=== PATIENT | female | born 1960 | race Caucasian/White ===

== ENCOUNTER → 2023-08-30 06:57 | Outpatient (REF) | payer BC, SELFPAY | LOC: MRI 06:57 | PROVIDERS: ATTENDING PHYSICIAN Physician Assistant Medical; FAMILY PHYSICIAN Physician Assistant Medical | DX: M25.561 Pain in right knee (principal) | CPT/HCPCS: 73721 ==

== ENCOUNTER 2023-09-13 06:24 | Day surgery (SDC) | payer BC, SELFPAY ==
[2023-09-10 13:42] VITALS: BMI 30.8
[2023-09-10 14:18] LABS: Hematocrit 39.3 % (37.0-47.0); Hemoglobin 13.7 g/dL (12.0-16.0); Mean Corp Hgb Conc. 34.9 g/dL (33.0-37.0); Mean Corpuscular Hgb 32.9 pg (27.0-31.0); Mean Corpuscular Volume 94.5 fL (81.0-99.0); Mean Platelet Volume 9.7 fL (7.4-10.4); Platelet Count 242 10^3/uL (130-400); Red Blood Cell Count 4.16 10^6/uL (4.20-5.40); Red Cell Dist. Width 13.3 % (11.5-14.5); White Blood Cell Count 8.6 10^3/uL (4.8-10.8)
--- NOTE | 2023-09-10 16:04 | PTCARENOTE ---
reviewed preop ECG from today; no actions requested.
[2023-09-13] VITALS (7 sets, daily range): BP systolic 110–131; BP diastolic 68–91; BMI 30.8
[2023-09-13] MEDS: NORMOSOL-R 1000 IV (10:10)
[2023-09-13] MEDS: CELEBREX 200 MG PO (10:11)
[2023-09-13] MEDS: TYLENOL 1000 MG PO (10:12)
[2023-09-13] MEDS: DILAUDID 0.25 MG IV (13:07)
== END 2023-09-13 15:05 | disposition home or self-care (01) ==
LOC: SDS 06:24
PROVIDERS: ATTENDING PHYSICIAN Orthopaedic Surgery; FAMILY PHYSICIAN Physician Assistant Medical
DX: S83.231A Complex tear of medial meniscus, current injury, right knee, initial encounter (principal); X58.XXXA Exposure to other specified factors, initial encounter; Z86.711 Personal history of pulmonary embolism
CPT/HCPCS: 29881; 36415; 85027; 93005

== ENCOUNTER → 2024-03-11 06:53 | Outpatient (REF) | payer BC, SELFPAY ==
[2024-03-11 07:19] LABS: % Basophils 0.9 % (0-2); % Immature Granulocytes 0.3 % (0-0.5); % Lymphocytes 29.1 % (20.5-51.1); % Monocytes 11.7 % (1.7-9.3); Absolute Basophils 0.1 10^3/uL (0-0.2); Absolute Eosinophils 0.2 10^3/uL (0-0.7); Absolute Lymphocytes 1.7 10^3/uL (1.2-3.4); Absolute Monocytes 0.7 10^3/uL (0.1-0.6); Absolute Neutrophils 3.2 10^3/uL (1.4-6.5); Hematocrit 37.6 % (37.0-47.0); Hemoglobin 12.7 g/dL (12.0-16.0); Mean Corp Hgb Conc. 33.8 g/dL (33.0-37.0); Mean Corpuscular Hgb 31.8 pg (27.0-31.0); Mean Corpuscular Volume 94.2 fL (81.0-99.0); Mean Platelet Volume 9.4 fL (7.4-10.4); Nucleated Red Blood Cells % 0 %; Platelet Count 226 10^3/uL (130-400); Red Blood Cell Count 3.99 10^6/uL (4.20-5.40); Red Cell Dist. Width 12.6 % (11.5-14.5); White Blood Cell Count 5.7 10^3/uL (4.8-10.8)
[2024-03-11 07:58] LABS: ALT (SGPT) 19 U/L (0-35); AST (SGOT) 28 U/L (14-36); Albumin 4.4 g/dl (3.5-5.0); Alkaline Phosphatase 59 U/L (38-126); Blood Urea Nitrogen 16 mg/dl (7-17); Calcium 9.3 mg/dl (8.4-10.2); Carbon Dioxide 25 mmol/L (22-30); Chloride 105 mmol/L (98-107); Glucose 95 mg/dl (70-99); HDL Cholesterol 81 mg/dl; LDL Cholesterol, Calculated 134 mg/dl; Potassium 4.6 mmol/L (3.5-5.1); Sodium 142 mmol/L (135-145); Total Bilirubin 0.6 mg/dl (0.2-1.3); Total Cholesterol 231 mg/dl (50-199); Total Protein 7.5 g/dl (6.3-8.2); Triglyceride 80 mg/dl (10-149); Very Low Density Lipoprotein 16 mg/dl (0-30); eGFR > 60.00
[2024-03-11 08:16] LABS: TSH 0.16 uIU/ml (0.47-4.68)
== END ==
LOC: REG 06:53
PROVIDERS: ATTENDING PHYSICIAN Internal Medicine; FAMILY PHYSICIAN Physician Assistant Medical
DX: Z00.00 Encounter for general adult medical examination without abnormal findings (principal); E03.9 Hypothyroidism, unspecified
CPT/HCPCS: 36415; 80053; 80061; 84443; 85025

== ENCOUNTER 2024-06-11 10:08 | Inpatient (IN) | payer BC, SELFPAY ==
[2024-06-11] VITALS (18 sets, daily range): BP systolic 96–137; BP diastolic 67–109
--- NOTE | 2024-06-11 07:43 | ED.GENMED ---
History of Present Illness
General
Chief Complaint: Breathing Problem
Source: patient
Exam Limitations: none
Time Seen by Provider: 06/11/24 07:33
Nursing documentation reviewed up to this point in time: agreed with
History of Present Illness
History of Present Illness:
64-year-old female with past medical history of interstitial lung disease who presents to the emergency department for evaluation of cough and shortness of breath. Patient reports that unfortunately she had norovirus a few weeks ago with
nausea/vomiting/diarrhea�the symptoms resolved in about 3 to 4 days ago unfortunately patient started becoming ill again this time with cough. She says symptoms worsened and she was having shortness of breath and so she went to urgent care on
Sunday. There she said she was diagnosed with pneumonia and told that she had crackles in her lungs. She did not have a chest x-ray but she was treated empirically with cephalexin and azithromycin which she has taken x 3 days; despite these
interventions she says that symptoms have been worsening and she was having increasing shortness of breath particularly with exertion, this morning could not breathe and called EMS to bring her to the hospital. Per EMS on their arrival patient was
hypoxic and mildly cyanotic, tachypneic; she was placed on oxygen with improvement. She was transported to the emergency room.
Past History
Past History
ED Past Medical History: Hypothyroidism
ED Past Surgical History:
Social History
Tobacco: Non-smoker
Review of Systems
Review of Systems
All Other Systems: ROS reviewed and negative except as documented in HPI and ROS
Constitutional: Denies fever or chills
EENT: Denies sore throat
Respiratory: Reports cough and trouble breathing
Cardiac: Denies chest pain or palpitations
ABD/GI: Denies abdominal pain, nausea, vomiting or diarrhea
: Denies flank pain
Musculoskeletal: Denies neck pain or back pain
Neurological: Denies headache
Phy Exam
Physical Exam
Physical Exam:
General: Awake, alert, oriented x3; nontoxic
Head: Normocephalic, atraumatic
Eyes: Conjunctiva normal
Throat: Airway intact, handling secretions
Neck: Trachea midline, supple without meningismus
Lungs: Hypoxic in the 80s requiring 3 L nasal cannula; she is tachypneic with respiratory rates in the high 20s but she has no increased work of breathing; she has rales at the right greater than left lung base
Heart: Tachycardia with regular rhythm, no murmurs, gallops, or rubs
Abd: Soft, non distended, nontender
Neuro: No gross deficits
Extremities: No edema in extremities, equal pulses in all extremities
Scores
Heart Failure Risk
Heart Failure Risk Score: Not Applicable
Heart Score for Chest Pain Patients
STEMI patient?: Not applicable
Withdrawal Assessment of Alcohol
Withdrawal Assessment Completed?: Not applicable
Course
Orders/Labs/Results
Orders:
Orders
06/11/24 07:19
Electrocardiogram (*1) Urgent
Reason for Study: Chest Pain
Cardiac Monitoring- Treatment ONCE
06/11/24 07:20
EKG- Treatment ONCE
06/11/24 07:42
COVID-19 Antigen Urgent
Source: Nasal Swab
Complete Blood Count/With Diff Urgent
Comprehensive Metabolic Panel Urgent
Troponin I Urgent
Influenza A+B Rapid Molecular Urgent
SALO Source: Nasal Swab
Specimen Description:
CR Chest - 2 Views Urgent
Comment:
Reason For Exam: cough, hypoxia
06/11/24 07:47
Lactate Level [Lactic Acid] Urgent
06/11/24 08:00
Blood Culture Q30M
SALO Source: Blood/Venous
Specimen Description:
06/11/24 08:30
Blood Culture Q30M
SALO Source: Blood/Venous
Specimen Description:
Abnormal Lab Results
06/11/24
07:42
WBC 17.4 H 10^3/uL
(4.8-10.8)
RBC 3.62 L 10^6/uL
(4.20-5.40)
Hct 33.7 L %
(37.0-47.0)
MCH 33.1 H pg
(27.0-31.0)
Abs Immat Gran (auto) 0.1 H 10^3/uL
(0-0.05)
Absolute Neuts (auto) 14.7 H 10^3/uL
(1.4-6.5)
Absolute Lymphs (auto) 1.1 L 10^3/uL
(1.2-3.4)
Absolute Monos (auto) 1.4 H 10^3/uL
(0.1-0.6)
Neutrophils % 85.0 H %
(42.2-75.2)
Lymphocytes % 6.1 L %
(20.5-51.1)
Sodium 134 L mmol/L
(135-145)
Carbon Dioxide 21 L mmol/L
(22-30)
Glucose 126 H mg/dl
(70-99)
06/11/24 07:42
06/11/24 07:42
Vital Signs
Initial and Last Documented VS:
Initial Vital Signs
Pulse Ox
85
06/11/24 07:21
Last Documented Vital Signs
Temp Pulse Resp BP Pulse Ox
36.9 C 97 28 118/77 96
06/11/24 07:22 06/11/24 07:30 06/11/24 07:34 06/11/24 07:24 06/11/24 07:50
MDM/Problems Addressed
Differential Diagnosis Includes:
Pneumonia, bronchitis, pneumothorax, ILD; PE considered less likely clinically
MDM/Problems Addressed:
64-year-old female presents for evaluation of cough and shortness of breath increasing despite empiric treatment for pneumonia as an outpatient. Hypoxic and tachypneic requiring supplemental oxygen. Physical exam as above�she does have localized
rales lower lungs. Will place an IV send labs including a CBC and a CMP, lactate, blood cultures. Swab for COVID and flu. Obtain chest x-ray. EKG reviewed shows nonspecific ST and T wave changes likely related to hypoxia. Will check troponin.
Monitor closely reassess after the above.
Labs reviewed: CBC shows a leukocytosis to 17.4. CMP no clinically significant abnormalities. Troponin undetectable. COVID and flu negative. Chest x-ray reviewed by me shows bilateral pneumonia. Will cover with antibiotics, admit with acute
hypoxic respiratory failure and concern for possible sepsis secondary to pneumonia. Case discussed with hospitalist for admission.
*Radiology
Radiology exam reviewed: preliminary read by ED provider and radiology read reviewed
*Pulse Oximetry
Patient hypoxic: yes
*EKG
Interpreted by ED Provider?: Yes
Heart Rate: 94
Rate: normal
Rhythm: sinus
[place]: normal axis
Interval: normal interval
QRS Pattern: normal QRS
Ischemia: non-specific ST changes
*Critical Care Note
Total Time (30-74mins, 75-104mins- exclusive of procedures): 30
comment:
Critical care statement: A total of 30 minutes of critical care time was provided for this patient. This includes management of unstable vital signs, evaluation of the patient at bedside, frequent reassessment, discussion with
consultants/hospitalist, and review of pertinent medical records. This time was separate from time utilized to perform any aforementioned documented procedures
Data Reviewed
Review of Other/Old Records Reveals: Labs and Records
Source: patient and records
Patient Management
Discussion with other providers: Hospitalist (Discussed with hospitalist)
Escalation/DeEscalation of care consider admission/obs:
Admission indicated
ED Attending Note
-
Portions of this chart may have been created with voice recognition software.� Occasional wrong word or��sound alike� substitutions may have occurred due to the inherent limitations of voice recognition software.
Discharge Plan
Departure
Discharge Problem:
Acute hypoxemic respiratory failure
Prescriptions:
No Action
levothyroxine 175 MCG tablet
175 mcg PO DAILY
multivitamin with folic acid [Tab-A-Brant] 1 TABLET tablet
1 tab PO DAILY
calcium carbonate [Calcium 600] 600 mg calcium (1,500 mg) Tablet
1,200 mg PO DAILY
vitamin B complex Tablet
1 tab PO DAILY
cholecalciferol (vitamin D3) [Vitamin D3] 50 mcg (2,000 unit) Tablet
50 mcg PO DAILY
turmeric 400 mg Capsule
1 mg PO BID
acetaminophen [Tylenol Ex Str Arthritis Pain] 500 mg Tablet
500 mg PO Q6H PRN (Reason: pain)
Interventions
Interventions:
*Risk Screen - Suicide Last Done: 06/11/24 07:22
*General Assessment Last Done: 06/11/24 07:22
*Neglect/Abuse Screening Last Done: 06/11/24 07:22
ED- Fall Risk Assessment Last Done: 06/11/24 07:50
*ED COVID-19 Vaccine History Last Done: 06/11/24 07:22
ED- Cardiac Assessment Last Done: 06/11/24 07:50
ED- Pulmonary Assessment Last Done: 06/11/24 07:50
Discharge Date and Time
Print Language: ESTONIAN
[2024-06-11 07:59] LABS: % Basophils 0.4 % (0-2); % Eosinophils 0.2 % (0-6); % Immature Granulocytes 0.4 % (0-0.5); % Lymphocytes 6.1 % (20.5-51.1); % Monocytes 7.9 % (1.7-9.3); Absolute Basophils 0.1 10^3/uL (0-0.2); Absolute Immature Granulocytes 0.1 10^3/uL (0-0.05); Absolute Lymphocytes 1.1 10^3/uL (1.2-3.4); Absolute Monocytes 1.4 10^3/uL (0.1-0.6); Absolute Neutrophils 14.7 10^3/uL (1.4-6.5); Hematocrit 33.7 % (37.0-47.0); Mean Corp Hgb Conc. 35.6 g/dL (33.0-37.0); Mean Corpuscular Hgb 33.1 pg (27.0-31.0); Mean Corpuscular Volume 93.1 fL (81.0-99.0); Mean Platelet Volume 9.3 fL (7.4-10.4); Nucleated Red Blood Cells % 0 %; Platelet Count 242 10^3/uL (130-400); Red Blood Cell Count 3.62 10^6/uL (4.20-5.40); White Blood Cell Count 17.4 10^3/uL (4.8-10.8)
[2024-06-11 08:06] LABS: COVID-19 Antigen Negative (Negative)
[2024-06-11 08:08] LABS: ALT (SGPT) 20 U/L (0-35); AST (SGOT) 32 U/L (14-36); Albumin 4.1 g/dl (3.5-5.0); Alkaline Phosphatase 86 U/L (38-126); Blood Urea Nitrogen 10 mg/dl (7-17); Carbon Dioxide 21 mmol/L (22-30); Chloride 101 mmol/L (98-107); Estimated Creatinine Clearance 96 ml/min; Glucose 126 mg/dl (70-99); Potassium 4.2 mmol/L (3.5-5.1); Sodium 134 mmol/L (135-145); Total Bilirubin 1.1 mg/dl (0.2-1.3); Total Protein 7.7 g/dl (6.3-8.2); eGFR > 60.00
[2024-06-11 08:19] LABS: Troponin I < 0.012 ng/ml
[2024-06-11] MEDS: NSS 1000 IV (09:15)
[2024-06-11] MEDS: MAXIPIME 1000 MG IV (09:30)
--- NOTE | 2024-06-11 09:30 | HPS.HSE ---
Family Physician
-
Family Physician: Rafiq Slater MD
Chief Complaint
-
cough, SOB
History of Present Illness
HPI: 64-year-old female with past medical history of interstitial lung disease, distant history of provoked PE, p/w cough and shortness of breath.
Patient reported that she had norovirus a few weeks ago with nausea/vomiting/diarrhea� symptoms resolved in about 3 to 4 days ago, but she started having cough and SOB. She went to urgent care on Sunday and was diagnosed with pneumonia. She did not
have a chest x-ray but she was treated empirically with cephalexin and azithromycin which she has taken x 3 days.
Despite these interventions, her symptoms have gotten worse.
In the morning, she could not breathe and called EMS to bring her to the hospital.
Per EMS on their arrival patient was hypoxic and mildly cyanotic, tachypneic; she was placed on oxygen with improvement.
Medical History
Past Medical History
Past Medical History: Reports Other
Additional Past Medical History:
Interstitial lung disease
distant history of provoked PE
Past Surgical History: Reports Other
Additional Past Surgical History:
L ankle surgery
C section
Social History
Tobacco: Non-smoker
Alcohol: Occasional
Family History
Family History: Not pertinent
Allergies / Home Medications
Allergies reflects when Allergies were last updated in [facility].
Home Medications with original date entered in [facility]
Allergy/Medication List:
Medications on admission are unable to be verified or confirmed at this time.
Review of Systems
-
Respiratory: Reports See HPI, Cough and Trouble Breathing
Physical Exam
Vital Signs
Vital Signs
Temp Pulse Resp BP Pulse Ox
36.9 C 97 28 118/77 96
06/11/24 07:22 06/11/24 07:30 06/11/24 07:34 06/11/24 07:24 06/11/24 07:50
Physical Exam
General: Well Developed, Well Nourished, Comfortable and Conversant
HEENT: NormoCephalic, Moist mucous membranes, Atraumatic and Oxygen (3L NC)
Respiratory: Crackles (BL bases) and Non Labored Respirations; No Accessory Resp Muscle Use
Cardiac: S1/S2 and Regular Rhythm; No Murmur or Rub
GI: Soft, Non Tender, Non Distended and Normal Bowel Sounds; No Organomegaly
Rectal: Deferred by Provider
Musculoskeletal: No Clubbing, No Cyanosis and No Edema
Skin: No Rash
Neuro: Awake and Alert
Psych: Calm and Intact Judgment/Insight
Laboratory Results
-
06/11/24 07:42
06/11/24 07:42
Laboratory Results
Total Bilirubin 1.1 mg/dl (0.2-1.3) 06/11/24 07:42
AST 32 U/L (14-36) 06/11/24 07:42
ALT 20 U/L (0-35) 06/11/24 07:42
Alkaline Phosphatase 86 U/L (38-126) 06/11/24 07:42
Troponin I < 0.012 ng/ml 06/11/24 07:42
Data Reviewed
-
Diagnostic Radiology: Image Personally Visualized and interpreted
Lab Data: Labs Reviewed by me
Impression/Plan
-
HPI: 64-year-old female with past medical history of interstitial lung disease, distant history of provoked PE, p/w cough and shortness of breath.
Patient reported that she had norovirus a few weeks ago with nausea/vomiting/diarrhea� symptoms resolved in about 3 to 4 days ago, but she started having cough and SOB. She went to urgent care on Sunday and was diagnosed with pneumonia. She did not
have a chest x-ray but she was treated empirically with cephalexin and azithromycin which she has taken x 3 days.
Despite these interventions, her symptoms have gotten worse.
In the morning, she could not breathe and called EMS to bring her to the hospital.
Per EMS on their arrival patient was hypoxic and mildly cyanotic, tachypneic; she was placed on oxygen with improvement.
A/P:
# Acute hypoxic respiratory insufficiency 2/2 CAP
# sepsis POA 2/2 BL CAP
CXR on my view with BL PNA, follow formal report
COVID/FLU negative
Cont O2 support at 3L NC, wean as tolerated, pt not on home O2
Check sputum Cx, urine Legionella/Strep, MRSA screen
Follow blood culture
s/p cefepime/Vanc in ED, cont Cefepime/doxycycline
Cont Duonebs ATC and PRN, Tessalon ATC, Mucinex
# Mild hyponatremia due to above
# h/o ILD
# distant history of provoked PE followed by ankle surgery 2016
DVT ppx: Lovenox SQ
FC
[2024-06-11 09:32] LABS: Lactic Acid 1.2 mmol/L (0.7-2.0)
--- NOTE | 2024-06-11 09:37 | EDRN ---
phamacist called to mix and send vacocin at this time.
--- NOTE | 2024-06-11 09:44 | EDRN ---
Dr. Dan in room w/pt at this time.
[2024-06-11] MEDS: VANCOCIN 540 MG IV (10:38)
[2024-06-11] MEDS: TESSALON PERLES 100 MG PO ×3 (12:16→20:45)
[2024-06-11] MEDS: DUONEB 3 ML INH ×2 (15:41→19:39)
--- NOTE | 2024-06-11 15:42 | EDRN ---
Resp therapist in room w/ pt for neb treatment.
[2024-06-11] MEDS: VIBRAMYCIN 260 MG IV (16:16)
[2024-06-11] MEDS: STERILE WATER FOR INJECTION 10 ML IV (17:39)
[2024-06-11] MEDS: LOVENOX 40 MG SC (17:39)
[2024-06-11] MEDS: MAXIPIME 2000 MG IV (17:39)
[2024-06-11] MEDS: TYLENOL 500 MG PO (19:18)
[2024-06-11] MEDS: MUCINEX 1200 MG PO (19:18)
[2024-06-12] VITALS (9 sets, daily range): BP systolic 101–134; BP diastolic 71–93
[2024-06-12] MEDS: MAXIPIME 2000 MG IV ×3 (03:00→17:54)
[2024-06-12] MEDS: STERILE WATER FOR INJECTION 10 ML IV ×3 (03:00→17:53)
[2024-06-12] MEDS: VIBRAMYCIN 260 MG IV (03:03)
[2024-06-12] MEDS: SYNTHROID 137 MCG PO (05:27)
[2024-06-12] MEDS: TYLENOL 500 MG PO ×2 (05:27→20:47)
[2024-06-12] MEDS: PHENERGAN SYRUP 12.5 MG PO (05:48)
[2024-06-12] MEDS: DUONEB 3 ML INH ×4 (07:29→19:55)
--- NOTE | 2024-06-12 08:31 | W.PN.HOSP.TC ---
Today's Communication/Plan
-
see A/P
Upgrade to IMU for worsening hypoxia, now with acute hypoxic resp failure on 10L mid flow
Assessment / Plan
Assessment / Plan
HPI: 64-year-old female with past medical history of interstitial lung disease, distant history of provoked PE, p/w cough and shortness of breath.
Patient reported that she had norovirus a few weeks ago with nausea/vomiting/diarrhea� symptoms resolved in about 3 to 4 days ago, but she started having cough and SOB. She went to urgent care on Sunday and was diagnosed with pneumonia. She did not
have a chest x-ray but she was treated empirically with cephalexin and azithromycin which she has taken x 3 days.
Despite these interventions, her symptoms have gotten worse.
In the morning, she could not breathe and called EMS to bring her to the hospital.
Per EMS on their arrival patient was hypoxic and mildly cyanotic, tachypneic; she was placed on oxygen with improvement.
A/P:
# Acute hypoxic respiratory failure 2/2 CAP with underlying chronic ILD
# sepsis POA 2/2 BL CAP
CXR: Chronic interstitial lung disease/fibrosis, progressed. Possible superimposed left-sided pneumonia.
Cont O2 support, increased to 10L mid flow due to worsening hypoxia,
wean O2 when able, pt not on home O2
Check CT PE
Cont Cefepime/doxycycline
Add empiric Decadron 4 mg Q8H for underlying ILD
COVID/FLU negative
Follow sputum Cx, urine Legionella/Strep, MRSA screen, blood culture
Cont Duonebs ATC and PRN, Tessalon ATC, Mucinex
Pulm CS
# Mild hyponatremia due to above
# h/o ILD
# distant history of provoked PE followed by ankle surgery 2015
DVT ppx: Lovenox SQ
FC
CC Mx for acute hypoxic resp failure
CC time 40 min
Anticipated Discharge: > 48 hours
Subjective/Interval History
-
Date of Service: June 12, 2024
Objective Data
-
Labs:
Laboratory Results
06/12/24
06:18
WBC Pending
Hgb Pending
Hct Pending
Plt Count Pending
Sodium Pending
Potassium Pending
Chloride Pending
Carbon Dioxide Pending
BUN Pending
Creatinine Pending
Glucose Pending
Calcium Pending
Vital Signs:
Vital Signs
Temp Pulse Resp BP Pulse Ox
36.9 C 96 25 101/71 91
06/12/24 07:30 06/12/24 07:37 06/12/24 07:37 06/12/24 07:30 06/12/24 07:37
I&O
06/11/24 06/12/24 06/13/24
06:59 06:59 06:59
Intake Total 980 / 980
Output Total 250 / 250
Balance 730 / 730
Review of Systems
-
Respiratory: Reports Trouble Breathing
Physical Exam
-
General: Well Developed, Well Nourished, Respiratory Distress and Conversant
HEENT: Normocephalic, Atraumatic, Nose Appears Normal, Ears Appear Normal and Oxygen (10L midflow )
Respiratory: Clear to Auscultation and Non Labored Respirations
Cardiac: Regular Rhythm and S1/S2
GI: Soft, Nontender, Nondistended and Normal Bowel Sounds
Skin: Warm and Dry
Neuro: Awake, Alert, Oriented and AO x 3
Psych: Calm and Intact Judgement/Insight
Data Reviewed
-
Diagnostic Radiology: Image personally visualized and interpreted and Report Reviewed by me
Labs: Labs Reviewed by me
[2024-06-12 08:36] LABS: % Basophils 0.4 % (0-2); % Eosinophils 0.3 % (0-6); % Immature Granulocytes 0.5 % (0-0.5); % Lymphocytes 5.9 % (20.5-51.1); % Monocytes 8.1 % (1.7-9.3); % Neutrophils 84.8 % (42.2-75.2); Absolute Basophils 0.1 10^3/uL (0-0.2); Absolute Eosinophils 0.1 10^3/uL (0-0.7); Absolute Immature Granulocytes 0.1 10^3/uL (0-0.05); Absolute Lymphocytes 0.9 10^3/uL (1.2-3.4); Absolute Monocytes 1.2 10^3/uL (0.1-0.6); Absolute Neutrophils 12.8 10^3/uL (1.4-6.5); Hematocrit 30.7 % (37.0-47.0); Hemoglobin 10.6 g/dL (12.0-16.0); Mean Corp Hgb Conc. 34.5 g/dL (33.0-37.0); Mean Corpuscular Hgb 33.4 pg (27.0-31.0); Mean Corpuscular Volume 96.8 fL (81.0-99.0); Mean Platelet Volume 9.9 fL (7.4-10.4); Nucleated Red Blood Cells % 0 %; Platelet Count 237 10^3/uL (130-400); Red Blood Cell Count 3.17 10^6/uL (4.20-5.40); Red Cell Dist. Width 13.2 % (11.5-14.5)
[2024-06-12] MEDS: MUCINEX 1200 MG PO ×2 (08:55→20:45)
[2024-06-12] MEDS: TESSALON PERLES 100 MG PO ×3 (08:56→20:45)
[2024-06-12] MEDS: DECADRON 4 MG IV ×3 (08:57→20:45)
[2024-06-12 10:41] LABS: Blood Urea Nitrogen 8 mg/dl (7-17); Calcium 8.3 mg/dl (8.4-10.2); Carbon Dioxide 19 mmol/L (22-30); Chloride 105 mmol/L (98-107); Estimated Creatinine Clearance 112 ml/min; Glucose 117 mg/dl (70-99); Sodium 136 mmol/L (135-145); eGFR > 60.00
--- NOTE | 2024-06-12 10:52 | CM ---
Pt seen bedside. Initial assessment completed. 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
Pt lives alone in a single story home-2 steps to enter.
Pt is independent, denies DME use for ambulating or daily functioning
Denies SNF/VN/PT. Pt did engage in OP therapy at 2 years ago when she broke her ankle
Address, point of contact and insurance verified.
PCP: Dr. Rafiq Slater
Pharmacy: [facility]
Pt currently on 10 L O2, not on home O2
Pending transfer to IMU for worsening hypoxia
Plan: CM will cont to follow hospital course for d/c planning.
[2024-06-12 11:07] LABS: Hepatitis C Antibody Negative (Negative)
--- NOTE | 2024-06-12 11:11 | PTCARENOTE ---
Report given to Regina on IMU. Pt to be transferred there. Pt at CT scan at present.
--- NOTE | 2024-06-12 11:23 | CON.PUL ---
Consultation
Consultation Request
Date/Time Consultation Requested: 06/12/2020
Date/Time Consultation Performed: 06/12/2020
Requesting Provider: Dr. Dan
Performing Provider: Dr. Benedicto Stringer
Reason for Consultation: Hypoxemic respiratory failure, pneumonia
Medical History
-
History of Present Illness:
-
64-year-old woman with past medical history of interstitial disease based on CAT scan from 2022-never seen by pulmonary in the recent past, distant history of provoked pulmonary embolism in 2016, admitted to the hospital on 06/11/2024 complaining of
cough and shortness of breath. Patient has history of having norovirus few weeks ago with nausea, vomiting and significant diarrhea symptoms resolved after few days. Then subsequently she started developing cough and shortness of breath. Last
Sunday went to urgent care and she was diagnosed with pneumonia. No x-ray was performed but was treated with antibiotics cephalexin and azithromycin.
Symptoms progressed despite antibiotics.
Shortness of breath progressed to the point that EMS was called and she was sent to the hospital. She was hypoxic, cyanotic and tachypneic on evaluation at home.
Oxygen was supplied.
Chest x-ray demonstrated bilateral infiltrates. Significantly worse compared to prior imaging.
She was noted to have leukocytosis, low-grade fevers also noted.
Due to worsening hypoxemia requiring up to 10 L supplemental oxygen we were consulted for evaluation.
Prior to this patient never had any significant pulmonary problems. It is noted in W that she has an appointment with pulmonary next year for evaluation of interstitial lung disease seen on CAT scan in July 2022.
Denies swallowing problems.
Denies hemoptysis
Denies any rash
Denies arthritis
-
She does report her shortness of breath started about 2 to 3 months ago.
Does report significant worsening of symptoms after developing norovirus. Possible aspiration.
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 Has been going on for several weeks.
-
[facility] records recommended pulmonary follow-up last year. She has an appointmentScheduled for July 2024 in our office.
It is noted in cardiology note that the patient was not significantly short of breath -able to perform 4 METS without symptoms.
Past Medical History
Past Medical History: Other (See assessment and plan)
Social History
Tobacco: Non-smoker
Alcohol: Daily (Wine 1 to 2 glass)
Drug: None
Personal:
Living: With Family
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
Occupational Exposures: Denies
Environmental Exposures: Denies
Family History
Family History: Reviewed & Not Pertinent
Allergies / Home Medications
Allergies
Allergy/AdvReac Type Severity Reaction Status Date / Time
No Known Allergies Allergy Verified 06/11/24 07:20
Home Medications
�Medication �Instructions �Recorded �Confirmed �Last Taken �Type
calcium carbonate (Calcium 600) 600 mg PO DAILY Supplement 09/07/23 06/11/24 09/11/23 History
cholecalciferol (vitamin D3) 50 50 mcg PO DAILY Supplement 09/07/23 06/11/24 09/07/23 History
mcg (2,000 unit) tablet (Vitamin
D3)
albuterol sulfate 90 mcg/actuation 2 puff inhalation R Q4HPRN PRN sob 06/11/24 06/11/24 06/10/24 History
aerosol inhaler
ascorbate calcium (vitamin C) 500 500 mg PO DAILY Supplement 06/11/24 06/11/24 06/10/24 History
mg tablet
azithromycin 250 mg tablet 250 mg PO DAILY Infection 06/11/24 06/11/24 06/10/24 History
(Zithromax Z-Jose D)
cefpodoxime 200 mg tablet 200 mg PO Q12H Infection 06/11/24 06/11/24 06/10/24 History
levothyroxine 137 mcg tablet 137 mcg PO DAILY Thyroid 06/11/24 06/11/24 06/11/24 History
therapeutic multivitamin 1 tab PO DAILY Supplement 06/11/24 06/11/24 06/10/24 History
zinc sulfate 50 mg zinc (220 mg) 50 mg PO DAILY Supplement 06/11/24 06/11/24 06/10/24 History
tablet
Review of Systems
-
History Source: Patient
All other systems: Negative unless noted
Vitals / Labs / Diagnostic Testing
Vital Signs
Temp Pulse Resp BP Pulse Ox
98.5 F 96 25 101/71 94
06/12/24 07:30 06/12/24 07:37 06/12/24 07:37 06/12/24 07:30 06/12/24 08:45
Lab Data
06/12/24 06:18
06/12/24 06:18
Microbiology
06/11/24 20:42 Urine Legionella Urinary Antigen - Final
Negative for Legionella pneumophila Serogroup 1 antigen.
A negative result does not rule out the possiblity of
Legionella infection due to other serogroups or species of
Legionella. Clinical correlation is recommended.
06/11/24 20:42 Urine Streptococcus pneumoniae Antigen (M - Final
Negative for Streptococcus pneumoniae antigen.
A negative result does not exclude infection with
Streptococcus pneumoniae. Clinical correlation is
recommended.
06/11/24 09:16 Blood/Venous Blood Culture - Preliminary
No Growth in 24 hours- Final report to follow
06/11/24 09:06 Blood/Venous Blood Culture - Preliminary
No Growth in 24 hours- Final report to follow
06/11/24 07:42 Nasal Swab Influenza Types A & B (AARON) - Final
Negative for Influenza A & B, NAAT
Negative results must be combined with clinical observations
and patient history.
Nucleic Acid Amplification test (NAAT)performed on the
[employer] platform.
Diagnostic Testing:
Physical Exam
-
HEENT: Normocephalic
Cardiovascular: S1/S2
Respiratory: Rales
GI: Soft and Non Distended
Neurology: Awake, Alert, Oriented and AO x 3
Skin: Warm
General: Respiratory Distress (Mild with conversation)
Assessment
-
64-year-old woman with distant past medical history of provoked pulmonary embolism, interstitial lung disease which is mild on CAT scan 07/2022 undifferentiated, has not been seen by pulmonary despite being recommended last year. Comes to the
hospital complaining of progressive shortness of breath, cough, hypoxemia. X-ray with significant bilateral infiltrates. Follow-up CT demonstrated severely diffuse groundglass opacities. Progressive hypoxemic respiratory failure up to 10 L.
Severe acute hypoxemic respiratory failure currently on 10 [address] flow
[address] chest06/12/2024: Diffuse groundglass opacity bilateral. No pleural effusion. I do not appreciate any significant pulmonary embolism-wait for official report.
Possible community-acquired pneumonia on top of mild interstitial lung disease first seen on CAT scan 07/2022
Cannot rule out interstitial pulmonary disease flare.
Negative Legionella
Negative influenza
Negative COVID
EKG 06/11/2024: Normal sinus rhythm. ST-T wave abnormality consider inferior ischemia.
leukocytosis/fever
Mild hyponatremia.
-
Interstitial lung disease : Undifferentiated
Formerly seen on CAT scan 07/2022 for the first time. Mild, peripheral, undifferentiated.
Conditions present prior admission:
History of PE/DVT provoked after foot injury [address] of the chest at that time: No mention of interstitial lung disease.
History of influenza in 2018/2018 With pneumonia.
History of COVID mildly 2021.
History of ankle fracture on the left status post repair 2023.
Assessment and plan:
Rapidly progressive hypoxemic respiratory failure-currently on [address]
CT chest demonstrated severely diffuse groundglass opacities without pleural effusions but has mildly increased mediastinal lymph nodes. No pericardial effusion.
-
Differential diagnosis include infectious such as community-acquired pneumonia viral/bacterial-cannot rule out interstitial lung disease acute flare-broad differential diagnosis.
-
Less likely pulmonary edema. Most recent echocardiogram with normal LVEF.
-
In reviewing records patient was recommended to follow-up with pulmonary in 2022-she has an appointment in July 2023. At that time interstitial changes were mild.
Patient reports worsening of symptoms over the last 2 to 3 months mainly exertional shortness of breath. Significantly worsening after about 2 weeks ago developing norovirus with significant nausea and vomiting. Unclear whether she aspirated.
Her interstitial lung disease is undifferentiated.
-
With leukocytosis and low-grade fevers infectious etiology a possibility: Agree with broad-spectrum antibiotics -Currently on doxycycline and cefepime. Will add vancomycin as well.
Agree with systemic corticosteroids for severe pneumonia/rapidly progressive hypoxemic respiratory failure and possibility of interstitial lung disease flare.
Obtain blood cultures and sputum culture if able
So far infectious workup negative including influenza, COVID, Legionella and strep pneumonia.
MRSA screening pending
-
Prior laboratory testing reviewed 03/11/2024: Normal CBC without peripheral eosinophilia.
Normal renal function normal electrolytes.
Negative troponins
Normal LFTs
Patient denies any occupational or environmental exposures.
Denies prior history of rheumatologic disease.
Denies family history of interstitial lung disease.
-
Check urinalysis
Will obtain sed rate, CRP, rheumatologic workup while in the hospital
-
Currently on 10 L supplemental oxygen. Pulse ox 95% with conversation. Did have oxygen desaturation down to 70% without oxygen with movement.
If there is escalation of oxygen requirements up to high flow oxygen then will transfer to the critical care unit for evolving ARDS. Discussed with respiratory therapist, discussed with nursing.
for now continue IMU
-
High risk situation.
Will follow

Data reviewed:
CT chest 08/15/2022: Mild changes of pulmonary fibrosis, nonspecific pattern, pleural-based. Findings are new compared to prior study. Left lower lobe 4 mm nodule. Benign etiology.
Possible pericardial cyst 2.8 X1.8X 1.1 cm present in 2016 stable.
-
Echocardiogram 08/16/2022: Showed normal LVEF. No regional wall motion abnormalities. Ejection fraction 60 to 65%.
Normal right ventricular size and function.
No significant valvular disease.
-
CT chest 2016: Reviewed, bilateral lower lobe filling defects compatible with pulmonary embolism. Lower lobe subsegmental atelectasis. No focal abnormalities noted at that time.
Small pericardial cyst
-
Chest x-ray 2020: Mild diffuse interstitial thickening left greater than right possible ILD/fibrosis
--- NOTE | 2024-06-12 13:39 | PHA.VAN.IN ---
Addendum entered and electronically signed by Radha Pelletier [facility] 06/12/24 13:55:
CORRECTION - pt received 2000 mg vanc in ED on 06/11 @1038. 2000 mg vanc load dose was cancelled for today, and ordered 1250 mg now, 1250 mg at 2200 tonight. then 1250 mg q12h 0600,1800 starting 06/13.
Consider levels after kyle dose 06/13 ( 4th maint dose)
Original Note:
Assessment
- Assessment
Renal Function: Appears similar to baseline
Maximum Temperature: 100.4 06/11/24 @ 17:05
Concomitant Antimicrobials: doxycycline and cefepime
AUC Dosing Plan
- Dosing Variables
Dosing Weight (kg): 89
Dosing CrCl (ml/min): 100
Vd coefficient (L/kg): 0.6 ( BMI 30)
- Empiric Dosing
Initial / Loading Dose: 2000 mg x 1 dose - administration pending
Maintenance Regimen: 1250 mg q12h - start AM 06/13
Estimated AUC (mcg*h/mL): 571
Estimated Peak (mcg*h/mL): 36
Estimated Trough (mcg/ml): 14.4
Estimated Half Life (H): 7.6
- Monitoring
No levels ordered at this time: conisder levels before 1800 dose 06/14 ( 4th maint)
Pharmacokinetics Vancomycin I
- -
Patient Age: 64
Patient Sex: Female
Vancomycin Day #: 1
Indication: Pulmonary/Respiratory
Requesting Provider: Myke
Height / Weight:
Height 5 ft 8 in
Actual Weight 89.494 kg
Pertinent Past Medical History: BMI 30
- Vital Signs / Lab Results
Temp Pulse Resp BP Pulse Ox
98.5 F 101 31 101/71 91
06/12/24 07:30 06/12/24 12:17 06/12/24 12:17 06/12/24 07:30 06/12/24 13:24
Lab Results - Hematology
06/11/24 06/12/24
07:42 06:18
WBC 17.4 H 15.0 H
Lab Results - Chemistry
06/11/24 06/12/24
07:42 06:18
BUN 10 8
Creatinine 0.7 0.6
Estimated Creat Clear 96 112
Albumin 4.1
06/11/24
09:06
Lactic Acid 1.2
Microbiology Results
06/11/24 20:42 Legionella Urinary Antigen - Final
Urine Negative for Legionella pneumophila Serogroup 1 antigen.
A negative result does not rule out the possiblity of
Legionella infection due to other serogroups or species of
Legionella. Clinical correlation is recommended.
Streptococcus pneumoniae Antigen (M - Final
Negative for Streptococcus pneumoniae antigen.
A negative result does not exclude infection with
Streptococcus pneumoniae. Clinical correlation is
recommended.
06/11/24 09:16 Blood Culture - Preliminary
Blood/Venous No Growth in 24 hours- Final report to follow
06/11/24 09:06 Blood Culture - Preliminary
Blood/Venous No Growth in 24 hours- Final report to follow
06/11/24 07:42 Influenza Types A & B (AARON) - Final
Nasal Swab Negative for Influenza A & B, NAAT
Negative results must be combined with clinical observations
and patient history.
Nucleic Acid Amplification test (NAAT)performed on the
[employer] platform.
[2024-06-12] MEDS: VANCOCIN 275 MG IV ×2 (14:51→21:36)
--- NOTE | 2024-06-12 16:44 | PTCARENOTE ---
recieved pt from [address] [place] [address] unit d/t increased o2 needs and dyspnea. no changes in physical assessment as reported by transferring rn. pt is short of breath with minimal exertion such as talking . o2 increased to 13 liters from 10 liters. prn
nonrebreather at bedside for when pt uses commode and has increased dyspnea. pt has occasional harsh cough. iv decadron, antibiotics administered per order. emotional support provided. call martinez in pts reach.
[2024-06-12] MEDS: LOVENOX 40 MG SC (17:52)
[2024-06-12] MEDS: VIBRAMYCIN 100 MG PO (18:09)
[2024-06-12 21:01] LABS: Urine Albumin Trace (Neg - Trace); Urine Bilirubin Negative (Negative); Urine Character Clear (Clear); Urine Color Yellow; Urine Glucose Negative (Negative); Urine Ketone Negative (Negative); Urine Leukocyte Negative (Negative); Urine Nitrite Negative (Negative); Urine Occult Blood Negative (Negative); Urine Urobilinogen Negative (Neg - 1+)
--- NOTE | 2024-06-12 22:59 | PTCARENOTE ---
assumed care of patient. pt is AAOx3- able to make needs known. UA sent down to lab. pt is on 15L MFNC, 93%. SOB on exertion but able to use BSC by self without issues. pt has a productive cough, cup at bedside for sputum specimen. care ongoing.
[2024-06-13] VITALS (12 sets, daily range): BP systolic 103–128; BP diastolic 67–83; BMI 29.4
[2024-06-13] MEDS: PHENERGAN SYRUP 12.5 MG PO ×2 (00:15→21:43)
[2024-06-13] MEDS: STERILE WATER FOR INJECTION 10 ML IV ×3 (02:36→17:58)
[2024-06-13] MEDS: MAXIPIME 2000 MG IV ×3 (02:36→17:58)
[2024-06-13] MEDS: DECADRON 4 MG IV ×2 (02:36→08:12)
[2024-06-13] MEDS: VIBRAMYCIN 100 MG PO (05:39)
[2024-06-13] MEDS: SYNTHROID 137 MCG PO (05:39)
[2024-06-13] MEDS: VANCOCIN 275 MG IV (05:39)
--- NOTE | 2024-06-13 05:59 | PTCARENOTE ---
pt with not much oxygen reserve- once ambulating to BSC or coughing oxygen drops to low 80s- at times high 70s. non-rebreather then placed on patient. pt does recover after a few minutes to 90s. pt able to cough up bess sputum, specimen sent down to
lab. care ongoing.
[2024-06-13 06:22] LABS: % Basophils 0.1 % (0-2); % Immature Granulocytes 0.8 % (0-0.5); % Lymphocytes 5.5 % (20.5-51.1); % Monocytes 4.2 % (1.7-9.3); % Neutrophils 89.4 % (42.2-75.2); Absolute Immature Granulocytes 0.1 10^3/uL (0-0.05); Absolute Lymphocytes 0.9 10^3/uL (1.2-3.4); Absolute Monocytes 0.7 10^3/uL (0.1-0.6); Absolute Neutrophils 14.3 10^3/uL (1.4-6.5); Hematocrit 34.9 % (37.0-47.0); Mean Corp Hgb Conc. 34.4 g/dL (33.0-37.0); Mean Corpuscular Hgb 32.3 pg (27.0-31.0); Mean Corpuscular Volume 94.1 fL (81.0-99.0); Mean Platelet Volume 9.4 fL (7.4-10.4); Nucleated Red Blood Cells % 0 %; Platelet Count 276 10^3/uL (130-400); Red Blood Cell Count 3.71 10^6/uL (4.20-5.40); Red Cell Dist. Width 12.9 % (11.5-14.5)
[2024-06-13 06:23] LABS: Blood Urea Nitrogen 10 mg/dl (7-17); Calcium 9.4 mg/dl (8.4-10.2); Carbon Dioxide 22 mmol/L (22-30); Chloride 105 mmol/L (98-107); Estimated Creatinine Clearance 111 ml/min; Glucose 154 mg/dl (70-99); Potassium 4.2 mmol/L (3.5-5.1); Sodium 137 mmol/L (135-145); eGFR > 60.00
[2024-06-13 07:28] LABS: Erythrocyte Sed Rate 112 mm/hour (0-20)
[2024-06-13] MEDS: DUONEB 3 ML INH (08:04)
[2024-06-13] MEDS: MUCINEX 1200 MG PO ×2 (08:11→20:00)
[2024-06-13] MEDS: TESSALON PERLES PO ×3 (08:11→17:25)
--- NOTE | 2024-06-13 08:30 | W.PN.HOSP.TC ---
Today's Communication/Plan
-
see A/P
Assessment / Plan
Assessment / Plan
HPI: 64-year-old female with past medical history of interstitial lung disease, distant history of provoked PE, p/w cough and shortness of breath.
Patient reported that she had norovirus a few weeks ago with nausea/vomiting/diarrhea� symptoms resolved in about 3 to 4 days ago, but she started having cough and SOB. She went to urgent care on Sunday and was diagnosed with pneumonia. She did not
have a chest x-ray but she was treated empirically with cephalexin and azithromycin which she has taken x 3 days.
Despite these interventions, her symptoms have gotten worse.
In the morning, she could not breathe and called EMS to bring her to the hospital.
Per EMS on their arrival patient was hypoxic and mildly cyanotic, tachypneic; she was placed on oxygen with improvement.
A/P:
# Acute hypoxic respiratory failure 2/2 CAP with ?ILD flare
# sepsis POA 2/2 BL CAP
CXR: Chronic interstitial lung disease/fibrosis, progressed. Possible superimposed left-sided pneumonia.
Cont O2 support, now increased to 15L mid flow for worsening hypoxia, wean O2 when able, pt not on home O2
CT PE negative for PE, noted Extensive bilateral groundglass opacities, superimposed upon subpleural reticulation/fibrosis. There is also mediastinal and hilar lymphadenopathy, which is new compared to the prior examination. Findings are nonspecific
and could represent acute exacerbation or worsening of patient's interstitial lung disease with infectious or inflammatory process also a consideration.
Cont Cefepime, change doxycycline to azithromycin, added vancomycin
Cont empiric Decadron 4 mg Q6H for underlying ILD
COVID/FLU negative, urine Legionella/Strep negative,
Follow sputum Cx, MRSA screen, blood culture
Cont Duonebs ATC and PRN, Tessalon ATC, Mucinex
Pulm on board
# Mild hyponatremia due to above, resolved
# h/o ILD
# distant history of provoked PE followed by ankle surgery 2015
DVT ppx: Lovenox SQ
FC
updated daughter on the phone. Extensive discussion. Answered all questions.
CC Mx for acute hypoxic resp failure
CC time 45 min
Anticipated Discharge: > 48 hours
Subjective/Interval History
-
Date of Service: June 13, 2024
Objective Data
-
Labs:
Laboratory Results
06/13/24
05:49
WBC 16.0 H
Hgb 12.0
Hct 34.9 L
Plt Count 276
Sodium 137
Potassium 4.2
Chloride 105
Carbon Dioxide 22
BUN 10
Creatinine 0.6
Glucose 154 H
Calcium 9.4
Vital Signs:
Vital Signs
Temp Pulse Resp BP Pulse Ox
36.6 C 88 16 124/83 90
06/13/24 07:05 06/13/24 08:06 06/13/24 08:06 06/13/24 06:00 06/13/24 08:06
I&O
06/12/24 06/13/24 06/14/24
06:59 06:59 06:59
Intake Total 980 / 980 480 / 480
Output Total 250 / 250 498.5 / 498.5
Balance 730 / 730 -18.5 / -18.5
Review of Systems
-
Respiratory: Reports Trouble Breathing
Physical Exam
-
General: Well Developed, Well Nourished, Respiratory Distress and Conversant
HEENT: Normocephalic, Atraumatic, Nose Appears Normal, Ears Appear Normal and Oxygen (15L midflow )
Respiratory: Clear to Auscultation, Crackles (fine crackles at bases) and Non Labored Respirations
Cardiac: Regular Rhythm and S1/S2
GI: Soft, Nontender, Nondistended and Normal Bowel Sounds
Skin: Warm and Dry
Neuro: Awake, Alert, Oriented and AO x 3
Psych: Calm and Intact Judgement/Insight
Data Reviewed
-
Diagnostic Radiology: Image personally visualized and interpreted and Report Reviewed by me
CT Scan: Report Reviewed by me
Labs: Labs Reviewed by me
--- NOTE | 2024-06-13 09:33 | W.PN.PUL3 ---
Today's Communication / Plan
-
Discontinue vancomycin-MRSA screening negative
Follow sputum culture
Follow rheumatology serology
Continue IV corticosteroids , Will increase dosing.
Oxygen supplementation,Will transition to high flow oxygen.
Incentive spirometry
High risk situation
Assessment
-
64-year-old woman with distant past medical history of provoked pulmonary embolism, interstitial lung disease which is mild on CAT scan 07/2022 undifferentiated, has not been seen by pulmonary despite being recommended last year. Comes to the
hospital complaining of progressive shortness of breath, cough, hypoxemia. X-ray with significant bilateral infiltrates. Follow-up CT demonstrated severely diffuse groundglass opacities. Progressive hypoxemic respiratory failure up to 10 L.
Severe acute hypoxemic respiratory failure currently on [address] flow
[address] chest06/12/2024: Diffuse groundglass opacity bilateral. No pleural effusion. I do not appreciate any significant pulmonary embolism-wait for official report.
Possible community-acquired pneumonia on top of mild interstitial lung disease first seen on CAT scan 07/2022
Cannot rule out interstitial pulmonary disease flare.
Negative Legionella
Negative influenza
Negative COVID
EKG 06/11/2024: Normal sinus rhythm. ST-T wave abnormality consider inferior ischemia.
leukocytosis/fever
Mild hyponatremia.
-
Interstitial lung disease : Undifferentiated
Formerly seen on CAT scan 07/2022 for the first time. Mild, peripheral, undifferentiated.
Conditions present prior admission:
History of PE/DVT provoked after foot injury [address] of the chest at that time: No mention of interstitial lung disease.
History of influenza in 2018/2018 With pneumonia.
History of COVID mildly 2021.
History of ankle fracture on the left status post repair 2023.
Assessment and plan:
Rapidly progressive hypoxemic respiratory failure-currently on [address]
CT chest demonstrated severely diffuse groundglass opacities without pleural effusions but has mildly increased mediastinal lymph nodes. No pericardial effusion.
-
Differential diagnosis include infectious such as community-acquired pneumonia viral/bacterial-cannot rule out interstitial lung disease acute flare-broad differential diagnosis.
-
Less likely pulmonary edema. Most recent echocardiogram with normal LVEF.
-
In reviewing records patient was recommended to follow-up with pulmonary in 2022-she has an appointment in July 2023. At that time interstitial changes were mild.
Patient reports worsening of symptoms over the last 2 to 3 months mainly exertional shortness of breath. Significantly worsening after about 2 weeks ago developing norovirus with significant nausea and vomiting. Unclear whether she aspirated.
Her interstitial lung disease is undifferentiated.
-
With leukocytosis and low-grade fevers infectious etiology a possibility: Continue Cefepime/doxycycline.
Discontinue vancomycin MRSA screening negative.
Continue with systemic corticosteroids for severe pneumonia/rapidly progressive hypoxemic respiratory failure and possibility of interstitial lung disease flare.
With significantly increased CRP and sedimentation rate suspect more inflammatory such as nonspecific interstitial pneumonia, connective tissue disease associated ILD etc.
Her CAT scan was not compatible with usual interstitial pneumonia.
will increase steroids to 6 mg IV every 6 06/13/2024. Day #2
-
Microbiology reviewed:
Blood cultures so far negative.
Legionella and Streptococcus antibodies negative
Respiratory culture pending
Negative influenza, COVID, Legionella and strep pneumonia.
-
Prior laboratory testing reviewed 03/11/2024: Normal CBC without peripheral eosinophilia.
Current hemoglobin is 12-no hemoptysis.Less likely diffuse alveolar hemorrhage.
Normal renal function normal electrolytes.
Negative troponins
Normal LFTs
Patient denies any occupational or environmental exposures.
Denies prior history of rheumatologic disease.
Denies family history of interstitial lung disease.
-
Urinalysis without proteinuria.
CRP greater than 200
Sedimentation rate greater than 12
Pending KIERRA, ANCA antibodies, anti-CCP, complements.
-
Currently on 15 L supplemental oxygen Via mid flow. On top of a nonrebreather after a cough paroxysm. Pulse ox 88%. Will transition to high flow oxygen.
Repeat chest x-ray tomorrow.
If there is escalation of oxygen requirements up to high flow oxygen then will transfer to the critical care unit for evolving ARDS. Discussed with respiratory therapist, discussed with nursing.
for now continue IMU
-
DVT prophylaxis-Enoxaparin
Aspiration precautions
-
High risk situation.
Will follow
-
After discharge will need pulmonary follow-up. Has already a scheduled appointment as new patient with Dr. Del Valle in Jul 2024, likely will need to adjust timing.

Data reviewed:
CT chest 08/15/2022: Mild changes of pulmonary fibrosis, nonspecific pattern, pleural-based. Findings are new compared to prior study. Left lower lobe 4 mm nodule. Benign etiology.
Possible pericardial cyst 2.8 X1.8X 1.1 cm present in 2016 stable.
-
Echocardiogram 08/16/2022: Showed normal LVEF. No regional wall motion abnormalities. Ejection fraction 60 to 65%.
Normal right ventricular size and function.
No significant valvular disease.
-
CT chest 2016: Reviewed, bilateral lower lobe filling defects compatible with pulmonary embolism. Lower lobe subsegmental atelectasis. No focal abnormalities noted at that time.
Small pericardial cyst
-
Chest x-ray 2020: Mild diffuse interstitial thickening left greater than right possible ILD/fibrosis
Subjective Data
-
Date of Service:
Date of Service: June 13, 2024
Objective Data
Data Reviewed
Vital Signs / I&O / Oxygen:
Vital Signs
Temp Pulse Resp BP Pulse Ox
98 F 88 16 124/83 90
06/13/24 07:05 06/13/24 08:06 06/13/24 08:06 06/13/24 06:00 06/13/24 08:06
Intake and Output
06/12/24 06/13/24 06/14/24
06:59 06:59 06:59
Intake Total 980 / 980 480 / 480
Output Total 250 / 250 498.5 / 498.5
Balance 730 / 730 -18.5 / -18.5
SaO2 90
Nasal Cannula flow liters per 15
minute
Labs/Micro/Reports
Lab Data
06/13/24 05:49
06/13/24 05:49
Microbiology
06/11/24 09:16 Blood/Venous Blood Culture - Preliminary
No Growth in 48 hours- Final report to follow
06/11/24 09:06 Blood/Venous Blood Culture - Preliminary
No Growth in 48 hours- Final report to follow
06/11/24 16:10 Nose MRSA Screen - Final
No Methicillin Resistant Staphylococcus aureus isolated.
06/11/24 20:42 Urine Legionella Urinary Antigen - Final
Negative for Legionella pneumophila Serogroup 1 antigen.
A negative result does not rule out the possiblity of
Legionella infection due to other serogroups or species of
Legionella. Clinical correlation is recommended.
06/11/24 20:42 Urine Streptococcus pneumoniae Antigen (M - Final
Negative for Streptococcus pneumoniae antigen.
A negative result does not exclude infection with
Streptococcus pneumoniae. Clinical correlation is
recommended.
06/11/24 07:42 Nasal Swab Influenza Types A & B (AARON) - Final
Negative for Influenza A & B, NAAT
Negative results must be combined with clinical observations
and patient history.
Nucleic Acid Amplification test (NAAT)performed on the
[employer] platform.
[2024-06-13] MEDS: ZITHROMAX INFUSION 250 IV (10:22)
[2024-06-13] MEDS: ProAIR HFA INHALER 2 PUFF INH ×3 (11:59→20:10)
[2024-06-13] MEDS: DECADRON 6 MG IV ×2 (13:43→20:09)
--- NOTE | 2024-06-13 13:48 | CM ---
Patient with Hx ILD/interstitial lung disease. High flow O2. Receiving IV Abx, IV Decadron. PT on hold. Per nurse assessment; A/O, extreme SOB to get OOB commode.
CM continuing to follow for d/c needs.
Plan TBD.
--- NOTE | 2024-06-13 15:46 | PTCARENOTE ---
Patient AAOx3. Desats to low 80s with minimal exertion and cough fits, rebounds quickly. Sats 96% on hiflo NC. Reports productive cough. VSS. NSR on monitor. Patient making needs known. Continuing to closely monitor.
[2024-06-13] MEDS: LOVENOX 40 MG SC (17:57)
[2024-06-13] MEDS: TESSALON PERLES 100 MG PO (20:01)
[2024-06-14] VITALS (16 sets, daily range): BP systolic 94–139; BP diastolic 71–102; BMI 29.5
[2024-06-14] MEDS: DECADRON 6 MG IV ×4 (02:35→19:21)
[2024-06-14] MEDS: MAXIPIME 2000 MG IV ×3 (02:35→17:31)
[2024-06-14] MEDS: STERILE WATER FOR INJECTION 10 ML IV ×3 (02:35→17:31)
--- NOTE | 2024-06-14 04:12 | PTCARENOTE ---
Patient AAOx3, anxious at times. Pt currently on highflow, 100% on 60L. Pt desats to low 80's while using the commode. Recommended purewick d/t current respiratory status and anxiety, patient is agreeable and accepting. Pt resting O2 sat is
currently 96%. Frequent dry cough. NSR on tele. VSS. Pt able to make needs known. Call martinez is within reach.
[2024-06-14] MEDS: SYNTHROID 137 MCG PO (06:37)
[2024-06-14 06:54] LABS: % Basophils 0.1 % (0-2); % Immature Granulocytes 0.7 % (0-0.5); % Lymphocytes 5.5 % (20.5-51.1); % Monocytes 6.2 % (1.7-9.3); % Neutrophils 87.5 % (42.2-75.2); Absolute Immature Granulocytes 0.1 10^3/uL (0-0.05); Absolute Lymphocytes 0.9 10^3/uL (1.2-3.4); Absolute Neutrophils 13.7 10^3/uL (1.4-6.5); Hematocrit 32.7 % (37.0-47.0); Hemoglobin 11.2 g/dL (12.0-16.0); Mean Corp Hgb Conc. 34.3 g/dL (33.0-37.0); Mean Corpuscular Hgb 32.6 pg (27.0-31.0); Mean Corpuscular Volume 95.1 fL (81.0-99.0); Mean Platelet Volume 9.2 fL (7.4-10.4); Nucleated Red Blood Cells % 0 %; Platelet Count 294 10^3/uL (130-400); Red Blood Cell Count 3.44 10^6/uL (4.20-5.40); Red Cell Dist. Width 12.9 % (11.5-14.5); White Blood Cell Count 15.6 10^3/uL (4.8-10.8)
[2024-06-14 07:05] LABS: Blood Urea Nitrogen 16 mg/dl (7-17); Calcium 9.1 mg/dl (8.4-10.2); Carbon Dioxide 28 mmol/L (22-30); Chloride 101 mmol/L (98-107); Estimated Creatinine Clearance 111 ml/min; Glucose 180 mg/dl (70-99); Potassium 4.6 mmol/L (3.5-5.1); Sodium 138 mmol/L (135-145); eGFR > 60.00
[2024-06-14] MEDS: ProAIR HFA INHALER 2 PUFF INH ×4 (08:13→19:35)
--- NOTE | 2024-06-14 08:31 | W.PN.HOSP.TC ---
Today's Communication/Plan
-
see A/P
ICU upgrade
Assessment / Plan
Assessment / Plan
HPI: 64-year-old female with past medical history of interstitial lung disease, distant history of provoked PE, p/w cough and shortness of breath.
Patient reported that she had norovirus a few weeks ago with nausea/vomiting/diarrhea� symptoms resolved in about 3 to 4 days ago, but she started having cough and SOB. She went to urgent care on Sunday and was diagnosed with pneumonia. She did not
have a chest x-ray but she was treated empirically with cephalexin and azithromycin which she has taken x 3 days.
Despite these interventions, her symptoms have gotten worse.
In the morning, she could not breathe and called EMS to bring her to the hospital.
Per EMS on their arrival patient was hypoxic and mildly cyanotic, tachypneic; she was placed on oxygen with improvement.
A/P:
# Acute hypoxic respiratory failure 2/2 CAP with ILD flare
# sepsis POA 2/2 BL CAP
CXR: Chronic interstitial lung disease/fibrosis, progressed. Possible superimposed left-sided pneumonia.
Cont O2 support, now increased to high flow NC 100% for worsening hypoxia
wean O2 when able, pt not on home O2
CT PE negative for PE, noted Extensive bilateral groundglass opacities, superimposed upon subpleural reticulation/fibrosis. There is also mediastinal and hilar lymphadenopathy, which is new compared to the prior examination. Findings are nonspecific
and could represent acute exacerbation or worsening of patient's interstitial lung disease with infectious or inflammatory process also a consideration.
Cont Cefepime, doxycycline; No vancomycin needed with neg MRSA
Cont empiric Decadron, now increased to 6 mg Q6H for underlying ILD
COVID/FLU negative, urine Legionella/Strep negative, MRSA screen neg, blood culture neg
Follow sputum Cx,
Follow rheumatology serology
Cont Duonebs ATC and PRN, Tessalon ATC, Mucinex
Pulm on board
# Mild hyponatremia due to above, resolved
# h/o ILD
# distant history of provoked PE followed by ankle surgery 2016
DVT ppx: Lovenox SQ
FC
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
CC Mx for acute hypoxic resp failure
CC time 46 min
Anticipated Discharge: > 48 hours
Subjective/Interval History
-
Date of Service: June 14, 2024
Objective Data
-
Labs:
Laboratory Results
06/14/24
06:39
WBC 15.6 H
Hgb 11.2 L
Hct 32.7 L
Plt Count 294
Sodium 138
Potassium 4.6
Chloride 101
Carbon Dioxide 28
BUN 16
Creatinine 0.6
Glucose 180 H
Calcium 9.1
Vital Signs:
Vital Signs
Temp Pulse Resp BP Pulse Ox
36.5 C 80 22 118/80 92
06/14/24 04:22 06/14/24 08:25 06/14/24 08:25 06/14/24 06:00 06/14/24 08:25
I&O
06/13/24 06/14/24 06/15/24
06:59 06:59 06:59
Intake Total 480 / 480
Output Total 498.5 / 498.5 500 / 500
Balance -18.5 / -18.5 -500 / -500
Review of Systems
-
Respiratory: Reports Trouble Breathing (with exertion)
Physical Exam
-
General: Well Developed, Well Nourished, Respiratory Distress and Conversant
HEENT: Normocephalic, Atraumatic, Nose Appears Normal, Ears Appear Normal and Oxygen (high flow NC 100%)
Respiratory: Clear to Auscultation and Crackles (fine crackles at bases)
Cardiac: Regular Rhythm and S1/S2
GI: Soft, Nontender, Nondistended and Normal Bowel Sounds
Skin: Warm and Dry
Neuro: Awake, Alert, Oriented and AO x 3
Psych: Calm and Intact Judgement/Insight
Data Reviewed
-
Diagnostic Radiology: Image personally visualized and interpreted and Report Reviewed by me
CT Scan: Report Reviewed by me
Labs: Labs Reviewed by me
[2024-06-14] MEDS: TESSALON PERLES 100 MG PO ×3 (08:52→22:06)
[2024-06-14] MEDS: MUCINEX 1200 MG PO ×2 (08:52→19:21)
--- NOTE | 2024-06-14 09:57 | PTCARENOTE ---
Transfer IMU to ICU
09:40 patient transfer to ICU due to High Oxygen mary. currently on High flow 100% /55L . POX 87% added NRM POX 90%
AAo x3 +Anxiety
SR 85 S1/S2 C/o of left posterior shoulder blade pain . ECG will be done ;
Trace edema B/L LE pedal pulses present to palpation b/l le warm to touch
BP 123/83 MAP 93%
RR: 100%/55L +NRM 100% prn POX 94% RR 35 Tachypnea +SOB . IS will be encouraged; course b/l middle and lower lobes
GI abdomen soft non tender LBM 06/13 ; No N/V
Purwick in place
skin intact
left peripheral line . additional line will be inserted
--- NOTE | 2024-06-14 10:02 | W.PN.INTV ---
Addendum entered and electronically signed by Sveta Del Valle MD 06/14/24 18:26:
TCCT 31 min
Original Note:
Today's Communication / Plan
Recommendations
Continue antibiotics
Continue steroids
Chest x-ray in a.m.
Marginal oxygenation, transferred to ICU
Assessment
-
64-year-old woman with distant past medical history of provoked pulmonary embolism, interstitial lung disease which is mild on CAT scan 07/2022 undifferentiated, has not been seen by pulmonary despite being recommended last year. Comes to the
hospital complaining of progressive shortness of breath, cough, hypoxemia. X-ray with significant bilateral infiltrates. Follow-up CT demonstrated severely diffuse groundglass opacities. Progressive hypoxemic respiratory failure up to 10 L.
Severe acute hypoxemic respiratory failure currently on [address] flow
[address] chest06/12/2024: Diffuse groundglass opacity bilateral. No pleural effusion. I do not appreciate any significant pulmonary embolism-wait for official report.
Possible community-acquired pneumonia on top of mild interstitial lung disease first seen on CAT scan 07/2022
Cannot rule out interstitial pulmonary disease flare.
Negative Legionella
Negative influenza
Negative COVID
EKG 06/11/2024: Normal sinus rhythm. ST-T wave abnormality consider inferior ischemia.
leukocytosis/fever
Mild hyponatremia.
-
Interstitial lung disease : Undifferentiated
Formerly seen on CAT scan 07/2022 for the first time. Mild, peripheral, undifferentiated.
Conditions present prior admission:
History of PE/DVT provoked after foot injury [address] of the chest at that time: No mention of interstitial lung disease.
History of influenza in 2018/2018 With pneumonia.
History of COVID mildly 2021.
History of ankle fracture on the left status post repair 2023.
Assessment and plan:
At this time, patient continues to have marginal oxygenation requiring nonrebreather and high flow
Desaturates into the 70s with ambulation to the commode
Rapidly progressive hypoxemic respiratory failure over the past few days
CT chest demonstrated severely diffuse groundglass opacities without pleural effusions but has mildly increased mediastinal lymph nodes. No pericardial effusion.
Chest x-ray today with questionable worsening left base
-
Differential diagnosis include infectious such as community-acquired pneumonia viral/bacterial-cannot rule out interstitial lung disease acute flare-broad differential diagnosis.
-
Less likely pulmonary edema. Most recent echocardiogram with normal LVEF.
-
In reviewing records patient was recommended to follow-up with pulmonary in 2022-she has an appointment in July 2023. At that time interstitial changes were mild.
Patient reports worsening of symptoms over the last 2 to 3 months mainly exertional shortness of breath. Significantly worsening after about 2 weeks ago developing norovirus with significant nausea and vomiting. Unclear whether she aspirated.
Her interstitial lung disease is undifferentiated.
-
Moving forward
With leukocytosis and low-grade fevers infectious etiology a possibility: Continue Cefepime/doxycycline.
Discontinue vancomycin MRSA screening negative.
Continue with systemic corticosteroids for severe pneumonia/rapidly progressive hypoxemic respiratory failure and possibility of interstitial lung disease flare.
With significantly increased CRP and sedimentation rate suspect more inflammatory such as nonspecific interstitial pneumonia, connective tissue disease associated ILD etc.
Her CAT scan was not compatible with usual interstitial pneumonia.
will increase steroids to 6 mg IV every 6 hours started 06/13
Repeat chest x-ray 06/15
-
Microbiology reviewed:
Blood cultures so far negative.
Legionella and Streptococcus antibodies negative
Respiratory culture pending
Negative influenza, COVID, Legionella and strep pneumonia.
-
Prior laboratory testing reviewed 03/11/2024: Normal CBC without peripheral eosinophilia.
Current hemoglobin is 12-no hemoptysis.Less likely diffuse alveolar hemorrhage.
Normal renal function normal electrolytes.
Negative troponins
Normal LFTs
Patient denies any occupational or environmental exposures.
Denies prior history of rheumatologic disease.
Denies family history of interstitial lung disease.
-
Urinalysis without proteinuria.
CRP greater than 200
Sedimentation rate greater than 12
Pending KIERRA, ANCA antibodies, anti-CCP, complements.
-
Currently on 15 L supplemental oxygen Via mid flow. On top of a nonrebreather after a cough paroxysm. Pulse ox 88%. Will transition to high flow oxygen.
Repeat chest x-ray tomorrow.
If there is escalation of oxygen requirements up to high flow oxygen then will transfer to the critical care unit for evolving ARDS. Discussed with respiratory therapist, discussed with nursing.
for now continue IMU
-
DVT prophylaxis-Enoxaparin
Aspiration precautions
-
High risk situation.
Agree with transfer to ICU
Reviewed with critical care nursing, respiratory care, primary service
-
After discharge will need pulmonary follow-up. Has already a scheduled appointment as new patient with Dr. Del Valle in Jul 2024, likely will need to adjust timing.

Data reviewed:
CT chest 08/15/2022: Mild changes of pulmonary fibrosis, nonspecific pattern, pleural-based. Findings are new compared to prior study. Left lower lobe 4 mm nodule. Benign etiology.
Possible pericardial cyst 2.8 X1.8X 1.1 cm present in 2016 stable.
-
Echocardiogram 08/16/2022: Showed normal LVEF. No regional wall motion abnormalities. Ejection fraction 60 to 65%.
Normal right ventricular size and function.
No significant valvular disease.
-
CT chest 2016: Reviewed, bilateral lower lobe filling defects compatible with pulmonary embolism. Lower lobe subsegmental atelectasis. No focal abnormalities noted at that time.
Small pericardial cyst
-
Chest x-ray 2020: Mild diffuse interstitial thickening left greater than right possible ILD/fibrosis
Subjective Dataa
Subjective Data
Date of Service:
Date of Service: June 14, 2024
Subjective:
Overall, patient continues to have subjective dyspnea. Desaturates into the 70s with ambulation to the commode despite nonrebreather and high flow. Complaining of mild left chest discomfort, pleuritic. Denies hemoptysis. Otherwise conversant
Objective Data
Data Reviewed
Vital Signs / I&O / Oxygen:
Vital Signs
Temp Pulse Resp BP Pulse Ox
97.7 F 80 22 118/80 92
06/14/24 04:22 06/14/24 08:25 06/14/24 08:25 06/14/24 06:00 06/14/24 08:25
Intake and Output
06/13/24 06/14/24 06/15/24
06:59 06:59 06:59
Intake Total 480 / 480
Output Total 498.5 / 498.5 500 / 500
Balance -18.5 / -18.5 -500 / -500
SaO2 92
Nasal Cannula flow liters per 55
minute
Physical Exam
General: Comfortable
HEENT: Normocephalic and Anicteric
Cardiovascular: S1-S2, Regular Rhythm, Murmur (n) and Rub (n)
Respiratory: Wheeze (n), Crackles (Bilateral), Rhonchi (n), Non-Labored Respirations, Stridor (n) and Other (Decreased left base)
GI: Soft, Non Distended and Non Tender
Neurology: Awake, Alert and No Motor Deficits
Skin: Cyanosis (n), Jaundice (n) and Rash (n)
Labs/Micro/Reports
Lab Data
06/14/24 06:39
06/14/24 06:39
Microbiology
06/11/24 09:16 Blood/Venous Blood Culture - Preliminary
No Growth in 72 hours- Final report to follow
06/11/24 09:06 Blood/Venous Blood Culture - Preliminary
No Growth in 72 hours- Final report to follow
06/13/24 05:50 Sputum Gram Stain - Preliminary
06/11/24 16:10 Nose MRSA Screen - Final
No Methicillin Resistant Staphylococcus aureus isolated.
06/11/24 20:42 Urine Legionella Urinary Antigen - Final
Negative for Legionella pneumophila Serogroup 1 antigen.
A negative result does not rule out the possiblity of
Legionella infection due to other serogroups or species of
Legionella. Clinical correlation is recommended.
06/11/24 20:42 Urine Streptococcus pneumoniae Antigen (M - Final
Negative for Streptococcus pneumoniae antigen.
A negative result does not exclude infection with
Streptococcus pneumoniae. Clinical correlation is
recommended.
06/11/24 07:42 Nasal Swab Influenza Types A & B (AARON) - Final
Negative for Influenza A & B, NAAT
Negative results must be combined with clinical observations
and patient history.
Nucleic Acid Amplification test (NAAT)performed on the
[employer] platform.
--- NOTE | 2024-06-14 10:03 | PTCARENOTE ---
Received order per Dr Dan to upgrade Pt to ICU. Report given to ICU nurse Jayna and moved to room 3357 without issue.
[2024-06-14] MEDS: VIBRAMYCIN 260 MG IV ×2 (10:23→22:52)
[2024-06-14] MEDS: TYLENOL 500 MG PO (11:12)
--- NOTE | 2024-06-14 15:46 | CM ---
Patient chart reviewed
Transferred from IMU to ICU
wosening hypoxia
Will need new orders for PT/OT
PLAN: CM to follow hospital progression, dispo to be determined
[2024-06-14] MEDS: LOVENOX 40 MG SC (17:31)
--- NOTE | 2024-06-14 18:10 | PTCARENOTE ---
patient in bed. on High flow 60/55 NRM PRN .
AAO x3
SR 70's VSS
High flow and NRM prn . Dyspnea with mild activities + with POX 83%
Abdomen soft non tender
Bonilla draining clear yellow 1600 output
Maxipine and Doxycycline
periperal lines Rt and left capped
[2024-06-14 19:01] LABS: CCP Antibody IgG/IgA 58 Units (0-19)
[2024-06-14] MEDS: DUONEB 3 ML INH (21:09)
[2024-06-14 21:51] LABS: B.E. 2.2 mmol/L; HCO3 24.7 mmol/L (21-28); O2 Saturation % 99.5 % (94-98); PCO2 31 mmHg (32-35); PO2 144 mmHg (83-108); pH 7.51 (7.35-7.45)
--- NOTE | 2024-06-14 22:14 | PTCARENOTE ---
Pt sustained pulse ox in mid 80s repeatedly, slow to recover. Breath sounds diminished and coarse t/o, tachypnea, SHORE and at rest. Pt insistent that she does not need NRB with HFNC. Pt removed HFNC away from her nose and put NRB next to her.
Currently with both max HFNC 55L/100% +NRB, pt satting mid 90s-100%. Repeat CXR completed, ABG completed, RSV swab--negative. Pt asleep and resting comfortably.
[2024-06-15] VITALS (12 sets, daily range): BP systolic 90–138; BP diastolic 60–100; BMI 30.2
[2024-06-15] MEDS: XANAX 0.25 MG PO ×2 (00:37→19:38)
--- NOTE | 2024-06-15 01:28 | PTCARENOTE ---
Pt expressed anxiety regarding diagnosis of PNA and increasing O2 needs. [employer] at bedside to discuss with patient. x1 order for xanax placed and given.
[2024-06-15] MEDS: STERILE WATER FOR INJECTION 10 ML IV ×3 (02:25→17:00)
[2024-06-15] MEDS: MAXIPIME 2000 MG IV ×3 (02:25→17:01)
[2024-06-15] MEDS: DECADRON 6 MG IV ×4 (02:26→19:37)
[2024-06-15 03:26] LABS: ANA, IgG Reflex to HEp-2 Detected (None Detected)
[2024-06-15 05:34] LABS: % Basophils 0.1 % (0-2); % Immature Granulocytes 1.5 % (0-0.5); % Lymphocytes 8.7 % (20.5-51.1); % Monocytes 6.5 % (1.7-9.3); % Neutrophils 83.2 % (42.2-75.2); Absolute Immature Granulocytes 0.2 10^3/uL (0-0.05); Absolute Monocytes 0.7 10^3/uL (0.1-0.6); Absolute Neutrophils 9.5 10^3/uL (1.4-6.5); Hematocrit 32.6 % (37.0-47.0); Hemoglobin 11.2 g/dL (12.0-16.0); Mean Corp Hgb Conc. 34.4 g/dL (33.0-37.0); Mean Corpuscular Hgb 32.3 pg (27.0-31.0); Mean Corpuscular Volume 93.9 fL (81.0-99.0); Mean Platelet Volume 9.5 fL (7.4-10.4); Nucleated Red Blood Cells % 0 %; Platelet Count 296 10^3/uL (130-400); Red Blood Cell Count 3.47 10^6/uL (4.20-5.40); Red Cell Dist. Width 12.6 % (11.5-14.5); White Blood Cell Count 11.4 10^3/uL (4.8-10.8)
[2024-06-15 05:41] LABS: INR 1.06; PT 14.3 Sec (11.4-14.6)
[2024-06-15 05:42] LABS: APTT 25.6 Sec (23.4-35.0)
[2024-06-15 05:50] LABS: Blood Urea Nitrogen 20 mg/dl (7-17); Calcium 8.9 mg/dl (8.4-10.2); Carbon Dioxide 26 mmol/L (22-30); Chloride 101 mmol/L (98-107); Estimated Creatinine Clearance 113 ml/min; Glucose 158 mg/dl (70-99); Magnesium 2.5 mg/dl (1.6-2.3); Phosphorus 4.2 mg/dl (2.5-4.5); Potassium 4.8 mmol/L (3.5-5.1); Sodium 137 mmol/L (135-145); eGFR > 60.00
[2024-06-15] MEDS: SYNTHROID 137 MCG PO (06:21)
[2024-06-15] MEDS: ProAIR HFA INHALER INH ×2 (07:36→11:12)
[2024-06-15] MEDS: DUONEB 3 ML INH ×2 (07:36→11:11)
--- NOTE | 2024-06-15 07:40 | W.PN.INTV ---
Today's Communication / Plan
Recommendations
No change in steroids
famotidine twice daily
Wean oxygen as able
High flow/nonrebreather with any activity
Repeat chest x-ray 06/17
Continue antibiotics
Assessment
-
64-year-old woman with distant past medical history of provoked pulmonary embolism, interstitial lung disease which is mild on CAT scan 07/2022 undifferentiated, has not been seen by pulmonary despite being recommended last year. Comes to the
hospital complaining of progressive shortness of breath, cough, hypoxemia. X-ray with significant bilateral infiltrates. Follow-up CT demonstrated severely diffuse groundglass opacities. Progressive hypoxemic respiratory failure up to 10 L.
Severe acute hypoxemic respiratory failure currently on 10 [address] mid flow
[address] chest06/12/2024: Diffuse groundglass opacity bilateral. No pleural effusion. I do not appreciate any significant pulmonary embolism-wait for official report.
Possible community-acquired pneumonia on top of mild interstitial lung disease first seen on CAT scan 07/2022
Cannot rule out interstitial pulmonary disease flare.
Negative Legionella
Negative influenza
Negative COVID
EKG 06/11/2024: Normal sinus rhythm. ST-T wave abnormality consider inferior ischemia.
leukocytosis/fever
Mild hyponatremia.
-
Interstitial lung disease : Undifferentiated
Formerly seen on CAT scan 07/2022 for the first time. Mild, peripheral, undifferentiated.
Conditions present prior admission:
History of PE/DVT provoked after foot injury [address] of the chest at that time: No mention of interstitial lung disease.
History of influenza in 2018/2018 With pneumonia.
History of COVID mildly 2021.
History of ankle fracture on the left status post repair 2023.
Assessment and plan:
At this time, patient continues to have marginal oxygenation requiring nonrebreather and high flow
Desaturated to 85% yesterday p.m. but improved with high flow and nonrebreather
Desaturated to the 70s while going to the commode 36 hours ago, seems to have stabilized
Feels somewhat better this morning
Rapidly progressive hypoxemic respiratory failure over the past few days
CT chest demonstrated severely diffuse groundglass opacities without pleural effusions but has mildly increased mediastinal lymph nodes. No pericardial effusion.
Chest x-ray p.m. 06/14 shows improvement in aeration left base per my review
Negative fluid status noted
KIERRA, CCP antibody positive, CRP positive
Suspect inflammatory process
-
Differential diagnosis include infectious such as community-acquired pneumonia viral/bacterial-cannot rule out interstitial lung disease acute flare-broad differential diagnosis.
-
Less likely pulmonary edema. Most recent echocardiogram with normal LVEF.
-
In reviewing records patient was recommended to follow-up with pulmonary in 2022-she has an appointment in July 2023. At that time interstitial changes were mild.
Patient reports worsening of symptoms over the last 2 to 3 months mainly exertional shortness of breath. Significantly worsening after about 2 weeks ago developing norovirus with significant nausea and vomiting. Unclear whether she aspirated.
Her interstitial lung disease is undifferentiated.
-
Moving forward
Continue Cefepime/doxycycline.
Discontinue vancomycin MRSA screening negative.
Continue with systemic corticosteroids for severe pneumonia/rapidly progressive hypoxemic respiratory failure and possibility of interstitial lung disease flare.
With significantly increased CRP and sedimentation rate suspect more inflammatory such as nonspecific interstitial pneumonia, connective tissue disease associated ILD etc.
Her CAT scan was not compatible with usual interstitial pneumonia.
Continue steroids to 6 mg IV every 6 hours started 06/13
Consider repeat chest x-ray 06/17
Wean oxygen as able
Blood cultures so far negative.
Legionella and Streptococcus antibodies negative
Respiratory culture pending
Negative influenza, COVID, Legionella and strep pneumonia.
Prior laboratory testing reviewed 03/11/2024: Normal CBC without peripheral eosinophilia.
Current hemoglobin is 12-no hemoptysis.Less likely diffuse alveolar hemorrhage.
Normal renal function normal electrolytes.
Negative troponins
Normal LFTs
Patient denies any occupational or environmental exposures.
Denies prior history of rheumatologic disease.
Denies family history of interstitial lung disease.
Urinalysis without proteinuria.
CRP greater than 200
Sedimentation rate greater than 12
Pending ANCA antibodies and complement levels, positive anti-CCP, positive KIERRA
DVT prophylaxis-Enoxaparin
Aspiration precautions
GI prophylaxis: Add famotidine twice daily. This should continue given ILD at discharge
High risk situation.
Agree with transfer to ICU
Reviewed with critical care nursing, respiratory care, primary service
TCCT 31 min
-
After discharge will need pulmonary follow-up. Has already a scheduled appointment as new patient with Dr. Del Valle in Jul 2024, likely will need to adjust timing.

Data reviewed:
CT chest 08/15/2022: Mild changes of pulmonary fibrosis, nonspecific pattern, pleural-based. Findings are new compared to prior study. Left lower lobe 4 mm nodule. Benign etiology.
Possible pericardial cyst 2.8 X1.8X 1.1 cm present in 2016 stable.
-
Echocardiogram 08/16/2022: Showed normal LVEF. No regional wall motion abnormalities. Ejection fraction 60 to 65%.
Normal right ventricular size and function.
No significant valvular disease.
-
CT chest 2016: Reviewed, bilateral lower lobe filling defects compatible with pulmonary embolism. Lower lobe subsegmental atelectasis. No focal abnormalities noted at that time.
Small pericardial cyst
-
Chest x-ray 2020: Mild diffuse interstitial thickening left greater than right possible ILD/fibrosis
Subjective Dataa
Subjective Data
Date of Service:
Date of Service: June 15, 2024
Subjective:
Patient with hypoxia yesterday p.m. and increased shortness of breath. When transitioned to high flow with nonrebreather, saturation improved. Feels somewhat better this morning. Denies any further left sided pleurisy. Negative fluid status
noted. Respiratory status remains tenuous
Objective Data
Data Reviewed
Vital Signs / I&O / Oxygen:
Vital Signs
Temp Pulse Resp BP Pulse Ox
98.6 F 79 33 138/85 99
06/15/24 07:00 06/15/24 06:00 06/15/24 06:00 06/15/24 06:00 06/15/24 06:00
Intake and Output
06/14/24 06/15/24 06/16/24
06:59 06:59 06:59
Intake Total 1500 / 1500
Output Total 500 / 500 2765 / 2765
Balance -500 / -500 -1265 / -1265
SaO2 99
Nasal Cannula flow liters per 55
minute
Physical Exam
General: Comfortable
HEENT: Normocephalic and Anicteric
Cardiovascular: S1-S2, Regular Rhythm, Murmur (n) and Rub (n)
Respiratory: Wheeze (n), Crackles (Minimal at base), Rhonchi (n), Non-Labored Respirations, Stridor (n), Egophony (Mild at base) and Other (Decreased left base, bronchial with mild egophony)
GI: Soft, Non Distended and Non Tender
Neurology: Awake, Alert and No Motor Deficits
Skin: Cyanosis (n), Jaundice (n) and Rash (n)
Labs/Micro/Reports
Lab Data
06/15/24 04:54
06/15/24 04:54
Laboratory Results
06/14/24 06/15/24
21:45 04:54
PT 14.3
INR 1.06
APTT 25.6
pH 7.51 H
pCO2 31 L
pO2 144 H
HCO3 24.7
O2 Delivery Level
Microbiology
06/14/24 21:25 Nasal Swab Respiratory Syncytial Virus Culture - Final
Negative for Respiratory Syncytial Virus.
A false negative result may be obtained with a specimen
collected early in the acute phase. If symptoms persist, a
new specimen should be tested.
06/13/24 05:50 Sputum Respiratory Culture - Preliminary
Usual Respiratory Jeniffer
06/13/24 05:50 Sputum Gram Stain - Preliminary
06/11/24 09:16 Blood/Venous Blood Culture - Preliminary
No Growth in 72 hours- Final report to follow
06/11/24 09:06 Blood/Venous Blood Culture - Preliminary
No Growth in 72 hours- Final report to follow
06/11/24 16:10 Nose MRSA Screen - Final
No Methicillin Resistant Staphylococcus aureus isolated.
06/11/24 20:42 Urine Legionella Urinary Antigen - Final
Negative for Legionella pneumophila Serogroup 1 antigen.
A negative result does not rule out the possiblity of
Legionella infection due to other serogroups or species of
Legionella. Clinical correlation is recommended.
06/11/24 20:42 Urine Streptococcus pneumoniae Antigen (M - Final
Negative for Streptococcus pneumoniae antigen.
A negative result does not exclude infection with
Streptococcus pneumoniae. Clinical correlation is
recommended.
[2024-06-15 07:48] LABS: Myeloperoxidase Antibody 0 AU/mL (0-19); Serine Protease-3, IgG 1 AU/mL (0-19)
[2024-06-15] MEDS: TESSALON PERLES 100 MG PO ×3 (07:56→22:03)
[2024-06-15] MEDS: MUCINEX 1200 MG PO ×2 (07:56→19:38)
--- NOTE | 2024-06-15 08:39 | PTCARENOTE ---
0700 patient in bed . Denies pain
AAO x3 Moves b/l UE and LE
SR 80's S1/S2 trace derek b/l le pedal pulses +
On High flow 100/55 +NRM prn dry non-productive IS 500
Abdomen soft non tender BS + tolerating current diet
Indwelling sheppard draining demarcus clear urine
will encourage pt to OOB chair today
--- NOTE | 2024-06-15 09:27 | W.PN.HOSP.TC ---
Today's Communication/Plan
-
see A/P
Assessment / Plan
Assessment / Plan
HPI: 64-year-old female with past medical history of interstitial lung disease, distant history of provoked PE, p/w cough and shortness of breath.
Patient reported that she had norovirus a few weeks ago with nausea/vomiting/diarrhea� symptoms resolved in about 3 to 4 days ago, but she started having cough and SOB. She went to urgent care on Sunday and was diagnosed with pneumonia. She did not
have a chest x-ray but she was treated empirically with cephalexin and azithromycin which she has taken x 3 days.
Despite these interventions, her symptoms have gotten worse.
In the morning, she could not breathe and called EMS to bring her to the hospital.
Per EMS on their arrival patient was hypoxic and mildly cyanotic, tachypneic; she was placed on oxygen with improvement.
A/P:
# Acute hypoxic respiratory failure 2/2 CAP with ILD flare
# sepsis POA 2/2 BL CAP
CXR: Chronic interstitial lung disease/fibrosis, progressed. Possible superimposed left-sided pneumonia.
Cont O2 support, on high flow NC 100% since 06/14 and now needing intermittent NRB support
wean O2 when able, pt not on home O2
CT PE negative for PE, noted Extensive bilateral groundglass opacities, superimposed upon subpleural reticulation/fibrosis. There is also mediastinal and hilar lymphadenopathy, which is new compared to the prior examination. Findings are nonspecific
and could represent acute exacerbation or worsening of patient's interstitial lung disease with infectious or inflammatory process also a consideration.
Cont Cefepime, doxycycline; No vancomycin needed with neg MRSA
Cont empiric Decadron, now at 6 mg Q6H for underlying ILD (likely due to RA)
COVID/FLU negative, RSA negative, urine Legionella/Strep negative, MRSA screen neg, blood culture neg
Sputum Cx usual francis
Follow rheumatology serology
Cont Duonebs ATC and PRN, Tessalon ATC, Mucinex
Pulm on board
# Concern for Rheumatoid arthritis with RA Interstitial lung disease�
KIERRA positive, antiCCP positive
IV steroid as above
Consider Rheum eval
# Mild hyponatremia due to above, resolved
# h/o ILD
# distant history of provoked PE followed by ankle surgery 2015
DVT ppx: Lovenox SQ
FC
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
CC Mx for acute hypoxic resp failure
Anticipated Discharge: > 48 hours
Subjective/Interval History
-
Date of Service: June 15, 2024
Objective Data
-
Labs:
Laboratory Results
06/14/24 06/15/24
21:45 04:54
WBC 11.4 H
Hgb 11.2 L
Hct 32.6 L
Plt Count 296
PT 14.3
INR 1.06
APTT 25.6
HCO3 24.7
Sodium 137
Potassium 4.8
Chloride 101
Carbon Dioxide 26
BUN 20 H
Creatinine 0.6
Glucose 158 H
Calcium 8.9
Vital Signs:
Vital Signs
Temp Pulse Resp BP Pulse Ox
37.0 C 82 18 138/85 95
06/15/24 07:00 06/15/24 07:38 06/15/24 07:38 06/15/24 06:00 06/15/24 07:38
I&O
06/14/24 06/15/24 06/16/24
06:59 06:59 06:59
Intake Total 1500 / 1500
Output Total 500 / 500 2765 / 2765 350 / 350
Balance -500 / -500 -1265 / -1265 -350 / -350
Review of Systems
-
Respiratory: Reports Trouble Breathing (with exertion)
Physical Exam
-
General: Well Developed, Well Nourished, Respiratory Distress and Conversant
HEENT: Normocephalic, Atraumatic, Nose Appears Normal, Ears Appear Normal and Oxygen (high flow NC 100% with intermittent NRB use)
Respiratory: Clear to Auscultation and Crackles (fine crackles at bases)
Cardiac: Regular Rhythm and S1/S2
GI: Soft, Nontender, Nondistended and Normal Bowel Sounds
Skin: Warm and Dry
Neuro: Awake, Alert, Oriented and AO x 3
Psych: Calm and Intact Judgement/Insight
Data Reviewed
-
Diagnostic Radiology: Image personally visualized and interpreted and Report Reviewed by me
CT Scan: Report Reviewed by me
Labs: Labs Reviewed by me
--- NOTE | 2024-06-15 09:30 | RESPNOTE ---
patient transferred to chair, washed -up in chair, desat on HF 55L and 100% to low 86%, recovered to 92% with additional NRB within 2 minutes.
HF prongs changed to large.
[2024-06-15] MEDS: VIBRAMYCIN 260 MG IV ×2 (10:09→22:10)
--- NOTE | 2024-06-15 10:56 | PTCARENOTE ---
OOB chair. On High flow only 100/55 POX 93% RR 34 HR 83 BP 133/110
[2024-06-15] MEDS: TYLENOL 500 MG PO ×2 (11:46→22:10)
[2024-06-15] MEDS: PEPCID 20 MG PO ×2 (12:21→19:38)
--- NOTE | 2024-06-15 15:11 | PTCARENOTE ---
High Flow 80/55L POX 93%
[2024-06-15] MEDS: VENTOLIN NEBULES 2.5 MG INH ×2 (15:12→19:22)
[2024-06-15] MEDS: LOVENOX 40 MG SC (17:00)
--- NOTE | 2024-06-15 18:50 | PTCARENOTE ---
AAO x3
SR 80's
High flow 80/55 POX 92 % Frequent dry non productive cough left ribs area pain pt states from coughing. Hugging pillow provided RR 35
Bonilla draining demarcus urine
call martinez within reach
--- NOTE | 2024-06-15 23:57 | PTCARENOTE ---
Pt received at 19:00, initial assessment as documented. Pt c/o pain to 'left ribs' with coughing. PRN tylenol given as ordered. Pt given xanax PRN HS as well. Pt aslleep with HFNC 55L/80%, pulse ox 96-100%. Pt repositioning self, call martinez within
reach.
[2024-06-16] VITALS (10 sets, daily range): BP systolic 76–127; BP diastolic 41–96; BMI 30.3
[2024-06-16] MEDS: DECADRON 6 MG IV ×4 (02:55→20:15)
[2024-06-16] MEDS: STERILE WATER FOR INJECTION 10 ML IV ×3 (02:56→17:43)
[2024-06-16] MEDS: MAXIPIME 2000 MG IV ×3 (02:56→17:42)
[2024-06-16 05:17] LABS: % Basophils 0.2 % (0-2); % Immature Granulocytes 1.9 % (0-0.5); % Lymphocytes 7.6 % (20.5-51.1); % Monocytes 6.2 % (1.7-9.3); % Neutrophils 84.1 % (42.2-75.2); Absolute Immature Granulocytes 0.2 10^3/uL (0-0.05); Absolute Lymphocytes 0.9 10^3/uL (1.2-3.4); Absolute Monocytes 0.7 10^3/uL (0.1-0.6); Hemoglobin 11.1 g/dL (12.0-16.0); Mean Corp Hgb Conc. 34.7 g/dL (33.0-37.0); Mean Corpuscular Hgb 32.5 pg (27.0-31.0); Mean Corpuscular Volume 93.6 fL (81.0-99.0); Mean Platelet Volume 9.5 fL (7.4-10.4); Nucleated Red Blood Cells % 0 %; Platelet Count 285 10^3/uL (130-400); Red Blood Cell Count 3.42 10^6/uL (4.20-5.40); Red Cell Dist. Width 12.5 % (11.5-14.5); White Blood Cell Count 11.8 10^3/uL (4.8-10.8)
[2024-06-16 06:10] LABS: Complement C3 155 mg/dl (88-165)
[2024-06-16 07:33] LABS: ANA, HEp-2, IgG <1:80 (<1:80)
[2024-06-16] MEDS: SYNTHROID 137 MCG PO (07:46)
[2024-06-16] MEDS: TYLENOL 500 MG PO (07:46)
[2024-06-16] MEDS: PEPCID 20 MG PO ×2 (07:46→20:17)
[2024-06-16] MEDS: MUCINEX 1200 MG PO ×2 (07:46→20:16)
[2024-06-16] MEDS: TESSALON PERLES 100 MG PO ×3 (07:47→21:48)
--- NOTE | 2024-06-16 08:28 | PTCARENOTE ---
0700 assumed care pt in bed. On high flow 80/55
AAO x3 s/s of anxiety
SR 80;s S1/S2 trace edema to b/l LE pedal pulses +
Lungs diminished. Frequent dry occasional productive cough pt report bring white mucus while coughing High flow 80/55 left flank pain 10/10 due to frequent cough
Skin intact
Peripheral line Rt and left capped flushed
[2024-06-16] MEDS: VENTOLIN NEBULES 2.5 MG INH ×4 (08:47→19:18)
[2024-06-16] MEDS: TORADOL 15 MG IV (09:58)
[2024-06-16] MEDS: PHENERGAN WITH CODEINE SYRUP 5 ML PO ×2 (09:59→20:16)
[2024-06-16] MEDS: VIBRAMYCIN 260 MG IV (10:07)
--- NOTE | 2024-06-16 11:25 | W.PN.INTV ---
Today's Communication / Plan
Recommendations
Continue steroids and antibiotics for today
Will need slow steroid taper when appropriate
Wean oxygen as tolerated
Repeat chest xray tomorrow
Continue famotidine BID
Assessment
-
64-year-old woman with distant past medical history of provoked pulmonary embolism, interstitial lung disease which is mild on CAT scan 07/2022 undifferentiated, has not been seen by pulmonary despite being recommended last year. Comes to the
hospital complaining of progressive shortness of breath, cough, hypoxemia. X-ray with significant bilateral infiltrates. Follow-up CT demonstrated severely diffuse groundglass opacities. Progressive hypoxemic respiratory failure up to 10 L.
Severe acute hypoxemic respiratory failure currently on [address] chest 06/12/2024: Diffuse groundglass opacity bilateral. No pleural effusion. Negative for PE.
Differential diagnosis include infectious such as community-acquired pneumonia viral/bacterial-cannot rule out interstitial lung disease acute flare-broad differential diagnosis.
With significantly increased CRP and sedimentation rate suspect more inflammatory such as nonspecific interstitial pneumonia, connective tissue disease associated ILD etc.
Her CAT scan was not compatible with usual interstitial pneumonia.
Less likely pulmonary edema. Most recent echocardiogram with normal LVEF.
Less likely diffuse alveolar hemorrhage given stable hgb and no hemoptysis
Negative influenza, COVID, Legionella and strep pneumonia.
EKG 06/11/2024: Normal sinus rhythm. ST-T wave abnormality consider inferior ischemia.
leukocytosis/fever
Mild hyponatremia.
Conditions present prior admission:
Interstitial lung disease : Undifferentiated
Formerly seen on CAT scan 07/2022 for the first time. Mild, peripheral, undifferentiated.
History of PE/DVT provoked after foot injury [address] of the chest at that time: No mention of interstitial lung disease.
History of influenza in 2017/2018 With pneumonia.
History of COVID mildly 2021.
History of ankle fracture on the left status post repair 2023.
Assessment and plan:
At this time, patient continues to require high flow NC and nonrebreather
Desaturated to 86% yesterday in chair but improved with high flow and nonrebreather
Rapidly progressive hypoxemic respiratory failure over the past few days
CT chest demonstrated severely diffuse groundglass opacities without pleural effusions but has mildly increased mediastinal lymph nodes. No pericardial effusion.
Chest x-ray p.m. 06/14 shows improvement in aeration
KIERRA IgG positive; antinuclear Ab and cytoplasmic Ab negative by IFA; c3, c4 wnl
CCP antibody positive, CRP positive -- Suspect inflammatory process
Moving forward
Continue Cefepime/doxycycline for additional day. Anticipate discontinuing tomorrow.
Continue with systemic corticosteroids for severe pneumonia/rapidly progressive hypoxemic respiratory failure and possibility of interstitial lung disease flare.
Now on 6mg IV q6h since 06/13 -- if continuing to improve, will begin slow taper
Consider repeat chest x-ray 06/17
Wean oxygen as able
Continue supportive measures for cough and associated rib pain
Blood cultures no growth at 4 days-- continue to follow.
Respiratory culture showed usual respiratory jeniffer
Negative influenza, COVID, Legionella and strep pneumonia.
Overall she is clinically improving, will reassess oxygen requirements and consider transfer to IMU if appropriate
Will need outpatient follow up with pulm-- new pt appt scheduled with Dr. Del Valle in Jul 2024, likely will need to adjust timing
Will need outpatient follow up with rheumatology
DVT prophylaxis-Enoxaparin
Aspiration precautions
GI prophylaxis: famotidine twice daily. Plan to continue at discharge given ILD
Code status: Full
If she were to need medical decision maker, it would be her daughter Kay Chau.

Data reviewed:
CT chest 08/15/2022: Mild changes of pulmonary fibrosis, nonspecific pattern, pleural-based. Findings are new compared to prior study. Left lower lobe 4 mm nodule. Benign etiology.
Possible pericardial cyst 2.8 X1.8X 1.1 cm present in 2016 stable.
-
Echocardiogram 08/16/2022: Showed normal LVEF. No regional wall motion abnormalities. Ejection fraction 60 to 65%.
Normal right ventricular size and function.
No significant valvular disease.
-
CT chest 2016: Reviewed, bilateral lower lobe filling defects compatible with pulmonary embolism. Lower lobe subsegmental atelectasis. No focal abnormalities noted at that time.
Small pericardial cyst
-
Chest x-ray 2020: Mild diffuse interstitial thickening left greater than right possible ILD/fibrosis
Subjective Dataa
Subjective Data
Date of Service:
Date of Service: June 16, 2024
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
Subjective:
No acute events overnight. Feels a little better after improved sleep last night. Only complaint is left lateral rib pain from coughing and baseline anxiety. Endorses shortness of breath with conversation. Denies lightheadedness, dizziness, chest
pain/pressure, palpitations, nausea, vomiting, diarrhea, abdominal pain. Tolerating regular diet. Has not been OOB today-- yesterday desat when transferred to chair. Bonilla draining clear yellow urine. On high flow O2 50L, 60% with prn NRB. BPs
90-138/60-100, HR 60s-90s. Tcurrent 97.8; last febrile to 100.4 on 06/11.
Review of Systems
General: Fever (negative), Sweats (negative), Chills (negative), Satisfactory Appetite and Pain (L lateral ribs)
HEENT: Epistaxis (negative), Oral/Throat Pain (negative) and Dysphagia (negative)
Cardiopulmonary: Dyspnea, Cough, Chest Pain (negative) and Edema (negative)
GI: Abdominal Pain (negative), Nausea (negative), Vomiting (negative) and Diarrhea (negative)
Neuro: Dizziness (negative)
Genitourinary: Bonilla
Objective Data
Data Reviewed
Vital Signs / I&O / Oxygen:
Vital Signs
Temp Pulse Resp BP Pulse Ox
98.3 F 74 26 100/67 95
06/16/24 11:20 06/16/24 08:53 06/16/24 08:53 06/15/24 18:00 06/16/24 08:54
Intake and Output
06/15/24 06/16/24 06/17/24
06:59 06:59 06:59
Intake Total 1500 / 1500 2310 / 2310
Output Total 2765 / 2765 2745 / 2745
Balance -1265 / -1265 -435 / -435
SaO2 95
Nasal Cannula flow liters per 50
minute
Physical Exam
General: Comfortable, Chills (negative) and Sweats (negative)
HEENT: Normocephalic and Anicteric
Cardiovascular: S1-S2, Regular Rhythm, Murmur (negative), Rub (negative) and Peripheral Edema (trace edema bilateral lower extremities)
Respiratory: Wheeze (negative), Crackles (Minimal at base), Rhonchi (negative), Non-Labored Respirations and Stridor (negative)
GI: Soft, Non Distended, Non Tender and Normal Bowel Sounds
Neurology: Awake, Alert, Oriented and No Motor Deficits
Skin: Warm, Dry, Good Color, Cyanosis (negative), Jaundice (negative) and Rash (negative)
Labs/Micro/Reports
Lab Data
06/16/24 05:04
Microbiology
06/11/24 09:16 Blood/Venous Blood Culture - Final
No Growth - Final Report
06/11/24 09:06 Blood/Venous Blood Culture - Final
No Growth - Final Report
06/13/24 05:50 Sputum Respiratory Culture - Final
Usual Respiratory Jeniffer
06/13/24 05:50 Sputum Gram Stain - Final
06/14/24 21:25 Nasal Swab Respiratory Syncytial Virus Culture - Final
Negative for Respiratory Syncytial Virus.
A false negative result may be obtained with a specimen
collected early in the acute phase. If symptoms persist, a
new specimen should be tested.
06/11/24 16:10 Nose MRSA Screen - Final
No Methicillin Resistant Staphylococcus aureus isolated.
--- NOTE | 2024-06-16 14:08 | CM ---
Chart reviewed with requiring high flow with non rebreather, able to ambulate per nursing, steroid taper, and IV ABX.
Plan; To follow with patient progress.
--- NOTE | 2024-06-16 15:22 | W.PN.HOSP.TC ---
Today's Communication/Plan
-
cont empiric abx additional day
initiating weaning of steroids likely tomorrow
wean o2 as tolerated; goal o2>88%
Incentive Aurora
Assessment / Plan
Assessment / Plan
HPI: 64-year-old female with past medical history of interstitial lung disease, distant history of provoked PE, p/w cough and shortness of breath.
Patient reported that she had norovirus a few weeks ago with nausea/vomiting/diarrhea� symptoms resolved in about 3 to 4 days ago, but she started having cough and SOB. She went to urgent care on Sunday and was diagnosed with pneumonia. She did not
have a chest x-ray but she was treated empirically with cephalexin and azithromycin which she has taken x 3 days.
Despite these interventions, her symptoms have gotten worse.
In the morning, she could not breathe and called EMS to bring her to the hospital.
Per EMS on their arrival patient was hypoxic and mildly cyanotic, tachypneic; she was placed on oxygen with improvement.
A/P:
# Acute hypoxic respiratory failure 2/2 CAP with ILD flare/pneumonitis
# sepsis POA 2/2 BL CAP
CXR: Chronic interstitial lung disease/fibrosis, progressed. Possible superimposed left-sided pneumonia.
Cont O2 support, on high flow NC 80% FiO2 and Flow of 50L; wean as tolerated; goal o2>88%
wean O2 when able, pt not on home O2
CT PE negative for PE, noted Extensive bilateral groundglass opacities, superimposed upon subpleural reticulation/fibrosis. There is also mediastinal and hilar lymphadenopathy, which is new compared to the prior examination. Findings are nonspecific
and could represent acute exacerbation or worsening of patient's interstitial lung disease with infectious or inflammatory process also a consideration.
Cont Cefepime, doxycycline; No vancomycin needed with neg MRSA - can complete course tomorrow
Cont empiric Decadron, now at 6 mg Q6H for underlying ILD (likely due to RA) - transition to slow pred taper likely tomorrow
COVID/FLU negative, RSA negative, urine Legionella/Strep negative, MRSA screen neg, blood culture neg
Sputum Cx usual francis
Follow rheumatology serology - needs outpt work up
Cont Duonebs ATC and PRN, Tessalon ATC, Mucinex
Pulm on board
Incentive Aurora
Prone positioning if able
# Concern for Rheumatoid arthritis with RA Interstitial lung disease�
KIERRA positive, antiCCP positive
IV steroid as above - steroid taper most likely adam
Rheum eval as outpt
# Mild hyponatremia due to above, resolved
# h/o ILD
# distant history of provoked PE followed by ankle surgery 2015
DVT ppx: Lovenox SQ
FC
Total time spent on today's encounter was 45 minutes which included time spent in counseling the patient/family regarding diagnosis and treatment plan as listed above, goals of care, and symptom management. Case was discussed with nursing staff,
specialists, and care coordinators/case management. All labs and imaging personally reviewed by me. Remainder the time spent in detailed review of previous records, lab data, imaging, and other medical provider documentation.
Anticipated Discharge: > 48 hours
Subjective/Interval History
-
Date of Service: June 16, 2024
feeling better, improving HFNC parameters
Objective Data
-
Labs:
Laboratory Results
06/16/24 06/16/24
05:04 05:55
WBC 11.8 H
Hgb 11.1 L
Hct 32.0 L
Plt Count 285
Sodium Cancelled Cancelled
Potassium Cancelled Cancelled
Chloride Cancelled Cancelled
Carbon Dioxide Cancelled Cancelled
BUN Cancelled Cancelled
Creatinine Cancelled Cancelled
Glucose Cancelled Cancelled
Calcium Cancelled Cancelled
Vital Signs:
Vital Signs
Temp Pulse Resp BP Pulse Ox
98.3 F 86 22 100/67 94
06/16/24 11:20 06/16/24 11:43 06/16/24 11:43 06/15/24 18:00 06/16/24 11:43
I&O
06/15/24 06/16/24 06/17/24
06:59 06:59 06:59
Intake Total 1500 / 1500 2310 / 2310
Output Total 2765 / 2765 2745 / 2745
Balance -1265 / -1265 -435 / -435
Review of Systems
-
History Source: Patient
All other systems: Not reviewed unless documented
Physical Exam
-
General: Well Developed, Well Nourished, Respiratory Distress and Conversant
HEENT: Normocephalic, Atraumatic, Nose Appears Normal, Ears Appear Normal and Oxygen (high flow NC 100% with intermittent NRB use)
Respiratory: Clear to Auscultation and Crackles (fine crackles at bases)
Cardiac: Regular Rhythm and S1/S2
GI: Soft, Nontender, Nondistended and Normal Bowel Sounds
Skin: Warm and Dry
Neuro: Awake, Alert, Oriented and AO x 3
Psych: Calm and Intact Judgement/Insight
--- NOTE | 2024-06-16 16:06 | W.PN.UPDATE ---
Update Note
Progress Note Update
Clinically improving, FiO2 on high flow has been decreased to 45%. With conversation pulse ox 94%.
Will transfer back to IMU level.
Pulmonary will continue to follow.
[2024-06-16] MEDS: LOVENOX 40 MG SC (17:42)
[2024-06-16] MEDS: VIBRAMYCIN 100 MG PO (20:16)
[2024-06-16] MEDS: MELATONIN 5 MG PO (21:48)
[2024-06-16] MEDS: XANAX 0.25 MG PO (21:48)
--- NOTE | 2024-06-16 22:17 | PTCARENOTE ---
At rest pt is desatting to 72% on HFNC 45L/45%, pt now on 45L/50% +NRB with pulse ox 90-94%. Breath sounds diminished, shallow respirations.
[2024-06-17] VITALS (14 sets, daily range): BP systolic 84–119; BP diastolic 55–88; BMI 30.5
[2024-06-17] MEDS: DECADRON 6 MG IV ×3 (02:40→16:17)
[2024-06-17] MEDS: PHENERGAN WITH CODEINE SYRUP 5 ML PO ×4 (04:03→21:44)
[2024-06-17 04:22] LABS: Hemoglobin 11.8 g/dL (12.0-16.0); Mean Corp Hgb Conc. 34.7 g/dL (33.0-37.0); Mean Corpuscular Hgb 32.8 pg (27.0-31.0); Mean Corpuscular Volume 94.4 fL (81.0-99.0); Mean Platelet Volume 9.1 fL (7.4-10.4); Platelet Count 328 10^3/uL (130-400); Red Cell Dist. Width 12.4 % (11.5-14.5); White Blood Cell Count 13.8 10^3/uL (4.8-10.8)
[2024-06-17 04:33] LABS: Blood Urea Nitrogen 21 mg/dl (7-17); Calcium 8.3 mg/dl (8.4-10.2); Carbon Dioxide 26 mmol/L (22-30); Chloride 103 mmol/L (98-107); Estimated Creatinine Clearance 113 ml/min; Glucose 140 mg/dl (70-99); Potassium 4.4 mmol/L (3.5-5.1); Sodium 136 mmol/L (135-145); eGFR > 60.00
[2024-06-17] MEDS: SYNTHROID 137 MCG PO (05:45)
[2024-06-17] MEDS: TESSALON PERLES 100 MG PO ×3 (08:03→21:44)
[2024-06-17] MEDS: PEPCID 20 MG PO ×2 (08:04→21:43)
[2024-06-17] MEDS: MUCINEX 1200 MG PO ×2 (08:04→21:43)
[2024-06-17] MEDS: TYLENOL 500 MG PO (08:09)
[2024-06-17] MEDS: VENTOLIN NEBULES 2.5 MG INH ×4 (08:19→20:32)
--- NOTE | 2024-06-17 09:04 | W.PN.PUL3 ---
Addendum entered and electronically signed by Salvador Ratliff MD 06/18/24 02:51:
Patient was seen and evaluated on 06/17/2024
Original Note:
Today's Communication / Plan
-
High flow nasal cannula with prn NRB
Titrate FiO2 and flow rate to keep SpO2>90%
Will need ambulatory pulse ox prior to discharge
Continue high dose systemic steroids
May benefit from inpatient rheumatology consult
Anti-CCP moderately positive, indicating possible systemic autoimmune related disease-ILD --> may benefit from mycophenolate vs rituxin vs azathioprine
Monitor volume status --> not currently concerned for acute CHF
Goal BG >100 and <180mg/dL
MAP>65
Aspiration precautions
Low threshold to TRX to ICU for NIV; will need intubation if she worsens
Trend CRP
Pulmonary service will continue to follow along
Assessment
-
64-year-old woman with distant past medical history of provoked pulmonary embolism, interstitial lung disease which is mild on CAT scan 07/2022 undifferentiated, has not been seen by pulmonary despite being recommended last year. Comes to the
hospital complaining of progressive shortness of breath, cough, hypoxemia. X-ray with significant bilateral infiltrates. Follow-up CT demonstrated severely diffuse groundglass opacities. Progressive hypoxemic respiratory failure up to 10 L.
Impression:
Severe acute hypoxemic respiratory failure currently on high-flow nasal cannula
CTA chest 06/12/2024: Diffuse groundglass opacity bilaterally. No pleural effusion. Negative for acute PE.
Differential diagnosis include infectious such as community-acquired pneumonia viral/bacterial-cannot rule out interstitial lung disease acute flare-broad differential diagnosis.
With significantly increased CRP and sedimentation rate suspect more inflammatory such as nonspecific interstitial pneumonia, connective tissue disease associated ILD etc.
Her CAT scan was not compatible with usual interstitial pneumonia.
Less likely pulmonary edema. Most recent echocardiogram with normal LVEF.
Less likely diffuse alveolar hemorrhage given stable hgb and no hemoptysis; DDx also includes CEP, organizing pneumonia, and atypical CHP
Negative influenza, COVID, Legionella and strep pneumonia.
EKG 06/11/2024: Normal sinus rhythm. ST-T wave abnormality consider inferior ischemia.
leukocytosis/fever
Mild hyponatremia - now resolved
Conditions present prior admission:
Interstitial lung disease : Undifferentiated
Formerly seen on CAT scan 07/2022 for the first time. Mild, peripheral, undifferentiated.
History of PE/DVT provoked after foot injury [address] of the chest at that time: No mention of interstitial lung disease.
History of influenza in 2018/2018 With pneumonia.
History of COVID mildly 2021.
History of ankle fracture on the left status post repair 2023.
Assessment and plan:
At this time, patient continues to require high flow NC and nonrebreather
Rapidly progressive hypoxemic respiratory failure over the past few days
CTA chest from 06/12/2024 demonstrated severely diffuse groundglass opacities without pleural effusions but has mildly increased mediastinal lymph nodes. No pericardial effusion.
Chest x-ray p.m. 06/14 shows improvement in aeration
KIERRA IgG positive but with low titer (<1:80); antinuclear Ab and cytoplasmic Ab negative by IFA; c3, c4 wnl
CCP antibody positive (moderately positive), CRP positive -- Suspect inflammatory process
May benefit from rheumatology consult --> if we are thinking this is due to a SARD-ILD, then may benefit from mycophenolate, azathioprine vs rituxin
Moving forward
s/p course of ABx (cefepime - 06/11 - 06/16) + doxy (06/11 - 06/16), also s/p zithromax x1 dose on 06/13, and IV vanco x 4 doses (06/11 - 06/13)
Continue Cefepime/doxycycline for additional day. Anticipate discontinuing tomorrow.
Continue with systemic corticosteroids for severe pneumonia/rapidly progressive hypoxemic respiratory failure and possibility of interstitial lung disease flare.
Now on Decadron 6mg IV q8hr <-- q6h, steroids started 06/12 initially with decadron 4mg IV q6hr; wean steroids as she clinically improves - no changes for now; eventual slow prednisone taper
CXR today (06/17) shows mild improvement compared to admission CXR
Wean oxygen as able to keep SpO2 >90%
Continue supportive measures for cough and associated rib pain
Blood cultures collected show NGTD
Respiratory culture from 06/13/2024 showed usual respiratory francis
Negative influenza, COVID, Legionella and strep pneumonia.
Will need outpatient follow up with pulm-- new pt appt scheduled with Dr. Del Valle in Jul 2024, likely will need to adjust timing
Will need outpatient follow up with rheumatology
DVT prophylaxis-Enoxaparin
Aspiration precautions
GI prophylaxis: famotidine twice daily. Plan to continue at discharge given ILD
Code status: Full
If she were to need medical decision maker, it would be her daughter Kay Chau.
Pulmonary service will continue to follow along.

Data reviewed:
CT chest 08/15/2022: Mild changes of pulmonary fibrosis, nonspecific pattern, pleural-based. Findings are new compared to prior study. Left lower lobe 4 mm nodule. Benign etiology.
Possible pericardial cyst 2.8 X1.8X 1.1 cm present in 2016 stable.
-
Echocardiogram 08/16/2022: Showed normal LVEF. No regional wall motion abnormalities. Ejection fraction 60 to 65%.
Normal right ventricular size and function.
No significant valvular disease.
-
CT chest 2015: Reviewed, bilateral lower lobe filling defects compatible with pulmonary embolism. Lower lobe subsegmental atelectasis. No focal abnormalities noted at that time.
Small pericardial cyst
-
Chest x-ray 2020: Mild diffuse interstitial thickening left greater than right possible ILD/fibrosis
Total time spent today was 52 minutes for this encounter. Time includes reviewing laboratory test/imaging results, reviewing pertinent medical records, obtaining and reviewing medical history, performing an appropriate exam, ordering medications,
tests and procedures. Time also includes documentation of this encounter, coordinating patient care and communicating with other healthcare professionals. Total time does not include separately billed tests performed on this date of service.
Subjective Data
-
Date of Service:
Date of Service: June 17, 2024
Chief Complaint: Pulmonary Follow Up
Subjective:
Pt was seen and evaluated on 06/17/2024 - late note entry. Currently on high flow nasal cannula t 70% FiO2, 50L/min. She denies a cough. Currently saturating 87%, but when NRB is applied her sats improve to 96%. HR 78 and BP 92/61. She is
awake, alert, following all commands. She appears to be breathing well, but with conversation her sats drop and she becomes dyspneic. Currently denies chest pain, PASCUAL, abd pain, N/V/f/c.
Review of Systems
General: Other (negative unless mentioned above)
Objective Data
Data Reviewed
Vital Signs / I&O / Oxygen:
Vital Signs
Temp Pulse Resp BP Pulse Ox
98.4 F 67 24 119/87 90
06/17/24 07:00 06/17/24 08:19 06/17/24 08:19 06/17/24 08:00 06/17/24 08:20
Intake and Output
06/16/24 06/17/24 06/18/24
06:59 06:59 06:59
Intake Total 2310 / 2310 720 / 720
Output Total 2745 / 2745 1999 / 1999 325 / 325
Balance -435 / -435 -1280 / -1280 -325 / -325
SaO2 90
Nasal Cannula flow liters per 55
minute
Physical Exam
General: Respiratory Distress (negative), Comfortable, Chills (negative) and Sweats (negative)
HEENT: Normocephalic and Anicteric
Cardiovascular: S1-S2, Rub (negative) and Peripheral Edema (negative)
Respiratory: Wheeze (negative), Crackles (bilateral (bases to middle lung shahid mainly)), Rhonchi (negative), Non-Labored Respirations and Stridor (negative)
GI: Soft, Non Distended, Non Tender and Normal Bowel Sounds
Neurology: AO x 3 and Tremors (negative)
Skin: Warm, Dry, Cyanosis (negative) and Jaundice (negative)
Labs/Micro/Reports
Lab Data
06/17/24 04:09
06/17/24 04:09
Microbiology
06/11/24 09:16 Blood/Venous Blood Culture - Final
No Growth - Final Report
06/11/24 09:06 Blood/Venous Blood Culture - Final
No Growth - Final Report
06/13/24 05:50 Sputum Respiratory Culture - Final
Usual Respiratory Francis
06/13/24 05:50 Sputum Gram Stain - Final
06/14/24 21:25 Nasal Swab Respiratory Syncytial Virus Culture - Final
Negative for Respiratory Syncytial Virus.
A false negative result may be obtained with a specimen
collected early in the acute phase. If symptoms persist, a
new specimen should be tested.
--- NOTE | 2024-06-17 13:24 | PTCARENOTE ---
Addendum entered by Martina Johnston RN 06/17/24 14:09:
Cannot verify accuracy of vital signs prior to 10:00.
Original Note:
Received patient on transfer from ICU via bed with high flow at 50/65 and POx 92-93%; NRB at bedside for use prn. Patient has had several episodes with desat to 85%, but will quickly recover after doing slow deep breathing. NRB needed one time so
far when patient was working on her computer. She was able to eat 100% of lunch. Patient arrived with sheppard catheter ordered for critical I&O. Reviewed order and POx with Dr Diaz; instructed to d/c sheppard. Sheppard d/c'd at 12:15. Reviewed use of
IS; patient using frequently. See worklist for full assessment and vital signs.
--- NOTE | 2024-06-17 14:27 | W.PN.HOSP.TC ---
Today's Communication/Plan
-
Wean O2 as tolerated
Wean Decadron to 6 mg every 8h
Trial low-dose diuretic, 20 mg p.o. Lasix; net goal slight negative -monitor Bp and Scr
Assessment / Plan
Assessment / Plan
HPI: 64-year-old female with past medical history of interstitial lung disease, distant history of provoked PE, p/w cough and shortness of breath.
Patient reported that she had norovirus a few weeks ago with nausea/vomiting/diarrhea� symptoms resolved in about 3 to 4 days ago, but she started having cough and SOB. She went to urgent care on Sunday and was diagnosed with pneumonia. She did not
have a chest x-ray but she was treated empirically with cephalexin and azithromycin which she has taken x 3 days.
Despite these interventions, her symptoms have gotten worse.
In the morning, she could not breathe and called EMS to bring her to the hospital.
Per EMS on their arrival patient was hypoxic and mildly cyanotic, tachypneic; she was placed on oxygen with improvement.
A/P:
# Acute hypoxic respiratory failure 2/2 CAP with ILD flare/pneumonitis
# sepsis POA 2/2 BL CAP
CXR: Chronic interstitial lung disease/fibrosis, progressed. Possible superimposed left-sided pneumonia.
Cont O2 support, on high flow NC 65% FiO2 and Flow of 50L; wean as tolerated; goal o2>88%
wean O2 when able, pt not on home O2
CT PE negative for PE, noted Extensive bilateral groundglass opacities, superimposed upon subpleural reticulation/fibrosis. There is also mediastinal and hilar lymphadenopathy, which is new compared to the prior examination. Findings are nonspecific
and could represent acute exacerbation or worsening of patient's interstitial lung disease with infectious or inflammatory process also a consideration.
Completed Cefepime, doxycycline course - 5 days although doubt bacterial; No vancomycin needed with neg MRSA -
Cont empiric Decadron, now at 6 mg Q6H for underlying ILD (likely due to RA) - transition to decadron 6mg q8h today
Provide 20mg lasix today and monitor; net goal slight negative
COVID/FLU negative, RSA negative, urine Legionella/Strep negative, MRSA screen neg, blood culture neg
Sputum Cx usual francis
Follow rheumatology serology - needs outpt work up
Cont Duonebs ATC and PRN, Tessalon ATC, Mucinex
Pulm on board
Incentive Valdemar
Prone positioning if able
# Concern for Rheumatoid arthritis with RA Interstitial lung disease�
KIERRA positive, antiCCP positive
IV steroid as above - steroid taper
Rheum eval as outpt
# Mild hyponatremia due to above, resolved
# h/o ILD
# distant history of provoked PE followed by ankle surgery 2015
DVT ppx: Lovenox SQ
FC
Total time spent on today's encounter was 54 minutes which included time spent in counseling the patient/family regarding diagnosis and treatment plan as listed above, goals of care, and symptom management. Case was discussed with nursing staff,
specialists, and care coordinators/case management. All labs and imaging personally reviewed by me. Remainder the time spent in detailed review of previous records, lab data, imaging, and other medical provider documentation.
Anticipated Discharge: > 48 hours
Subjective/Interval History
-
Date of Service: June 17, 2024
FiO2 weaned, continue to monitor
Objective Data
-
Labs:
Laboratory Results
06/17/24
04:09
WBC 13.8 H
Hgb 11.8 L
Hct 34.0 L
Plt Count 328
Sodium 136
Potassium 4.4
Chloride 103
Carbon Dioxide 26
BUN 21 H
Creatinine 0.6
Glucose 140 H
Calcium 8.3 L
Vital Signs:
Vital Signs
Temp Pulse Resp BP Pulse Ox
98.4 F 74 31 86/55 91
06/17/24 07:00 06/17/24 12:34 06/17/24 12:34 06/17/24 12:34 06/17/24 12:34
I&O
06/16/24 06/17/24 06/18/24
06:59 06:59 06:59
Intake Total 2310 / 2310 720 / 720
Output Total 2745 / 2745 1999 325 / 325
Balance -435 / -435 -1280 / -1280 -325 / -325
Review of Systems
-
History Source: Patient
All other systems: Not reviewed unless documented
Physical Exam
-
General: Well Developed, Well Nourished and Conversant
HEENT: Normocephalic, Atraumatic, Nose Appears Normal, Ears Appear Normal and Oxygen (high flow NC )
Respiratory: Crackles (fine crackles at bases)
Cardiac: Regular Rhythm and S1/S2
GI: Soft, Nontender, Nondistended and Normal Bowel Sounds
Skin: Warm and Dry
Neuro: Awake, Alert, Oriented and AO x 3
Psych: Calm and Intact Judgement/Insight
Data Reviewed
-
Diagnostic Radiology: Image personally visualized and interpreted and Report Reviewed by me
CT Scan: Report Reviewed by me
Labs: Labs Reviewed by me
[2024-06-17] MEDS: LASIX 20 MG PO (16:17)
[2024-06-17] MEDS: LOVENOX 40 MG SC (17:34)
[2024-06-17] MEDS: MELATONIN 5 MG PO (21:43)
[2024-06-17] MEDS: XANAX 0.25 MG PO (21:44)
[2024-06-18] VITALS (15 sets, daily range): BP systolic 85–120; BP diastolic 57–83; O2SAT 88; BMI 30.5
--- NOTE | 2024-06-18 00:38 | PTCARENOTE ---
Received patient from [facility] RN, report received. Pt was up and in the chair at change of shift. Pt since returned to bed with an assist of 1 person. Pt on highflow 50L/65%. O2 sat 95%. NRB at the bedside for PRN recovery. Pt has episodes of
coughing and had desatted to 85%, administered scheduled cough medication syrup see AUG. Pt states some frustration stating 'I just need to get rest tonight'. Reached out to RT, RT bedside and put highflow to 50L/100% to allow for restful
sleep/recovery. Pt voided in the bedpan for 300ml. PVR 0 ml bladder scan. NSR on tele. See worklist for full assessment and vitals.
[2024-06-18] MEDS: DECADRON 6 MG IV ×3 (00:50→15:27)
[2024-06-18] MEDS: SYNTHROID 137 MCG PO (05:37)
[2024-06-18] MEDS: COLACE 100 MG PO (05:37)
[2024-06-18 06:35] LABS: Erythrocyte Sed Rate 42 mm/hour (0-20)
[2024-06-18] MEDS: VENTOLIN NEBULES 2.5 MG INH ×4 (07:53→19:18)
--- NOTE | 2024-06-18 08:00 | PTCARENOTE ---
Received pt in bed, on HighFlow 50L 100%, RT unable to wean oxygen at this time, will continue to reevaluate. LS w/ crackles at the bases, pt tachypneic RR 30's, sating 90-95% at rest, desats to 85% w/ minimal activity or coughing. Frequent dry
nonproductive cough. VSS. NSR on monitor 70's. Full assessment as documented.
[2024-06-18] MEDS: TESSALON PERLES 100 MG PO ×3 (08:52→21:47)
[2024-06-18] MEDS: TYLENOL 500 MG PO (08:53)
[2024-06-18] MEDS: PEPCID 20 MG PO ×2 (08:53→21:47)
[2024-06-18] MEDS: MUCINEX 1200 MG PO ×2 (08:53→21:47)
[2024-06-18 11:04] LABS: Hematocrit 35.2 % (37.0-47.0); Mean Corp Hgb Conc. 34.1 g/dL (33.0-37.0); Mean Corpuscular Hgb 32.7 pg (27.0-31.0); Mean Corpuscular Volume 95.9 fL (81.0-99.0); Mean Platelet Volume 9.3 fL (7.4-10.4); Platelet Count 337 10^3/uL (130-400); Red Blood Cell Count 3.67 10^6/uL (4.20-5.40); Red Cell Dist. Width 12.9 % (11.5-14.5); White Blood Cell Count 21.3 10^3/uL (4.8-10.8)
[2024-06-18 11:15] LABS: ALT (SGPT) 64 U/L (0-35); AST (SGOT) 26 U/L (14-36); Albumin 3.5 g/dl (3.5-5.0); Alkaline Phosphatase 90 U/L (38-126); Blood Urea Nitrogen 27 mg/dl (7-17); Calcium 8.3 mg/dl (8.4-10.2); Carbon Dioxide 23 mmol/L (22-30); Chloride 100 mmol/L (98-107); Estimated Creatinine Clearance 113 ml/min; Glucose 215 mg/dl (70-99); Potassium 4.4 mmol/L (3.5-5.1); Sodium 132 mmol/L (135-145); Total Bilirubin 0.6 mg/dl (0.2-1.3); Total Protein 6.7 g/dl (6.3-8.2); eGFR > 60.00
--- NOTE | 2024-06-18 13:04 | W.PN.HOSP.TC ---
Today's Communication/Plan
-
low dose diuretic today
wean o2 as tolerated
cont steroids
early ambulation, hopeful to be OOB to chair
Assessment / Plan
Assessment / Plan
HPI: 64-year-old female with past medical history of interstitial lung disease, distant history of provoked PE, p/w cough and shortness of breath.
Patient reported that she had norovirus a few weeks ago with nausea/vomiting/diarrhea� symptoms resolved in about 3 to 4 days ago, but she started having cough and SOB. She went to urgent care on Sunday and was diagnosed with pneumonia. She did not
have a chest x-ray but she was treated empirically with cephalexin and azithromycin which she has taken x 3 days.
Despite these interventions, her symptoms have gotten worse.
In the morning, she could not breathe and called EMS to bring her to the hospital.
Per EMS on their arrival patient was hypoxic and mildly cyanotic, tachypneic; she was placed on oxygen with improvement.
A/P:
# Acute hypoxic respiratory failure 2/2 CAP with ILD flare/pneumonitis
# sepsis POA 2/2 BL CAP
CXR: Chronic interstitial lung disease/fibrosis, progressed. Possible superimposed left-sided pneumonia.
Cont O2 support, on high flow NC 65% FiO2 and Flow of 50L; wean as tolerated; goal o2>88%
wean O2 when able, pt not on home O2
CT PE negative for PE, noted Extensive bilateral groundglass opacities, superimposed upon subpleural reticulation/fibrosis. There is also mediastinal and hilar lymphadenopathy, which is new compared to the prior examination. Findings are nonspecific
and could represent acute exacerbation or worsening of patient's interstitial lung disease with infectious or inflammatory process also a consideration.
Completed Cefepime, doxycycline course - 5 days although doubt bacterial; No vancomycin needed with neg MRSA -
Cont empiric Decadron, now at 6 mg Q6H for underlying ILD (likely due to RA) - transition to decadron 6mg q8h today
Provide 20mg lasix today and monitor; net goal slight negative
COVID/FLU negative, RSA negative, urine Legionella/Strep negative, MRSA screen neg, blood culture neg
Sputum Cx usual francis
Follow rheumatology serology - needs outpt work up
Cont Duonebs ATC and PRN, Tessalon ATC, Mucinex
Pulm on board
Incentive Valdemar
Prone positioning if able
#Leukocytosis
-monitor fever curve wbc count
-observe off aabx
# Concern for Rheumatoid arthritis with RA Interstitial lung disease�
KIERRA positive, antiCCP positive
IV steroid as above - steroid taper
Rheum eval as outpt
# Mild hyponatremia due to above
-fwr, monitor
# h/o ILD
# distant history of provoked PE followed by ankle surgery 2015
DVT ppx: Lovenox SQ
FC
Total time spent on today's encounter was 52 minutes which included time spent in counseling the patient/family regarding diagnosis and treatment plan as listed above, goals of care, and symptom management. Case was discussed with nursing staff,
specialists, and care coordinators/case management. All labs and imaging personally reviewed by me. Remainder the time spent in detailed review of previous records, lab data, imaging, and other medical provider documentation.
Anticipated Discharge: > 48 hours
Subjective/Interval History
-
Date of Service: June 18, 2024
no acute events
Objective Data
-
Labs:
Laboratory Results
06/18/24
10:57
WBC 21.3 H
Hgb 12.0
Hct 35.2 L
Plt Count 337
Sodium 132 L
Potassium 4.4
Chloride 100
Carbon Dioxide 23
BUN 27 H
Creatinine 0.6
Glucose 215 H
Calcium 8.3 L
Total Bilirubin 0.6
AST 26
ALT 64 H
Alkaline Phosphatase 90
Vital Signs:
Vital Signs
Temp Pulse Resp BP Pulse Ox
97.4 F 91 20 103/71 93
06/18/24 11:31 06/18/24 11:25 06/18/24 11:25 06/18/24 06:07 06/18/24 11:25
I&O
06/17/24 06/18/24 06/19/24
06:59 06:59 06:59
Intake Total 720 / 720 240 / 240 180 / 180
Output Total 1999 / 1999 1175 / 1175
Balance -1280 / -1280 -935 / -935 180 / 180
Review of Systems
-
History Source: Patient
All other systems: Not reviewed unless documented
Data Reviewed
-
Diagnostic Radiology: Image personally visualized and interpreted and Report Reviewed by me
CT Scan: Report Reviewed by me
Labs: Labs Reviewed by me
[2024-06-18] MEDS: DULCOLAX 10 MG RECTAL (13:08)
--- NOTE | 2024-06-18 13:30 | PTCARENOTE ---
Pt assisted OOB to chair, tolerated well, desated to 88% on HF but recovered to 92% quickly at rest. Pt c/o of feeling constipated, Dulcolax suppository given w/ good result. Pt using BSC w/ assistance.
--- NOTE | 2024-06-18 13:39 | W.PN.PUL3 ---
Today's Communication / Plan
-
Continue dexamethasone without change
Oxygen supplementation with high flow oxygen-decrease as able.
Completed antibiotics, observe
Follow leukocytosis
Antitussive
Secretion clearance intervention
Likely will be a slow process of recovery
Repeat chest x-ray intermittently
Assessment
-
64-year-old woman with distant past medical history of provoked pulmonary embolism, interstitial lung disease which is mild on CAT scan 07/2022 undifferentiated, has not been seen by pulmonary despite being recommended last year. Comes to the
hospital complaining of progressive shortness of breath, cough, hypoxemia. X-ray with significant bilateral infiltrates. Follow-up CT demonstrated severely diffuse groundglass opacities. Progressive hypoxemic respiratory failure up to 10 L.
Impression:
Severe acute hypoxemic respiratory failure currently on high-flow nasal cannula
CTA chest 06/12/2024: Diffuse groundglass opacity bilaterally. No pleural effusion. Negative for acute PE.
Differential diagnosis include infectious such as community-acquired pneumonia viral/bacterial-cannot rule out interstitial lung disease acute flare-broad differential diagnosis.
With significantly increased CRP and sedimentation rate suspect more inflammatory such as nonspecific interstitial pneumonia, connective tissue disease associated ILD etc.
Her CAT scan was not compatible with usual interstitial pneumonia.
Less likely pulmonary edema. Most recent echocardiogram with normal LVEF.
Less likely diffuse alveolar hemorrhage given stable hgb and no hemoptysis; DDx also includes CEP, organizing pneumonia, and atypical CHP
Negative influenza, COVID, Legionella and strep pneumonia.
EKG 06/11/2024: Normal sinus rhythm. ST-T wave abnormality consider inferior ischemia.
leukocytosis/fever
Mild hyponatremia - now resolved
Conditions present prior admission:
Interstitial lung disease : Undifferentiated
Formerly seen on CAT scan 07/2022 for the first time. Mild, peripheral, undifferentiated.
History of PE/DVT provoked after foot injury [address] of the chest at that time: No mention of interstitial lung disease.
History of influenza in 2018/2018 With pneumonia.
History of COVID mildly 2021.
History of ankle fracture on the left status post repair 2023.
Assessment and plan:
At this time, patient continues to require high flow NC and nonrebreather
Rapidly progressive hypoxemic respiratory failure over the past few days
CTA chest from 06/12/2024 demonstrated severely diffuse groundglass opacities without pleural effusions but has mildly increased mediastinal lymph nodes. No pericardial effusion.
Chest x-ray p.m. 06/14 shows improvement in aeration
KIERRA IgG positive but with low titer (<1:80); antinuclear Ab and cytoplasmic Ab negative by IFA; c3, c4 wnl
CCP antibody positive (moderately positive), CRP positive -- Suspect inflammatory process
May benefit from rheumatology consult --> if we are thinking this is due to a SARD-ILD, then may benefit from mycophenolate, azathioprine vs rituxin in the outpx setting.
-
Completed course of ABx (cefepime - 06/11 - 06/16) + doxy (06/11 - 06/16), also s/p zithromax x1 dose on 06/13, and IV vanco x 4 doses (06/11 - 06/13)
-
Continue with systemic corticosteroids for severe pneumonia/rapidly progressive hypoxemic respiratory failure and possibility of interstitial lung disease flare.
Decadron 6mg IV q8hr <-- q6h, steroids started 06/12 initially with decadron 4mg IV q6hr; wean steroids as she clinically improves - no changes for now; eventual slow prednisone taper
CXR today (06/17) shows mild improvement compared to admission CXR
Wean oxygen as able to keep SpO2 >90%
Continue supportive measures for cough and associated rib pain
Blood cultures collected 02 show NGTD
Respiratory culture from 06/13/2024 showed usual respiratory jeniffer
Negative influenza, COVID, Legionella and strep pneumonia.
Will need outpatient follow up with pulm-- new pt appt scheduled with Dr. Del Valle in Jul 2024, likely will need to adjust timing
Will need outpatient follow up with rheumatology
DVT prophylaxis-Enoxaparin
Aspiration precautions
GI prophylaxis: famotidine twice daily. Plan to continue at discharge given ILD
Code status: Full
If she were to need medical decision maker, it would be her daughter Kay Chau.
Pulmonary service will continue to follow along.

Data reviewed:
CT chest 08/15/2022: Mild changes of pulmonary fibrosis, nonspecific pattern, pleural-based. Findings are new compared to prior study. Left lower lobe 4 mm nodule. Benign etiology.
Possible pericardial cyst 2.8 X1.8X 1.1 cm present in 2016 stable.
-
Echocardiogram 08/16/2022: Showed normal LVEF. No regional wall motion abnormalities. Ejection fraction 60 to 65%.
Normal right ventricular size and function.
No significant valvular disease.
-
CT chest 2016: Reviewed, bilateral lower lobe filling defects compatible with pulmonary embolism. Lower lobe subsegmental atelectasis. No focal abnormalities noted at that time.
Small pericardial cyst
-
Chest x-ray 2020: Mild diffuse interstitial thickening left greater than right possible ILD/fibrosis
Total time spent today was 50 minutes for this encounter. Time includes reviewing laboratory test/imaging results, reviewing pertinent medical records, obtaining and reviewing medical history, performing an appropriate exam, ordering medications,
tests and procedures. Time also includes documentation of this encounter, coordinating patient care and communicating with other healthcare professionals. Total time does not include separately billed tests performed on this date of service.
Subjective Data
-
Date of Service:
Date of Service: June 18, 2024
Chief Complaint: Pulmonary Follow Up
Subjective:
No new complaints from overnight
Remains on supplemental oxygen
No hemoptysis or significant phlegm production
Review of Systems
General: Fever (n)
Cardiopulmonary: Dyspnea, Dyspnea on Exertion and Cough
Neuro: Headache (n)
Objective Data
Data Reviewed
Vital Signs / I&O / Oxygen:
Vital Signs
Temp Pulse Resp BP Pulse Ox
97.4 F 91 20 103/71 95
06/18/24 11:31 06/18/24 11:25 06/18/24 11:25 06/18/24 06:07 06/18/24 13:33
Intake and Output
06/17/24 06/18/24 06/19/24
06:59 06:59 06:59
Intake Total 720 / 720 240 / 240 420 / 420
Output Total 1999 / 1999 1175 / 1175
Balance -1280 / -1280 -935 / -935 420 / 420
SaO2 95
Nasal Cannula flow liters per 50
minute
Physical Exam
General: Respiratory Distress (negative), Comfortable, Chills (negative) and Sweats (negative)
HEENT: Normocephalic and Anicteric
Cardiovascular: S1-S2, Rub (negative) and Peripheral Edema (negative)
Respiratory: Wheeze (negative), Crackles (bilateral (bases to middle lung shahid mainly)), Rhonchi (negative), Non-Labored Respirations and Stridor (negative)
GI: Soft, Non Distended, Non Tender and Normal Bowel Sounds
Neurology: AO x 3 and Tremors (negative)
Skin: Warm, Dry, Cyanosis (negative) and Jaundice (negative)
Labs/Micro/Reports
Lab Data
06/18/24 10:57
06/18/24 10:57
Microbiology
06/11/24 09:16 Blood/Venous Blood Culture - Final
No Growth - Final Report
06/11/24 09:06 Blood/Venous Blood Culture - Final
No Growth - Final Report
06/13/24 05:50 Sputum Respiratory Culture - Final
Usual Respiratory Jeniffer
06/13/24 05:50 Sputum Gram Stain - Final
[2024-06-18] MEDS: AYR SALINE NASAL GEL 1 APPLIC NASAL (15:28)
[2024-06-18] MEDS: LASIX 20 MG IV (15:39)
--- NOTE | 2024-06-18 16:54 | PTCARENOTE ---
RT able to wean oxygen to 50L 85%. PT remained in chair for 4.5 hours today. 20mg IV lasix ordered and given @ 1539, pt voided 1100mL urine soon after. Pt resting comfortably in bed at this time. Hr 66 RR 28 BP 120/83, sating 92%.
[2024-06-18] MEDS: LOVENOX 40 MG SC (17:41)
[2024-06-18] MEDS: MELATONIN 5 MG PO (21:47)
[2024-06-18] MEDS: PHENERGAN WITH CODEINE SYRUP 5 ML PO (21:48)
[2024-06-18] MEDS: XANAX 0.25 MG PO (21:48)
[2024-06-19] VITALS (21 sets, daily range): BP systolic 84–109; BP diastolic 54–78; BMI 29.9
--- NOTE | 2024-06-19 00:12 | PTCARENOTE ---
Assumed care for patient overnight, received report from becca RN. AAOx3 experiencing anxiety. Administered Xanax HS see MAR. Pt states 'This oxygen is too high and too much'. Reached out to RT. RT bedside to adjust highflow current settings are
40L 85%. O2 sat 91%. RT is comfortable keeping this setting as long as pt remains 88% and above. Pt had some soft BP's current BP 92/61. Pt anxiety resolved and appears to be resting comfortably. Pt urinated in the bedpan. On exertion O2 sat dropped
to 87%, and used the non-rebreather to recover. Call martinez is within reach.
[2024-06-19] MEDS: DECADRON 6 MG IV ×4 (00:20→23:38)
[2024-06-19 04:36] LABS: % Basophils 0.2 % (0-2); % Eosinophils 0.1 % (0-6); % Immature Granulocytes 3.9 % (0-0.5); % Monocytes 3.4 % (1.7-9.3); % Neutrophils 84.4 % (42.2-75.2); Absolute Basophils 0.1 10^3/uL (0-0.2); Absolute Immature Granulocytes 0.9 10^3/uL (0-0.05); Absolute Lymphocytes 1.8 10^3/uL (1.2-3.4); Absolute Monocytes 0.8 10^3/uL (0.1-0.6); Absolute Neutrophils 19.1 10^3/uL (1.4-6.5); Hemoglobin 12.3 g/dL (12.0-16.0); Mean Corp Hgb Conc. 34.2 g/dL (33.0-37.0); Mean Corpuscular Hgb 32.5 pg (27.0-31.0); Mean Platelet Volume 9.4 fL (7.4-10.4); Nucleated Red Blood Cells % 0 %; Platelet Count 360 10^3/uL (130-400); Red Blood Cell Count 3.79 10^6/uL (4.20-5.40); Red Cell Dist. Width 12.8 % (11.5-14.5); White Blood Cell Count 22.7 10^3/uL (4.8-10.8)
[2024-06-19 04:58] LABS: Blood Urea Nitrogen 22 mg/dl (7-17); Calcium 8.5 mg/dl (8.4-10.2); Carbon Dioxide 28 mmol/L (22-30); Chloride 98 mmol/L (98-107); Estimated Creatinine Clearance 113 ml/min; Glucose 146 mg/dl (70-99); Potassium 4.8 mmol/L (3.5-5.1); Sodium 135 mmol/L (135-145); eGFR > 60.00
[2024-06-19] MEDS: SYNTHROID 137 MCG PO (06:32)
[2024-06-19] MEDS: VENTOLIN NEBULES 2.5 MG INH ×4 (07:26→19:18)
--- NOTE | 2024-06-19 08:56 | W.PN.PUL3 ---
Today's Communication / Plan
-
Continue dexamethasone without change
Oxygen supplementation with high flow oxygen-decrease as able.
Start pulmicort
Completed antibiotics, observe
Follow leukocytosis
Antitussive
Secretion clearance intervention
Consult Rheum
Likely will be a slow process of recovery
Repeat chest x-ray intermittently
Assessment
-
64-year-old woman with distant past medical history of provoked pulmonary embolism, interstitial lung disease which is mild on CAT scan 07/2022 undifferentiated, has not been seen by pulmonary despite being recommended last year. Comes to the
hospital complaining of progressive shortness of breath, cough, hypoxemia. X-ray with significant bilateral infiltrates. Follow-up CT demonstrated severely diffuse groundglass opacities. Progressive hypoxemic respiratory failure up to 10 L.
Impression:
Severe acute hypoxemic respiratory failure currently on high-flow nasal cannula
CTA chest 06/12/2024: Diffuse groundglass opacity bilaterally. No pleural effusion. Negative for acute PE.
Differential diagnosis include infectious such as community-acquired pneumonia viral/bacterial-cannot rule out interstitial lung disease acute flare-broad differential diagnosis.
With significantly increased CRP and sedimentation rate suspect more inflammatory such as nonspecific interstitial pneumonia, connective tissue disease associated ILD etc.
Her CAT scan was not compatible with usual interstitial pneumonia.
Less likely pulmonary edema. Most recent echocardiogram with normal LVEF.
Less likely diffuse alveolar hemorrhage given stable hgb and no hemoptysis; DDx also includes CEP, organizing pneumonia, and atypical CHP
Negative influenza, COVID, Legionella and strep pneumonia.
EKG 06/11/2024: Normal sinus rhythm. ST-T wave abnormality consider inferior ischemia.
leukocytosis/fever
Mild hyponatremia - now resolved
Conditions present prior admission:
Interstitial lung disease : Undifferentiated
Formerly seen on CAT scan 07/2022 for the first time. Mild, peripheral, undifferentiated.
History of PE/DVT provoked after foot injury [address] of the chest at that time: No mention of interstitial lung disease.
History of influenza in 2018/2018 With pneumonia.
History of COVID mildly 2021.
History of ankle fracture on the left status post repair 2023.
Assessment and plan:
At this time, patient continues to require high flow NC and nonrebreather prn
Rapidly progressive hypoxemic respiratory failure over the past few days
CTA chest from 06/12/2024 demonstrated severely diffuse groundglass opacities without pleural effusions but has mildly increased mediastinal lymph nodes. No pericardial effusion.
Chest x-ray p.m. 06/14 shows improvement in aeration
KIERRA IgG positive but with low titer (<1:80); antinuclear Ab and cytoplasmic Ab negative by IFA; c3, c4 wnl
CCP antibody positive (moderately positive), CRP positive -- Suspect inflammatory process
Consult rheumatology --> if we are thinking this is due to a SARD-ILD, then may benefit from mycophenolate, azathioprine vs rituxin in the outpx setting.
-
Completed course of ABx (cefepime - 06/11 - 06/16) + doxy (06/11 - 06/16), also s/p zithromax x1 dose on 06/13, and IV vanco x 4 doses (06/11 - 06/13)
-
Continue with systemic corticosteroids for severe pneumonia/rapidly progressive hypoxemic respiratory failure and possibility of interstitial lung disease flare.
Decadron 6mg IV q8hr <-- q6h, steroids started 06/12 initially with decadron 4mg IV q6hr; wean steroids as she clinically improves - no changes for now; eventual slow prednisone taper
CXR on 06/17/2024 showed mild improvement compared to admission CXR
Add budesonide
Wean oxygen as able to keep SpO2 >90%
Continue supportive measures for cough and associated rib pain
Blood cultures collected 06/11/2024 show NGTD
Respiratory culture from 06/13/2024 showed usual respiratory francis
Negative influenza, COVID, Legionella and strep pneumonia.
Will need outpatient follow up with pulm-- new pt appt scheduled with Dr. Del Valle in Jul 2024, likely will need to adjust timing
Will need outpatient follow up with rheumatology
DVT prophylaxis-Enoxaparin
Aspiration precautions
GI prophylaxis: famotidine twice daily. Plan to continue at discharge given ILD
Code status: Full
If she were to need medical decision maker, it would be her daughter Kay Chau.
Pulmonary service will continue to follow along.

Data reviewed:
CT chest 08/15/2022: Mild changes of pulmonary fibrosis, nonspecific pattern, pleural-based. Findings are new compared to prior study. Left lower lobe 4 mm nodule. Benign etiology.
Possible pericardial cyst 2.8 X1.8X 1.1 cm present in 2016 stable.
-
Echocardiogram 08/16/2022: Showed normal LVEF. No regional wall motion abnormalities. Ejection fraction 60 to 65%.
Normal right ventricular size and function.
No significant valvular disease.
-
CT chest 2016: Reviewed, bilateral lower lobe filling defects compatible with pulmonary embolism. Lower lobe subsegmental atelectasis. No focal abnormalities noted at that time.
Small pericardial cyst
-
Chest x-ray 2020: Mild diffuse interstitial thickening left greater than right possible ILD/fibrosis
Total time spent today was 53 minutes for this encounter. Time includes reviewing laboratory test/imaging results, reviewing pertinent medical records, obtaining and reviewing medical history, performing an appropriate exam, ordering medications,
tests and procedures. Time also includes documentation of this encounter, coordinating patient care and communicating with other healthcare professionals. Total time does not include separately billed tests performed on this date of service.
Subjective Data
-
Date of Service:
Date of Service: June 19, 2024
Chief Complaint: Pulmonary Follow Up
Subjective:
Patient was seen and evaluated today at bedside. Currently on high flow nasal cannula at 70% FiO2, 45 L/min. She feels little shortness of breath at rest, mainly feels short of breath when she exerts himself. Endorses a dry cough. Heart rate 67,
BP 105/75 and saturating 93%. She denies chest pain, PASCUAL, abdominal pain, nausea, fevers or chills.
Review of Systems
General: Other (Negative unless mentioned above)
Objective Data
Data Reviewed
Vital Signs / I&O / Oxygen:
Vital Signs
Temp Pulse Resp BP Pulse Ox
98.1 F 60 20 104/72 89
06/19/24 07:22 06/19/24 07:26 06/19/24 07:26 06/19/24 06:00 06/19/24 07:26
Intake and Output
06/18/24 06/19/24 06/20/24
06:59 06:59 06:59
Intake Total 240 / 240 420 / 420
Output Total 1175 / 1175 1750 / 1750
Balance -935 / -935 -1330 / -1330
SaO2 89
Nasal Cannula flow liters per 45
minute
Physical Exam
General: Respiratory Distress (negative), Comfortable, Chills (negative) and Sweats (negative)
HEENT: Normocephalic and Anicteric
Cardiovascular: S1-S2, Rub (negative) and Peripheral Edema (negative)
Respiratory: Wheeze (negative), Crackles (bilateral (bases to middle lung shahid mainly)), Rhonchi (negative), Non-Labored Respirations and Stridor (negative)
GI: Soft, Non Distended, Non Tender and Normal Bowel Sounds
Neurology: AO x 3 and Tremors (negative)
Skin: Warm, Dry, Cyanosis (negative) and Jaundice (negative)
Labs/Micro/Reports
Lab Data
06/19/24 04:18
06/19/24 04:18
Microbiology
06/11/24 09:16 Blood/Venous Blood Culture - Final
No Growth - Final Report
06/11/24 09:06 Blood/Venous Blood Culture - Final
No Growth - Final Report
[2024-06-19] MEDS: PEPCID 20 MG PO ×2 (08:59→21:48)
[2024-06-19] MEDS: MUCINEX 1200 MG PO ×2 (08:59→21:48)
[2024-06-19] MEDS: TESSALON PERLES 100 MG PO ×3 (08:59→21:49)
--- NOTE | 2024-06-19 12:10 | PN.CDI ---
CDI
- -
CDI:
Physician Documentation Request
Admit Date: 06/11/24 10:08
Dear Doctor Emily ,
Please review the following and provide your response in the progress notes.
Clinical Indicators:
Pt admitted with Sepsis/ Acute hypoxic respiratory failure 2/2 CAP with ILD flare/pneumonitis
Progress note 06/17 &06/18, 'Provide 20mg Lasix today and monitor; net goal slight negative..'
CXR 06/17, ' Slightly increased interstitial edema/pneumonitis....'
Per MAR did get IV Lasix 20 mg for 3 doses so far
Please clarify a diagnosis for the above treatment of IV Lasix:
Acute non-cardiac pulmonary edema due to fluid overload
Acute non-cardiac pulmonary edema due to other cause (please specify)
Other ( please specify)
Use of terms such as suspected, likely, concern for, or probable (associated with a specific diagnosis that is being evaluated, monitored, or treated as if it exists) are acceptable and can be coded in the inpatient setting, when documented at the
time of discharge.
Thank you,
Frida Snow RN
CDI Specialist
[facility]
Please use your independent medical judgment in providing your response.
[2024-06-19] MEDS: LASIX 20 MG IV (14:24)
--- NOTE | 2024-06-19 14:56 | PTCARENOTE ---
Patient has crackles, lasix 20mg IV ordered. Blood pressure was sbp,100, notified Dr. Diaz and after an hour recheck of blood pressure mwedication was administered as per discussion with hospitalist. BP is now 100/75
--- NOTE | 2024-06-19 15:11 | W.PN.HOSP.TC ---
Today's Communication/Plan
-
low dose diuretic today again
wean o2 as tolerated
cont steroids
early ambulation, OOb to chair
Assessment / Plan
Assessment / Plan
HPI: 64-year-old female with past medical history of interstitial lung disease, distant history of provoked PE, p/w cough and shortness of breath.
Patient reported that she had norovirus a few weeks ago with nausea/vomiting/diarrhea� symptoms resolved in about 3 to 4 days ago, but she started having cough and SOB. She went to urgent care on Sunday and was diagnosed with pneumonia. She did not
have a chest x-ray but she was treated empirically with cephalexin and azithromycin which she has taken x 3 days.
Despite these interventions, her symptoms have gotten worse.
In the morning, she could not breathe and called EMS to bring her to the hospital.
Per EMS on their arrival patient was hypoxic and mildly cyanotic, tachypneic; she was placed on oxygen with improvement.
A/P:
# Acute hypoxic respiratory failure 2/2 CAP with ILD flare/pneumonitis
# sepsis POA 2/2 BL CAP
CXR: Chronic interstitial lung disease/fibrosis, progressed. Possible superimposed left-sided pneumonia.
Cont O2 support, on high flow NC 65% FiO2 and Flow of 50L; wean as tolerated; goal o2>88%
wean O2 when able, pt not on home O2
CT PE negative for PE, noted Extensive bilateral groundglass opacities, superimposed upon subpleural reticulation/fibrosis. There is also mediastinal and hilar lymphadenopathy, which is new compared to the prior examination. Findings are nonspecific
and could represent acute exacerbation or worsening of patient's interstitial lung disease with infectious or inflammatory process also a consideration.
Completed Cefepime, doxycycline course - 5 days although doubt bacterial; No vancomycin needed with neg MRSA -
Cont empiric Decadron, for underlying ILD (likely due to RA) -continue decadron 6mg q8h
COVID/FLU negative, RSA negative, urine Legionella/Strep negative, MRSA screen neg, blood culture neg
Sputum Cx usual francis
Follow rheumatology serology - needs outpt work up
Cont Duonebs ATC and PRN, Tessalon ATC, Mucinex
Pulm on board
Incentive Galax
Prone positioning if able
�IV Lasix as needed, dose today
#Leukocytosis
-monitor fever curve wbc count
-observe off aabx
# Concern for Rheumatoid arthritis with RA Interstitial lung disease�
KIERRA positive, antiCCP positive
IV steroid as above - steroid taper
Rheum eval as outpt
# Mild hyponatremia due to above
-fwr, monitor
# h/o ILD
# distant history of provoked PE followed by ankle surgery 2015
DVT ppx: Lovenox SQ
FC
Total time spent on today's encounter was 54 minutes which included time spent in counseling the patient/family regarding diagnosis and treatment plan as listed above, goals of care, and symptom management. Case was discussed with nursing staff,
specialists, and care coordinators/case management. All labs and imaging personally reviewed by me. Remainder the time spent in detailed review of previous records, lab data, imaging, and other medical provider documentation.
Anticipated Discharge: > 48 hours
Subjective/Interval History
-
Date of Service: June 19, 2024
No acute events overnight
Objective Data
-
Labs:
Laboratory Results
06/19/24
04:18
WBC 22.7 H
Hgb 12.3
Hct 36.0 L
Plt Count 360
Sodium 135
Potassium 4.8
Chloride 98
Carbon Dioxide 28
BUN 22 H
Creatinine 0.6
Glucose 146 H
Calcium 8.5
Vital Signs:
Vital Signs
Temp Pulse Resp BP Pulse Ox
97.7 F 70 24 100/75 92
06/19/24 11:51 06/19/24 14:24 06/19/24 14:24 06/19/24 14:24 06/19/24 14:24
I&O
06/18/24 06/19/24 06/20/24
06:59 06:59 06:59
Intake Total 240 / 240 420 / 420 1020 / 1020
Output Total 1175 / 1175 1750 / 1750 400 / 400
Balance -935 / -935 -1330 / -1330 620 / 620
Review of Systems
-
History Source: Patient
All other systems: Not reviewed unless documented
Physical Exam
-
General: Well Developed, Well Nourished and Conversant
HEENT: Normocephalic, Atraumatic, Nose Appears Normal, Ears Appear Normal and Oxygen (high flow NC )
Respiratory: Crackles (fine crackles at bases)
Cardiac: Regular Rhythm and S1/S2
GI: Soft, Nontender, Nondistended and Normal Bowel Sounds
Skin: Warm and Dry
Neuro: Awake, Alert, Oriented and AO x 3
Psych: Calm and Intact Judgement/Insight
Data Reviewed
-
Diagnostic Radiology: Image personally visualized and interpreted and Report Reviewed by me
CT Scan: Report Reviewed by me
Labs: Labs Reviewed by me
[2024-06-19] MEDS: LOVENOX 40 MG SC (16:17)
[2024-06-19] MEDS: COLACE 100 MG PO (16:27)
[2024-06-19] MEDS: PULMICORT 0.5 MG INH (19:48)
[2024-06-19] MEDS: MELATONIN 5 MG PO (21:48)
[2024-06-19] MEDS: XANAX 0.25 MG PO (21:48)
[2024-06-19] MEDS: PHENERGAN WITH CODEINE SYRUP 5 ML PO (21:49)
--- NOTE | 2024-06-19 23:04 | PTCARENOTE ---
Patient AAOx3, anxious at change of shift. Feeling more positive tonight about current status. Continues on highflow current settings are 45L 70%. O2 sat 92%. Pt up to the commode for a BM with standby assist, desat to 86% but recovered using NRB.
Assessment and vitals charted see worklist.
[2024-06-20] VITALS (12 sets, daily range): BP systolic 91–115; BP diastolic 51–75; BMI 28.7
[2024-06-20] MEDS: PHENERGAN WITH CODEINE SYRUP 5 ML PO ×4 (02:37→22:43)
[2024-06-20 05:33] LABS: % Basophils 0.2 % (0-2); % Immature Granulocytes 3.8 % (0-0.5); % Lymphocytes 7.1 % (20.5-51.1); % Monocytes 4.6 % (1.7-9.3); % Neutrophils 84.3 % (42.2-75.2); Absolute Immature Granulocytes 0.7 10^3/uL (0-0.05); Absolute Lymphocytes 1.3 10^3/uL (1.2-3.4); Absolute Monocytes 0.8 10^3/uL (0.1-0.6); Absolute Neutrophils 15.4 10^3/uL (1.4-6.5); Hematocrit 33.8 % (37.0-47.0); Hemoglobin 11.6 g/dL (12.0-16.0); Mean Corp Hgb Conc. 34.3 g/dL (33.0-37.0); Mean Corpuscular Hgb 32.2 pg (27.0-31.0); Mean Corpuscular Volume 93.9 fL (81.0-99.0); Mean Platelet Volume 9.2 fL (7.4-10.4); Nucleated Red Blood Cells % 0 %; Platelet Count 333 10^3/uL (130-400); White Blood Cell Count 18.2 10^3/uL (4.8-10.8)
[2024-06-20 06:01] LABS: Blood Urea Nitrogen 25 mg/dl (7-17); Calcium 8.4 mg/dl (8.4-10.2); Carbon Dioxide 29 mmol/L (22-30); Chloride 97 mmol/L (98-107); Estimated Creatinine Clearance 110 ml/min; Glucose 139 mg/dl (70-99); Potassium 4.9 mmol/L (3.5-5.1); Sodium 134 mmol/L (135-145); eGFR > 60.00
[2024-06-20] MEDS: SYNTHROID 137 MCG PO (06:07)
[2024-06-20] MEDS: VENTOLIN NEBULES 2.5 MG INH ×4 (06:17→19:47)
[2024-06-20] MEDS: PULMICORT 0.5 MG INH ×2 (06:17→19:47)
[2024-06-20 06:59] LABS: Erythrocyte Sed Rate 34 mm/hour (0-20)
--- NOTE | 2024-06-20 08:40 | W.PN.PUL3 ---
Today's Communication / Plan
-
Rheumatology consulted; pulse dose steroids started today
Additional serology ordered as well including QuantiFERON, HIV and hepatitis panel
Oxygen supplementation with high flow oxygen-decrease as able.
Continue pulmicort
Completed antibiotics, observe
Follow leukocytosis
Antitussive
Secretion clearance intervention
Likely will be a slow process of recovery
Repeat chest x-ray intermittently
Assessment
-
64-year-old woman with distant past medical history of provoked pulmonary embolism, interstitial lung disease which is mild on CAT scan 07/2022 undifferentiated, has not been seen by pulmonary despite being recommended last year. Comes to the
hospital complaining of progressive shortness of breath, cough, hypoxemia. X-ray with significant bilateral infiltrates. Follow-up CT demonstrated severely diffuse groundglass opacities. Progressive hypoxemic respiratory failure up to 10 L.
Impression:
Severe acute hypoxemic respiratory failure currently on high-flow nasal cannula
CTA chest 06/12/2024: Diffuse groundglass opacity bilaterally. No pleural effusion. Negative for acute PE.
Differential diagnosis include infectious such as community-acquired pneumonia viral/bacterial-cannot rule out interstitial lung disease acute flare-broad differential diagnosis.
With significantly increased CRP and sedimentation rate suspect more inflammatory such as nonspecific interstitial pneumonia, connective tissue disease associated ILD etc.
Her CAT scan was not compatible with usual interstitial pneumonia.
Less likely pulmonary edema. Most recent echocardiogram with normal LVEF.
Less likely diffuse alveolar hemorrhage given stable hgb and no hemoptysis; DDx also includes CEP, organizing pneumonia, and atypical CHP
Negative influenza, COVID, Legionella and strep pneumonia.
EKG 06/11/2024: Normal sinus rhythm. ST-T wave abnormality consider inferior ischemia.
leukocytosis/fever
Mild hyponatremia - now resolved
Conditions present prior admission:
Interstitial lung disease : Undifferentiated
Formerly seen on CAT scan 07/2022 for the first time. Mild, peripheral, undifferentiated.
History of PE/DVT provoked after foot injury [address] of the chest at that time: No mention of interstitial lung disease.
History of influenza in 2018/2018 With pneumonia.
History of COVID mildly 2021.
History of ankle fracture on the left status post repair 2023.
Assessment and plan:
At this time, patient continues to require high flow NC and nonrebreather prn
Rapidly progressive hypoxemic respiratory failure over the past few days
CTA chest from 06/12/2024 demonstrated severely diffuse groundglass opacities without pleural effusions but has mildly increased mediastinal lymph nodes. No pericardial effusion.
Chest x-ray p.m. 06/14 shows improvement in aeration
KIERRA IgG positive but with low titer (<1:80); antinuclear Ab and cytoplasmic Ab negative by IFA; c3, c4 wnl
CCP antibody positive (moderately positive), CRP positive -- Suspect inflammatory process
Rheumatology consulted--> concern for SARD-ILD --> starting pulse dose steroids; may benefit from mycophenolate, azathioprine vs rituxin in the outpx setting.
-
Completed course of ABx (cefepime - 06/11 - 06/16) + doxy (06/11 - 06/16), also s/p zithromax x1 dose on 06/13, and IV vanco x 4 doses (06/11 - 06/13)
-
Continue with systemic corticosteroids for severe pneumonia/rapidly progressive hypoxemic respiratory failure and possibility of interstitial lung disease flare.
Pulse dose steroids started with 1000mg solumedrol q24hr s/p decadron 6mg IV q8hr <-- q6h, steroids started 06/12 initially with decadron 4mg IV q6hr; eventual slow prednisone taper
CXR on 06/17/2024 showed mild improvement compared to admission CXR
Continue budesonide
Wean oxygen as able to keep SpO2 >90%
Continue supportive measures for cough and associated rib pain
Blood cultures collected 06/11/2024 show NGTD
Respiratory culture from 06/13/2024 showed usual respiratory francis
Negative influenza, COVID, Legionella and strep pneumonia.
Will need outpatient follow up with pulm-- new pt appt scheduled with Dr. Del Valle in Jul 2024, likely will need to adjust timing
Will need outpatient follow up with rheumatology
DVT prophylaxis-Enoxaparin
Aspiration precautions
GI prophylaxis: famotidine twice daily. Plan to continue at discharge given ILD
Code status: Full
If she were to need medical decision maker, it would be her daughter Kay Chau.
Pulmonary service will continue to follow along.

Data reviewed:
CT chest 08/15/2022: Mild changes of pulmonary fibrosis, nonspecific pattern, pleural-based. Findings are new compared to prior study. Left lower lobe 4 mm nodule. Benign etiology.
Possible pericardial cyst 2.8 X1.8X 1.1 cm present in 2016 stable.
-
Echocardiogram 08/16/2022: Showed normal LVEF. No regional wall motion abnormalities. Ejection fraction 60 to 65%.
Normal right ventricular size and function.
No significant valvular disease.
-
CT chest 2016: Reviewed, bilateral lower lobe filling defects compatible with pulmonary embolism. Lower lobe subsegmental atelectasis. No focal abnormalities noted at that time.
Small pericardial cyst
-
Chest x-ray 2020: Mild diffuse interstitial thickening left greater than right possible ILD/fibrosis
Total time spent today was 54 minutes for this encounter. Time includes reviewing laboratory test/imaging results, reviewing pertinent medical records, obtaining and reviewing medical history, performing an appropriate exam, ordering medications,
tests and procedures. Time also includes documentation of this encounter, coordinating patient care and communicating with other healthcare professionals. Total time does not include separately billed tests performed on this date of service.
Subjective Data
-
Date of Service:
Date of Service: June 20, 2024
Chief Complaint: Pulmonary Follow Up
Subjective:
Patient seen and evaluated today at bedside. Remains on high flow nasal cannula at 70% FiO2, 45 L/min. She feels good today, saying her shortness of breath is stable at rest and she actually says it's better today. Denies cough at rest. Denies
chest pain, PASCUAL, abdominal pain, nausea, vomiting, fevers or chills.
Review of Systems
General: Other (Negative unless mentioned above)
Objective Data
Data Reviewed
Vital Signs / I&O / Oxygen:
Vital Signs
Temp Pulse Resp BP Pulse Ox
97.4 F 62 23 97/62 94
06/20/24 03:07 06/20/24 08:00 06/20/24 08:00 06/20/24 08:00 06/20/24 08:00
Intake and Output
06/19/24 06/20/24 06/21/24
06:59 06:59 06:59
Intake Total 420 / 420 1020 / 1020
Output Total 1750 / 1750 400 / 400
Balance -1330 / -1330 620 / 620
SaO2 94
Nasal Cannula flow liters per 45
minute
Physical Exam
General: Respiratory Distress (negative), Comfortable, Chills (negative) and Sweats (negative)
HEENT: Normocephalic and Anicteric
Cardiovascular: S1-S2, Rub (negative) and Peripheral Edema (negative)
Respiratory: Wheeze (negative), Crackles (bilateral (bases to middle lung shahid mainly)), Rhonchi (negative), Non-Labored Respirations and Stridor (negative)
GI: Soft, Non Distended, Non Tender and Normal Bowel Sounds
Neurology: AO x 3 and Tremors (negative)
Skin: Warm, Dry, Cyanosis (negative) and Jaundice (negative)
Labs/Micro/Reports
Lab Data
06/20/24 05:22
06/20/24 05:22
[2024-06-20] MEDS: DECADRON 6 MG IV (09:20)
[2024-06-20] MEDS: MUCINEX PO ×2 (09:20→19:44)
[2024-06-20] MEDS: TESSALON PERLES 100 MG PO ×3 (09:22→22:34)
[2024-06-20] MEDS: PEPCID 20 MG PO ×2 (09:22→19:43)
[2024-06-20] MEDS: SOLU-MEDROL 258 MG IV (12:50)
[2024-06-20] MEDS: FLUSH (NSS) 1 FLUSH IV (12:50)
--- NOTE | 2024-06-20 16:00 | PTCARENOTE ---
Patient remains on high flow oxygen 70% 45L with PRN NRB. Sp02 91%-93% desaturates with minimal exertion. Lungs diminished with crackles at left base. Dry non-productive cough. AAOx3, pleasant. Using pure wick due to respiratory status. VS
stable. SR on monitor.
[2024-06-20 16:07] LABS: Rheumatoid Agglutinin Less Than 10 IU (<10 IU)
[2024-06-20] MEDS: LOVENOX 40 MG SC (17:05)
[2024-06-20 17:07] LABS: Vitamin D, 25-OH*** 17.8 ng/mL (30-80)
--- NOTE | 2024-06-20 17:11 | W.PN.HOSP.TC ---
Today's Communication/Plan
-
Wean O2
Pulse dosed steroids
Rheumatological serology
Assessment / Plan
Assessment / Plan
HPI: 64-year-old female with past medical history of interstitial lung disease, distant history of provoked PE, p/w cough and shortness of breath.
Patient reported that she had norovirus a few weeks ago with nausea/vomiting/diarrhea� symptoms resolved in about 3 to 4 days ago, but she started having cough and SOB. She went to urgent care on Sunday and was diagnosed with pneumonia. She did not
have a chest x-ray but she was treated empirically with cephalexin and azithromycin which she has taken x 3 days.
Despite these interventions, her symptoms have gotten worse.
In the morning, she could not breathe and called EMS to bring her to the hospital.
Per EMS on their arrival patient was hypoxic and mildly cyanotic, tachypneic; she was placed on oxygen with improvement.
A/P:
# Acute hypoxic respiratory failure 2/2 CAP with ILD flare/pneumonitis
# sepsis POA 2/2 BL CAP
CXR: Chronic interstitial lung disease/fibrosis, progressed. Possible superimposed left-sided pneumonia.
Cont O2 support, on high flow NC 65% FiO2 and Flow of 50L; wean as tolerated; goal o2>88%
wean O2 when able, pt not on home O2
CT PE negative for PE, noted Extensive bilateral groundglass opacities, superimposed upon subpleural reticulation/fibrosis. There is also mediastinal and hilar lymphadenopathy, which is new compared to the prior examination. Findings are nonspecific
and could represent acute exacerbation or worsening of patient's interstitial lung disease with infectious or inflammatory process also a consideration.
Completed Cefepime, doxycycline course - 5 days although doubt bacterial; No vancomycin needed with neg MRSA -
Cont empiric Decadron, for underlying ILD (likely due to RA) -switch to pulse dosed steroids at the recommendation of rheumatology
COVID/FLU negative, RSA negative, urine Legionella/Strep negative, MRSA screen neg, blood culture neg
Sputum Cx usual francis
Follow rheumatology serology
Cont Duonebs ATC and PRN, Tessalon ATC, Mucinex
Pulm on board
Incentive [place]
Prone positioning if able
�IV Lasix as needed
#Leukocytosis
-monitor fever curve wbc count
-observe off aabx
# Concern for Rheumatoid arthritis with RA Interstitial lung disease�
KIERRA positive, antiCCP positive
IV steroid as above -switch to postop steroids for 5 days then high-dose weight-based prednisone 1 mg/KG
� Follow-up labs including TB, hepatitis B, HIV
� Follow-up serologies of myositis, scleroderma, sarcoidosis, cryoglobulin, immunoglobulin
Rheum eval
# Mild hyponatremia due to above, SIADH
-fwr, monitor
# h/o ILD
# distant history of provoked PE followed by ankle surgery 2015
DVT ppx: Lovenox SQ
FC
Total time spent on today's encounter was 56 minutes which included time spent in counseling the patient/family regarding diagnosis and treatment plan as listed above, goals of care, and symptom management. Case was discussed with nursing staff,
specialists, and care coordinators/case management. All labs and imaging personally reviewed by me. Remainder the time spent in detailed review of previous records, lab data, imaging, and other medical provider documentation.
Anticipated Discharge: > 48 hours
Subjective/Interval History
-
Date of Service: June 20, 2024
No acute events
Objective Data
-
Labs:
Laboratory Results
06/20/24
05:22
WBC 18.2 H
Hgb 11.6 L
Hct 33.8 L
Plt Count 333
Sodium 134 L
Potassium 4.9
Chloride 97 L
Carbon Dioxide 29
BUN 25 H
Creatinine 0.6
Glucose 139 H
Calcium 8.4
Vital Signs:
Vital Signs
Temp Pulse Resp BP Pulse Ox
97.4 F 71 41 103/70 88
06/20/24 11:05 06/20/24 16:00 06/20/24 16:00 06/20/24 16:00 06/20/24 16:00
I&O
06/19/24 06/20/24 06/21/24
06:59 06:59 06:59
Intake Total 420 / 420 1020 / 1020 240 / 240
Output Total 1750 / 1750 400 / 400 650 / 650
Balance -1330 / -1330 620 / 620 -410 / -410
Review of Systems
-
History Source: Patient
All other systems: Not reviewed unless documented
Physical Exam
-
General: Well Developed, Well Nourished and Conversant
HEENT: Normocephalic, Atraumatic, Nose Appears Normal, Ears Appear Normal and Oxygen (high flow NC )
Respiratory: Crackles (fine crackles at bases)
Cardiac: Regular Rhythm and S1/S2
GI: Soft, Nontender, Nondistended and Normal Bowel Sounds
Skin: Warm and Dry
Neuro: Awake, Alert, Oriented and AO x 3
Psych: Calm and Intact Judgement/Insight
Data Reviewed
-
Diagnostic Radiology: Image personally visualized and interpreted and Report Reviewed by me
CT Scan: Report Reviewed by me
Labs: Labs Reviewed by me
--- NOTE | 2024-06-20 17:39 | CM ---
Patient with Hx ILD/interstitial lung disease. High flow O2. Receiving IV Steroids.
CM continuing to follow for d/c needs.
Plan TBD.
[2024-06-20 17:51] LABS: Hepatitis B Surface Antigen Negative (Negative)
[2024-06-20 18:09] LABS: Hepatitis B Core Ab, Total Negative (Negative); Hepatitis B Surface Antibody Negative
[2024-06-20] MEDS: XANAX 0.25 MG PO (22:34)
[2024-06-20] MEDS: MELATONIN 5 MG PO (22:34)
[2024-06-21] VITALS (12 sets, daily range): BP systolic 89–134; BP diastolic 56–81; BMI 28.4
[2024-06-21] MEDS: SYNTHROID 137 MCG PO (04:52)
[2024-06-21 05:07] LABS: Hematocrit 34.6 % (37.0-47.0); Hemoglobin 11.7 g/dL (12.0-16.0); Mean Corp Hgb Conc. 33.8 g/dL (33.0-37.0); Mean Corpuscular Hgb 32.4 pg (27.0-31.0); Mean Corpuscular Volume 95.8 fL (81.0-99.0); Mean Platelet Volume 9.3 fL (7.4-10.4); Platelet Count 321 10^3/uL (130-400); Red Blood Cell Count 3.61 10^6/uL (4.20-5.40); White Blood Cell Count 15.5 10^3/uL (4.8-10.8)
[2024-06-21 05:36] LABS: ALT (SGPT) 65 U/L (0-35); AST (SGOT) 28 U/L (14-36); Albumin 3.3 g/dl (3.5-5.0); Alkaline Phosphatase 75 U/L (38-126); Blood Urea Nitrogen 22 mg/dl (7-17); Calcium 8.4 mg/dl (8.4-10.2); Carbon Dioxide 28 mmol/L (22-30); Chloride 99 mmol/L (98-107); Estimated Creatinine Clearance 109 ml/min; Glucose 162 mg/dl (70-99); Potassium 5.1 mmol/L (3.5-5.1); Sodium 134 mmol/L (135-145); Total Bilirubin 0.5 mg/dl (0.2-1.3); Total Protein 6.4 g/dl (6.3-8.2); eGFR > 60.00
[2024-06-21] MEDS: PULMICORT 0.5 MG INH ×2 (07:41→19:29)
[2024-06-21] MEDS: VENTOLIN NEBULES 2.5 MG INH ×4 (07:41→19:29)
[2024-06-21] MEDS: TESSALON PERLES 100 MG PO ×3 (10:11→22:21)
[2024-06-21] MEDS: PEPCID 20 MG PO ×2 (10:11→22:21)
[2024-06-21] MEDS: PHENERGAN WITH CODEINE SYRUP 5 ML PO ×2 (10:11→17:04)
[2024-06-21] MEDS: MUCINEX 1200 MG PO (10:20)
[2024-06-21] MEDS: SOLU-MEDROL 258 MG IV (12:49)
[2024-06-21] MEDS: FLUSH (NSS) 1 FLUSH IV (12:51)
--- NOTE | 2024-06-21 14:28 | W.PN.PUL3 ---
Today's Communication / Plan
-
Continue pulse dose of steroid for additional 3 to 4 days
Monitor for infection
Wean down FiO2
Monitor blood sugars and maintain 140-1 80.
Continue oxygen supplementation to maintain pulse ox 90% or higher.
Wait for rheumatology evaluate
High risk situation
Will follow
Assessment
-
64-year-old woman with distant past medical history of provoked pulmonary embolism, interstitial lung disease which is mild on CAT scan 07/2022 undifferentiated, has not been seen by pulmonary despite being recommended last year. Comes to the
hospital complaining of progressive shortness of breath, cough, hypoxemia. X-ray with significant bilateral infiltrates. Follow-up CT demonstrated severely diffuse groundglass opacities. Progressive hypoxemic respiratory failure up to 10 L.
Impression:
Severe acute hypoxemic respiratory failure currently on high-flow nasal cannula
CTA chest 06/12/2024: Diffuse groundglass opacity bilaterally. No pleural effusion. Negative for acute PE.
Differential diagnosis include infectious such as community-acquired pneumonia viral/bacterial-cannot rule out interstitial lung disease acute flare-broad differential diagnosis.
With significantly increased CRP and sedimentation rate suspect more inflammatory such as nonspecific interstitial pneumonia, connective tissue disease associated ILD etc.
Her CAT scan was not compatible with usual interstitial pneumonia.
Less likely pulmonary edema. Most recent echocardiogram with normal LVEF.
Less likely diffuse alveolar hemorrhage given stable hgb and no hemoptysis; DDx also includes CEP, organizing pneumonia, and atypical CHP
Negative influenza, COVID, Legionella and strep pneumonia.
EKG 06/11/2024: Normal sinus rhythm. ST-T wave abnormality consider inferior ischemia.
leukocytosis/fever
Mild hyponatremia - now resolved
Conditions present prior admission:
Interstitial lung disease : Undifferentiated
Formerly seen on CAT scan 07/2022 for the first time. Mild, peripheral, undifferentiated.
History of PE/DVT provoked after foot injury [address] of the chest at that time: No mention of interstitial lung disease.
History of influenza in 2018/2019 With pneumonia.
History of COVID mildly 2021.
History of ankle fracture on the left status post repair 2023.
Assessment and plan:
At this time, patient continues to require high flow NC and nonrebreather prn
High flow oxygen 65% 55 L/min. Borderline saturations. Continue to wean down as able.
-
Rapidly progressive hypoxemic respiratory failure over the past few days
CTA chest from 06/12/2024 demonstrated severely diffuse groundglass opacities without pleural effusions but has mildly increased mediastinal lymph nodes. No pericardial effusion.
Chest x-ray p.m. 06/14 shows improvement in aeration
KIERRA IgG positive but with low titer (<1:80); antinuclear Ab and cytoplasmic Ab negative by IFA; c3, c4 wnl
CCP antibody positive (moderately positive), CRP positive -- Suspect inflammatory process
Rheumatology consulted 06/20/2024--> concern for SARD-ILD --> starting pulse dose steroids on 06/20/2024; may benefit from mycophenolate, azathioprine vs rituxin in the outpx setting.
Pulse will continue for 3 to 5 days.
Monitor closely for infection.
-
Completed course of ABx (cefepime - 06/11 - 06/16) + doxy (06/11 - 06/16), also s/p zithromax x1 dose on 06/13, and IV vanco x 4 doses (06/11 - 06/13)
All cultures negative
-
Continue with systemic corticosteroids for severe pneumonia/rapidly progressive hypoxemic respiratory failure and possibility of interstitial lung disease flare.
Pulse dose steroids started with 1000mg solumedrol q24hr s/p decadron 6mg IV q8hr <-- q6h, steroids started 06/12 initially with decadron 4mg IV q6hr; eventual slow prednisone taper
CXR on 06/17/2024 showed mild improvement compared to admission CXR
Continue budesonide
Wean oxygen as able to keep SpO2 >90%
Continue supportive measures for cough and associated rib pain
Repeat chest x-ray on 06/22/2024 for
Blood cultures collected 06/11/2024 show NGTD
Respiratory culture from 06/13/2024 showed usual respiratory francis
Negative influenza, COVID, Legionella and strep pneumonia.
Will need outpatient follow up with pulm-- new pt appt scheduled with Dr. Del Valle in Jul 2024, likely will need to adjust timing
Will need outpatient follow up with rheumatology
DVT prophylaxis-Enoxaparin
Aspiration precautions
GI prophylaxis: famotidine twice daily. Plan to continue at discharge given ILD
Code status: Full
If she were to need medical decision maker, it would be her daughter Kay Chau.
Pulmonary service will continue to follow along.

Data reviewed:
CT chest 08/15/2022: Mild changes of pulmonary fibrosis, nonspecific pattern, pleural-based. Findings are new compared to prior study. Left lower lobe 4 mm nodule. Benign etiology.
Possible pericardial cyst 2.8 X1.8X 1.1 cm present in 2016 stable.
-
Echocardiogram 08/16/2022: Showed normal LVEF. No regional wall motion abnormalities. Ejection fraction 60 to 65%.
Normal right ventricular size and function.
No significant valvular disease.
-
CT chest 2016: Reviewed, bilateral lower lobe filling defects compatible with pulmonary embolism. Lower lobe subsegmental atelectasis. No focal abnormalities noted at that time.
Small pericardial cyst
-
Chest x-ray 2020: Mild diffuse interstitial thickening left greater than right possible ILD/fibrosis
Subjective Data
-
Date of Service:
Date of Service: June 21, 2024
Chief Complaint: Pulmonary Follow Up
Subjective:
No overnight events
Remains on supplemental oxygen
Review of Systems
Cardiopulmonary: Dyspnea on Exertion
GI: Abdominal Pain (n)
Neuro: Headache (n)
Objective Data
Data Reviewed
Vital Signs / I&O / Oxygen:
Vital Signs
Temp Pulse Resp BP Pulse Ox
97.8 F 76 28 91/56 94
06/21/24 07:05 06/21/24 12:00 06/21/24 12:00 06/21/24 12:00 06/21/24 12:00
Intake and Output
06/20/24 06/21/24 06/22/24
06:59 06:59 06:59
Intake Total 1020 / 1020 1115 / 1115 734 / 734
Output Total 400 / 400 2800 / 2800 650 / 650
Balance 620 / 620 -1685 / -1685 84 / 84
SaO2 94
Nasal Cannula flow liters per 45
minute
Physical Exam
General: Respiratory Distress (negative), Comfortable, Chills (negative) and Sweats (negative)
HEENT: Normocephalic and Anicteric
Cardiovascular: S1-S2, Rub (negative) and Peripheral Edema (negative)
Respiratory: Wheeze (negative), Crackles (bilateral (bases to middle lung shahid mainly)), Rhonchi (negative), Non-Labored Respirations and Stridor (negative)
GI: Soft, Non Distended, Non Tender and Normal Bowel Sounds
Neurology: AO x 3 and Tremors (negative)
Skin: Warm, Dry, Cyanosis (negative) and Jaundice (negative)
Labs/Micro/Reports
Lab Data
06/21/24 04:50
06/21/24 04:50
--- NOTE | 2024-06-21 15:44 | W.PN.HOSP.TC ---
Today's Communication/Plan
-
Continue pulse dosed steroids
Wean O2 as tolerated
Assessment / Plan
Assessment / Plan
HPI: 64-year-old female with past medical history of interstitial lung disease, distant history of provoked PE, p/w cough and shortness of breath.
Patient reported that she had norovirus a few weeks ago with nausea/vomiting/diarrhea� symptoms resolved in about 3 to 4 days ago, but she started having cough and SOB. She went to urgent care on Sunday and was diagnosed with pneumonia. She did not
have a chest x-ray but she was treated empirically with cephalexin and azithromycin which she has taken x 3 days.
Despite these interventions, her symptoms have gotten worse.
In the morning, she could not breathe and called EMS to bring her to the hospital.
Per EMS on their arrival patient was hypoxic and mildly cyanotic, tachypneic; she was placed on oxygen with improvement.
A/P:
# Acute hypoxic respiratory failure 2/2 CAP with ILD flare/pneumonitis
# sepsis POA 2/2 BL CAP
CXR: Chronic interstitial lung disease/fibrosis, progressed. Possible superimposed left-sided pneumonia.
Cont O2 support, on high flow NC 65% FiO2 and Flow of 50L; wean as tolerated; goal o2>88%
wean O2 when able, pt not on home O2
CT PE negative for PE, noted Extensive bilateral groundglass opacities, superimposed upon subpleural reticulation/fibrosis. There is also mediastinal and hilar lymphadenopathy, which is new compared to the prior examination. Findings are nonspecific
and could represent acute exacerbation or worsening of patient's interstitial lung disease with infectious or inflammatory process also a consideration.
Completed Cefepime, doxycycline course - 5 days although doubt bacterial; No vancomycin needed with neg MRSA -
Cont empiric Decadron, for underlying ILD (likely due to RA) -switch to pulse dosed steroids at the recommendation of rheumatology (D2/5)
COVID/FLU negative, RSA negative, urine Legionella/Strep negative, MRSA screen neg, blood culture neg
Sputum Cx usual francis
Follow rheumatology serology
Cont Duonebs ATC and PRN, Tessalon ATC, Mucinex
Pulm on board
Incentive [place]
Prone positioning if able
�IV Lasix as needed
#Leukocytosis
-monitor fever curve wbc count
-observe off aabx
# Concern for Rheumatoid arthritis with RA Interstitial lung disease�
KIERRA positive, antiCCP positive
IV steroid as above -switch to postop steroids for 5 days then high-dose weight-based prednisone 1 mg/KG
� Follow-up labs including TB, hepatitis B, HIV
� Follow-up serologies of myositis, scleroderma, sarcoidosis, cryoglobulin, immunoglobulin
Rheum eval
# Mild hyponatremia due to above, SIADH
-fwr, monitor
# h/o ILD
# distant history of provoked PE followed by ankle surgery 2015
DVT ppx: Lovenox SQ
FC
Total time spent on today's encounter was 52 minutes which included time spent in counseling the patient/family regarding diagnosis and treatment plan as listed above, goals of care, and symptom management. Case was discussed with nursing staff,
specialists, and care coordinators/case management. All labs and imaging personally reviewed by me. Remainder the time spent in detailed review of previous records, lab data, imaging, and other medical provider documentation.
Anticipated Discharge: > 48 hours
Subjective/Interval History
-
Date of Service: June 21, 2024
No acute events overnight
Objective Data
-
Labs:
Laboratory Results
06/21/24
04:50
WBC 15.5 H
Hgb 11.7 L
Hct 34.6 L
Plt Count 321
Sodium 134 L
Potassium 5.1
Chloride 99
Carbon Dioxide 28
BUN 22 H
Creatinine 0.6
Glucose 162 H
Calcium 8.4
Total Bilirubin 0.5
AST 28
ALT 65 H
Alkaline Phosphatase 75
Vital Signs:
Vital Signs
Temp Pulse Resp BP Pulse Ox
97.8 F 76 28 91/56 94
06/21/24 07:05 06/21/24 12:00 06/21/24 12:00 06/21/24 12:00 06/21/24 12:00
I&O
06/20/24 06/21/24 06/22/24
06:59 06:59 06:59
Intake Total 1020 / 1020 1115 / 1115 734 / 734
Output Total 400 / 400 2800 / 2800 650 / 650
Balance 620 / 620 -1685 / -1685 84 / 84
Review of Systems
-
History Source: Patient
All other systems: Not reviewed unless documented
Physical Exam
-
General: Well Developed, Well Nourished and Conversant
HEENT: Normocephalic, Atraumatic, Nose Appears Normal, Ears Appear Normal and Oxygen (high flow NC )
Respiratory: Crackles (fine crackles at bases)
Cardiac: Regular Rhythm and S1/S2
GI: Soft, Nontender, Nondistended and Normal Bowel Sounds
Skin: Warm and Dry
Neuro: Awake, Alert, Oriented and AO x 3
Psych: Calm and Intact Judgement/Insight
Data Reviewed
-
Diagnostic Radiology: Image personally visualized and interpreted and Report Reviewed by me
CT Scan: Report Reviewed by me
Labs: Labs Reviewed by me
[2024-06-21] MEDS: DULCOLAX 10 MG RECTAL (15:57)
[2024-06-21] MEDS: LOVENOX 40 MG SC (17:04)
[2024-06-21] MEDS: MELATONIN 5 MG PO (22:21)
[2024-06-21] MEDS: XANAX 0.25 MG PO (22:21)
[2024-06-21] MEDS: MUCINEX PO (22:23)
--- NOTE | 2024-06-21 23:00 | PTCARENOTE ---
Received pt from day shift RN. Pt aaox3. NSR on monitor. Pt on [place], 45L, 60%, SpO2 96%. medications administered and assessment completed. Pt resting in bed with call martinez in reach.
[2024-06-22] VITALS (12 sets, daily range): BP systolic 77–118; BP diastolic 55–77; BMI 28.6
[2024-06-22 04:02] LABS: Hematocrit 33.7 % (37.0-47.0); Hemoglobin 11.8 g/dL (12.0-16.0); Mean Corpuscular Volume 94.1 fL (81.0-99.0); Mean Platelet Volume 9.5 fL (7.4-10.4); Platelet Count 339 10^3/uL (130-400); Red Blood Cell Count 3.58 10^6/uL (4.20-5.40); Red Cell Dist. Width 13.2 % (11.5-14.5); White Blood Cell Count 14.3 10^3/uL (4.8-10.8)
[2024-06-22 04:26] LABS: ALT (SGPT) 94 U/L (0-35); AST (SGOT) 38 U/L (14-36); Albumin 3.4 g/dl (3.5-5.0); Alkaline Phosphatase 75 U/L (38-126); Blood Urea Nitrogen 23 mg/dl (7-17); Calcium 8.1 mg/dl (8.4-10.2); Carbon Dioxide 25 mmol/L (22-30); Chloride 100 mmol/L (98-107); Estimated Creatinine Clearance 109 ml/min; Glucose 169 mg/dl (70-99); Magnesium 2.5 mg/dl (1.6-2.3); Phosphorus 4.2 mg/dl (2.5-4.5); Potassium 4.8 mmol/L (3.5-5.1); Sodium 134 mmol/L (135-145); Total Bilirubin 0.5 mg/dl (0.2-1.3); Total Protein 6.4 g/dl (6.3-8.2); eGFR > 60.00
[2024-06-22] MEDS: SYNTHROID 137 MCG PO (05:42)
[2024-06-22] MEDS: VENTOLIN NEBULES 2.5 MG INH ×4 (08:21→19:29)
[2024-06-22] MEDS: PULMICORT 0.5 MG INH ×2 (08:21→19:29)
[2024-06-22] MEDS: MUCINEX 1200 MG PO ×2 (09:11→20:23)
[2024-06-22] MEDS: TESSALON PERLES 100 MG PO ×3 (09:11→20:23)
[2024-06-22] MEDS: PEPCID 20 MG PO ×2 (09:12→20:23)
[2024-06-22] MEDS: TYLENOL 500 MG PO ×2 (09:15→20:26)
--- NOTE | 2024-06-22 12:08 | W.PN.PUL3 ---
Today's Communication / Plan
-
Continue pulse dose steroid for additional 24 to 48 hours
Chest x-ray tomorrow
Monitor for infection
High flow oxygen continuous-decrease as able depending on saturation
Assessment
-
64-year-old woman with distant past medical history of provoked pulmonary embolism, interstitial lung disease which is mild on CAT scan 07/2022 undifferentiated, has not been seen by pulmonary despite being recommended last year. Comes to the
hospital complaining of progressive shortness of breath, cough, hypoxemia. X-ray with significant bilateral infiltrates. Follow-up CT demonstrated severely diffuse groundglass opacities. Progressive hypoxemic respiratory failure up to 10 L.
Impression:
Severe acute hypoxemic respiratory failure currently on high-flow nasal cannula
CTA chest 06/12/2024: Diffuse groundglass opacity bilaterally. No pleural effusion. Negative for acute PE.
Differential diagnosis include infectious such as community-acquired pneumonia viral/bacterial-cannot rule out interstitial lung disease acute flare-broad differential diagnosis.
With significantly increased CRP and sedimentation rate suspect more inflammatory such as nonspecific interstitial pneumonia, connective tissue disease associated ILD etc.
Her CAT scan was not compatible with usual interstitial pneumonia.
Less likely pulmonary edema. Most recent echocardiogram with normal LVEF.
Less likely diffuse alveolar hemorrhage given stable hgb and no hemoptysis; DDx also includes CEP, organizing pneumonia, and atypical CHP
Negative influenza, COVID, Legionella and strep pneumonia.
EKG 06/11/2024: Normal sinus rhythm. ST-T wave abnormality consider inferior ischemia.
leukocytosis/fever
Mild hyponatremia - now resolved
Conditions present prior admission:
Interstitial lung disease : Undifferentiated
Formerly seen on CAT scan 07/2022 for the first time. Mild, peripheral, undifferentiated.
History of PE/DVT provoked after foot injury [address] of the chest at that time: No mention of interstitial lung disease.
History of influenza in 2018/2018 With pneumonia.
History of COVID mildly 2021.
History of ankle fracture on the left status post repair 2023.
Assessment and plan:
At this time, patient continues to require high flow NC and nonrebreather prn
High flow oxygen 60% 55 L/min. With as needed nonrebreather -borderline saturations. Continue to wean down as able.
-
Rapidly progressive hypoxemic respiratory failure.
CTA chest from 06/12/2024 demonstrated severely diffuse groundglass opacities without pleural effusions but has mildly increased mediastinal lymph nodes. No pericardial effusion.
KIERRA IgG positive but with low titer (<1:80); antinuclear Ab and cytoplasmic Ab negative by IFA; c3, c4 wnl
CCP antibody positive (moderately positive), CRP positive -- Suspect inflammatory process
Continue with systemic corticosteroids for severe pneumonia/rapidly progressive hypoxemic respiratory failure and possibility of interstitial lung disease flare.
Rheumatology consulted 06/20/2024--> concern for SARD-ILD --> started on pulse dose steroids on 06/20/2024; may benefit from mycophenolate, azathioprine vs rituxin in the outpx setting.
Pulse will continue for 3 to 5 days.
Monitor closely for infection.
-
Completed course of ABx (cefepime - 06/11 - 06/16) + doxy (06/11 - 06/16), also s/p zithromax x1 dose on 06/13, and IV vanco x 4 doses (06/11 - 06/13)
All cultures negative
Blood cultures collected 06/11/2024 show NGTD
Respiratory culture from 06/13/2024 showed usual respiratory francis
Negative influenza, COVID, Legionella and strep pneumonia.
-
CXR on 06/17/2024 showed mild improvement compared to admission CXR
Repeat chest x-ray 06/23/2023. Order has been placed.
Continue budesonide
Wean oxygen as able to keep SpO2 >90%
Continue supportive measures for cough and associated rib pain
Will need outpatient follow up with pulm-- new pt appt scheduled with Dr. Del Valle in Jul 2024, likely will need to adjust timing
Will need outpatient follow up with rheumatology
DVT prophylaxis-Enoxaparin
Aspiration precautions
GI prophylaxis: famotidine twice daily. Plan to continue at discharge given ILD
Code status: Full
If she were to need medical decision maker, it would be her daughter Kay Chau.
Dr. Stringer updated daughter at the bedside 06/21/2024.
-
Pulmonary service will continue to follow along.

Data reviewed:
CT chest 08/15/2022: Mild changes of pulmonary fibrosis, nonspecific pattern, pleural-based. Findings are new compared to prior study. Left lower lobe 4 mm nodule. Benign etiology.
Possible pericardial cyst 2.8 X1.8X 1.1 cm present in 2016 stable.
-
Echocardiogram 08/16/2022: Showed normal LVEF. No regional wall motion abnormalities. Ejection fraction 60 to 65%.
Normal right ventricular size and function.
No significant valvular disease.
-
CT chest 2016: Reviewed, bilateral lower lobe filling defects compatible with pulmonary embolism. Lower lobe subsegmental atelectasis. No focal abnormalities noted at that time.
Small pericardial cyst
-
Chest x-ray 2020: Mild diffuse interstitial thickening left greater than right possible ILD/fibrosis
Subjective Data
-
Date of Service:
Date of Service: June 22, 2024
Chief Complaint: Pulmonary Follow Up
Subjective:
Overnight events, remains on high flow oxygen
No significant phlegm production or hemoptysis
Review of Systems
General: Fever (n)
Cardiopulmonary: Dyspnea and Dyspnea on Exertion
Objective Data
Data Reviewed
Vital Signs / I&O / Oxygen:
Vital Signs
Temp Pulse Resp BP Pulse Ox
97.6 F 76 20 112/72 92
06/22/24 11:39 06/22/24 11:59 06/22/24 11:59 06/22/24 04:00 06/22/24 11:59
Intake and Output
06/21/24 06/22/24 06/23/24
06:59 06:59 06:59
Intake Total 1115 / 1115 734 / 734
Output Total 2800 / 2800 650 / 650
Balance -1685 / -1685 84 / 84
SaO2 92
Nasal Cannula flow liters per 45
minute
Physical Exam
General: Respiratory Distress (negative), Comfortable (at rest), Chills (negative) and Sweats (negative)
HEENT: Normocephalic and Anicteric
Cardiovascular: S1-S2, Rub (negative) and Peripheral Edema (negative)
Respiratory: Wheeze (negative), Crackles (bilateral (bases to middle lung shahid mainly)), Rhonchi (negative), Non-Labored Respirations and Stridor (negative)
GI: Soft, Non Distended, Non Tender and Normal Bowel Sounds
Neurology: AO x 3 and Tremors (negative)
Skin: Warm, Dry, Cyanosis (negative) and Jaundice (negative)
Labs/Micro/Reports
Lab Data
06/22/24 03:13
06/22/24 03:13
[2024-06-22] MEDS: SOLU-MEDROL 258 MG IV (12:41)
--- NOTE | 2024-06-22 15:05 | W.PN.HOSP.TC ---
Today's Communication/Plan
-
Continue pulse dosed steroids
CXR tomorrow
Lasix IV PRN
Wean O2 as tolerated
Assessment / Plan
Assessment / Plan
HPI: 64-year-old female with past medical history of interstitial lung disease, distant history of provoked PE, p/w cough and shortness of breath.
Patient reported that she had norovirus a few weeks ago with nausea/vomiting/diarrhea� symptoms resolved in about 3 to 4 days ago, but she started having cough and SOB. She went to urgent care on Sunday and was diagnosed with pneumonia. She did not
have a chest x-ray but she was treated empirically with cephalexin and azithromycin which she has taken x 3 days.
Despite these interventions, her symptoms have gotten worse.
In the morning, she could not breathe and called EMS to bring her to the hospital.
Per EMS on their arrival patient was hypoxic and mildly cyanotic, tachypneic; she was placed on oxygen with improvement.
A/P:
# Acute hypoxic respiratory failure 2/2 CAP with ILD flare/pneumonitis
# sepsis POA 2/2 BL CAP
CXR: Chronic interstitial lung disease/fibrosis, progressed. Possible superimposed left-sided pneumonia.
Cont O2 support, on high flow NC 65% FiO2 and Flow of 50L; wean as tolerated; goal o2>88%
wean O2 when able, pt not on home O2
CT PE negative for PE, noted Extensive bilateral groundglass opacities, superimposed upon subpleural reticulation/fibrosis. There is also mediastinal and hilar lymphadenopathy, which is new compared to the prior examination. Findings are nonspecific
and could represent acute exacerbation or worsening of patient's interstitial lung disease with infectious or inflammatory process also a consideration.
Completed Cefepime, doxycycline course - 5 days although doubt bacterial; No vancomycin needed with neg MRSA -
Cont empiric Decadron, for underlying ILD (likely due to RA) -switch to pulse dosed steroids at the recommendation of rheumatology (D3/5)
COVID/FLU negative, RSA negative, urine Legionella/Strep negative, MRSA screen neg, blood culture neg
Sputum Cx usual francis
Follow rheumatology serology
Cont Duonebs ATC and PRN, Tessalon ATC, Mucinex
Pulm on board
Incentive Valdemar
Prone positioning if able
�IV Lasix as needed
#Leukocytosis
-monitor fever curve wbc count
-observe off aabx
# Concern for Rheumatoid arthritis with RA Interstitial lung disease�
KIERRA positive, antiCCP positive
IV steroid as above -then switch to weight-based prednisone 1 mg/KG as per rheumatology - please confirm before dosing
� Follow-up labs including TB, HIV; hep B negative
� Follow-up serologies of myositis, scleroderma, sarcoidosis, cryoglobulin, immunoglobulin
Rheum eval
# Mild hyponatremia due to above, SIADH
-fwr, monitor
#Transaminitis
� Closely monitor
� No abdominal tenderness
- Hepatitis B/C neg
- HIV Pending
# h/o ILD
# distant history of provoked PE followed by ankle surgery 2015
DVT ppx: Lovenox SQ
FC
Total time spent on today's encounter was 53 minutes which included time spent in counseling the patient/family regarding diagnosis and treatment plan as listed above, goals of care, and symptom management. Case was discussed with nursing staff,
specialists, and care coordinators/case management. All labs and imaging personally reviewed by me. Remainder the time spent in detailed review of previous records, lab data, imaging, and other medical provider documentation.
Anticipated Discharge: > 48 hours
Subjective/Interval History
-
Date of Service: June 22, 2024
No acute events
Objective Data
-
Labs:
Laboratory Results
06/22/24
03:13
WBC 14.3 H
Hgb 11.8 L
Hct 33.7 L
Plt Count 339
Sodium 134 L
Potassium 4.8
Chloride 100
Carbon Dioxide 25
BUN 23 H
Creatinine 0.6
Glucose 169 H
Calcium 8.1 L
Total Bilirubin 0.5
AST 38 H
ALT 94 H
Alkaline Phosphatase 75
Vital Signs:
Vital Signs
Temp Pulse Resp BP Pulse Ox
97.6 F 77 20 112/72 93
06/22/24 11:39 06/22/24 14:56 06/22/24 14:56 06/22/24 04:00 06/22/24 14:57
I&O
06/21/24 06/22/24 06/23/24
06:59 06:59 06:59
Intake Total 1115 / 1115 734 / 734
Output Total 2800 / 2800 650 / 650
Balance -1685 / -1685 84 / 84
Review of Systems
-
History Source: Patient
All other systems: Not reviewed unless documented
Physical Exam
-
General: Well Developed, Well Nourished and Conversant
HEENT: Normocephalic, Atraumatic, Nose Appears Normal, Ears Appear Normal and Oxygen (high flow NC )
Respiratory: Crackles (fine crackles at bases)
Cardiac: Regular Rhythm and S1/S2
GI: Soft, Nontender, Nondistended and Normal Bowel Sounds
Skin: Warm and Dry
Neuro: Awake, Alert, Oriented and AO x 3
Psych: Calm and Intact Judgement/Insight
Data Reviewed
-
Diagnostic Radiology: Image personally visualized and interpreted and Report Reviewed by me
CT Scan: Report Reviewed by me
Labs: Labs Reviewed by me
[2024-06-22] MEDS: LOVENOX 40 MG SC (17:00)
[2024-06-22] MEDS: MELATONIN 5 MG PO (20:23)
[2024-06-22] MEDS: PHENERGAN WITH CODEINE SYRUP 5 ML PO (20:43)
[2024-06-22] MEDS: XANAX 0.25 MG PO (22:25)
--- NOTE | 2024-06-22 23:07 | PTCARENOTE ---
received patient from previous RN. NSR on monitor. Patient on High Flow 45L 60%. Assessment and VS as documented, medications given see MAR. Patient resting in bed with call martinez in reach.
[2024-06-22 23:17] LABS: IgA 473 mg/dl (70-400); IgG 1255 mg/dl (700-1600); IgM 105 mg/dl (40-230)
[2024-06-23] VITALS (13 sets, daily range): BP systolic 84–121; BP diastolic 51–93; BMI 28.3
[2024-06-23 00:39] LABS: Angiotensin-1-converting Enzym 20 U/L (16-85)
[2024-06-23] MEDS: SYNTHROID 137 MCG PO (05:02)
[2024-06-23 05:38] LABS: Hematocrit 35.3 % (37.0-47.0); Hemoglobin 12.3 g/dL (12.0-16.0); Mean Corp Hgb Conc. 34.8 g/dL (33.0-37.0); Mean Corpuscular Hgb 32.6 pg (27.0-31.0); Mean Corpuscular Volume 93.6 fL (81.0-99.0); Platelet Count 311 10^3/uL (130-400); Red Blood Cell Count 3.77 10^6/uL (4.20-5.40); Red Cell Dist. Width 13.2 % (11.5-14.5); White Blood Cell Count 11.9 10^3/uL (4.8-10.8)
[2024-06-23 06:01] LABS: ALT (SGPT) 143 U/L (0-35); AST (SGOT) 48 U/L (14-36); Albumin 3.5 g/dl (3.5-5.0); Alkaline Phosphatase 80 U/L (38-126); Blood Urea Nitrogen 26 mg/dl (7-17); Calcium 8.5 mg/dl (8.4-10.2); Carbon Dioxide 26 mmol/L (22-30); Chloride 100 mmol/L (98-107); Estimated Creatinine Clearance 109 ml/min; Glucose 149 mg/dl (70-99); Potassium 4.5 mmol/L (3.5-5.1); Sodium 134 mmol/L (135-145); Total Bilirubin 0.6 mg/dl (0.2-1.3); Total Protein 6.6 g/dl (6.3-8.2); eGFR > 60.00
[2024-06-23] MEDS: PULMICORT 0.5 MG INH (06:06)
[2024-06-23] MEDS: VENTOLIN NEBULES 2.5 MG INH ×4 (06:06→19:12)
--- NOTE | 2024-06-23 06:14 | PTCARENOTE ---
Patient desating into low to mid 80s. Respiratory notified. Patient using nonrebreather to recover but slow to recover. Care ongoing.
[2024-06-23] MEDS: MUCINEX 1200 MG PO ×2 (08:39→19:55)
[2024-06-23] MEDS: TESSALON PERLES 100 MG PO ×3 (08:39→21:56)
[2024-06-23] MEDS: PEPCID 20 MG PO ×2 (08:40→19:56)
[2024-06-23] MEDS: COLACE 100 MG PO (08:47)
--- NOTE | 2024-06-23 11:12 | W.PN.PUL.V3 ---
Today's Communication / Plan
-
Pulse steroids
Diuresis as needed
Wean oxygen
Follow radiographically
Assessment
-
64-year-old woman with distant past medical history of provoked pulmonary embolism, interstitial lung disease which is mild on CAT scan 07/2022 undifferentiated, has not been seen by pulmonary despite being recommended last year. Comes to the
hospital complaining of progressive shortness of breath, cough, hypoxemia. X-ray with significant bilateral infiltrates. Follow-up CT demonstrated severely diffuse groundglass opacities. Progressive hypoxemic respiratory failure up to 10 L.
Impression:
Severe acute hypoxemic respiratory failure currently on high-flow nasal cannula
CTA chest 06/12/2024: Diffuse groundglass opacity bilaterally. No pleural effusion. Negative for acute PE.
Differential diagnosis include infectious such as community-acquired pneumonia viral/bacterial-cannot rule out interstitial lung disease acute flare-broad differential diagnosis.
With significantly increased CRP and sedimentation rate suspect more inflammatory such as nonspecific interstitial pneumonia, connective tissue disease associated ILD etc.
Her CAT scan was not compatible with usual interstitial pneumonia.
Less likely pulmonary edema. Most recent echocardiogram with normal LVEF.
Less likely diffuse alveolar hemorrhage given stable hgb and no hemoptysis; DDx also includes CEP, organizing pneumonia, and atypical CHP
Negative influenza, COVID, Legionella and strep pneumonia.
EKG 06/11/2024: Normal sinus rhythm. ST-T wave abnormality consider inferior ischemia.
leukocytosis/fever
Mild hyponatremia - now resolved
Conditions present prior admission:
Interstitial lung disease : Undifferentiated
Formerly seen on CAT scan 07/2022 for the first time. Mild, peripheral, undifferentiated.
History of PE/DVT provoked after foot injury [address] of the chest at that time: No mention of interstitial lung disease.
History of influenza in 2018/2018 With pneumonia.
History of COVID mildly 2021.
History of ankle fracture on the left status post repair 2023.
Plan:
Respiratory status still tenuous on high flow oxygen and nonrebreather though she feels better and recovers faster
Continue supplemental oxygen as needed-currently on high flow and nonrebreather
Attempt to wean oxygen
Incentive spirometry
Out of bed if able
Mucus clearing devices as needed
Aspiration precautions
Nebulizers if needed-currently with minimal bronchospasm
Chest x-ray 06/23/2024-no change in severe bilateral airspace and interstitial abnormalities
Antitussives as needed
CTA chest from 06/12/2024 demonstrated severely diffuse groundglass opacities without pleural effusions but has mildly increased mediastinal lymph nodes. No pericardial effusion.
KIERRA IgG positive but with low titer (<1:80); antinuclear Ab and cytoplasmic Ab negative by IFA; c3, c4 wnl
CCP antibody positive (moderately positive), CRP positive -- Suspect inflammatory process
Methylprednisolone 1 g every 24 hours-pulse steroids-initiated 06/20/2024
Rheumatology consulted
Rheumatologic serology reviewed
DOREEN-pending
Completed course of antibiotics
Sputum culture usual respiratory francis
Cultures and viral panel negative
DVT prophylaxis-Enoxaparin
GI prophylaxis: famotidine twice daily-plan to continue at discharge given ILD
If she were to need medical decision maker, it would be her daughter Kay Chau.
Will need outpatient follow up with pulmonary- new pt appt scheduled with Dr. Del Valle in Jul 2024, likely will need to adjust timing
Will need outpatient follow up with rheumatology

Data reviewed:
CT chest 08/15/2022: Mild changes of pulmonary fibrosis, nonspecific pattern, pleural-based. Findings are new compared to prior study. Left lower lobe 4 mm nodule. Benign etiology.
Possible pericardial cyst 2.8 X1.8X 1.1 cm present in 2016 stable.
Echocardiogram 08/16/2022: Showed normal LVEF. No regional wall motion abnormalities. Ejection fraction 60 to 65%.
Normal right ventricular size and function.
No significant valvular disease.
CT chest 2016: Reviewed, bilateral lower lobe filling defects compatible with pulmonary embolism. Lower lobe subsegmental atelectasis. No focal abnormalities noted at that time.
Small pericardial cyst
Chest x-ray 2020: Mild diffuse interstitial thickening left greater than right possible ILD/fibrosis
Subjective Data
-
Date of Service:
Date of Service: June 23, 2024
Chief Complaint: Pulmonary Follow Up and Dyspnea Follow Up
Subjective:
Feels a little better, recovers faster, no chest pain, pleurisy, chest congestion, productive cough, or abdominal pain
Review of Systems
General: Other (Per HPI)
Objective Data
Data Reviewed
Vital Signs / I&O:
Vital Signs
Temp Pulse Resp BP Pulse Ox
97.7 F 77 34 115/77 88
06/23/24 07:25 06/23/24 10:44 06/23/24 10:44 06/23/24 10:00 06/23/24 10:45
Intake and Output
06/22/24 06/23/24 06/24/24
06:59 06:59 06:59
Intake Total 734 / 734 1210 / 1210
Output Total 650 / 650 1250 / 1250
Balance 84 / 84 -40 / -40
SaO2: 88
Nasal Cannula flow liters per minute: 45
Physical Exam
General: Respiratory Distress (negative), Comfortable (at rest), Chills (negative) and Sweats (negative)
HEENT: Normocephalic and Anicteric
Cardiovascular: Regular Rhythm, Rub (negative) and Peripheral Edema (negative)
Respiratory: Wheeze (negative), Crackles (bilateral (bases to middle lung shahid mainly)), Rhonchi (negative), Non-Labored Respirations and Stridor (negative)
GI: Soft, Non Distended, Non Tender and Normal Bowel Sounds
Neurology: AO x 3 and Tremors (negative)
Skin: Warm, Dry, Cyanosis (negative) and Jaundice (negative)
Labs/Micro/Reports
Lab Data
06/23/24 05:28
06/23/24 05:28
[2024-06-23] MEDS: SOLU-MEDROL 258 MG IV (11:52)
--- NOTE | 2024-06-23 12:19 | W.PN.HOSP.TC ---
Addendum entered and electronically signed by Tina Dan MD 06/23/24 14:43:
I personally performed a history and physical exam of the patient and discussed management with the resident. I reviewed the resident's note and agree with the documented findings and plan of care HPI/CC.
A/P:
# Acute hypoxic respiratory failure 2/2 ILD flare/pneumonitis
CXR: Chronic interstitial lung disease/fibrosis, progressed. Possible superimposed left-sided pneumonia.
Cont O2 support, weaned from high flow NC 100% to 65% FiO2; cont to wean as tolerated; goal o2>88%. Pt not on home O2
CT PE negative for PE, noted Extensive bilateral groundglass opacities, superimposed upon subpleural reticulation/fibrosis. There is also mediastinal and hilar lymphadenopathy, which is new compared to the prior examination.
s/p Cefepime, doxycycline course of 5 days although doubt bacterial; No vancomycin needed with neg MRSA
Cont empiric Decadron for underlying ILD (likely due to RA)
switched to pulse dosed steroids at the recommendation of rheumatology
Cont Duonebs ATC and PRN, Tessalon ATC, Mucinex
IV Lasix as needed
Pulm on board
# Concern for Rheumatoid arthritis with RA Interstitial lung disease�
KIERRA positive, antiCCP positive
IV steroid as above, then switch to weight-based prednisone 1 mg/KG as per rheumatology - to confirm before dosing
Follow labs including TB, HIV;
hep B negative
Follow-up serologies of myositis, scleroderma, sarcoidosis, cryoglobulin, immunoglobulin
Rheum eval
# Mild hyponatremia due to above, SIADH
# Transaminitis
Closely monitor
Hepatitis B/C neg
HIV Pending
# h/o ILD
# distant history of provoked PE followed by ankle surgery 2015
DVT ppx: Lovenox SQ
FC
Original Note:
Today's Communication/Plan
-
Continue supplemental O2; wean as radha.
Assessment / Plan
Assessment / Plan
HPI: 64-year-old female with past medical history of interstitial lung disease, distant history of provoked PE, p/w cough and shortness of breath.
Patient reported that she had norovirus a few weeks ago with nausea/vomiting/diarrhea� symptoms resolved in about 3 to 4 days ago, but she started having cough and SOB. She went to urgent care on Sunday and was diagnosed with pneumonia. She did not
have a chest x-ray but she was treated empirically with cephalexin and azithromycin which she has taken x 3 days.
Despite these interventions, her symptoms have gotten worse. In the morning, she could not breathe and called EMS to bring her to the hospital. Per EMS on their arrival patient was hypoxic and mildly cyanotic, tachypneic; she was placed on oxygen
with improvement.
A/P:
1. Acute hypoxic respiratory failure 2/2 CAP with ILD flare/pneumonitis
CXR: Chronic interstitial lung disease/fibrosis, progressed. Possible superimposed left-sided pneumonia.
- Patient completed Cefepime/Doxycycline 5 days; MRSA neg
Cont O2 support, on high flow NC; wean as tolerated; goal o2>88%
- Wean O2 when able, pt not on home O2
CT: negative for PE, noted Extensive bilateral groundglass opacities, superimposed upon subpleural reticulation/fibrosis. There is also mediastinal and hilar lymphadenopathy, which is new compared to the prior examination. Findings are nonspecific
and could represent acute exacerbation or worsening of patient's interstitial lung disease with infectious or inflammatory process also a consideration.
Cont empiric Decadron, for underlying ILD (likely due to RA) -switch to pulse dosed steroids at the recommendation of rheumatology (D4/5)
COVID/FLU negative, RSA negative, urine Legionella/Strep negative, MRSA screen neg, blood culture neg; sputum cx normal francis
Follow rheumatology serology
Cont Duonebs ATC and PRN, Tessalon ATC, Mucinex
Pulm on board; appreciate recs
Incentive Valdemar
Prone positioning if able
IV Lasix as needed
2. Leukocytosis
-WBC downtrending; continue to montor CBC, fever trend
3. Concern for Rheumatoid arthritis with RA Interstitial lung disease�
KIERRA positive, antiCCP positive
IV steroid as above -then switch to weight-based prednisone 1 mg/KG as per rheumatology - please confirm before dosing
� Follow-up labs including TB, HIV; hep B negative
� Follow-up serologies of myositis, scleroderma, sarcoidosis, cryoglobulin, immunoglobulin
Rheum evaluation
4. Mild hyponatremia due to above, SIADH
-fwr, monitor
5. Transaminitis
� Closely monitor
� No abdominal tenderness
- Hepatitis B/C neg
- HIV Pending
DVT ppx: Lovenox SQ
Full Code
Anticipated Discharge: 24 - 48 hours
Subjective/Interval History
-
Date of Service: June 23, 2024
Patient seen and examined while resting comfortably in bed, currently on high flow and nonrebreather mask. Patient endorses feeling better than yesterday, and especially so since admission. Patient denies any other acute complaints.
Objective Data
-
Labs:
Laboratory Results
06/23/24
05:28
WBC 11.9 H
Hgb 12.3
Hct 35.3 L
Plt Count 311
Sodium 134 L
Potassium 4.5
Chloride 100
Carbon Dioxide 26
BUN 26 H
Creatinine 0.6
Glucose 149 H
Calcium 8.5
Total Bilirubin 0.6
AST 48 H
ALT 143 H
Alkaline Phosphatase 80
Vital Signs:
Vital Signs
Temp Pulse Resp BP Pulse Ox
97.7 F 77 34 115/77 88
06/23/24 07:25 06/23/24 10:44 06/23/24 10:44 06/23/24 10:00 06/23/24 11:12
I&O
06/22/24 06/23/24 06/24/24
06:59 06:59 06:59
Intake Total 734 / 734 1210 / 1210
Output Total 650 / 650 1250 / 1250
Balance 84 / 84 -40 / -40
Review of Systems
-
History Source: Patient
Constitutional: Reports No Symptoms
Respiratory: Reports No Symptoms
Cardiac: Reports No Symptoms
Abdomen/GI: Reports No Symptoms
Physical Exam
-
General: Well Developed, Comfortable, Conversant and Other (on high flow/NRB)
HEENT: Normocephalic and Atraumatic
Respiratory: Crackles (bilateral, middle to lower lobes)
GI: Soft, Nontender and Nondistended
Musculoskeletal: No Clubbing, No Cyanosis and No Edema
Neuro: Awake, Alert and Oriented
Psych: Calm
Data Reviewed
-
Labs: Labs Reviewed by me and Discussed with Patient
[2024-06-23] MEDS: XANAX 0.25 MG PO ×2 (13:10→21:57)
--- NOTE | 2024-06-23 13:37 | PTCARENOTE ---
Patient up to the bedside commode. Pt did well getting to the commode even with pulse ox dropping into 80s but getting back into bed, pt became very tachypneic, dyspneic on exertion and felt as she could not breathe, pulse ox 72%. Pt's high flow
increased to max and NRB mask flooded with 15L. Pt still recovering after 20 minutes but feels much better. Still has NRB mask overtop but HFNC back to 45L/55%. Pt given ice pack as she felt hot during episode. Assessment, care and VS as charted.
[2024-06-23] MEDS: LOVENOX 40 MG SC (17:55)
[2024-06-23] MEDS: MELATONIN 5 MG PO (21:56)
[2024-06-24] VITALS (17 sets, daily range): BP systolic 85–125; BP diastolic 52–93; PULSE 67; O2SAT 94; BMI 28.4
--- NOTE | 2024-06-24 03:51 | PTCARENOTE ---
Pt with several episodes of desat to 80s throughout shift. Pt felt calm during episodes, placed NRB mask over high flow and recovered to >90%. Used bedpan to void several times. Hygiene care performed. Call martinez within reach.
[2024-06-24] MEDS: SYNTHROID 137 MCG PO (04:51)
[2024-06-24 05:22] LABS: Hematocrit 32.8 % (37.0-47.0); Hemoglobin 11.4 g/dL (12.0-16.0); Mean Corp Hgb Conc. 34.8 g/dL (33.0-37.0); Mean Corpuscular Hgb 33.1 pg (27.0-31.0); Mean Corpuscular Volume 95.3 fL (81.0-99.0); Mean Platelet Volume 9.4 fL (7.4-10.4); Platelet Count 290 10^3/uL (130-400); Red Blood Cell Count 3.44 10^6/uL (4.20-5.40); Red Cell Dist. Width 13.4 % (11.5-14.5); White Blood Cell Count 12.7 10^3/uL (4.8-10.8)
[2024-06-24 05:53] LABS: ALT (SGPT) 164 U/L (0-35); AST (SGOT) 50 U/L (14-36); Albumin 3.1 g/dl (3.5-5.0); Alkaline Phosphatase 70 U/L (38-126); Blood Urea Nitrogen 27 mg/dl (7-17); Carbon Dioxide 26 mmol/L (22-30); Chloride 102 mmol/L (98-107); Estimated Creatinine Clearance 109 ml/min; Glucose 174 mg/dl (70-99); Potassium 4.7 mmol/L (3.5-5.1); Sodium 134 mmol/L (135-145); Total Bilirubin 0.5 mg/dl (0.2-1.3); Total Protein 5.9 g/dl (6.3-8.2); eGFR > 60.00
[2024-06-24] MEDS: VENTOLIN NEBULES 2.5 MG INH ×4 (07:24→19:29)
--- NOTE | 2024-06-24 08:03 | W.PN.PUL.V3 ---
Today's Communication / Plan
-
Pulse steroids
Convert to oral prednisone after pulse-1 mg/kg
Respiratory status too tenuous for invasive bronchoscopy which would be ideal to obtain more information
Consider transfer to tertiary center
Assessment
-
64-year-old woman with distant past medical history of provoked pulmonary embolism, interstitial lung disease which is mild on CAT scan 07/2022 undifferentiated, has not been seen by pulmonary despite being recommended last year. Comes to the
hospital complaining of progressive shortness of breath, cough, hypoxemia. X-ray with significant bilateral infiltrates. Follow-up CT demonstrated severely diffuse groundglass opacities. Progressive hypoxemic respiratory failure up to 10 L.
Impression:
Severe acute hypoxemic respiratory failure currently on high-flow nasal cannula
CTA chest 06/12/2024: Diffuse groundglass opacity bilaterally. No pleural effusion. Negative for acute PE.
Differential diagnosis include infectious such as community-acquired pneumonia viral/bacterial-cannot rule out interstitial lung disease acute flare-broad differential diagnosis.
With significantly increased CRP and sedimentation rate suspect more inflammatory such as nonspecific interstitial pneumonia, connective tissue disease associated ILD etc.
Her CAT scan was not compatible with usual interstitial pneumonia.
Less likely pulmonary edema. Most recent echocardiogram with normal LVEF.
Less likely diffuse alveolar hemorrhage given stable hgb and no hemoptysis; DDx also includes CEP, organizing pneumonia, and atypical CHP
Negative influenza, COVID, Legionella and strep pneumonia.
EKG 06/11/2024: Normal sinus rhythm. ST-T wave abnormality consider inferior ischemia.
leukocytosis/fever
Mild hyponatremia - now resolved
Conditions present prior admission:
Interstitial lung disease : Undifferentiated
Formerly seen on CAT scan 07/2022 for the first time. Mild, peripheral, undifferentiated.
History of PE/DVT provoked after foot injury [address] of the chest at that time: No mention of interstitial lung disease.
History of influenza in 2018/2018 With pneumonia.
History of COVID mildly 2021.
History of ankle fracture on the left status post repair 2023.
Plan:
Respiratory status still tenuous on high flow oxygen and nonrebreather though she feels better and recovers only minimally faster than when she came in
Continue supplemental oxygen as needed-currently on high flow and nonrebreather
Attempt to wean oxygen
Incentive spirometry
Out of bed if able
Mucus clearing devices as needed
Aspiration precautions
Nebulizers if needed-currently with minimal bronchospasm
Chest x-ray 06/23/2024-no change in severe bilateral airspace and interstitial abnormalities
Antitussives as needed
Ideally would undergo bronchoscopy with BAL and biopsies-respiratory status 'too tenuous' and risks outweigh benefits at this point
CTA chest from 06/12/2024 demonstrated severely diffuse groundglass opacities without pleural effusions but has mildly increased mediastinal lymph nodes. No pericardial effusion.
KIERRA IgG positive but with low titer (<1:80); antinuclear Ab and cytoplasmic Ab negative by IFA; c3, c4 wnl
CCP antibody positive (moderately positive), CRP positive -- Suspect inflammatory process
Methylprednisolone 1 g every 24 hours-pulse steroids-initiated 06/20/2024-finish a 5-day pulse and then convert to prednisone 1 mg/kg daily
Rheumatology consulted
Rheumatologic serology reviewed
DOREEN-20
Completed course of antibiotics
Sputum culture usual respiratory francis
Cultures and viral panel negative
DVT prophylaxis-Enoxaparin
GI prophylaxis: famotidine twice daily-plan to continue at discharge given ILD
If she were to need medical decision maker, it would be her daughter Kay Cahu.
Consider transfer to tertiary center
Will need outpatient follow up with pulmonary- new pt appt scheduled with Dr. Del Valle in Jul 2024, likely will need to adjust timing
Will need outpatient follow up with rheumatology

Data reviewed:
CT chest 08/15/2022: Mild changes of pulmonary fibrosis, nonspecific pattern, pleural-based. Findings are new compared to prior study. Left lower lobe 4 mm nodule. Benign etiology.
Possible pericardial cyst 2.8 X1.8X 1.1 cm present in 2016 stable.
Echocardiogram 08/16/2022: Showed normal LVEF. No regional wall motion abnormalities. Ejection fraction 60 to 65%.
Normal right ventricular size and function.
No significant valvular disease.
CT chest 2016: Reviewed, bilateral lower lobe filling defects compatible with pulmonary embolism. Lower lobe subsegmental atelectasis. No focal abnormalities noted at that time.
Small pericardial cyst
Chest x-ray 2020: Mild diffuse interstitial thickening left greater than right possible ILD/fibrosis
Subjective Data
-
Date of Service:
Date of Service: June 24, 2024
Chief Complaint: Pulmonary Follow Up and Dyspnea Follow Up
Subjective:
Patient states that she feels better, still on high flow oxygen, desaturates easily, no chest pain, productive cough or abdominal pain
Review of Systems
General: Other (Per HPI)
Objective Data
Data Reviewed
Vital Signs / I&O:
Vital Signs
Temp Pulse Resp BP Pulse Ox
98.3 F 63 18 125/87 89
06/24/24 07:29 06/24/24 07:28 06/24/24 07:28 06/24/24 06:00 06/24/24 07:28
Intake and Output
06/23/24 06/24/24 06/25/24
06:59 06:59 06:59
Intake Total 1210 / 1210 498 / 498
Output Total 1250 / 1250 1500 / 1500
Balance -40 / -40 -1002 / -1002
SaO2: 89
Nasal Cannula flow liters per minute: 45
Physical Exam
General: Respiratory Distress (negative), Comfortable (at rest), Chills (negative) and Sweats (negative)
HEENT: Normocephalic and Anicteric
Cardiovascular: Regular Rhythm, Rub (negative) and Peripheral Edema (negative)
Respiratory: Wheeze (negative), Crackles (bilateral (bases to middle lung shahid mainly)), Rhonchi (negative), Non-Labored Respirations and Stridor (negative)
GI: Soft, Non Distended, Non Tender and Normal Bowel Sounds
Neurology: AO x 3 and Tremors (negative)
Skin: Warm, Dry, Cyanosis (negative) and Jaundice (negative)
Labs/Micro/Reports
Lab Data
06/24/24 04:53
06/24/24 04:53
[2024-06-24] MEDS: MUCINEX 1200 MG PO ×2 (09:03→20:06)
[2024-06-24] MEDS: PEPCID 20 MG PO ×2 (09:03→20:06)
[2024-06-24] MEDS: TESSALON PERLES 100 MG PO ×3 (09:04→21:23)
--- NOTE | 2024-06-24 09:06 | CM ---
Patient with Hx ILD/interstitial lung disease. High flow O2. Receiving IV Steroids. Per nurse assessment; desatting when getting OOB to commode.
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
Message to Resident Anil Cornell; will need new PT Eval order when patient stable enough to work with PT.
CM continuing to follow for d/c needs.
Plan TBD.
[2024-06-24] MEDS: SOLU-MEDROL 258 MG IV (13:02)
--- NOTE | 2024-06-24 13:18 | W.PN.HOSP.TC ---
Addendum entered and electronically signed by Tina Dan MD 06/24/24 14:16:
I personally performed a history and physical exam of the patient and discussed management with the resident. I reviewed the resident's note and agree with the documented findings and plan of care HPI/CC.
A/P:
# Acute hypoxic respiratory failure 2/2 ILD flare/pneumonitis
Cont O2 support, weaned from high flow NC 100% to 55% FiO2; cont to wean as tolerated; goal o2>88%. Pt not on home O2
s/p Cefepime, doxycycline course x5 days although doubt bacterial; No vancomycin needed with neg MRSA
Cont empiric Decadron for underlying ILD (likely due to RA)
switched to pulse dosed steroid x5 days per rheumatology, followed by prednisone 40 mg every 12 hours
Pulm on board
# Concern for Rheumatoid arthritis with RA Interstitial lung disease�
KIERRA positive, antiCCP positive
IV steroid as above, then switch to weight-based prednisone 1 mg/Kg per rheumatology
Follow labs including TB, HIV;
hep B negative
Follow-up serologies of myositis, scleroderma, sarcoidosis, cryoglobulin, immunoglobulin
# Mild hyponatremia due to above, SIADH
# Transaminitis
Closely monitor
Hepatitis B/C neg
HIV Pending
# h/o ILD
# distant history of provoked PE followed by ankle surgery 2015
DVT ppx: Lovenox SQ
FC
Extensive discussion with rheum Dr. Carina Turner today on the phone
Total time spent 51 minutes
Original Note:
Today's Communication/Plan
-
.
Assessment / Plan
Assessment / Plan
HPI: 64-year-old female with past medical history of interstitial lung disease, distant history of provoked PE, p/w cough and shortness of breath.
Patient reported that she had norovirus a few weeks ago with nausea/vomiting/diarrhea� symptoms resolved in about 3 to 4 days ago, but she started having cough and SOB. She went to urgent care on Sunday and was diagnosed with pneumonia. She did not
have a chest x-ray but she was treated empirically with cephalexin and azithromycin which she has taken x 3 days.
Despite these interventions, her symptoms have gotten worse. In the morning, she could not breathe and called EMS to bring her to the hospital. Per EMS on their arrival patient was hypoxic and mildly cyanotic, tachypneic; she was placed on oxygen
with improvement.
A/P:
1. Acute hypoxic respiratory failure 2/2 CAP with ILD flare/pneumonitis
CXR: Chronic interstitial lung disease/fibrosis, progressed. Possible superimposed left-sided pneumonia.
- Patient completed Cefepime/Doxycycline 5 days; MRSA neg
Cont O2 support, on high flow NC; wean as tolerated; goal o2>88%
- Wean O2 when able, pt not on home O2
CT: negative for PE, noted Extensive bilateral groundglass opacities, superimposed upon subpleural reticulation/fibrosis. There is also mediastinal and hilar lymphadenopathy, which is new compared to the prior examination. Findings are nonspecific
and could represent acute exacerbation or worsening of patient's interstitial lung disease with infectious or inflammatory process also a consideration.
Cont empiric Decadron, for underlying ILD (likely due to RA) -switched to pulse dosed steroids at the recommendation of rheumatology (D4/5); upon completion transition to oral prednisone 40mg
COVID/FLU negative, RSA negative, urine Legionella/Strep negative, MRSA screen neg, blood culture neg; sputum cx normal francis
Follow rheumatology serology
Cont Duonebs ATC and PRN, Tessalon ATC, Mucinex
Pulm on board; appreciate recs
- Respiratory status too tenuous for invasive bronchoscopy which would be ideal to obtain more information
Incentive Valdemar
Prone positioning if able
IV Lasix as needed
2. Leukocytosis
-WBC downtrending; continue to montor CBC, fever trend
3. Concern for Rheumatoid arthritis with RA Interstitial lung disease�
KIERRA positive, antiCCP positive
IV steroid as above -transition to prednisone 40 mg after tomorrows pulse dose
� Follow-up labs including TB, HIV; hep B negative
� Follow-up serologies of myositis, scleroderma, sarcoidosis, cryoglobulin, immunoglobulin
Rheum evaluation
4. Mild hyponatremia due to above, SIADH
-fwr, monitor
5. Transaminitis
� Closely monitor
� No abdominal tenderness
- Hepatitis B/C neg
- HIV Pending
DVT ppx: Lovenox SQ
Full Code
Anticipated Discharge: > 48 hours
Subjective/Interval History
-
Date of Service: June 24, 2024
Patient seen and examined while resting comfortably in bed. Patient states that she is feeling better today and has been steadily improving. Patient is still on high flow oxygen.
Objective Data
-
Labs:
Laboratory Results
06/24/24
04:53
WBC 12.7 H
Hgb 11.4 L
Hct 32.8 L
Plt Count 290
Sodium 134 L
Potassium 4.7
Chloride 102
Carbon Dioxide 26
BUN 27 H
Creatinine 0.5 L
Glucose 174 H
Calcium 8.0 L
Total Bilirubin 0.5
AST 50 H
ALT 164 H
Alkaline Phosphatase 70
Vital Signs:
Vital Signs
Temp Pulse Resp BP Pulse Ox
97.9 F 73 22 104/68 90
06/24/24 11:25 06/24/24 11:09 06/24/24 11:09 06/24/24 10:00 06/24/24 11:32
I&O
06/23/24 06/24/24 06/25/24
06:59 06:59 06:59
Intake Total 1210 / 1210 498 / 498
Output Total 1250 / 1250 1500 / 1500 1000 / 1000
Balance -40 / -40 -1002 / -1002 -1000 / -1000
Review of Systems
-
Constitutional: Reports No Symptoms
Respiratory: Reports Trouble Breathing; Denies Cough
Cardiac: Reports No Symptoms
Abdomen/GI: Reports No Symptoms
Physical Exam
-
General: Well Developed, Well Nourished and Comfortable
HEENT: Normocephalic and Atraumatic
Respiratory: Crackles (bilateral bases; otherwise clear) and Non Labored Respirations
Cardiac: Regular Rhythm and S1/S2
GI: Soft and Nontender
Musculoskeletal: No Clubbing, No Cyanosis and No Edema
Skin: Warm
Neuro: Awake, Alert and Oriented
Psych: Calm
Data Reviewed
-
Labs: Labs Reviewed by me and Discussed with Patient
[2024-06-24 15:29] LABS: HIV Combo Negative (Negative)
[2024-06-24] MEDS: XANAX 0.25 MG PO ×2 (15:30→21:24)
--- NOTE | 2024-06-24 17:45 | PTCARENOTE ---
Pt presents as assessed. Aox3. Sating low 90's on HFNC. Desats easily with conversation or exertion and requires NRB to recover. Pt and daughter updated on plan of care. Ringing appropriately, call martinez within reach.
[2024-06-24] MEDS: LOVENOX 40 MG SC (17:59)
[2024-06-24] MEDS: PHENERGAN WITH CODEINE SYRUP 5 ML PO (20:08)
[2024-06-24] MEDS: MELATONIN 5 MG PO (21:23)
[2024-06-25] VITALS (14 sets, daily range): BP systolic 88–122; BP diastolic 46–87; PULSE 67–75; O2SAT 94; BMI 28.6
--- NOTE | 2024-06-25 01:26 | PTCARENOTE ---
Pt continues with several episodes of desat to 80s, pt experiences some anxiety during episodes, uses NRB PRN. PRN xanax given HS. Pt denies additional complaints at this time. Able to void in bedpan. Unable to ambulate d/t SHORE and SOB. Call martinez
within reach.
[2024-06-25 04:36] LABS: Mean Corp Hgb Conc. 33.3 g/dL (33.0-37.0); Mean Platelet Volume 9.2 fL (7.4-10.4); Platelet Count 290 10^3/uL (130-400); Red Blood Cell Count 3.75 10^6/uL (4.20-5.40); Red Cell Dist. Width 13.5 % (11.5-14.5); White Blood Cell Count 11.5 10^3/uL (4.8-10.8)
[2024-06-25 05:06] LABS: ALT (SGPT) 176 U/L (0-35); AST (SGOT) 44 U/L (14-36); Albumin 3.3 g/dl (3.5-5.0); Alkaline Phosphatase 77 U/L (38-126); Blood Urea Nitrogen 24 mg/dl (7-17); Calcium 8.3 mg/dl (8.4-10.2); Carbon Dioxide 29 mmol/L (22-30); Chloride 99 mmol/L (98-107); Estimated Creatinine Clearance 94 ml/min; Glucose 151 mg/dl (70-99); Potassium 4.3 mmol/L (3.5-5.1); Sodium 135 mmol/L (135-145); Total Bilirubin 0.6 mg/dl (0.2-1.3); Total Protein 6.3 g/dl (6.3-8.2); eGFR > 60.00
[2024-06-25] MEDS: SYNTHROID 137 MCG PO (05:36)
[2024-06-25] MEDS: VENTOLIN NEBULES 2.5 MG INH ×4 (07:35→20:39)
[2024-06-25] MEDS: PEPCID 20 MG PO ×2 (08:27→20:27)
[2024-06-25] MEDS: MUCINEX 1200 MG PO ×2 (08:27→20:27)
[2024-06-25] MEDS: TESSALON PERLES 100 MG PO ×3 (08:27→21:39)
--- NOTE | 2024-06-25 09:05 | W.PN.HOSP.TC ---
Addendum entered and electronically signed by Tina Dan MD 06/25/24 13:31:
I personally performed a history and physical exam of the patient and discussed management with the resident. I reviewed the resident's note and agree with the documented findings and plan of care HPI/CC.
A/P:
# Acute hypoxic respiratory failure 2/2 ILD flare/pneumonitis , in setting of rheumatoid arthritis
Cont O2 support, weaned from high flow NC 100% to 50% FiO2; cont to wean as tolerated; goal o2>88%. Pt not on home O2
s/p Cefepime/doxycycline course x5 days although doubt bacterial; No vancomycin needed with neg MRSA
s/p pulse dosed steroid x5 days per rheumatology, cont prednisone 40 mg every 12 hours (weight based, 1 mg per kg)
Pulm on board
# Concern for Rheumatoid arthritis with RA Interstitial lung disease�
KIERRA positive, antiCCP positive
steroid as above
TB/HIV/hep B negative
Follow-up serologies of myositis, scleroderma, sarcoidosis, cryoglobulin, immunoglobulin
# Mild hyponatremia due to above, SIADH
# Transaminitis
Closely monitor
Hepatitis B/C neg, HIV neg
# h/o ILD
# distant history of provoked PE followed by ankle surgery 2015
DVT ppx: Lovenox SQ
FC
Extensive discussion with rheum Dr. Carina Turner on 06/24/24 on the phone
Original Note:
Today's Communication/Plan
-
.
Assessment / Plan
Assessment / Plan
HPI: 64-year-old female with past medical history of interstitial lung disease, distant history of provoked PE, p/w cough and shortness of breath.
Patient reported that she had norovirus a few weeks ago with nausea/vomiting/diarrhea� symptoms resolved in about 3 to 4 days ago, but she started having cough and SOB. She went to urgent care on Sunday and was diagnosed with pneumonia. She did not
have a chest x-ray but she was treated empirically with cephalexin and azithromycin which she has taken x 3 days.
Despite these interventions, her symptoms have gotten worse. In the morning, she could not breathe and called EMS to bring her to the hospital. Per EMS on their arrival patient was hypoxic and mildly cyanotic, tachypneic; she was placed on oxygen
with improvement.
A/P:
1. Acute hypoxic respiratory failure 2/2 CAP with ILD flare/pneumonitis
CXR: Chronic interstitial lung disease/fibrosis, progressed. Possible superimposed left-sided pneumonia.
- Patient completed Cefepime/Doxycycline 5 days; MRSA neg
Cont O2 support, on high flow NC (45L @ 50% FiO2); wean as tolerated; goal o2>88%
- Wean O2 when able, pt not on home O2
CT: negative for PE, noted Extensive bilateral groundglass opacities, superimposed upon subpleural reticulation/fibrosis. There is also mediastinal and hilar lymphadenopathy, which is new compared to the prior examination. Findings are nonspecific
and could represent acute exacerbation or worsening of patient's interstitial lung disease with infectious or inflammatory process also a consideration.
Cont empiric Decadron, for underlying ILD (likely due to RA) -switched to pulse dosed steroids at the recommendation of rheumatology (D5/5); upon completion transition to oral prednisone 40mg BID today (06/25)
COVID/FLU negative, RSA negative, urine Legionella/Strep negative, MRSA screen neg, blood culture neg; sputum cx normal francis
Follow rheumatology serology
Cont Duonebs ATC and PRN, Tessalon ATC, Mucinex
Pulm on board; appreciate recs
- Respiratory status too tenuous for invasive bronchoscopy which would be ideal to obtain more information
Incentive Valdemar
Prone positioning if able
IV Lasix as needed
PT/OT as tolerated
2. Leukocytosis
-WBC downtrending; continue to monitor CBC, fever trend
3. Concern for Rheumatoid arthritis with RA Interstitial lung disease�
KIERRA positive, antiCCP positive
IV steroid as above
� Follow-up labs including TB, HIV; hep B negative
� Follow-up serologies of myositis, scleroderma, sarcoidosis, cryoglobulin, immunoglobulin
Rheum evaluation
4. Mild hyponatremia due to above, SIADH
-fwr, monitor
5. Transaminitis
� Closely monitor
� No abdominal tenderness
- Hepatitis B/C neg
- HIV Pending
DVT ppx: Lovenox SQ
Full Code
Anticipated Discharge: > 48 hours
Subjective/Interval History
-
Date of Service: June 25, 2024
Patient seen and examined while resting comfortably in bed, reading on her phone, while on high flow O2. Patient states that she feels better compared to yesterday, and that she has been steadily improving over past few days. Patient states that she
is ready to start taking steps with PT. Yesterday was able to stand from bed, today, plans to go to chair.
Objective Data
-
Labs:
Laboratory Results
06/25/24
04:13
WBC 11.5 H
Hgb 12.0
Hct 36.0 L
Plt Count 290
Sodium 135
Potassium 4.3
Chloride 99
Carbon Dioxide 29
BUN 24 H
Creatinine 0.7
Glucose 151 H
Calcium 8.3 L
Total Bilirubin 0.6
AST 44 H
ALT 176 H
Alkaline Phosphatase 77
Vital Signs:
Vital Signs
Temp Pulse Resp BP Pulse Ox
97.5 F 76 24 122/80 93
06/25/24 08:14 06/25/24 07:41 06/25/24 07:41 06/25/24 06:00 06/25/24 08:39
I&O
06/24/24 06/25/24 06/26/24
06:59 06:59 06:59
Intake Total 498 / 498
Output Total 1500 / 1500 2700 / 2700
Balance -1002 / -1002 -2700 / -2700
Review of Systems
-
History Source: Patient
Constitutional: Reports No Symptoms
Respiratory: Reports Other (dyspnea with exertion, comfortable at rest on high flow)
Cardiac: Reports No Symptoms
Abdomen/GI: Reports No Symptoms
Musculoskeletal: Reports No Symptoms
Physical Exam
-
General: Well Developed, Well Nourished and Comfortable
HEENT: Normocephalic and Atraumatic
Respiratory: Other (mild bibasilar crackles, otherwise CTAB)
Cardiac: Regular Rhythm and S1/S2
GI: Soft and Nontender
Musculoskeletal: No Clubbing, No Cyanosis and No Edema
Skin: Warm
Neuro: Awake, Alert and Oriented
Psych: Calm
Data Reviewed
-
Labs: Labs Reviewed by me and Discussed with Patient
--- NOTE | 2024-06-25 10:11 | W.PN.PUL.V3 ---
Today's Communication / Plan
-
Continue supplemental oxygen-attempt to wean
Slowly increase activity
Converted to prednisone 40 mg twice daily
Pathophysiology of interstitial lung disease and ARDS reviewed
Patient does not wish transfer
Assessment
-
64-year-old woman with distant past medical history of provoked pulmonary embolism, interstitial lung disease which is mild on CAT scan 07/2022 undifferentiated, has not been seen by pulmonary despite being recommended last year. Comes to the
hospital complaining of progressive shortness of breath, cough, hypoxemia. X-ray with significant bilateral infiltrates. Follow-up CT demonstrated severely diffuse groundglass opacities. Progressive hypoxemic respiratory failure up to 10 L.
Impression:
Severe acute hypoxemic respiratory failure currently on high-flow nasal cannula
CTA chest 06/12/2024: Diffuse groundglass opacity bilaterally. No pleural effusion. Negative for acute PE.
Differential diagnosis include infectious such as community-acquired pneumonia viral/bacterial-cannot rule out interstitial lung disease acute flare-broad differential diagnosis.
With significantly increased CRP and sedimentation rate suspect more inflammatory such as nonspecific interstitial pneumonia, connective tissue disease associated ILD etc.
Her CAT scan was not compatible with usual interstitial pneumonia.
Less likely pulmonary edema. Most recent echocardiogram with normal LVEF.
Less likely diffuse alveolar hemorrhage given stable hgb and no hemoptysis; DDx also includes CEP, organizing pneumonia, and atypical CHP
Negative influenza, COVID, Legionella and strep pneumonia.
EKG 06/11/2024: Normal sinus rhythm. ST-T wave abnormality consider inferior ischemia.
leukocytosis/fever
Mild hyponatremia - now resolved
Conditions present prior admission:
Interstitial lung disease : Undifferentiated
Formerly seen on CAT scan 07/2022 for the first time. Mild, peripheral, undifferentiated.
History of PE/DVT provoked after foot injury [address] of the chest at that time: No mention of interstitial lung disease.
History of influenza in 2018/2018 With pneumonia.
History of COVID mildly 2021.
History of ankle fracture on the left status post repair 2023.
Plan:
Respiratory status remains tenuous on high flow oxygen and nonrebreather though she feels better and recovers only minimally faster than when she came in
Continue supplemental oxygen as needed-currently on high flow 50% and nonrebreather
Attempt to wean oxygen-reviewed with nursing
Incentive spirometry
Out of bed if able-reviewed with physical therapy
Mucus clearing devices as needed
Aspiration precautions
Nebulizers if needed-currently with minimal bronchospasm
Chest x-ray 06/23/2024-no change in severe bilateral airspace and interstitial abnormalities
Antitussives as needed
Ideally would undergo bronchoscopy with BAL and biopsies-respiratory status 'too tenuous' and risks outweigh benefits at this point
CTA chest from 06/12/2024 demonstrated severely diffuse groundglass opacities without pleural effusions but has mildly increased mediastinal lymph nodes. No pericardial effusion.
KIERRA IgG positive but with low titer (<1:80); antinuclear Ab and cytoplasmic Ab negative by IFA; c3, c4 wnl
CCP antibody positive (moderately positive), CRP positive -- Suspect inflammatory process
Methylprednisolone 1 g every 24 hours-pulse steroids-initiated 06/20/2024-finish a 5-day pulse and then convert to prednisone 1 mg/kg daily
Rheumatology consulted
Rheumatologic serology reviewed
DOREEN-20
Completed course of antibiotics
Sputum culture usual respiratory francis
Cultures and viral panel negative
DVT prophylaxis-Enoxaparin
GI prophylaxis: famotidine twice daily-plan to continue at discharge given ILD
If she were to need medical decision maker, it would be her daughter Kay Chau.
Consider transfer to tertiary center-reviewed with patient-she does not want to transfer and would prefer to stay here
Pathophysiology of interstitial lung disease reviewed including steroid responsive then unresponsive processes and occasional rapid degradation/ARDS-prognosis guarded
Will need outpatient follow up with pulmonary- new pt appt scheduled with Dr. Del Valle in Jul 2024, likely will need to adjust timing
Will need outpatient follow up with rheumatology

Data reviewed:
CT chest 08/15/2022: Mild changes of pulmonary fibrosis, nonspecific pattern, pleural-based. Findings are new compared to prior study. Left lower lobe 4 mm nodule. Benign etiology.
Possible pericardial cyst 2.8 X1.8X 1.1 cm present in 2016 stable.
Echocardiogram 08/16/2022: Showed normal LVEF. No regional wall motion abnormalities. Ejection fraction 60 to 65%.
Normal right ventricular size and function.
No significant valvular disease.
CT chest 2016: Reviewed, bilateral lower lobe filling defects compatible with pulmonary embolism. Lower lobe subsegmental atelectasis. No focal abnormalities noted at that time.
Small pericardial cyst
Chest x-ray 2020: Mild diffuse interstitial thickening left greater than right possible ILD/fibrosis
Subjective Data
-
Date of Service:
Date of Service: June 25, 2024
Chief Complaint: Pulmonary Follow Up and Dyspnea Follow Up
Subjective:
Feels a little better, recovering better, slept okay, no chest pain, productive cough or abdominal pain
Review of Systems
General: Other (Per HPI)
Objective Data
Data Reviewed
Vital Signs / I&O:
Vital Signs
Temp Pulse Resp BP Pulse Ox
97.5 F 76 24 122/80 93
06/25/24 08:14 06/25/24 07:41 06/25/24 07:41 06/25/24 06:00 06/25/24 08:39
Intake and Output
06/24/24 06/25/24 06/26/24
06:59 06:59 06:59
Intake Total 498 / 498
Output Total 1500 / 1500 2700 / 2700
Balance -1002 / -1002 -2700 / -2700
SaO2: 93
Nasal Cannula flow liters per minute: 45
Physical Exam
General: Respiratory Distress (negative), Comfortable (at rest), Chills (negative) and Sweats (negative)
HEENT: Normocephalic and Anicteric
Cardiovascular: Regular Rhythm, Rub (negative) and Peripheral Edema (negative)
Respiratory: Wheeze (negative), Crackles (bilateral (bases to middle lung shahid mainly)), Rhonchi (negative), Non-Labored Respirations and Stridor (negative)
GI: Soft, Non Distended, Non Tender and Normal Bowel Sounds
Neurology: AO x 3 and Tremors (negative)
Skin: Warm, Dry, Cyanosis (negative) and Jaundice (negative)
Labs/Micro/Reports
Lab Data
06/25/24 04:13
06/25/24 04:13
--- NOTE | 2024-06-25 11:43 | PTCARENOTE ---
Pt initially requesting enema this morning. Then able to move bowels prior to administration. Pt then refused enema.
[2024-06-25] MEDS: DELTASONE 40 MG PO ×2 (11:54→20:27)
[2024-06-25 12:34] LABS: Quantiferon Mitogen minus NIL 0.45 IU/mL; Quantiferon TB Gold Plus Indeterminate (Negative)
--- NOTE | 2024-06-25 14:57 | PTCARENOTE ---
Pt presents as assessed. Aox3. Sating low 90's on HFNC. OOB to chair for a brief time with PT. Bed bath provided, pt reports feeling much better afterwards. Ringing appropriately, call martinez within reach.
[2024-06-25] MEDS: LOVENOX 40 MG SC (17:57)
[2024-06-25] MEDS: MELATONIN 5 MG PO (21:39)
[2024-06-25] MEDS: PHENERGAN WITH CODEINE SYRUP 5 ML PO (21:40)
[2024-06-25] MEDS: XANAX 0.25 MG PO (21:40)
--- NOTE | 2024-06-25 22:48 | PTCARENOTE ---
Following admin of HS meds, including cough syrup, chelsey perry, pt with persistent episode of desat to 70s-80s. Pt with coughing fit, having trouble catching her breath, experiencing panic. This RN and RT at bedside coaching breathing,
HF increased to max by RT with NRB. Continues with SOB although SaO2 increased to 90s. Comfort provided. Ice packs provided. Pt denies having discussion about code status at this time, although has refused intubation in the past, states 'I have to
think positively'. At this time pt SaO2 has recovered. Call martinez within reach. Pt remains on monitoring equipment for close supervision. Will continue to assess throughout shift
[2024-06-26] VITALS (14 sets, daily range): BP systolic 79–116; BP diastolic 52–79; BMI 28.8
[2024-06-26] MEDS: PHENERGAN WITH CODEINE SYRUP 5 ML PO ×2 (02:16→18:05)
[2024-06-26] MEDS: SYNTHROID 137 MCG PO (05:23)
[2024-06-26 05:58] LABS: Hematocrit 33.8 % (37.0-47.0); Hemoglobin 12.1 g/dL (12.0-16.0); Mean Corp Hgb Conc. 35.8 g/dL (33.0-37.0); Mean Corpuscular Hgb 33.6 pg (27.0-31.0); Mean Corpuscular Volume 93.9 fL (81.0-99.0); Mean Platelet Volume 9.7 fL (7.4-10.4); Platelet Count 280 10^3/uL (130-400); Red Cell Dist. Width 13.6 % (11.5-14.5); White Blood Cell Count 23.3 10^3/uL (4.8-10.8)
[2024-06-26 06:25] LABS: ALT (SGPT) 148 U/L (0-35); AST (SGOT) 35 U/L (14-36); Albumin 3.2 g/dl (3.5-5.0); Alkaline Phosphatase 74 U/L (38-126); Blood Urea Nitrogen 21 mg/dl (7-17); Calcium 8.1 mg/dl (8.4-10.2); Carbon Dioxide 29 mmol/L (22-30); Chloride 99 mmol/L (98-107); Estimated Creatinine Clearance 94 ml/min; Glucose 130 mg/dl (70-99); Potassium 4.8 mmol/L (3.5-5.1); Sodium 134 mmol/L (135-145); Total Bilirubin 0.7 mg/dl (0.2-1.3); eGFR > 60.00
[2024-06-26] MEDS: VENTOLIN NEBULES 2.5 MG INH ×4 (07:17→20:00)
[2024-06-26] MEDS: MUCINEX 1200 MG PO ×2 (09:06→21:18)
[2024-06-26] MEDS: DELTASONE 40 MG PO ×2 (09:06→21:18)
[2024-06-26] MEDS: PEPCID 20 MG PO ×2 (09:07→21:18)
[2024-06-26] MEDS: TESSALON PERLES PO ×3 (09:07→21:19)
--- NOTE | 2024-06-26 10:03 | W.PN.HOSP.TC ---
Addendum entered and electronically signed by Tina Dan MD 06/26/24 10:54:
I personally performed a history and physical exam of the patient and discussed management with the resident. I reviewed the resident's note and agree with the documented findings and plan of care HPI/CC.
A/P:
# Acute hypoxic respiratory failure 2/2 ILD flare/pneumonitis, in setting of rheumatoid arthritis
Cont O2 support, weaned from high flow NC 100% to 50% FiO2; cont to wean as tolerated; goal o2>88%. Pt not on home O2
s/p Cefepime/doxycycline course x5 days although doubt bacteria; No vancomycin needed with neg MRSA
s/p pulse dosed steroid x5 days per rheum, cont prednisone 40 mg every 12 hours (weight based, 1 mg per kg) per rheum
Pulm on board
# Concern for Rheumatoid arthritis with RA Interstitial lung disease�
KIERRA positive, antiCCP positive
steroid as above
TB/HIV/hep B negative
Follow-up serologies of myositis, scleroderma, sarcoidosis, cryoglobulin, immunoglobulin
# Mild hyponatremia due to above, SIADH
# Transaminitis
Closely monitor
Hepatitis B/C neg, HIV neg
# h/o ILD
# distant history of provoked PE followed by ankle surgery 2015
DVT ppx: Lovenox SQ
FC
Original Note:
Today's Communication/Plan
-
.
Assessment / Plan
Assessment / Plan
HPI: 64-year-old female with past medical history of interstitial lung disease, distant history of provoked PE, p/w cough and shortness of breath.
Patient reported that she had norovirus a few weeks ago with nausea/vomiting/diarrhea� symptoms resolved in about 3 to 4 days ago, but she started having cough and SOB. She went to urgent care on Sunday and was diagnosed with pneumonia. She did not
have a chest x-ray but she was treated empirically with cephalexin and azithromycin which she has taken x 3 days.
Despite these interventions, her symptoms have gotten worse. In the morning, she could not breathe and called EMS to bring her to the hospital. Per EMS on their arrival patient was hypoxic and mildly cyanotic, tachypneic; she was placed on oxygen
with improvement.
A/P:
1. Acute hypoxic respiratory failure 2/2 CAP with ILD flare/pneumonitis
CXR: Chronic interstitial lung disease/fibrosis, progressed. Possible superimposed left-sided pneumonia.
- Patient completed Cefepime/Doxycycline 5 days; MRSA neg
Cont O2 support, on high flow NC (45L @ 50% FiO2); wean as tolerated; goal o2>88%
- Wean O2 when able, pt not on home O2
CT: negative for PE, noted Extensive bilateral groundglass opacities, superimposed upon subpleural reticulation/fibrosis. There is also mediastinal and hilar lymphadenopathy, which is new compared to the prior examination. Findings are nonspecific
and could represent acute exacerbation or worsening of patient's interstitial lung disease with infectious or inflammatory process also a consideration.
Recieved 5 days of pulse dose steroids; upon completion transitioned to oral prednisone 40mg BID on 06/25; continue.
COVID/FLU negative, RSA negative, urine Legionella/Strep negative, MRSA screen neg, blood culture neg; sputum cx normal francis
Follow rheumatology serology
Cont Duonebs ATC and PRN, Tessalon ATC, Mucinex
Pulm on board; appreciate recs
- Respiratory status too tenuous for invasive bronchoscopy which would be ideal to obtain more information
Incentive [place]
Prone positioning if able
IV Lasix as needed
PT/OT as tolerated: continue to increase OOB with PT/OT as able
2. Leukocytosis
-WBC 23.3 today, increased from 11.5; afebrile, no acute complaints, prednisone effect? Continue to monitor for now.
3. Concern for Rheumatoid arthritis with RA Interstitial lung disease�
KIERRA positive, antiCCP positive
IV steroid as above
� Follow-up labs including TB, HIV; hep B negative
� Follow-up serologies of myositis, scleroderma, sarcoidosis, cryoglobulin, immunoglobulin
Rheum evaluation
4. Mild hyponatremia due to above, SIADH
-fwr, monitor
5. Transaminitis
� Closely monitor
� No abdominal tenderness
- Hepatitis B/C neg
- HIV Pending
DVT ppx: Lovenox SQ
Full Code
Anticipated Discharge: > 48 hours
Subjective/Interval History
-
Date of Service: June 26, 2024
Patient seen and examined while resting comfortably in bed. The patient states the she feels she continues to progressively improve. Patient is happy with her progression in PT/OT, was happy to be able to feel the ground, and go sit in chair. Per
PT, Patient would desat upon walking to chair to ~82%, but would return to baseline within minutes. Patient continues to require 50% FiO2 at the moment. Also discussed usage instructions and frequency of use for incentive spirometer.
Objective Data
-
Labs:
Laboratory Results
06/26/24
05:26
WBC 23.3 H
Hgb 12.1
Hct 33.8 L
Plt Count 280
Sodium 134 L
Potassium 4.8
Chloride 99
Carbon Dioxide 29
BUN 21 H
Creatinine 0.7
Glucose 130 H
Calcium 8.1 L
Total Bilirubin 0.7
AST 35
ALT 148 H
Alkaline Phosphatase 74
Vital Signs:
Vital Signs
Temp Pulse Resp BP Pulse Ox
97.8 F 67 24 99/63 96
06/26/24 07:45 06/26/24 07:19 06/26/24 07:19 06/26/24 06:00 06/26/24 07:19
I&O
06/25/24 06/26/24 06/27/24
06:59 06:59 06:59
Intake Total 640 / 640
Output Total 2700 / 2700 1700 / 1700
Balance -2700 / -2700 -1060 / -1060
Review of Systems
-
History Source: Patient
Constitutional: Reports No Symptoms
Respiratory: Reports No Symptoms
Cardiac: Reports No Symptoms
Musculoskeletal: Reports No Symptoms
Neuro: Reports No Symptoms
Physical Exam
-
General: Well Developed, Well Nourished, No Apparent Distress and Other (on NRB)
HEENT: Normocephalic and Atraumatic
Respiratory: Other (mild bibasilar crackles, otherwise CTAB )
Cardiac: Regular Rhythm and S1/S2
GI: Soft and Nontender
Musculoskeletal: No Clubbing, No Cyanosis and No Edema
Skin: Warm and Dry
Neuro: Awake, Alert and Oriented
Psych: Calm
Data Reviewed
-
Labs: Labs Reviewed by me and Discussed with Patient
--- NOTE | 2024-06-26 14:28 | W.PN.PUL.V3 ---
Today's Communication / Plan
-
Continue supplemental option.
No change in prednisone.
Assessment
-
64-year-old woman with distant past medical history of provoked pulmonary embolism, interstitial lung disease which is mild on CAT scan 07/2022 undifferentiated, has not been seen by pulmonary despite being recommended last year. Comes to the
hospital complaining of progressive shortness of breath, cough, hypoxemia. X-ray with significant bilateral infiltrates. Follow-up CT demonstrated severely diffuse groundglass opacities. Progressive hypoxemic respiratory failure up to 10 L.
Impression:
Severe acute hypoxemic respiratory failure currently on high-flow nasal cannula
CTA chest 06/12/2024: Diffuse groundglass opacity bilaterally. No pleural effusion. Negative for acute PE.
Differential diagnosis include infectious such as community-acquired pneumonia viral/bacterial-cannot rule out interstitial lung disease acute flare-broad differential diagnosis.
With significantly increased CRP and sedimentation rate suspect more inflammatory such as nonspecific interstitial pneumonia, connective tissue disease associated ILD etc.
Her CAT scan was not compatible with usual interstitial pneumonia.
Less likely pulmonary edema. Most recent echocardiogram with normal LVEF.
Less likely diffuse alveolar hemorrhage given stable hgb and no hemoptysis; DDx also includes CEP, organizing pneumonia, and atypical CHP
Negative influenza, COVID, Legionella and strep pneumonia.
EKG 06/11/2024: Normal sinus rhythm. ST-T wave abnormality consider inferior ischemia.
leukocytosis/fever
Mild hyponatremia - now resolved
Conditions present prior admission:
Interstitial lung disease : Undifferentiated
Formerly seen on CAT scan 07/2022 for the first time. Mild, peripheral, undifferentiated.
History of PE/DVT provoked after foot injury [address] of the chest at that time: No mention of interstitial lung disease.
History of influenza in 2018/2018 With pneumonia.
History of COVID mildly 2021.
History of ankle fracture on the left status post repair 2023.
Plan:
Respiratory continues to be tenuous on high flow oxygen and nonrebreather though she feels better and recovers only minimally faster than when she came in
Continue supplemental oxygen as needed-currently on high flow 50% and nonrebreather
Attempt to wean oxygen-reviewed with nursing
Incentive spirometry
Out of bed if able-reviewed with physical therapy
Mucus clearing devices as needed
Aspiration precautions
Nebulizers if needed-currently with minimal bronchospasm
Chest x-ray 06/23/2024-no change in severe bilateral airspace and interstitial abnormalities
Antitussives as needed
Ideally would undergo bronchoscopy with BAL and biopsies-respiratory status 'too tenuous' and risks outweigh benefits at this point
Invited patient to see if saturations improved in the prone position or even in the right or left lateral decubitus position
CTA chest from 06/12/2024 demonstrated severely diffuse groundglass opacities without pleural effusions but has mildly increased mediastinal lymph nodes. No pericardial effusion.
KIERRA IgG positive but with low titer (<1:80); antinuclear Ab and cytoplasmic Ab negative by IFA; c3, c4 wnl
CCP antibody positive (moderately positive), CRP positive -- Suspect inflammatory process
Methylprednisolone 1 g every 24 hours-pulse steroids-initiated 06/20/2024-finish a 5-day pulse and then convert to prednisone 1 mg/kg daily-prednisone 40 mg twice daily
Rheumatology consulted
Rheumatologic serology reviewed
DOREEN-20
Completed course of antibiotics
Sputum culture usual respiratory francis
Cultures and viral panel negative
DVT prophylaxis-Enoxaparin
GI prophylaxis: famotidine twice daily-plan to continue at discharge given ILD
If she were to need medical decision maker, it would be her daughter Kay Chau.
The medical team has considered transfer to tertiary center-reviewed with patient-she does not want to transfer and would prefer to stay here
Pathophysiology of interstitial lung disease reviewed including steroid responsive then unresponsive processes and occasional rapid degradation/ARDS-prognosis guarded
Will need outpatient follow up with pulmonary- new pt appt scheduled with Dr. Del Valle in Jul 2024, likely will need to adjust timing
Will need outpatient follow up with rheumatology

Data reviewed:
CT chest 08/15/2022: Mild changes of pulmonary fibrosis, nonspecific pattern, pleural-based. Findings are new compared to prior study. Left lower lobe 4 mm nodule. Benign etiology.
Possible pericardial cyst 2.8 X1.8X 1.1 cm present in 2016 stable.
Echocardiogram 08/16/2022: Showed normal LVEF. No regional wall motion abnormalities. Ejection fraction 60 to 65%.
Normal right ventricular size and function.
No significant valvular disease.
CT chest 2016: Reviewed, bilateral lower lobe filling defects compatible with pulmonary embolism. Lower lobe subsegmental atelectasis. No focal abnormalities noted at that time.
Small pericardial cyst
Chest x-ray 2020: Mild diffuse interstitial thickening left greater than right possible ILD/fibrosis
Subjective Data
-
Date of Service:
Date of Service: June 26, 2024
Chief Complaint: Pulmonary Follow Up and Dyspnea Follow Up
Subjective:
Episode of choking on a pill, desaturating, requiring increased FiO2-subsequently reduced, overall feeling better, recovering slightly faster, no chest pain, productive cough, or abdominal pain
Review of Systems
General: Other (per HPI)
Objective Data
Data Reviewed
Vital Signs / I&O:
Vital Signs
Temp Pulse Resp BP Pulse Ox
97.8 F 79 34 81/58 92
06/26/24 07:45 06/26/24 12:11 06/26/24 12:11 06/26/24 12:11 06/26/24 12:50
Intake and Output
06/25/24 06/26/24 06/27/24
06:59 06:59 06:59
Intake Total 640 / 640 240 / 240
Output Total 2700 / 2700 1700 / 1700 200 / 200
Balance -2700 / -2700 -1060 / -1060 40 / 40
SaO2: 92
Nasal Cannula flow liters per minute: 40
Physical Exam
General: Respiratory Distress (negative), Comfortable (at rest), Chills (negative) and Sweats (negative)
HEENT: Normocephalic and Anicteric
Cardiovascular: Regular Rhythm, Rub (negative) and Peripheral Edema (negative)
Respiratory: Wheeze (negative), Crackles (bilateral (bases to middle lung shahid mainly)), Rhonchi (negative), Non-Labored Respirations and Stridor (negative)
GI: Soft, Non Distended, Non Tender and Normal Bowel Sounds
Neurology: AO x 3 and Tremors (negative)
Skin: Warm, Dry, Cyanosis (negative) and Jaundice (negative)
Labs/Micro/Reports
Lab Data
06/26/24 05:26
06/26/24 05:26
--- NOTE | 2024-06-26 15:28 | CM ---
coffee shop manager reviewed patient's chart and met with patient, patient remains on high flow oxygen, per physical therapy recommendation is for acute rehab, options reviewed with patient and patient is agreeable to [facility] [place] [facility], classification case manager will send referral patient will need physiatry consult.
Plan; Hopefully acute rehab at [facility] when stable.
[2024-06-26] MEDS: LOVENOX 40 MG SC (17:53)
[2024-06-26] MEDS: MELATONIN 5 MG PO (21:18)
[2024-06-26] MEDS: XANAX 0.25 MG PO (21:18)
--- NOTE | 2024-06-26 21:51 | PTCARENOTE ---
Received patient from previous RN. Patient sating in low 90s on HFNC and uses non rebreather PRN. Patient slightly anxious, asked for PRN Ativan, see MAR. Patient states her goal is to sleep overnight. Assessment and VS as documented. Call martinez in
reach and ringing appropriately.
[2024-06-27] VITALS (12 sets, daily range): BP systolic 89–112; BP diastolic 63–76; PULSE 72–85; O2SAT 96; BMI 28.2
[2024-06-27] MEDS: PHENERGAN WITH CODEINE SYRUP 5 ML PO ×3 (02:46→21:01)
[2024-06-27 04:30] LABS: Hematocrit 35.5 % (37.0-47.0); Hemoglobin 12.5 g/dL (12.0-16.0); Mean Corp Hgb Conc. 35.2 g/dL (33.0-37.0); Mean Corpuscular Volume 93.7 fL (81.0-99.0); Mean Platelet Volume 9.4 fL (7.4-10.4); Platelet Count 241 10^3/uL (130-400); Red Blood Cell Count 3.79 10^6/uL (4.20-5.40); Red Cell Dist. Width 13.8 % (11.5-14.5)
[2024-06-27 04:57] LABS: ALT (SGPT) 123 U/L (0-35); AST (SGOT) 26 U/L (14-36); Albumin 3.4 g/dl (3.5-5.0); Alkaline Phosphatase 76 U/L (38-126); Blood Urea Nitrogen 17 mg/dl (7-17); Calcium 8.5 mg/dl (8.4-10.2); Carbon Dioxide 28 mmol/L (22-30); Chloride 99 mmol/L (98-107); Estimated Creatinine Clearance 110 ml/min; Glucose 151 mg/dl (70-99); Potassium 4.6 mmol/L (3.5-5.1); Sodium 134 mmol/L (135-145); Total Bilirubin 0.9 mg/dl (0.2-1.3); Total Protein 6.3 g/dl (6.3-8.2); eGFR > 60.00
[2024-06-27] MEDS: SYNTHROID 137 MCG PO (05:22)
[2024-06-27] MEDS: VENTOLIN NEBULES 2.5 MG INH (07:25)
--- NOTE | 2024-06-27 09:02 | PTCARENOTE ---
Patient recevied from night monitor. Patient resting comfortably in bed. No events noted overnight. No complaints of pain. Currently on High Flow N/C, weaning as tolerated. No IVF running at this time. No test scheduled this as of now. Call
martinez in reach.
[2024-06-27] MEDS: PEPCID 20 MG PO ×2 (09:59→19:16)
[2024-06-27] MEDS: TESSALON PERLES PO ×3 (09:59→21:02)
[2024-06-27] MEDS: XANAX 0.25 MG PO ×2 (09:59→21:01)
[2024-06-27] MEDS: MUCINEX 1200 MG PO ×2 (09:59→19:16)
[2024-06-27] MEDS: DELTASONE 40 MG PO ×2 (09:59→19:16)
--- NOTE | 2024-06-27 10:18 | W.PN.PUL.V3 ---
Today's Communication / Plan
-
Respiratory status remains tenuous
Attempt to wean oxygen
Prednisone without change
Follow-up radiographically in the next several days
Prognosis guarded
Assessment
-
64-year-old woman with distant past medical history of provoked pulmonary embolism, interstitial lung disease which is mild on CAT scan 07/2022 undifferentiated, has not been seen by pulmonary despite being recommended last year. Comes to the
hospital complaining of progressive shortness of breath, cough, hypoxemia. X-ray with significant bilateral infiltrates. Follow-up CT demonstrated severely diffuse groundglass opacities. Progressive hypoxemic respiratory failure up to 10 L.
Impression:
Severe acute hypoxemic respiratory failure currently on high-flow nasal cannula
CTA chest 06/12/2024: Diffuse groundglass opacity bilaterally. No pleural effusion. Negative for acute PE.
Differential diagnosis include infectious such as community-acquired pneumonia viral/bacterial-cannot rule out interstitial lung disease acute flare-broad differential diagnosis.
With significantly increased CRP and sedimentation rate suspect more inflammatory such as nonspecific interstitial pneumonia, connective tissue disease associated ILD etc.
Her CAT scan was not compatible with usual interstitial pneumonia.
Less likely pulmonary edema. Most recent echocardiogram with normal LVEF.
Less likely diffuse alveolar hemorrhage given stable hgb and no hemoptysis; DDx also includes CEP, organizing pneumonia, and atypical CHP
Negative influenza, COVID, Legionella and strep pneumonia.
EKG 06/11/2024: Normal sinus rhythm. ST-T wave abnormality consider inferior ischemia.
leukocytosis/fever
Mild hyponatremia - now resolved
Conditions present prior admission:
Interstitial lung disease : Undifferentiated
Formerly seen on CAT scan 07/2022 for the first time. Mild, peripheral, undifferentiated.
History of PE/DVT provoked after foot injury [address] of the chest at that time: No mention of interstitial lung disease.
History of influenza in 2018/2018 With pneumonia.
History of COVID mildly 2021.
History of ankle fracture on the left status post repair 2023.
Plan:
Respiratory remains extremely tenuous on high flow oxygen and nonrebreather though she feels better and recovers only minimally faster than when she came in
Continue supplemental oxygen as needed-currently on high flow 45 % and 100% nonrebreather
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
Incentive spirometry encouraged
Out of bed if able-reviewed with physical therapy
Mucus clearing devices as needed
Aspiration precautions
Nebulizers if needed-currently with minimal bronchospasm
Chest x-ray 06/23/2024-no change in severe bilateral airspace and interstitial abnormalities
Antitussives as needed
Ideally would undergo bronchoscopy with BAL and biopsies-respiratory status 'too tenuous' and risks outweigh benefits at this point
Invited patient to see if saturations improved in the prone position or even in the right or left lateral decubitus position-states she cannot sleep or lie on her stomach
CTA chest from 06/12/2024 demonstrated severely diffuse groundglass opacities without pleural effusions but has mildly increased mediastinal lymph nodes. No pericardial effusion.
KIERRA IgG positive but with low titer (<1:80); antinuclear Ab and cytoplasmic Ab negative by IFA; c3, c4 wnl
CCP antibody positive (moderately positive), CRP positive -- Suspect inflammatory process
Methylprednisolone 1 g every 24 hours-pulse steroids-initiated 06/20/2024-finish a 5-day pulse and then convert to prednisone 1 mg/kg daily-prednisone 40 mg twice daily
Rheumatology consulted
Rheumatologic serology reviewed
DOREEN-20
Completed course of antibiotics
Sputum culture usual respiratory francis
Cultures and viral panel negative
DVT prophylaxis-Enoxaparin
GI prophylaxis: famotidine twice daily-plan to continue at discharge given ILD
If she were to need medical decision maker, it would be her daughter Kay Chau.
The medical team has considered transfer to tertiary center-reviewed with patient-she does not want to transfer and would prefer to stay here
Pathophysiology of interstitial lung disease reviewed including steroid responsive then unresponsive processes and occasional rapid degradation/ARDS-prognosis guarded
Will need outpatient follow up with pulmonary- new pt appt scheduled with Dr. Del Valle in Jul 2024, likely will need to adjust timing
Will need outpatient follow up with rheumatology

Data reviewed:
CT chest 08/15/2022: Mild changes of pulmonary fibrosis, nonspecific pattern, pleural-based. Findings are new compared to prior study. Left lower lobe 4 mm nodule. Benign etiology.
Possible pericardial cyst 2.8 X1.8X 1.1 cm present in 2016 stable.
Echocardiogram 08/16/2022: Showed normal LVEF. No regional wall motion abnormalities. Ejection fraction 60 to 65%.
Normal right ventricular size and function.
No significant valvular disease.
CT chest 2016: Reviewed, bilateral lower lobe filling defects compatible with pulmonary embolism. Lower lobe subsegmental atelectasis. No focal abnormalities noted at that time.
Small pericardial cyst
Chest x-ray 2020: Mild diffuse interstitial thickening left greater than right possible ILD/fibrosis
Subjective Data
-
Date of Service:
Date of Service: June 27, 2024
Chief Complaint: Pulmonary Follow Up and Dyspnea Follow Up
Subjective:
Slept better, still desaturates with minimal activity, no chest pain, productive cough, or abdominal pain
Review of Systems
General: Other (Per HPI)
Objective Data
Data Reviewed
Vital Signs / I&O:
Vital Signs
Temp Pulse Resp BP Pulse Ox
98.6 F 61 22 97/75 90
06/27/24 03:00 06/27/24 06:00 06/27/24 06:00 06/27/24 04:00 06/27/24 09:26
Intake and Output
06/26/24 06/27/24 06/28/24
06:59 06:59 06:59
Intake Total 640 / 640 240 / 240
Output Total 1700 / 1700 750 / 750
Balance -1060 / -1060 -510 / -510
SaO2: 90
Nasal Cannula flow liters per minute: 55
Physical Exam
General: Respiratory Distress (negative), Comfortable (at rest), Chills (negative) and Sweats (negative)
HEENT: Normocephalic and Anicteric
Cardiovascular: Regular Rhythm, Rub (negative) and Peripheral Edema (negative)
Respiratory: Wheeze (negative), Crackles (bilateral (bases to middle lung shahid mainly)), Rhonchi (negative), Non-Labored Respirations and Stridor (negative)
GI: Soft, Non Distended, Non Tender and Normal Bowel Sounds
Neurology: AO x 3 and Tremors (negative)
Skin: Warm, Dry, Cyanosis (negative) and Jaundice (negative)
Labs/Micro/Reports
Lab Data
06/27/24 03:59
06/27/24 03:59
--- NOTE | 2024-06-27 13:39 | W.PN.HOSP.TC ---
Addendum entered and electronically signed by Tina Dan MD 06/27/24 14:40:
I personally performed a history and physical exam of the patient and discussed management with the resident. I reviewed the resident's note and agree with the documented findings and plan of care HPI/CC.
A/P:
# Acute hypoxic respiratory failure 2/2 ILD flare/pneumonitis, in setting of rheumatoid arthritis
Cont O2 support, cont high flow NC, was weaned from FIO2 100% to 50%, now back on 80%
Of note, pt not on home O2
s/p Cefepime/doxycycline course x5 days although doubt bacteria; No vancomycin needed with neg MRSA
s/p pulse dosed steroid x5 days per rheum, cont prednisone 40 mg every 12 hours (weight based 1 mg per kg) per rheum which was started 06/25
Pulm on board
# Concern for Rheumatoid arthritis with RA Interstitial lung disease�
KIERRA positive, antiCCP positive
steroid as above
TB/HIV/hep B negative
Follow-up serologies of myositis, scleroderma, sarcoidosis, cryoglobulin, immunoglobulin
# Mild hyponatremia due to above, SIADH
# Transaminitis
Closely monitor
Hepatitis B/C neg, HIV neg
# h/o ILD
# distant history of provoked PE followed by ankle surgery 2015
DVT ppx: Lovenox SQ
FC
Critical management for worsening hypoxic respiratory failure
CC time 45 min
Original Note:
Today's Communication/Plan
-
.
Assessment / Plan
Assessment / Plan
HPI: 64-year-old female with past medical history of interstitial lung disease, distant history of provoked PE, p/w cough and shortness of breath.
Patient reported that she had norovirus a few weeks ago with nausea/vomiting/diarrhea� symptoms resolved in about 3 to 4 days ago, but she started having cough and SOB. She went to urgent care on Sunday and was diagnosed with pneumonia. She did not
have a chest x-ray but she was treated empirically with cephalexin and azithromycin which she has taken x 3 days.
Despite these interventions, her symptoms have gotten worse. In the morning, she could not breathe and called EMS to bring her to the hospital. Per EMS on their arrival patient was hypoxic and mildly cyanotic, tachypneic; she was placed on oxygen
with improvement.
A/P:
1. Acute hypoxic respiratory failure 2/2 CAP with ILD flare/pneumonitis
CXR: Chronic interstitial lung disease/fibrosis, progressed. Possible superimposed left-sided pneumonia.
- Patient completed Cefepime/Doxycycline 5 days; MRSA neg
Cont O2 support, on high flow NC (45L @ 50% FiO2); wean as tolerated; goal o2>88%
- Wean O2 when able, pt not on home O2
- Required 80% FiO2 after today's PT session. Recheck at rest.
CT: negative for PE, noted Extensive bilateral groundglass opacities, superimposed upon subpleural reticulation/fibrosis. There is also mediastinal and hilar lymphadenopathy, which is new compared to the prior examination. Findings are nonspecific
and could represent acute exacerbation or worsening of patient's interstitial lung disease with infectious or inflammatory process also a consideration.
Recieved 5 days of pulse dose steroids; upon completion transitioned to oral prednisone 40mg BID on 06/25; continue.
COVID/FLU negative, RSA negative, urine Legionella/Strep negative, MRSA screen neg, blood culture neg; sputum cx normal francis
Follow rheumatology serology
Cont Duonebs ATC and PRN, Tessalon ATC, Mucinex
Pulm on board; appreciate recs
- Respiratory status too tenuous for invasive bronchoscopy which would be ideal to obtain more information
Incentive Valdemar
Prone positioning if able
IV Lasix as needed
PT/OT as tolerated: continue to increase OOB with PT/OT as able
2. Leukocytosis
-WBC 14, improved from 23.3 yesterday. Continue to monitor.
3. Concern for Rheumatoid arthritis with RA Interstitial lung disease�
KIERRA positive, antiCCP positive
IV steroid as above
� Follow-up labs including TB, HIV; hep B negative
� Follow-up serologies of myositis, scleroderma, sarcoidosis, cryoglobulin, immunoglobulin
Rheum evaluation
4. Mild hyponatremia due to above, SIADH
-fwr, monitor
5. Transaminitis
� Closely monitor
� No abdominal tenderness
- Hepatitis B/C neg
- HIV Pending
DVT ppx: Lovenox SQ
Full Code
Anticipated Discharge: > 48 hours
Subjective/Interval History
-
Date of Service: June 27, 2024
Patient seen and examined after she had her PT/Respiratory session this morning. Patient states that she is more short of breath today after session. Patient in good spirits regardless, states she expects there will be days where she will have to
take a step back. Per PT, patient required increased high flow O2 compared to previous sessions. Upon visiting patient, patient on 80%FiO2 shortly after PT session.
Objective Data
-
Labs:
Laboratory Results
06/27/24
03:59
WBC 14.0 H
Hgb 12.5
Hct 35.5 L
Plt Count 241
Sodium 134 L
Potassium 4.6
Chloride 99
Carbon Dioxide 28
BUN 17
Creatinine 0.5 L
Glucose 151 H
Calcium 8.5
Total Bilirubin 0.9
AST 26
ALT 123 H
Alkaline Phosphatase 76
Vital Signs:
Vital Signs
Temp Pulse Resp BP Pulse Ox
97.6 F 89 27 97/75 95
06/27/24 11:55 06/27/24 08:35 06/27/24 08:35 06/27/24 04:00 06/27/24 11:34
I&O
06/26/24 06/27/24 06/28/24
06:59 06:59 06:59
Intake Total 640 / 640 240 / 240
Output Total 1700 / 1700 750 / 750
Balance -1060 / -1060 -510 / -510
Review of Systems
-
History Source: Patient
Constitutional: Reports No Symptoms
Respiratory: Reports Other (increased oxygen requirements)
Cardiac: Reports No Symptoms
Neuro: Reports No Symptoms
Physical Exam
-
General: Well Developed, Well Nourished, Comfortable and Other (breathing thru NRB)
HEENT: Normocephalic and Atraumatic
Respiratory: Crackles (bilateral bases, otherwise CTAB)
Cardiac: Regular Rhythm and S1/S2
GI: Soft
Musculoskeletal: No Clubbing, No Cyanosis and No Edema
Skin: Warm and Dry
Neuro: Awake and Alert
Psych: Calm
Data Reviewed
-
Labs: Labs Reviewed by me
[2024-06-27] MEDS: LOVENOX 40 MG SC (18:28)
[2024-06-27] MEDS: MELATONIN 5 MG PO (21:01)
[2024-06-28] VITALS (8 sets, daily range): BP systolic 86–111; BP diastolic 62–90; BMI 27.7
--- NOTE | 2024-06-28 00:40 | PTCARENOTE ---
Patient resting comfortable in bed, no complaints at this time. Currently on HFNC weaning as tolerated, PRN non rebreather. Ringing call martinez appropriately. Using bed grijalva with no issues. Assessment and Vs as documented.
[2024-06-28] MEDS: SYNTHROID 137 MCG PO (04:59)
[2024-06-28 05:24] LABS: Hematocrit 37.1 % (37.0-47.0); Hemoglobin 12.8 g/dL (12.0-16.0); Mean Corp Hgb Conc. 34.5 g/dL (33.0-37.0); Mean Corpuscular Hgb 32.9 pg (27.0-31.0); Mean Corpuscular Volume 95.4 fL (81.0-99.0); Mean Platelet Volume 9.5 fL (7.4-10.4); Platelet Count 229 10^3/uL (130-400); Red Blood Cell Count 3.89 10^6/uL (4.20-5.40); Red Cell Dist. Width 14.2 % (11.5-14.5); White Blood Cell Count 14.2 10^3/uL (4.8-10.8)
[2024-06-28 05:48] LABS: ALT (SGPT) 94 U/L (0-35); AST (SGOT) 21 U/L (14-36); Albumin 3.4 g/dl (3.5-5.0); Alkaline Phosphatase 74 U/L (38-126); Blood Urea Nitrogen 23 mg/dl (7-17); Calcium 8.4 mg/dl (8.4-10.2); Carbon Dioxide 30 mmol/L (22-30); Chloride 98 mmol/L (98-107); Estimated Creatinine Clearance 97 ml/min; Glucose 158 mg/dl (70-99); Potassium 4.8 mmol/L (3.5-5.1); Sodium 132 mmol/L (135-145); Total Bilirubin 0.8 mg/dl (0.2-1.3); Total Protein 6.3 g/dl (6.3-8.2); eGFR > 60.00
--- NOTE | 2024-06-28 08:49 | W.PN.PUL3 ---
Today's Communication / Plan
-
Remains on HFNC, weaning as tolerated--will review with RT
Prednisone remains BID, no changes
Consideration for Rituxan or Cyclophosphamide if not improving/worsening, rheum following
She has declined transfer to [facility]
We discussed briefly her code status
Assessment
-
64-year-old woman with distant past medical history of provoked pulmonary embolism, interstitial lung disease which is mild on CAT scan 07/2022 undifferentiated, has not been seen by pulmonary despite being recommended last year. Comes to the
hospital complaining of progressive shortness of breath, cough, hypoxemia. X-ray with significant bilateral infiltrates. Follow-up CT demonstrated severely diffuse groundglass opacities. Progressive hypoxemic respiratory failure up to 10 L.
Severe acute hypoxemic respiratory failure currently on high-flow nasal cannula
CTA chest 06/12/2024: Diffuse groundglass opacity bilaterally. No pleural effusion. Negative for acute PE.
Differential diagnosis include infectious such as community-acquired pneumonia viral/bacterial-cannot rule out interstitial lung disease acute flare-broad differential diagnosis.
With significantly increased CRP and sedimentation rate suspect more inflammatory such as nonspecific interstitial pneumonia, connective tissue disease associated ILD etc.
Her CAT scan was not compatible with usual interstitial pneumonia.
Less likely pulmonary edema. Most recent echocardiogram with normal LVEF.
Less likely diffuse alveolar hemorrhage given stable hgb and no hemoptysis; DDx also includes CEP, organizing pneumonia, and atypical CHP
Negative influenza, COVID, Legionella and strep pneumonia.
EKG 06/11/2024: Normal sinus rhythm. ST-T wave abnormality consider inferior ischemia.
leukocytosis/fever
Mild hyponatremia - now resolved
Conditions present prior admission:
Interstitial lung disease : Undifferentiated
Formerly seen on CAT scan 07/2022 for the first time. Mild, peripheral, undifferentiated.
History of PE/DVT provoked after foot injury [address] of the chest at that time: No mention of interstitial lung disease.
History of influenza in 2018/2018 With pneumonia.
History of COVID mildly 2022.
History of ankle fracture on the left status post repair 2023.
Plan:
Respiratory remains extremely tenuous on high flow oxygen--60%/55LPM
Continue supplemental oxygen as needed
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
Incentive spirometry encouraged
Out of bed if able-reviewed with physical therapy
Mucus clearing devices as needed
Aspiration precautions
Nebulizers if needed-currently with minimal bronchospasm
Chest x-ray 06/23/2024-no change in severe bilateral airspace and interstitial abnormalities
Antitussives as needed
Ideally would undergo bronchoscopy with BAL and biopsies-respiratory status 'too tenuous' and risks outweigh benefits at this point
Invited patient to see if saturations improved in the prone position or even in the right or left lateral decubitus position-states she cannot sleep or lie on her stomach
CTA chest from 06/12/2024 demonstrated severely diffuse groundglass opacities without pleural effusions but has mildly increased mediastinal lymph nodes. No pericardial effusion.
This is most consistent with NSIP, progressed compared to CT in 2022
KIERRA IgG positive but with low titer (<1:80); antinuclear Ab and cytoplasmic Ab negative by IFA; c3, c4 wnl
CCP antibody positive (moderately positive), CRP positive -- Suspect inflammatory process
Methylprednisolone 1 g every 24 hours-pulse steroids-initiated 06/20/2024-finish a 5-day pulse and then convert to prednisone 1 mg/kg daily-prednisone 40 mg twice daily
Rheumatology consulted
Rheumatologic serology reviewed
DOREEN-20
Completed course of antibiotics--CFP/Vanc/Doxy/azithro (06/11-06/16)
Sputum culture usual respiratory francis
Cultures and viral panel negative
DVT prophylaxis-Enoxaparin
GI prophylaxis: famotidine twice daily-plan to continue at discharge given ILD
If she were to need medical decision maker, it would be her daughter Kay Chau.
The medical team has considered transfer to tertiary center-reviewed with patient-she does not want to transfer and would prefer to stay here
Pathophysiology of interstitial lung disease reviewed including steroid responsive then unresponsive processes and occasional rapid degradation/ARDS-prognosis guarded
Will need outpatient follow up with pulmonary- new pt appt scheduled with Dr. Del Valle in Jul 2024, likely will need to adjust timing
Will need outpatient follow up with rheumatology
Diagnostic Data
CXR 06/23/24- 1. Severe bilateral airspace and interstitial disease in the lungs without definitive change from 06/11/2024. Diagnostic possibilities are (1) a SEVERE ACUTE on CHRONIC INFLAMMATORY PNEUMONITIS, (2) less likely pneumonia given the lack
of interval change, or (3) less likely pulmonary edema.
2. SEVERE MEDIASTINAL LYMPHADENOPATHY. Diagnostic possibilities are (1) sarcoidosis or (2) malignancy (lymphoma or metastatic disease).
3. Mildly decreased bilateral lung volumes.
Chest x-ray 2020: Mild diffuse interstitial thickening left greater than right possible ILD/fibrosis
CT chest 06/12/24-2. Extensive bilateral groundglass opacities, superimposed upon subpleural reticulation/fibrosis seen on the prior CT. No significant pleural effusions. There is also mediastinal and hilar lymphadenopathy, which is new compared
to the prior examination. Findings are nonspecific and could represent acute exacerbation or worsening of patient's interstitial lung disease with infectious or inflammatory process also a consideration.
CT chest 08/15/2022: Mild changes of pulmonary fibrosis, nonspecific pattern, pleural-based. Findings are new compared to prior study. Left lower lobe 4 mm nodule. Benign etiology.
Possible pericardial cyst 2.8 X1.8X 1.1 cm present in [address] chest 2016: Reviewed, bilateral lower lobe filling defects compatible with pulmonary embolism. Lower lobe subsegmental atelectasis. No focal abnormalities noted at that time.
Small pericardial cyst
Echocardiogram 08/16/2022: Showed normal LVEF. No regional wall motion abnormalities. Ejection fraction 60 to 65%. Normal right ventricular size and function. No significant valvular disease.
Subjective Data
-
Date of Service:
Date of Service: June 28, 2024
Chief Complaint: Pulmonary Follow Up and Dyspnea Follow Up
Subjective:
Remains on HFNC but does not feel worsening SOB
Desats with minimal activity
Objective Data
Data Reviewed
Vital Signs / I&O / Oxygen:
Vital Signs
Temp Pulse Resp BP Pulse Ox
97 F 61 36 89/66 94
06/28/24 03:16 06/28/24 04:00 06/28/24 04:00 06/28/24 04:00 06/28/24 07:47
Intake and Output
06/27/24 06/28/24 06/29/24
06:59 06:59 06:59
Intake Total 240 / 240
Output Total 750 / 750 500 / 500
Balance -510 / -510 -500 / -500
SaO2 94
Nasal Cannula flow liters per 55
minute
Physical Exam
General: Respiratory Distress (negative), Comfortable (at rest), Chills (negative) and Sweats (negative)
HEENT: Normocephalic and Anicteric
Cardiovascular: Regular Rhythm, Rub (negative) and Peripheral Edema (negative)
Respiratory: Wheeze (negative), Crackles (bilateral (bases to middle lung shahid mainly)), Rhonchi (negative), Non-Labored Respirations and Stridor (negative)
GI: Soft, Non Distended, Non Tender and Normal Bowel Sounds
Neurology: AO x 3 and Tremors (negative)
Skin: Warm, Dry, Cyanosis (negative) and Jaundice (negative)
Labs/Micro/Reports
Lab Data
06/28/24 05:06
06/28/24 05:06
[2024-06-28] MEDS: XANAX 0.25 MG PO (08:56)
[2024-06-28] MEDS: MUCINEX 1200 MG PO ×2 (08:56→20:46)
[2024-06-28] MEDS: DELTASONE 40 MG PO ×2 (08:56→20:46)
[2024-06-28] MEDS: TESSALON PERLES PO ×4 (08:57→21:55)
[2024-06-28] MEDS: PEPCID 20 MG PO ×2 (08:57→20:46)
[2024-06-28] MEDS: COLACE 100 MG PO (09:00)
--- NOTE | 2024-06-28 09:42 | W.PN.HOSP.TC ---
Today's Communication/Plan
-
would repeat CT scan chest AND add CT abdomen/pelvis
too unstable for bronch--if gets on vent, likely won't come off
GOC discussions should be led by pulm....
Assessment / Plan
Assessment / Plan
pt is a 64 year old female
Acute hypoxic respiratory failure due to CAP with ILD flare/pneumonitis with possible RA flare contributing--on HI KASI (essentially since admission with need for intermittent NRB mask--apparently wears NO O2 at home at baseline)--finished
cefepime/doxy x 5 days, finished pulse dose steroids and now on oral prednisone BID (40 mg)--cont HI KASI--55LPM with 60% FIO2 with pulse ox 88% (and sometimes lower with speaking)--CT scan done 06/12 on admission--will need repeat chest
CT---COVID/FLU negative, RSA negative, urine Legionella/Strep negative, MRSA screen neg, blood culture neg; sputum cx normal francis--on duonebs, tessalon, mucinex--apprec pulm/rheum-- Respiratory status too tenuous for invasive bronchoscopy which
would be ideal to obtain more information--cont IS, prone positioning--pt refused transfer, may need to revisit that--PT/OT as tolerated: continue to increase OOB with PT/OT as able
Leukocytosis--likely combination of steroids, inflammation--improving--last normal value was 03/11/24
Concern for Rheumatoid arthritis with RA Interstitial lung disease�--RF < 10--anti CCP 58H, KIERRA positive with < 1:80 titre�Follow-up labs including TB (quantiferon gold indeterminate), HIV neg; hep B negative� Follow-up serologies of myositis,
scleroderma, sarcoidosis, cryoglobulin, immunoglobulin--Rheum following by TT
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
Transaminitis--improving--unclear cause--?rheumatologic--consider CT scan of ab/pelvis when repeating lung CT
DVT ppx: Lovenox SQ
code status --Full Code--if patient gets on vent--likely will not come off.....
prognosis poor--pt has been on HI KASI O2 since admission and completed ABX, pulse steroids, on chronic BID prednisone now--all without improvement--pt seems in denial of how sick she really is--may not be able to get off HI-KASI...also apparently
refused transfer to tertiary center...
Total Critical Care Time 30 minutes. I was immediately available to the patient and staff. I personally examined, reviewed labs, diagnostic images/reports, interpretations, treatment plans, discussed patient care with other providers and family
or caregivers (if patient is unable to make decisions), entered orders as appropriate and documented the medical record.
Anticipated Discharge: > 48 hours
Subjective/Interval History
-
Date of Service: June 28, 2024
pt remains on HIGH KASI PLUS NRB mask at times
Objective Data
-
Labs:
Laboratory Results
06/28/24
05:06
WBC 14.2 H
Hgb 12.8
Hct 37.1
Plt Count 229
Sodium 132 L
Potassium 4.8
Chloride 98
Carbon Dioxide 30
BUN 23 H
Creatinine 0.6
Glucose 158 H
Calcium 8.4
Total Bilirubin 0.8
AST 21
ALT 94 H
Alkaline Phosphatase 74
Vital Signs:
max temp for 24 hours
06/27/24
22:26
Temp 98.2 F
Vital Signs
Temp Pulse Resp BP Pulse Ox
97 F 79 22 108/90 90
06/28/24 03:16 06/28/24 09:24 06/28/24 09:24 06/28/24 09:24 06/28/24 09:24
I&O
01/10/25 01/11/25 01/12/25
06:59 06:59 06:59
Intake Total 240 / 240
Output Total 750 / 750 500 / 500 50 / 50
Balance -510 / -510 -500 / -500 -50 / -50
Review of Systems
-
All other systems: Reviewed and negative
Physical Exam
-
General: Well Developed, Well Nourished and Respiratory Distress (winded with speaking)
HEENT: Normocephalic, Atraumatic and Oxygen (HI KASI with periodic need for NRB mask)
Respiratory: Crackles and Decreased Breath Sounds
Cardiac: Regular Rhythm and S1/S2; Negative Murmur
GI: Soft, Nontender, Nondistended and Normal Bowel Sounds
Musculoskeletal: No Clubbing, No Cyanosis and No Edema
Neuro: Awake
Psych: Calm
[2024-06-28 10:05] LABS: NT-proBNP 84.5 pg/ml
[2024-06-28] MEDS: DUONEB 3 ML INH ×3 (11:32→19:32)
[2024-06-28] MEDS: DULCOLAX 10 MG RECTAL (17:49)
[2024-06-28] MEDS: LOVENOX 40 MG SC (17:49)
--- NOTE | 2024-06-28 19:30 | PTCARENOTE ---
AAOx3, receptive to directions- instructed on IS. Remains on HFO2 , with prn NRB mask recovery. D@rest, and on exertion. Appetite fair, constipated- colace given, dulcolax pr given with small return. Pass on to next shift. Voids well in bedpan.
Asking lots of questions- writing them down now- will d/w providers in am.
[2024-06-28] MEDS: MELATONIN 5 MG PO (20:48)
[2024-06-28] MEDS: PHENERGAN WITH CODEINE SYRUP 5 ML PO (20:56)
[2024-06-29] MEDS: SYNTHROID 137 MCG PO (05:30)
--- NOTE | 2024-06-29 05:46 | PTCARENOTE ---
Received pt at change of shift. AAOx3. No events noted overnight. HFNC in place. Desats on exertion with slow recovery to the 90s. Pt anxious and tearful at times. Resting in bed with call martinez in reach.
[2024-06-29 05:52] LABS: % Basophils 0.1 % (0-2); % Eosinophils 0.4 % (0-6); % Immature Granulocytes 1.1 % (0-0.5); % Lymphocytes 4.2 % (20.5-51.1); % Monocytes 2.2 % (1.7-9.3); Absolute Eosinophils 0.1 10^3/uL (0-0.7); Absolute Immature Granulocytes 0.2 10^3/uL (0-0.05); Absolute Lymphocytes 0.7 10^3/uL (1.2-3.4); Absolute Monocytes 0.4 10^3/uL (0.1-0.6); Absolute Neutrophils 15.4 10^3/uL (1.4-6.5); Hematocrit 40.2 % (37.0-47.0); Hemoglobin 13.6 g/dL (12.0-16.0); Mean Corp Hgb Conc. 33.8 g/dL (33.0-37.0); Mean Corpuscular Hgb 32.9 pg (27.0-31.0); Mean Corpuscular Volume 97.3 fL (81.0-99.0); Mean Platelet Volume 9.5 fL (7.4-10.4); Nucleated Red Blood Cells % 0 %; Platelet Count 223 10^3/uL (130-400); Red Blood Cell Count 4.13 10^6/uL (4.20-5.40); Red Cell Dist. Width 14.3 % (11.5-14.5); White Blood Cell Count 16.8 10^3/uL (4.8-10.8)
[2024-06-29 06:21] LABS: ALT (SGPT) 80 U/L (0-35); AST (SGOT) 23 U/L (14-36); Albumin 3.6 g/dl (3.5-5.0); Alkaline Phosphatase 75 U/L (38-126); Blood Urea Nitrogen 20 mg/dl (7-17); Calcium 8.3 mg/dl (8.4-10.2); Carbon Dioxide 31 mmol/L (22-30); Chloride 100 mmol/L (98-107); Estimated Creatinine Clearance 97 ml/min; Glucose 132 mg/dl (70-99); Magnesium 2.6 mg/dl (1.6-2.3); Potassium 5.1 mmol/L (3.5-5.1); Sodium 135 mmol/L (135-145); Total Bilirubin 0.9 mg/dl (0.2-1.3); Total Protein 6.4 g/dl (6.3-8.2); eGFR > 60.00
[2024-06-29] MEDS: DUONEB 3 ML INH ×4 (07:24→19:50)
[2024-06-29 08:10] VITALS: BP 106/52
--- NOTE | 2024-06-29 08:31 | W.PN.HOSP.TC ---
Today's Communication/Plan
-
wean O2 as able
myositis panel and comp systemic sclerosis panels are pending
likely will need repeat CT chest--consider CT a/p too
Assessment / Plan
Assessment / Plan
pt is a 64 year old female
Acute hypoxic respiratory failure due to CAP with ILD flare/pneumonitis with possible RA flare contributing--on HI KASI (essentially since admission with need for intermittent NRB mask--apparently wears NO O2 at home at baseline)--finished
cefepime/doxy x 5 days, finished pulse dose steroids and now on oral prednisone BID (40 mg) as per rheum (1 mg/kg)--cont HI KASI--55LPM with 70% FIO2 with pulse ox 94% (and sometimes lower with speaking)--CT scan done 06/12 on admission--will need
repeat chest CT---COVID/FLU negative, RSA negative, urine Legionella/Strep negative, MRSA screen neg, blood culture neg; sputum cx normal francis--on duonebs, tessalon, mucinex--apprec pulm/rheum-- Respiratory status too tenuous for invasive
bronchoscopy which would be ideal to obtain more information--cont IS, prone positioning--pt refused transfer, may need to revisit that, apparently now changing her mind--PT/OT as tolerated: continue to increase OOB
Leukocytosis--likely combination of steroids, inflammation--improving--last normal value was 03/11/24
Concern for Rheumatoid arthritis with RA Interstitial lung disease�--RF <10--anti CCP 58H, KIERRA positive with < 1:80 titer�Follow-up labs including TB (quantiferon gold indeterminate), HIV neg; hep B negative� Follow-up serologies of myositis,
scleroderma, sarcoidosis, cryoglobulin, immunoglobulin--Rheum following by TT
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
Transaminitis--improving--unclear cause--?rheumatologic--consider CT scan of ab/pelvis when repeating lung CT
DVT ppx: Lovenox SQ
code status --Full Code--if patient gets on vent--likely will not come off.....
prognosis poor--pt has been on HI KASI O2 since admission and completed ABX, pulse steroids, on chronic BID prednisone now--all without improvement--pt seems in denial of how sick she really is--may not be able to get off HI-KASI...also apparently
refused transfer to tertiary center...
Anticipated Discharge: > 48 hours
Subjective/Interval History
-
Date of Service: June 29, 2024
pt now questioning if she is in the 'right spot'--previously refused transfer and when I told her she said 'I don't remember that'
Objective Data
-
Labs:
Laboratory Results
06/29/24
05:34
WBC 16.8 H
Hgb 13.6
Hct 40.2
Plt Count 223
Sodium 135
Potassium 5.1
Chloride 100
Carbon Dioxide 31 H
BUN 20 H
Creatinine 0.6
Glucose 132 H
Calcium 8.3 L
Total Bilirubin 0.9
AST 23
ALT 80 H
Alkaline Phosphatase 75
Vital Signs:
max temp for 24 hours
06/28/24
15:59
Temp 98.6 F
Vital Signs
Temp Pulse Resp BP Pulse Ox
97.6 F 84 31 111/72 93
06/29/24 07:20 06/29/24 07:36 06/29/24 07:36 06/28/24 20:52 06/29/24 07:37
I&O
06/28/24 06/29/24 06/30/24
06:59 06:59 06:59
Intake Total 960 / 960
Output Total 500 / 500 1700 / 1700
Balance -500 / -500 -740 / -740
Review of Systems
-
All other systems: Reviewed and negative
Physical Exam
-
General: Well Developed, Well Nourished and No Apparent Distress
HEENT: Normocephalic, Atraumatic and Oxygen (HI KASI O2)
Respiratory: Crackles (coarse velcro like crackles)
Cardiac: Regular Rhythm and S1/S2; Negative Murmur
GI: Soft, Nontender, Nondistended and Normal Bowel Sounds
Musculoskeletal: No Clubbing, No Cyanosis and No Edema
Skin: Warm
Neuro: Awake
Psych: Calm
[2024-06-29] MEDS: XANAX 0.25 MG PO (09:21)
[2024-06-29] MEDS: PEPCID 20 MG PO ×2 (09:21→20:53)
[2024-06-29] MEDS: TESSALON PERLES PO ×3 (09:21→20:53)
[2024-06-29] MEDS: MUCINEX 1200 MG PO ×2 (09:21→20:53)
[2024-06-29] MEDS: COLACE 100 MG PO (09:21)
[2024-06-29] MEDS: DELTASONE 40 MG PO ×2 (09:21→20:53)
[2024-06-29] MEDS: MIRALAX 17 GRAMS PO (09:31)
--- NOTE | 2024-06-29 10:00 | W.PN.PUL3 ---
Today's Communication / Plan
-
Remains on HFNC, plateau on progress with weaning further down
Steroids remain
She is now agreeable to transfer to [facility], we discussed this in detail today
Defer to team to arrange
Assessment
-
64-year-old woman with distant past medical history of provoked pulmonary embolism, interstitial lung disease which is mild on CAT scan 07/2022 undifferentiated, has not been seen by pulmonary despite being recommended last year. Comes to the
hospital complaining of progressive shortness of breath, cough, hypoxemia. X-ray with significant bilateral infiltrates. Follow-up CT demonstrated severely diffuse groundglass opacities. Progressive hypoxemic respiratory failure up to 10 L.
Severe acute hypoxemic respiratory failure currently on high-flow nasal cannula
CTA chest 06/12/2024: Diffuse groundglass opacity bilaterally. No pleural effusion. Negative for acute PE.
Differential diagnosis include infectious such as community-acquired pneumonia viral/bacterial-cannot rule out interstitial lung disease acute flare-broad differential diagnosis.
With significantly increased CRP and sedimentation rate suspect more inflammatory such as nonspecific interstitial pneumonia, connective tissue disease associated ILD etc.
Her CAT scan was not compatible with usual interstitial pneumonia.
Less likely pulmonary edema. Most recent echocardiogram with normal LVEF.
Less likely diffuse alveolar hemorrhage given stable hgb and no hemoptysis; DDx also includes CEP, organizing pneumonia, and atypical CHP
Negative influenza, COVID, Legionella and strep pneumonia.
EKG 06/11/2024: Normal sinus rhythm. ST-T wave abnormality consider inferior ischemia.
leukocytosis/fever
Mild hyponatremia - now resolved
Conditions present prior admission:
Interstitial lung disease : Undifferentiated
Formerly seen on CAT scan 07/2022 for the first time. Mild, peripheral, undifferentiated.
History of PE/DVT provoked after foot injury [address] of the chest at that time: No mention of interstitial lung disease.
History of influenza in 2018/2018 With pneumonia.
History of COVID mildly 2021.
History of ankle fracture on the left status post repair 2023.
Plan:
Respiratory remains extremely tenuous on high flow oxygen--70%/55LPM
Continue supplemental oxygen as needed
Attempt to wean oxygen-reviewed with nursing as well as [employer]
Incentive spirometry encouraged
Out of bed if able-reviewed with physical therapy
Mucus clearing devices as needed
Aspiration precautions
Nebulizers if needed-currently with minimal bronchospasm
Chest x-ray 06/23/2024-no change in severe bilateral airspace and interstitial abnormalities
Antitussives as needed
Ideally would undergo bronchoscopy with BAL and biopsies-respiratory status 'too tenuous' and risks outweigh benefits at this point
Invited patient to see if saturations improved in the prone position or even in the right or left lateral decubitus position-states she cannot sleep or lie on her stomach
CTA chest from 06/12/2024 demonstrated severely diffuse groundglass opacities without pleural effusions but has mildly increased mediastinal lymph nodes. No pericardial effusion.
This is most consistent with NSIP, progressed compared to CT in 2022
KIERRA IgG positive but with low titer (<1:80); antinuclear Ab and cytoplasmic Ab negative by IFA; c3, c4 wnl
CCP antibody positive (moderately positive), CRP positive -- Suspect inflammatory process
Methylprednisolone 1 g every 24 hours-pulse steroids-initiated 06/20/2024-finish a 5-day pulse and then convert to prednisone 1 mg/kg daily-prednisone 40 mg twice daily
Rheumatology consulted
Rheumatologic serology reviewed
DOREEN-20
Completed course of antibiotics--CFP/Vanc/Doxy/azithro (06/11-06/16)
Sputum culture usual respiratory francis
Cultures and viral panel negative
DVT prophylaxis-Enoxaparin
GI prophylaxis: famotidine twice daily-plan to continue at discharge given ILD
If she were to need medical decision maker, it would be her daughter Kay Chau.
The medical team has considered transfer to tertiary center-reviewed with patient-she does not want to transfer and would prefer to stay here
Pathophysiology of interstitial lung disease reviewed including steroid responsive then unresponsive processes and occasional rapid degradation/ARDS-prognosis guarded
She has reconsidered transfer now, will defer to team
Will need outpatient follow up with pulmonary- new pt appt scheduled with Dr. Del Valle in Jul 2024, likely will need to adjust timing
Will need outpatient follow up with rheumatology
Diagnostic Data
CXR 06/23/24- 1. Severe bilateral airspace and interstitial disease in the lungs without definitive change from 06/11/2024. Diagnostic possibilities are (1) a SEVERE ACUTE on CHRONIC INFLAMMATORY PNEUMONITIS, (2) less likely pneumonia given the lack
of interval change, or (3) less likely pulmonary edema.
2. SEVERE MEDIASTINAL LYMPHADENOPATHY. Diagnostic possibilities are (1) sarcoidosis or (2) malignancy (lymphoma or metastatic disease).
3. Mildly decreased bilateral lung volumes.
Chest x-ray 2020: Mild diffuse interstitial thickening left greater than right possible ILD/fibrosis
CT chest 06/12/24-2. Extensive bilateral groundglass opacities, superimposed upon subpleural reticulation/fibrosis seen on the prior CT. No significant pleural effusions. There is also mediastinal and hilar lymphadenopathy, which is new compared
to the prior examination. Findings are nonspecific and could represent acute exacerbation or worsening of patient's interstitial lung disease with infectious or inflammatory process also a consideration.
CT chest 08/15/2022: Mild changes of pulmonary fibrosis, nonspecific pattern, pleural-based. Findings are new compared to prior study. Left lower lobe 4 mm nodule. Benign etiology.
Possible pericardial cyst 2.8 X1.8X 1.1 cm present in [address] chest 2016: Reviewed, bilateral lower lobe filling defects compatible with pulmonary embolism. Lower lobe subsegmental atelectasis. No focal abnormalities noted at that time.
Small pericardial cyst
Echocardiogram 08/16/2022: Showed normal LVEF. No regional wall motion abnormalities. Ejection fraction 60 to 65%. Normal right ventricular size and function. No significant valvular disease.
Total time spent on this consultation/encounter __50__ minutes which includes review of history, physical exam, medications, laboratory data, personal review of imaging, extensive review of outpatient records, discussion with care team and
respiratory therapy.
Subjective Data
-
Date of Service:
Date of Service: June 29, 2024
Chief Complaint: Pulmonary Follow Up and Dyspnea Follow Up
Subjective:
Remains on HFNC, O2 increased to 70%
She does not feel any different today
Objective Data
Data Reviewed
Vital Signs / I&O / Oxygen:
Vital Signs
Temp Pulse Resp BP Pulse Ox
97.6 F 84 31 111/72 92
06/29/24 07:20 06/29/24 07:36 06/29/24 07:36 06/28/24 20:52 06/29/24 09:34
Intake and Output
06/28/24 06/29/24 06/30/24
06:59 06:59 06:59
Intake Total 960 / 960
Output Total 500 / 500 1700 / 1700
Balance -500 / -500 -740 / -740
SaO2 92
Nasal Cannula flow liters per 55
minute
Physical Exam
General: Respiratory Distress (negative), Comfortable (at rest), Chills (negative) and Sweats (negative)
HEENT: Normocephalic and Anicteric
Cardiovascular: Regular Rhythm, Rub (negative) and Peripheral Edema (negative)
Respiratory: Wheeze (negative), Crackles (bilateral (bases to middle lung shahid mainly)), Rhonchi (negative), Non-Labored Respirations and Stridor (negative)
GI: Soft, Non Distended, Non Tender and Normal Bowel Sounds
Neurology: AO x 3 and Tremors (negative)
Skin: Warm, Dry, Cyanosis (negative) and Jaundice (negative)
Labs/Micro/Reports
Lab Data
06/29/24 05:34
06/29/24 05:34
[2024-06-29 14:09] VITALS: BP 124/84
--- NOTE | 2024-06-29 17:06 | PTCARENOTE ---
OOB x 3.5 hour today - escorted to main waiting room x 40 min with RT and close supervision of O2 tanks. Remains on HFO2 55L / 60% with NRB mask rescue. Most ly sao2 92-95% today however dropped to a low 83% after the 3.5 hours of being in chair.
Symptomatic at 88% very symptomatic at 83%. Recovered with in 5 min. Min assist x1 for wires. AAOx3 c/o feeling that 'brain fog' at times. Crackles bibase. SR on tele. BP adequate 120s/80s. Bowel regimen in place- added Miralax today.
Emotional support provided.
[2024-06-29] MEDS: LOVENOX 40 MG SC (17:51)
[2024-06-29 17:55] VITALS: BP 119/80
[2024-06-29 19:19] VITALS: BP 101/78
--- NOTE | 2024-06-29 20:30 | PTCARENOTE ---
Assumed care of patient from daytime RN. Pt aaox3 and JENA. Pt NSR on monitor. HFNC 55L 60%, O2 sat 92. Pt will use NRB when moving. Pt resting in bed with call martinez in reach.
[2024-06-29] MEDS: MELATONIN 5 MG PO (20:53)
[2024-06-29] MEDS: PHENERGAN WITH CODEINE SYRUP 5 ML PO (20:54)
[2024-06-30] VITALS (7 sets, daily range): BP systolic 105–137; BP diastolic 72–120
[2024-06-30 04:27] LABS: Hemoglobin 12.4 g/dL (12.0-16.0); Mean Corp Hgb Conc. 34.4 g/dL (33.0-37.0); Mean Corpuscular Hgb 33.2 pg (27.0-31.0); Mean Corpuscular Volume 96.5 fL (81.0-99.0); Mean Platelet Volume 9.8 fL (7.4-10.4); Platelet Count 174 10^3/uL (130-400); Red Blood Cell Count 3.73 10^6/uL (4.20-5.40); Red Cell Dist. Width 14.4 % (11.5-14.5); White Blood Cell Count 15.3 10^3/uL (4.8-10.8)
[2024-06-30 04:49] LABS: ALT (SGPT) 67 U/L (0-35); AST (SGOT) 22 U/L (14-36); Albumin 3.3 g/dl (3.5-5.0); Alkaline Phosphatase 75 U/L (38-126); Blood Urea Nitrogen 20 mg/dl (7-17); Calcium 8.5 mg/dl (8.4-10.2); Carbon Dioxide 26 mmol/L (22-30); Chloride 99 mmol/L (98-107); Estimated Creatinine Clearance 97 ml/min; Glucose 148 mg/dl (70-99); Magnesium 2.5 mg/dl (1.6-2.3); Potassium 4.9 mmol/L (3.5-5.1); Sodium 132 mmol/L (135-145); Total Bilirubin 0.8 mg/dl (0.2-1.3); Total Protein 6.1 g/dl (6.3-8.2); eGFR > 60.00
[2024-06-30] MEDS: SYNTHROID 137 MCG PO (06:01)
[2024-06-30] MEDS: DUONEB 3 ML INH ×4 (07:55→19:16)
--- NOTE | 2024-06-30 08:17 | W.PN.PUL3 ---
Today's Communication / Plan
-
Remains on HFNC - not able to easily wean down FiO2 further
Steroids remain with prednisone 40 mg BID - would keep at this dose for now and not lower
Check echo with bubble study as last in 2022
Re-check CT chest when feasible
She is now agreeable to transfer to [facility]
Defer to team to arrange
Low threshold to intubate
PT/OT
Assessment
-
64-year-old woman with distant past medical history of provoked pulmonary embolism, interstitial lung disease which is mild on CAT scan 07/2022 undifferentiated, has not been seen by pulmonary despite being recommended last year. Comes to the
hospital complaining of progressive shortness of breath, cough, hypoxemia. X-ray with significant bilateral infiltrates. Follow-up CT demonstrated severely diffuse groundglass opacities. Progressive hypoxemic respiratory failure up to 10 L.
Severe acute hypoxemic respiratory failure currently on high-flow nasal cannula
CTA chest 06/12/2024: Diffuse groundglass opacity bilaterally. No pleural effusion. Negative for acute PE.
Differential diagnosis include infectious such as community-acquired pneumonia viral/bacterial-cannot rule out interstitial lung disease acute flare-broad differential diagnosis.
With significantly increased CRP and sedimentation rate suspect more inflammatory such as nonspecific interstitial pneumonia, connective tissue disease associated ILD etc.
Her CAT scan was not compatible with usual interstitial pneumonia.
Less likely pulmonary edema. Most recent echocardiogram from 08/2022 with normal LVEF.
Less likely diffuse alveolar hemorrhage given stable hgb and no hemoptysis; DDx also includes CEP, organizing pneumonia, and atypical CHP
Negative influenza, COVID, Legionella and strep pneumonia.
EKG 06/11/2024: Normal sinus rhythm. ST-T wave abnormality consider inferior ischemia.
leukocytosis/fever
Mild hyponatremia - now resolved
Conditions present prior admission:
Interstitial lung disease : Undifferentiated
Formerly seen on CAT scan 07/2022 for the first time. Mild, peripheral, undifferentiated.
History of PE/DVT provoked after foot injury [address] of the chest at that time: No mention of interstitial lung disease.
History of influenza in 2018/2018 With pneumonia.
History of COVID mildly 2021.
History of ankle fracture on the left status post repair 2023.
Plan:
Respiratory remains extremely tenuous on high flow oxygen--55%/55LPM
Continue supplemental oxygen and wean as tolerated
Incentive spirometry encouraged
Out of bed if able-reviewed with physical therapy
Mucus clearing devices as needed
Aspiration precautions
DuoNebs QID - currently not bronchospastic
Chest x-ray 06/23/2024-no change in severe bilateral airspace and interstitial abnormalities
Antitussives as needed
Ideally would undergo bronchoscopy with BAL and biopsies-respiratory status 'too tenuous' and risks outweigh benefits at this point
Invited patient to see if saturations improved in the prone position or even in the right or left lateral decubitus position-states she cannot sleep or lie on her stomach
Low threshold to intubate
CTA chest from 06/12/2024 demonstrated severely diffuse groundglass opacities without pleural effusions but has mildly increased mediastinal lymph nodes. No pericardial effusion.
This is most consistent with NSIP, progressed compared to CT in 2022
KIERRA IgG positive but with low titer (<1:80); antinuclear Ab and cytoplasmic Ab negative by IFA; c3, c4 wnl
CCP antibody positive (moderately positive), CRP positive -- Suspect inflammatory process
Methylprednisolone 1 g every 24 hours-pulse steroids-initiated 06/20/2024-finish a 5-day pulse and then convert to prednisone 1 mg/kg daily-prednisone 40 mg twice daily
Rheumatology consulted --> pt would benefit from additional immunosuppressants like cellcept vs rituxin or azathrioprine
Rheumatologic serology reviewed
DOREEN-20
Check echo with bubble study
Completed course of antibiotics--CFP/Vanc/Doxy/azithro (06/11-06/16)
Sputum culture usual respiratory francis
Cultures and viral panel negative
DVT prophylaxis-Enoxaparin
GI prophylaxis: famotidine twice daily-plan to continue at discharge given ILD
If she were to need medical decision maker, it would be her daughter Kay Chau.
The medical team has considered transfer to tertiary center-reviewed with patient-she does not want to transfer and would prefer to stay here
Pathophysiology of interstitial lung disease reviewed including steroid responsive then unresponsive processes and occasional rapid degradation/ARDS-prognosis guarded
She has reconsidered transfer now, will defer to team
Will need outpatient follow up with pulmonary- new pt appt scheduled with Dr. Del Valle in Jul 2024, likely will need to adjust timing
Will need outpatient follow up with rheumatology
Diagnostic Data
CXR 06/23/24- 1. Severe bilateral airspace and interstitial disease in the lungs without definitive change from 06/11/2024. Diagnostic possibilities are (1) a SEVERE ACUTE on CHRONIC INFLAMMATORY PNEUMONITIS, (2) less likely pneumonia given the lack
of interval change, or (3) less likely pulmonary edema.
2. SEVERE MEDIASTINAL LYMPHADENOPATHY. Diagnostic possibilities are (1) sarcoidosis or (2) malignancy (lymphoma or metastatic disease).
3. Mildly decreased bilateral lung volumes.
Chest x-ray 2020: Mild diffuse interstitial thickening left greater than right possible ILD/fibrosis
CT chest 06/12/24-2. Extensive bilateral groundglass opacities, superimposed upon subpleural reticulation/fibrosis seen on the prior CT. No significant pleural effusions. There is also mediastinal and hilar lymphadenopathy, which is new compared
to the prior examination. Findings are nonspecific and could represent acute exacerbation or worsening of patient's interstitial lung disease with infectious or inflammatory process also a consideration.
CT chest 08/15/2022: Mild changes of pulmonary fibrosis, nonspecific pattern, pleural-based. Findings are new compared to prior study. Left lower lobe 4 mm nodule. Benign etiology.
Possible pericardial cyst 2.8 X1.8X 1.1 cm present in [address] chest 2016: Reviewed, bilateral lower lobe filling defects compatible with pulmonary embolism. Lower lobe subsegmental atelectasis. No focal abnormalities noted at that time.
Small pericardial cyst
Echocardiogram 08/16/2022: Showed normal LVEF. No regional wall motion abnormalities. Ejection fraction 60 to 65%. Normal right ventricular size and function. No significant valvular disease.
Total time spent today was 52 minutes for this encounter. Time includes reviewing laboratory test/imaging results, reviewing pertinent medical records, obtaining and reviewing medical history, performing an appropriate exam, ordering medications,
tests and procedures. Time also includes documentation of this encounter, coordinating patient care and communicating with other healthcare professionals. Total time does not include separately billed tests performed on this date of service.
Subjective Data
-
Date of Service:
Date of Service: June 30, 2024
Chief Complaint: Pulmonary Follow Up and Dyspnea Follow Up
Subjective:
Patient seen today at bedside. Remains on high flow nasal cannula at 55%, 55 L/min. Saturating 90% with heart rate 100 and BP 120/76. Denies cough or shortness of breath at rest. Still gets shortness of breath with panic attacks when she exerts
herself/walks around the room. Denies chest pain, PASCUAL, abdominal pain, nausea, fevers or chills.
Review of Systems
General: Other (Negative unless mentioned above)
Objective Data
Data Reviewed
Vital Signs / I&O / Oxygen:
Vital Signs
Temp Pulse Resp BP Pulse Ox
97.7 F 94 22 106/72 94
06/30/24 03:49 06/30/24 07:59 06/30/24 07:59 06/30/24 02:28 06/30/24 07:59
Intake and Output
06/29/24 06/30/24 07/01/24
06:59 06:59 06:59
Intake Total 960 / 960 620 / 620
Output Total 1700 / 1700 800 / 800
Balance -740 / -740 -180 / -180
SaO2 94
Nasal Cannula flow liters per 55
minute
Physical Exam
General: Respiratory Distress (negative), Comfortable (at rest), Chills (negative) and Sweats (negative)
HEENT: Normocephalic and Anicteric
Cardiovascular: S1-S2, Rub (negative) and Peripheral Edema (negative)
Respiratory: Wheeze (negative), Crackles (bilateral (bases to middle lung shahid mainly)), Rhonchi (negative), Non-Labored Respirations and Stridor (negative)
GI: Soft, Non Distended, Non Tender and Normal Bowel Sounds
Neurology: AO x 3 and Tremors (negative)
Skin: Warm, Dry, Cyanosis (negative) and Jaundice (negative)
Labs/Micro/Reports
Lab Data
06/30/24 03:46
06/30/24 03:46
[2024-06-30] MEDS: MUCINEX 1200 MG PO ×2 (08:22→19:47)
[2024-06-30] MEDS: MIRALAX 17 GRAMS PO (08:22)
[2024-06-30] MEDS: PEPCID 20 MG PO ×2 (08:22→19:47)
[2024-06-30] MEDS: DELTASONE 40 MG PO ×2 (08:22→19:47)
[2024-06-30] MEDS: PHENERGAN WITH CODEINE SYRUP 5 ML PO ×2 (08:22→16:06)
[2024-06-30] MEDS: TESSALON PERLES PO ×3 (08:24→19:47)
[2024-06-30] MEDS: TYLENOL 500 MG PO (08:30)
[2024-06-30] MEDS: XANAX 0.25 MG PO (12:20)
--- NOTE | 2024-06-30 15:22 | W.PN.HOSP.TC ---
Addendum entered and electronically signed by Maco Diaz MD 06/30/24 16:25:
Engaged with [facility] for possible transfer - awaiting call and hopeful acceptance
Addendum entered and electronically signed by Maco Diaz MD 06/30/24 16:03:
Acute non-cardiac pulmonary edema due to fluid overload
Original Note:
Today's Communication/Plan
-
iv lasix
engage rheum for any further recs - otherwise will touch base with [facility] if they can provide any further additional benefits/management at their facility
Assessment / Plan
Assessment / Plan
#Acute hypoxic respiratory failure 2/2 CAP with ILD flare/pneumonitis
-CXR: Chronic interstitial lung disease/fibrosis, progressed. Possible superimposed left-sided pneumonia.
- Patient completed Cefepime/Doxycycline 5 days; MRSA neg
-Cont O2 support, on high flow NC (45L @ 50% FiO2); wean as tolerated; goal o2>88%
- Wean O2 when able, pt not on home O2
-Recieved 5 days of pulse dose steroids; upon completion transitioned to oral prednisone 40mg BID on 06/25; continue.
Follow rheumatology serology -continuing to engage via [employer]
Cont Duonebs ATC and PRN, Tessalon ATC, Mucinex
Pulmonary on board
Incentive Valdemar
IV Lasix as needed prn - 40mg IV now
PT/OT as tolerated: continue to increase OOB with PT/OT as able
#Leukocytosis
-on steroids; monitor WBC
#Concern for Rheumatoid arthritis with RA Interstitial lung disease�
KIERRA positive, antiCCP positive
steroids as above
� Follow-up serologies of myositis, scleroderma, sarcoidosis, cryoglobulin, immunoglobulin
Rheum recs as per tiganastasia
-s/p pulse dose steroids
#Mild hyponatremia due to above, SIADH
-fwr, monitor
#Transaminitis
� Closely monitor, improving
� No abdominal tenderness
- Hepatitis B/C neg
- HIV neg
DVT ppx: Lovenox SQ
Full Code
Total time spent on today's encounter was 50 minutes which included time spent in counseling the patient/family regarding diagnosis and treatment plan as listed above, goals of care, and symptom management. Case was discussed with nursing staff,
specialists, and care coordinators/case management. All labs and imaging personally reviewed by me. Remainder the time spent in detailed review of previous records, lab data, imaging, and other medical provider documentation.
Anticipated Discharge: > 48 hours
Subjective/Interval History
-
Date of Service: June 30, 2024
no changes overnight
Objective Data
-
Labs:
Laboratory Results
06/30/24
03:46
WBC 15.3 H
Hgb 12.4
Hct 36.0 L
Plt Count 174 D
Sodium 132 L
Potassium 4.9
Chloride 99
Carbon Dioxide 26
BUN 20 H
Creatinine 0.5 L
Glucose 148 H
Calcium 8.5
Total Bilirubin 0.8
AST 22
ALT 67 H
Alkaline Phosphatase 75
Vital Signs:
Vital Signs
Temp Pulse Resp BP Pulse Ox
97.3 F 93 22 105/72 93
06/30/24 11:10 06/30/24 15:20 06/30/24 15:20 06/30/24 08:29 06/30/24 15:20
I&O
06/29/24 06/30/24 07/01/24
06:59 06:59 06:59
Intake Total 960 / 960 620 / 620 480 / 480
Output Total 1700 / 1700 800 / 800 800 / 800
Balance -740 / -740 -180 / -180 -320 / -320
Review of Systems
-
History Source: Patient
All other systems: Not reviewed unless documented
Physical Exam
-
General: Well Developed, Well Nourished and No Apparent Distress
HEENT: Normocephalic, Atraumatic and Oxygen (HI KASI O2)
Respiratory: Crackles (coarse velcro like crackles)
Cardiac: Regular Rhythm and S1/S2; Negative Murmur
GI: Soft, Nontender, Nondistended and Normal Bowel Sounds
Musculoskeletal: No Clubbing, No Cyanosis and No Edema
Skin: Warm
Neuro: Awake
Psych: Calm
Data Reviewed
-
CT Scan: Report Reviewed by me
Labs: Labs Reviewed by me
--- NOTE | 2024-06-30 15:39 | PTCARENOTE ---
Pt having a better day today. She is motivated to work with PT. Currently on 55L 55% high flow with prn NRB face mask with SOB. Movement causes her to go into coughing fits, PRN cough medicine given to help maximize pt's ability to work with
physical therapy. No other complaints offered.
[2024-06-30] MEDS: LASIX 40 MG IV (16:06)
--- NOTE | 2024-06-30 16:31 | W.DS.TRANS ---
DC Summary - Waterproof Bag Sewer
-
Discharge Instructions:
Instructions:
Stand-Alone Forms:
Changes to Home Medications: Yes
Discharge Medications:
DC Medications w/original date entered in [facility]
calcium carbonate (Calcium 600) 600 mg PO DAILY Supplement 09/07/23
cholecalciferol (vitamin D3) 50 mcg (2,000 unit) tablet (Vitamin D3) 50 mcg PO DAILY Supplement 09/07/23
albuterol sulfate 90 mcg/actuation aerosol inhaler 2 puff inhalation R Q4HPRN PRN sob 06/11/24
ascorbate calcium (vitamin C) 500 mg tablet 500 mg PO DAILY Supplement 06/11/24
azithromycin 250 mg tablet (Zithromax Z-Jose D) 250 mg PO DAILY Infection 06/11/24
cefpodoxime 200 mg tablet 200 mg PO Q12H Infection 06/11/24
levothyroxine 137 mcg tablet 137 mcg PO DAILY Thyroid 06/11/24
therapeutic multivitamin 1 tab PO DAILY Supplement 06/11/24
zinc sulfate 50 mg zinc (220 mg) tablet 50 mg PO DAILY Supplement 06/11/24
Home Medication Changes
iv steroids
Pending Results: No
--- NOTE | 2024-06-30 17:20 | CM ---
Patient with Hx ILD/interstitial lung disease. High flow O2. PT/OT recommend acute rehab.
Notified by Dr Diaz today that plan is to transfer the patient to [facility] due to ILD fare and RA.
Plan transfer to [facility] when bed available.
[2024-06-30] MEDS: LOVENOX 40 MG SC (18:30)
[2024-06-30] MEDS: MELATONIN 5 MG PO (19:48)
--- NOTE | 2024-06-30 23:03 | PTCARENOTE ---
Addendum entered by Hiral Crow RN 06/30/24 23:07:
NSR/ST....no 1st degree heart block.
Original Note:
Caring for patient overnight. No assessment changes. Remains on HFNC 55L 55%, PRN NRB. aaox3, nsr 1st degree. Denies pain. Cough. Bedpan/bedrest for now. pt states she will try to get oob to chair tomorrow. Pt eager for plans to see a
event manager. No other issues, will monitor.
[2024-07-01] VITALS (13 sets, daily range): BP systolic 95–138; BP diastolic 63–100; PULSE 79–92; O2SAT 90–92
[2024-07-01] MEDS: PHENERGAN WITH CODEINE SYRUP 5 ML PO ×2 (02:02→19:52)
[2024-07-01 04:44] LABS: Hematocrit 41.6 % (37.0-47.0); Hemoglobin 14.2 g/dL (12.0-16.0); Mean Corp Hgb Conc. 34.1 g/dL (33.0-37.0); Mean Corpuscular Hgb 32.9 pg (27.0-31.0); Mean Corpuscular Volume 96.3 fL (81.0-99.0); Mean Platelet Volume 9.7 fL (7.4-10.4); Platelet Count 189 10^3/uL (130-400); Red Blood Cell Count 4.32 10^6/uL (4.20-5.40); Red Cell Dist. Width 14.2 % (11.5-14.5); White Blood Cell Count 13.7 10^3/uL (4.8-10.8)
[2024-07-01 05:05] LABS: ALT (SGPT) 65 U/L (0-35); AST (SGOT) 23 U/L (14-36); Albumin 3.9 g/dl (3.5-5.0); Alkaline Phosphatase 86 U/L (38-126); Blood Urea Nitrogen 19 mg/dl (7-17); Calcium 8.5 mg/dl (8.4-10.2); Carbon Dioxide 32 mmol/L (22-30); Chloride 93 mmol/L (98-107); Estimated Creatinine Clearance 97 ml/min; Glucose 155 mg/dl (70-99); Potassium 4.5 mmol/L (3.5-5.1); Sodium 132 mmol/L (135-145); Total Bilirubin 0.9 mg/dl (0.2-1.3); Total Protein 6.8 g/dl (6.3-8.2); eGFR > 60.00
[2024-07-01] MEDS: SYNTHROID 137 MCG PO (06:07)
--- NOTE | 2024-07-01 06:22 | PTCARENOTE ---
Spoke to [facility] overnight. [facility] accepted patient. Updated them on her status. Await CM to follow up with insurance. Pt updated.
--- NOTE | 2024-07-01 08:00 | CARDSERVLU ---
Echocardiogram with [facility] completed after protocol screening completed. Allergies verified.
Patent IV site: _Rt FA____
IV site flushed with 0.9% NaCl pre and post administration.
Diluted bolus method utilized to enhance visualization of ventricular polanco.
Total volume given: ___3.0 mL
Patient tolerated all procedures well without complications.
[2024-07-01] MEDS: PEPCID 20 MG PO ×2 (08:02→19:49)
[2024-07-01] MEDS: DELTASONE 40 MG PO ×2 (08:02→19:49)
[2024-07-01] MEDS: MUCINEX 1200 MG PO ×2 (08:03→19:49)
[2024-07-01] MEDS: TESSALON PERLES PO ×3 (08:03→19:49)
[2024-07-01] MEDS: MIRALAX 17 GRAMS PO (08:03)
--- NOTE | 2024-07-01 08:30 | PTCARENOTE ---
Bubble study done with [employer] writer technical publications.
[2024-07-01] MEDS: DUONEB 3 ML INH ×4 (08:39→19:47)
--- NOTE | 2024-07-01 09:45 | W.PN.PUL3 ---
Today's Communication / Plan
-
Remains on HFNC - attempt to wean down as tolerated while keeping SpO2 >90%
Steroids remain with prednisone 40 mg BID - would keep at this dose for now and not lower
Echo with bubble study was negative for shunt, and there is preserved LVEF and normal RV size and Fx
Re-check CT chest when feasible
She is now agreeable to transfer to [facility] --> awaiting bed
Defer to team to arrange
Low threshold to intubate
PT/OT
Assessment
-
64-year-old woman with distant past medical history of provoked pulmonary embolism, interstitial lung disease which is mild on CAT scan 07/2022 undifferentiated, has not been seen by pulmonary despite being recommended last year. Comes to the
hospital complaining of progressive shortness of breath, cough, hypoxemia. X-ray with significant bilateral infiltrates. Follow-up CT demonstrated severely diffuse groundglass opacities. Progressive hypoxemic respiratory failure up to 10 L.
Severe acute hypoxemic respiratory failure currently on high-flow nasal cannula
CTA chest 06/12/2024: Diffuse groundglass opacity bilaterally. No pleural effusion. Negative for acute PE.
Differential diagnosis include infectious such as community-acquired pneumonia viral/bacterial-cannot rule out interstitial lung disease acute flare-broad differential diagnosis.
With significantly increased CRP and sedimentation rate suspect more inflammatory such as nonspecific interstitial pneumonia, connective tissue disease associated ILD etc.
Her CAT scan was not compatible with usual interstitial pneumonia.
Less likely pulmonary edema. Most recent echocardiogram from 08/2022 with normal LVEF.
Less likely diffuse alveolar hemorrhage given stable hgb and no hemoptysis; DDx also includes CEP, organizing pneumonia, and atypical CHP
Negative influenza, COVID, Legionella and strep pneumonia.
EKG 06/11/2024: Normal sinus rhythm. ST-T wave abnormality consider inferior ischemia.
leukocytosis/fever
Mild hyponatremia - now resolved
Conditions present prior admission:
Interstitial lung disease : Undifferentiated
Formerly seen on CAT scan 07/2022 for the first time. Mild, peripheral, undifferentiated.
History of PE/DVT provoked after foot injury [address] of the chest at that time: No mention of interstitial lung disease.
History of influenza in 2017/2018 With pneumonia.
History of COVID mildly 2021.
History of ankle fracture on the left status post repair 2023.
Plan:
Respiratory remains extremely tenuous on high flow oxygen--55%/55LPM
Continue supplemental oxygen and wean as tolerated
Incentive spirometry encouraged
Out of bed if able-reviewed with physical therapy
Mucus clearing devices as needed
Aspiration precautions
DuoNebs QID - currently not bronchospastic
Chest x-ray 06/23/2024-no change in severe bilateral airspace and interstitial abnormalities
Antitussives as needed
Ideally would undergo bronchoscopy with BAL and biopsies-respiratory status 'too tenuous' and risks outweigh benefits at this point
Discussed with patient to see if saturations improved in the prone position or even in the right or left lateral decubitus position-states she cannot sleep or lie on her stomach
Low threshold to intubate
CTA chest from 06/12/2024 demonstrated severely diffuse groundglass opacities without pleural effusions but has mildly increased mediastinal lymph nodes. No pericardial effusion.
This is most consistent with NSIP, progressed compared to CT in 2022
KIERRA IgG positive but with low titer (<1:80); antinuclear Ab and cytoplasmic Ab negative by IFA; c3, c4 wnl
CCP antibody positive (moderately positive), CRP positive -- Suspect inflammatory process
Methylprednisolone 1 g every 24 hours-pulse steroids-initiated 06/20/2024-finish a 5-day pulse and then convert to prednisone 1 mg/kg daily-prednisone 40 mg twice daily
Rheumatology consulted --> pt would benefit from additional immunosuppressants like cellcept vs rituxin or azathrioprine
Rheumatologic serology reviewed
DOREEN-20
Echo with bubble study checked today showed preserved LVEF of 50-55% with normal RV size and function, trace MR, mild pulmonary hypertension with PASP 30-35 mmHg, with negative bubble study and show pericardial effusion
Completed course of antibiotics--CFP/Vanc/Doxy/azithro (06/11-06/16)
Sputum culture usual respiratory francis
Cultures and viral panel negative
DVT prophylaxis-Enoxaparin
GI prophylaxis: famotidine twice daily-plan to continue at discharge given ILD
If she were to need medical decision maker, it would be her daughter Kay Chau.
Patient is awaiting transfer to tertiary care center at [facility]. I agree with this given that they have a rheumatology service and it is also a transplant center. Likely her oxygen requirements are holding hence no need currently for ECMO. Would be
interested to see how she recovers once additional immunosuppressants, listed above, are introduced. Patient is awaiting a bed.
Will need outpatient follow up with pulmonary- new pt appt scheduled with Dr. Del Valle in Jul 2024, likely will need to adjust timing
Will need outpatient follow up with rheumatology
Diagnostic Data
CXR 06/23/24- 1. Severe bilateral airspace and interstitial disease in the lungs without definitive change from 06/11/2024. Diagnostic possibilities are (1) a SEVERE ACUTE on CHRONIC INFLAMMATORY PNEUMONITIS, (2) less likely pneumonia given the lack
of interval change, or (3) less likely pulmonary edema.
2. SEVERE MEDIASTINAL LYMPHADENOPATHY. Diagnostic possibilities are (1) sarcoidosis or (2) malignancy (lymphoma or metastatic disease).
3. Mildly decreased bilateral lung volumes.
Chest x-ray 2020: Mild diffuse interstitial thickening left greater than right possible ILD/fibrosis
CT chest 06/12/24-2. Extensive bilateral groundglass opacities, superimposed upon subpleural reticulation/fibrosis seen on the prior CT. No significant pleural effusions. There is also mediastinal and hilar lymphadenopathy, which is new compared
to the prior examination. Findings are nonspecific and could represent acute exacerbation or worsening of patient's interstitial lung disease with infectious or inflammatory process also a consideration.
CT chest 08/15/2022: Mild changes of pulmonary fibrosis, nonspecific pattern, pleural-based. Findings are new compared to prior study. Left lower lobe 4 mm nodule. Benign etiology.
Possible pericardial cyst 2.8 X1.8X 1.1 cm present in [address] chest 2016: Reviewed, bilateral lower lobe filling defects compatible with pulmonary embolism. Lower lobe subsegmental atelectasis. No focal abnormalities noted at that time.
Small pericardial cyst
Echocardiogram 08/16/2022: Showed normal LVEF. No regional wall motion abnormalities. Ejection fraction 60 to 65%. Normal right ventricular size and function. No significant valvular disease.
Echo 07/01/2024:
Normal left ventricular size, wall thickness and systolic function. No regional
wall motion abnormalities are seen. LV ejection fraction is 50-55 % by visual
assessment. Normal diastolic function.
Normal right ventricular size and function.
Trace mitral regurgitation.
Structurally normal aortic valve without significant stenosis or regurgitation.
Mild tricuspid regurgitation. Estimated pulmonary artery pressure of 30-35
mmHg. Assuming a right atrial pressure of 3 mmHg.
Interatrial septum is intact with no evidence of shunting by color flow Doppler
or by agitata saline (negative bubble study).
Trivial pericardial effusion.
Compared to prior study 08/16/2022 ejection fraction previously 60 to 65% now 50
to 55% visually. Trivial pericardial effusion
Total time spent today was 54 minutes for this encounter. Time includes reviewing laboratory test/imaging results, reviewing pertinent medical records, obtaining and reviewing medical history, performing an appropriate exam, ordering medications,
tests and procedures. Time also includes documentation of this encounter, coordinating patient care and communicating with other healthcare professionals. Total time does not include separately billed tests performed on this date of service.
Subjective Data
-
Date of Service:
Date of Service: July 01, 2024
Chief Complaint: Pulmonary Follow Up and Dyspnea Follow Up
Subjective:
Patient seen and evaluated today at bedside. No acute events reported from overnight. Afebrile overnight as well. Currently saturating 93% on high flow nasal cannula at FiO2 55%, 50 L/min, with heart rate 95. Echo done today shows mild pulmonary
hypertension with PASP 30 to 35 mmHg with no evidence of shunting (negative bubble study).
Review of Systems
General: Other (Negative unless mentioned above)
Objective Data
Data Reviewed
Vital Signs / I&O / Oxygen:
Vital Signs
Temp Pulse Resp BP Pulse Ox
98 F 72 20 117/76 93
07/01/24 07:05 07/01/24 09:01 07/01/24 09:01 07/01/24 06:06 07/01/24 09:01
Intake and Output
06/30/24 07/01/24 07/02/24
06:59 06:59 06:59
Intake Total 620 / 620 480 / 480
Output Total 800 / 800 1950 / 1950
Balance -180 / -180 -1470 / -1470
SaO2 93
Nasal Cannula flow liters per 55
minute
Physical Exam
General: Respiratory Distress (negative), Comfortable (at rest), Chills (negative) and Sweats (negative)
HEENT: Normocephalic and Anicteric
Cardiovascular: S1-S2, Rub (negative) and Peripheral Edema (negative)
Respiratory: Wheeze (negative), Crackles (bilateral (bases to middle lung shahid mainly)), Rhonchi (negative), Non-Labored Respirations and Stridor (negative)
GI: Soft, Non Distended, Non Tender and Normal Bowel Sounds
Neurology: AO x 3 and Tremors (negative)
Skin: Warm, Dry, Cyanosis (negative) and Jaundice (negative)
Labs/Micro/Reports
Lab Data
07/01/24 04:06
07/01/24 04:06
--- NOTE | 2024-07-01 11:46 | CM ---
CM following re: discharge planning.
Reviewed pt's chart, met with pt. Pt requires 55L HFNC with FIO2 55%, continue supportive care.
Per MD, pt is accepted for transfer to [facility]. Pt is aware.
CM spoke to [facility] transfer center insurance healthcare representative Alfreda Sunita [phone] and she confirmed that pt is accepted for transfer to [facility] when a bed is available, buy back agreement requested.
Buy back agreement signed by infrastructure administrator insurance healthcare representative, and the pt and faxed to [facility] at [phone].
D/c plan: transfer to [facility] when bed available.
CM will follow to assist pt with transfer to [facility].
[2024-07-01] MEDS: XANAX 0.25 MG PO (11:59)
--- NOTE | 2024-07-01 12:45 | W.PN.HOSP.TC ---
Today's Communication/Plan
-
steroids
iv lasix prn�net goal euvolemic to slight negative
wean o2 as tolerated
Accepted for transfer to [facility] for further treatment with close supervision of rheumatology, pulmonary, and possible eventual engagement of transplant team in patient with single organ damage
Assessment / Plan
Assessment / Plan
#Acute hypoxic respiratory failure 2/2 CAP with ILD flare/pneumonitis
-CXR: Chronic interstitial lung disease/fibrosis, progressed. Possible superimposed left-sided pneumonia.
- Patient completed Cefepime/Doxycycline 5 days; MRSA neg
-Cont O2 support, on high flow NC (55L @ 55% FiO2); wean as tolerated; goal o2>88%
- Wean O2 when able, pt not on home O2
-Received 5 days of pulse dose steroids; upon completion transitioned to oral prednisone 40mg BID on 06/25; continued.
Follow rheumatology recs at [place] including initiation of CellCept or Methotrexate
Cont Duonebs ATC and PRN, Tessalon ATC, Mucinex
Pulmonary on board
Incentive Cobb
IV Lasix as needed prn - 40mg IV last given 06/30; goal euvolemia to slight net negative
PT/OT as tolerated: continue to increase OOB with PT/OT as able
#Leukocytosis
-on steroids; monitor WBC
#Concern for Rheumatoid arthritis with RA Interstitial lung disease�
KIERRA positive, antiCCP positive
steroids as above
� Follow-up serologies of myositis, scleroderma, sarcoidosis, cryoglobulin, immunoglobulin
Rheum recs
-s/p pulse dose steroids
#Mild hyponatremia due to above, SIADH
-fwr, monitor
#Transaminitis
� Closely monitor, improving
� No abdominal tenderness
- Hepatitis B/C neg
- HIV neg
DVT ppx: Lovenox SQ
Full Code
More than 30 minutes spent in discharge including
Final examination of the patient
Summarizing hospital stay
Instructions for continuing care to all relevant caregivers
Preparation of discharge records, prescriptions, and referral forms
Total time spent (37 in minutes):
Anticipated Discharge: Today
Subjective/Interval History
-
Date of Service: July 01, 2024
No acute events overnight
Objective Data
-
Labs:
Laboratory Results
07/01/24
04:06
WBC 13.7 H
Hgb 14.2
Hct 41.6
Plt Count 189
Sodium 132 L
Potassium 4.5
Chloride 93 L
Carbon Dioxide 32 H
BUN 19 H
Creatinine 0.6
Glucose 155 H
Calcium 8.5
Total Bilirubin 0.9
AST 23
ALT 65 H
Alkaline Phosphatase 86
Vital Signs:
Vital Signs
Temp Pulse Resp BP Pulse Ox
98 F 113 20 108/96 93
07/01/24 07:05 07/01/24 11:59 07/01/24 11:59 07/01/24 10:45 07/01/24 11:59
I&O
06/30/24 07/01/24 07/02/24
06:59 06:59 06:59
Intake Total 620 / 620 480 / 480
Output Total 800 / 800 1950 / 1950
Balance -180 / -180 -1470 / -1470
Review of Systems
-
History Source: Patient
All other systems: Not reviewed unless documented
Physical Exam
-
General: Well Developed, Well Nourished and No Apparent Distress
HEENT: Normocephalic, Atraumatic and Oxygen (HI KASI O2)
Respiratory: Crackles (coarse velcro like crackles)
Cardiac: Regular Rhythm and S1/S2; Negative Murmur
GI: Soft, Nontender, Nondistended and Normal Bowel Sounds
Musculoskeletal: No Clubbing, No Cyanosis and No Edema
Skin: Warm
Neuro: Awake
Psych: Calm
Data Reviewed
-
CT Scan: Report Reviewed by me
Labs: Labs Reviewed by me
--- NOTE | 2024-07-01 12:53 | W.DS.TRANS ---
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
-
Discharge Instructions:
Instructions:
Stand-Alone Forms:
Changes to Home Medications: No
Discharge Medications:
DC Medications w/original date entered in [facility]
calcium carbonate (Calcium 600) 600 mg PO DAILY Supplement 09/07/23
cholecalciferol (vitamin D3) 50 mcg (2,000 unit) tablet (Vitamin D3) 50 mcg PO DAILY Supplement 09/07/23
albuterol sulfate 90 mcg/actuation aerosol inhaler 2 puff inhalation R Q4HPRN PRN sob 06/11/24
ascorbate calcium (vitamin C) 500 mg tablet 500 mg PO DAILY Supplement 06/11/24
azithromycin 250 mg tablet (Zithromax Z-Jose D) 250 mg PO DAILY Infection 06/11/24
cefpodoxime 200 mg tablet 200 mg PO Q12H Infection 06/11/24
levothyroxine 137 mcg tablet 137 mcg PO DAILY Thyroid 06/11/24
therapeutic multivitamin 1 tab PO DAILY Supplement 06/11/24
zinc sulfate 50 mg zinc (220 mg) tablet 50 mg PO DAILY Supplement 06/11/24
Home Medication Changes
na
Pending Results: No
--- NOTE | 2024-07-01 14:54 | PTCARENOTE ---
Patient AAOx3, anxious, PRN xanax given with improvement. Currently tolerating hiflow NC 50L 55% with NRB for recovery. Sats 95% at rest. Using IS. C/o cough fits. Visible SHORE. OOB for 3 hours. VSS. Awaiting transfer to [facility]. Continuing to closely
monitor.
[2024-07-01] MEDS: LOVENOX 40 MG SC (18:04)
[2024-07-01] MEDS: MELATONIN 5 MG PO (19:49)
[2024-07-02] VITALS (10 sets, daily range): BP systolic 88–127; BP diastolic 62–85
[2024-07-02] MEDS: TYLENOL 500 MG PO
--- NOTE | 2024-07-02 01:30 | PTCARENOTE ---
PT complaining of bilateral ankle pain in her joints which is new. Tylenol given for pain. Legs elevated on pillows.
[2024-07-02] MEDS: SYNTHROID 137 MCG PO (04:23)
[2024-07-02 04:44] LABS: Hematocrit 37.9 % (37.0-47.0); Hemoglobin 12.9 g/dL (12.0-16.0); Mean Corpuscular Hgb 32.5 pg (27.0-31.0); Mean Corpuscular Volume 95.5 fL (81.0-99.0); Mean Platelet Volume 9.6 fL (7.4-10.4); Platelet Count 164 10^3/uL (130-400); Red Blood Cell Count 3.97 10^6/uL (4.20-5.40); White Blood Cell Count 15.3 10^3/uL (4.8-10.8)
[2024-07-02] MEDS: TORADOL 15 MG IV (04:52)
[2024-07-02 05:01] LABS: ALT (SGPT) 50 U/L (0-35); AST (SGOT) 20 U/L (14-36); Albumin 3.5 g/dl (3.5-5.0); Alkaline Phosphatase 77 U/L (38-126); Blood Urea Nitrogen 19 mg/dl (7-17); Calcium 8.3 mg/dl (8.4-10.2); Carbon Dioxide 28 mmol/L (22-30); Chloride 95 mmol/L (98-107); Estimated Creatinine Clearance 97 ml/min; Glucose 175 mg/dl (70-99); Potassium 4.7 mmol/L (3.5-5.1); Sodium 132 mmol/L (135-145); Total Bilirubin 0.9 mg/dl (0.2-1.3); Total Protein 6.2 g/dl (6.3-8.2); eGFR > 60.00
--- NOTE | 2024-07-02 05:43 | PTCARENOTE ---
Caring for patient overnight. NO assessment changes other than bilateral ankle pain. Tylenol & toradol given. NSR, remains on HFNC. NO other issues.
[2024-07-02] MEDS: DUONEB 3 ML INH ×4 (07:45→19:52)
[2024-07-02] MEDS: MUCINEX 1200 MG PO ×2 (08:48→20:40)
[2024-07-02] MEDS: TESSALON PERLES PO ×3 (08:49→20:41)
[2024-07-02] MEDS: COLACE 100 MG PO (08:53)
[2024-07-02] MEDS: PEPCID 20 MG PO ×2 (08:53→20:40)
[2024-07-02] MEDS: MIRALAX PO (08:55)
[2024-07-02] MEDS: DELTASONE 40 MG PO ×2 (08:55→20:40)
--- NOTE | 2024-07-02 11:30 | PTCARENOTE ---
Patient remains on high flow oxygen 50L 50% with NRB PRN. Patient desaturates with minimal exertion. Lungs coarse throughout. Occasional dry cough. Using bed grijalva or commode depending on how she feels. Appetite fair. SR on monitor, VS stable.
--- NOTE | 2024-07-02 11:48 | W.PN.PUL3 ---
Today's Communication / Plan
-
Remains on HFNC - attempt to wean down as tolerated while keeping SpO2 >90%
Steroids remain with prednisone 40 mg BID - would keep at this dose for now and not lower
Echo with bubble study was negative for shunt, and there is preserved LVEF and normal RV size and Fx
Re-check CT chest today if safe for transport off the floor
She is now agreeable to transfer to [place] --> awaiting bed
Defer to team to arrange
Low threshold to intubate if she deteriorates
PT/OT
Assessment
-
64-year-old woman with distant past medical history of provoked pulmonary embolism, interstitial lung disease which is mild on CAT scan 07/2022 undifferentiated, has not been seen by pulmonary despite being recommended last year. Comes to the
hospital complaining of progressive shortness of breath, cough, hypoxemia. X-ray with significant bilateral infiltrates. Follow-up CT demonstrated severely diffuse groundglass opacities. Progressive hypoxemic respiratory failure up to 10 L.
Severe acute hypoxemic respiratory failure currently on high-flow nasal cannula
CTA chest 06/12/2024: Diffuse groundglass opacity bilaterally. No pleural effusion. Negative for acute PE.
Differential diagnosis include infectious such as community-acquired pneumonia viral/bacterial-cannot rule out interstitial lung disease acute flare-broad differential diagnosis.
With significantly increased CRP and sedimentation rate suspect more inflammatory such as nonspecific interstitial pneumonia, connective tissue disease associated ILD etc.
Her CAT scan was not compatible with usual interstitial pneumonia.
Less likely pulmonary edema. Most recent echocardiogram from 08/2022 with normal LVEF.
Less likely diffuse alveolar hemorrhage given stable hgb and no hemoptysis; DDx also includes CEP, organizing pneumonia, and atypical CHP
Negative influenza, COVID, Legionella and strep pneumonia.
EKG 06/11/2024: Normal sinus rhythm. ST-T wave abnormality consider inferior ischemia.
leukocytosis/fever
Mild hyponatremia - now resolved
Conditions present prior admission:
Interstitial lung disease : Undifferentiated
Formerly seen on CAT scan 07/2022 for the first time. Mild, peripheral, undifferentiated.
History of PE/DVT provoked after foot injury [address] of the chest at that time: No mention of interstitial lung disease.
History of influenza in 2017/2018 With pneumonia.
History of COVID mildly 2021.
History of ankle fracture on the left status post repair 2023.
Plan:
Respiratory remains extremely tenuous on high flow oxygen--55%/55LPM
Continue supplemental oxygen and wean as tolerated
Incentive spirometry encouraged
Out of bed if able-reviewed with physical therapy
Mucus clearing devices as needed
Aspiration precautions
DuoNebs QID - currently not bronchospastic
Chest x-ray 06/23/2024-no change in severe bilateral airspace and interstitial abnormalities
Antitussives as needed
Ideally would undergo bronchoscopy with BAL and biopsies-respiratory status 'too tenuous' and risks outweigh benefits at this point
Discussed with patient to see if saturations improved in the prone position or even in the right or left lateral decubitus position-states she cannot sleep or lie on her stomach
Low threshold to intubate
CTA chest from 06/12/2024 demonstrated severely diffuse groundglass opacities without pleural effusions but has mildly increased mediastinal lymph nodes. No pericardial effusion.
This is most consistent with NSIP, progressed compared to CT in 2022
KIERRA IgG positive but with low titer (<1:80); antinuclear Ab and cytoplasmic Ab negative by IFA; c3, c4 wnl
CCP antibody positive (moderately positive), CRP positive -- Suspect inflammatory process
Methylprednisolone 1 g every 24 hours-pulse steroids-initiated 06/20/2024-finish a 5-day pulse and then convert to prednisone 1 mg/kg daily-prednisone 40 mg twice daily
Rheumatology consulted --> pt would benefit from additional immunosuppressants like cellcept vs rituxin or azathrioprine
Rheumatologic serology reviewed
DOREEN-[address] chest to reassess degree of groundglass opacities
Echo with bubble study checked on 07/01/2024 showed preserved LVEF of 50-55% with normal RV size and function, trace MR, mild pulmonary hypertension with PASP 30-35 mmHg, with negative bubble study and show pericardial effusion
Completed course of antibiotics--CFP/Vanc/Doxy/azithro (06/11-06/16)
Sputum culture usual respiratory francis
Cultures and viral panel negative
Start prn gabapentin at night for her reported [id number] in her feet/nerve pain; hold for sedation
DVT prophylaxis-Enoxaparin
GI prophylaxis: famotidine twice daily-plan to continue at discharge given ILD
If she were to need medical decision maker, it would be her daughter Kay Chau.
Patient is awaiting transfer to tertiary care center at [place]. I agree with this given that they have a rheumatology service and it is also a transplant center. Likely her oxygen requirements are holding hence no need currently for ECMO. Would be
interested to see how she recovers once additional immunosuppressants, listed above, are introduced. Patient is awaiting a bed.
Will need outpatient follow up with pulmonary- new pt appt scheduled with Dr. Del Valle in Jul 2024, likely will need to adjust timing
Will need outpatient follow up with rheumatology
Diagnostic Data
CXR 06/23/24- 1. Severe bilateral airspace and interstitial disease in the lungs without definitive change from 06/11/2024. Diagnostic possibilities are (1) a SEVERE ACUTE on CHRONIC INFLAMMATORY PNEUMONITIS, (2) less likely pneumonia given the lack
of interval change, or (3) less likely pulmonary edema.
2. SEVERE MEDIASTINAL LYMPHADENOPATHY. Diagnostic possibilities are (1) sarcoidosis or (2) malignancy (lymphoma or metastatic disease).
3. Mildly decreased bilateral lung volumes.
Chest x-ray 2020: Mild diffuse interstitial thickening left greater than right possible ILD/fibrosis
CT chest 06/12/24-2. Extensive bilateral groundglass opacities, superimposed upon subpleural reticulation/fibrosis seen on the prior CT. No significant pleural effusions. There is also mediastinal and hilar lymphadenopathy, which is new compared
to the prior examination. Findings are nonspecific and could represent acute exacerbation or worsening of patient's interstitial lung disease with infectious or inflammatory process also a consideration.
CT chest 08/15/2022: Mild changes of pulmonary fibrosis, nonspecific pattern, pleural-based. Findings are new compared to prior study. Left lower lobe 4 mm nodule. Benign etiology.
Possible pericardial cyst 2.8 X1.8X 1.1 cm present in [address] chest 2016: Reviewed, bilateral lower lobe filling defects compatible with pulmonary embolism. Lower lobe subsegmental atelectasis. No focal abnormalities noted at that time.
Small pericardial cyst
Echocardiogram 08/16/2022: Showed normal LVEF. No regional wall motion abnormalities. Ejection fraction 60 to 65%. Normal right ventricular size and function. No significant valvular disease.
Echo 07/01/2024:
Normal left ventricular size, wall thickness and systolic function. No regional
wall motion abnormalities are seen. LV ejection fraction is 50-55 % by visual
assessment. Normal diastolic function.
Normal right ventricular size and function.
Trace mitral regurgitation.
Structurally normal aortic valve without significant stenosis or regurgitation.
Mild tricuspid regurgitation. Estimated pulmonary artery pressure of 30-35
mmHg. Assuming a right atrial pressure of 3 mmHg.
Interatrial septum is intact with no evidence of shunting by color flow Doppler
or by agitata saline (negative bubble study).
Trivial pericardial effusion.
Compared to prior study 08/16/2022 ejection fraction previously 60 to 65% now 50
to 55% visually. Trivial pericardial effusion
Total time spent today was 52 minutes for this encounter. Time includes reviewing laboratory test/imaging results, reviewing pertinent medical records, obtaining and reviewing medical history, performing an appropriate exam, ordering medications,
tests and procedures. Time also includes documentation of this encounter, coordinating patient care and communicating with other healthcare professionals. Total time does not include separately billed tests performed on this date of service.
Subjective Data
-
Date of Service:
Date of Service: July 02, 2024
Chief Complaint: Pulmonary Follow Up and Dyspnea Follow Up
Subjective:
Patient was seen and evaluated today at bedside. Had some pain in her feet with nerve pain, per patient. Currently on high flow nasal cannula at 70% FiO2, 55 L/min. Saturating 97% at rest, heart rate 97 and BP 103/77. Currently denies chest
pain, PASCUAL, abdominal pain, nausea, fevers or chills.
Review of Systems
General: Other (Negative unless mentioned above)
Objective Data
Data Reviewed
Vital Signs / I&O / Oxygen:
Vital Signs
Temp Pulse Resp BP Pulse Ox
97.7 F 90 18 109/72 95
07/02/24 11:13 07/02/24 11:26 07/02/24 11:26 07/02/24 08:00 07/02/24 11:26
Intake and Output
07/01/24 07/02/24 07/03/24
06:59 06:59 06:59
Intake Total 480 / 480
Output Total 1949
Balance -1470 / -147 -1949
SaO2 95
Nasal Cannula flow liters per 55
minute
Physical Exam
General: Respiratory Distress (negative), Comfortable (at rest), Chills (negative) and Sweats (negative)
HEENT: Normocephalic and Anicteric
Cardiovascular: S1-S2, Rub (negative) and Peripheral Edema (negative)
Respiratory: Wheeze (negative), Crackles (bilateral (bases to middle lung shahid mainly)), Rhonchi (negative), Non-Labored Respirations and Stridor (negative)
GI: Soft, Non Distended, Non Tender and Normal Bowel Sounds
Neurology: AO x 3 and Tremors (negative)
Skin: Warm, Dry, Cyanosis (negative) and Jaundice (negative)
Labs/Micro/Reports
Lab Data
07/02/24 04:21
07/02/24 04:21
--- NOTE | 2024-07-02 14:18 | W.PN.HOSP.TC ---
Today's Communication/Plan
-
steroids
iv lasix prn�net goal euvolemic to slight negative
wean o2 as tolerated
Accepted for transfer to [facility] for further treatment with close supervision of rheumatology, pulmonary, and possible eventual engagement of transplant team in patient with single organ damage
Assessment / Plan
Assessment / Plan
#Acute hypoxic respiratory failure 2/2 CAP with ILD flare/pneumonitis
-CXR: Chronic interstitial lung disease/fibrosis, progressed. Possible superimposed left-sided pneumonia.
- Patient completed Cefepime/Doxycycline 5 days; MRSA neg
-Cont O2 support, on high flow NC (55L @ 55% FiO2); wean as tolerated; goal o2>88%
- Wean O2 when able, pt not on home O2
-Received 5 days of pulse dose steroids; upon completion transitioned to oral prednisone 40mg BID on 06/25; continued.
Follow rheumatology recs at [facility] including initiation of CellCept or Methotrexate
Cont Duonebs ATC and PRN, Tessalon ATC, Mucinex
Pulmonary on board
Incentive [place]
IV Lasix as needed prn - 40mg IV last given 06/30; goal euvolemia to slight net negative
PT/OT as tolerated: continue to increase OOB with PT/OT as able
#Leukocytosis
-on steroids; monitor WBC
#Concern for Rheumatoid arthritis with RA Interstitial lung disease�
KIERRA positive, antiCCP positive
steroids as above
� Follow-up serologies of myositis, scleroderma, sarcoidosis, cryoglobulin, immunoglobulin
Rheum recs
-s/p pulse dose steroids
#Mild hyponatremia due to above, SIADH
-fwr, monitor
#Transaminitis
� Closely monitor, improving
� No abdominal tenderness
- Hepatitis B/C neg
- HIV neg
DVT ppx: Lovenox SQ
Full Code
More than 30 minutes spent in discharge including
Final examination of the patient
Summarizing hospital stay
Instructions for continuing care to all relevant caregivers
Preparation of discharge records, prescriptions, and referral forms
Total time spent (37 in minutes):
Anticipated Discharge: Today
Subjective/Interval History
-
Date of Service: July 02, 2024
No acute events overnight
Objective Data
-
Labs:
Laboratory Results
07/02/24
04:21
WBC 15.3 H
Hgb 12.9
Hct 37.9
Plt Count 164
Sodium 132 L
Potassium 4.7
Chloride 95 L
Carbon Dioxide 28
BUN 19 H
Creatinine 0.5 L
Glucose 175 H
Calcium 8.3 L
Total Bilirubin 0.9
AST 20
ALT 50 H
Alkaline Phosphatase 77
Vital Signs:
Vital Signs
Temp Pulse Resp BP Pulse Ox
97.7 F 90 18 109/72 95
07/02/24 11:13 07/02/24 11:26 07/02/24 11:26 07/02/24 08:00 07/02/24 11:26
I&O
07/01/24 07/02/24 07/03/24
06:59 06:59 06:59
Intake Total 480 / 480
Output Total 1949
Balance -1470 / -147 -1949
Review of Systems
-
History Source: Patient
All other systems: Not reviewed unless documented
Physical Exam
-
General: Well Developed, Well Nourished and No Apparent Distress
HEENT: Normocephalic, Atraumatic and Oxygen (HI KASI O2)
Respiratory: Crackles (coarse velcro like crackles)
Cardiac: Regular Rhythm and S1/S2; Negative Murmur
GI: Soft, Nontender, Nondistended and Normal Bowel Sounds
Musculoskeletal: No Clubbing, No Cyanosis and No Edema
Skin: Warm
Neuro: Awake
Psych: Calm
Data Reviewed
-
CT Scan: Report Reviewed by me
Labs: Labs Reviewed by me
[2024-07-02] MEDS: LOVENOX 40 MG SC (17:46)
[2024-07-02] MEDS: PHENERGAN WITH CODEINE SYRUP 5 ML PO (17:47)
--- NOTE | 2024-07-02 17:53 | PTCARENOTE ---
Patient back fro CT scan of lungs.
[2024-07-02] MEDS: XANAX 0.25 MG PO (20:40)
[2024-07-02] MEDS: NEURONTIN 300 MG PO (21:49)
[2024-07-02] MEDS: MELATONIN PO (21:49)
[2024-07-03] VITALS (8 sets, daily range): BP systolic 91–113; BP diastolic 59–89; PULSE 96–130; O2SAT 93
[2024-07-03] MEDS: TYLENOL 500 MG PO ×2 (00:05→09:15)
[2024-07-03] MEDS: TORADOL 15 MG IV ×2 (00:27→05:29)
--- NOTE | 2024-07-03 01:36 | PTCARENOTE ---
Patient Aox3. Patient on HFNC at 50L with 60%, using non rebreather PRN. Desats with exertion. Patient complained of leg pain, see AUG. Patient has productive cough. Using bedpan. NSR on monitor. Assessment and VS as documented. Patient is waiting
to transfer to [place] when bed becomes available. Call martinez in reach.
[2024-07-03] MEDS: SYNTHROID 137 MCG PO (05:30)
--- NOTE | 2024-07-03 05:49 | PTCARENOTE ---
Patient still complaining of 10/10 bilateral leg and ankle pain. WE[employer]ESS [employer]PERATOR notified and at bedside. Toradol order placed, see AUG.
[2024-07-03 05:52] LABS: Hematocrit 35.4 % (37.0-47.0); Mean Corp Hgb Conc. 33.9 g/dL (33.0-37.0); Mean Corpuscular Hgb 33.3 pg (27.0-31.0); Mean Corpuscular Volume 98.3 fL (81.0-99.0); Mean Platelet Volume 9.6 fL (7.4-10.4); Platelet Count 132 10^3/uL (130-400); Red Cell Dist. Width 14.3 % (11.5-14.5); White Blood Cell Count 12.3 10^3/uL (4.8-10.8)
[2024-07-03 06:15] LABS: ALT (SGPT) 48 U/L (0-35); AST (SGOT) 21 U/L (14-36); Albumin 3.3 g/dl (3.5-5.0); Alkaline Phosphatase 74 U/L (38-126); Blood Urea Nitrogen 24 mg/dl (7-17); Calcium 8.6 mg/dl (8.4-10.2); Carbon Dioxide 31 mmol/L (22-30); Chloride 95 mmol/L (98-107); Estimated Creatinine Clearance 97 ml/min; Glucose 144 mg/dl (70-99); Potassium 4.9 mmol/L (3.5-5.1); Sodium 131 mmol/L (135-145); Total Bilirubin 0.7 mg/dl (0.2-1.3); eGFR > 60.00
[2024-07-03] MEDS: DUONEB 3 ML INH ×4 (07:50→19:12)
--- NOTE | 2024-07-03 08:52 | W.PN.PUL3 ---
Today's Communication / Plan
-
Remains on HFNC - attempt to wean down as tolerated while keeping SpO2 >90%; would see if she can tolerate midflow nasal cannula today while at rest
Steroids remain with prednisone 40 mg BID - would keep at this dose for now and not lower
Echo with bubble study was negative for shunt, and there is preserved LVEF and normal RV size and Fx
Improved GGO particularly in the right upper lobe seen on CT chest from 07/02/2024
She is now agreeable to transfer to [place] --> awaiting bed
Low threshold to intubate if she deteriorates
PT/OT
prn gabapentin with sleep for 'nerve pain'
Assessment
-
64-year-old woman with distant past medical history of provoked pulmonary embolism, interstitial lung disease which is mild on CAT scan 07/2022 undifferentiated, has not been seen by pulmonary despite being recommended last year. Comes to the
hospital complaining of progressive shortness of breath, cough, hypoxemia. X-ray with significant bilateral infiltrates. Follow-up CT demonstrated severely diffuse groundglass opacities. Progressive hypoxemic respiratory failure up to 10 L.
Severe acute hypoxemic respiratory failure currently on high-flow nasal cannula
CTA chest 06/12/2024: Diffuse groundglass opacity bilaterally. No pleural effusion. Negative for acute PE.
Differential diagnosis include infectious such as community-acquired pneumonia viral/bacterial-cannot rule out interstitial lung disease acute flare-broad differential diagnosis.
With significantly increased CRP and sedimentation rate suspect more inflammatory such as nonspecific interstitial pneumonia, connective tissue disease associated ILD etc.
Her CAT scan was not compatible with usual interstitial pneumonia.
Less likely pulmonary edema. Most recent echocardiogram from 08/2022 with normal LVEF.
Less likely diffuse alveolar hemorrhage given stable hgb and no hemoptysis; DDx also includes CEP, organizing pneumonia, and atypical CHP
Negative influenza, COVID, Legionella and strep pneumonia.
EKG 06/11/2024: Normal sinus rhythm. ST-T wave abnormality consider inferior ischemia.
leukocytosis/fever
Mild hyponatremia - now resolved
Conditions present prior admission:
Interstitial lung disease : Undifferentiated
Formerly seen on CAT scan 07/2022 for the first time. Mild, peripheral, undifferentiated.
History of PE/DVT provoked after foot injury [address] of the chest at that time: No mention of interstitial lung disease.
History of influenza in 2018/2018 With pneumonia.
History of COVID mildly 2021.
History of ankle fracture on the left status post repair 2023.
Plan:
Patient remains on high flow nasal cannula -titrate FiO2 as tolerated to keep SpO2 >90%; would trial midflow nasal cannula today while she is at rest to see if she tolerates this
Incentive spirometry encouraged
Out of bed if able-reviewed with physical therapy
Mucus clearing devices as needed
Aspiration precautions
DuoNebs QID - currently not bronchospastic
Chest x-ray 06/23/2024-no change in severe bilateral airspace and interstitial abnormalities
Antitussives as needed
Ideally would undergo bronchoscopy with BAL and biopsies-respiratory status 'too tenuous' and risks outweigh benefits at this point
Discussed with patient to see if saturations improved in the prone position or even in the right or left lateral decubitus position-states she cannot sleep or lie on her stomach
Low threshold to intubate
CTA chest from 06/12/2024 demonstrated severely diffuse groundglass opacities without pleural effusions but has mildly increased mediastinal lymph nodes. No pericardial effusion.
This is most consistent with NSIP, progressed compared to CT in 2022
KIERRA IgG positive but with low titer (<1:80); antinuclear Ab and cytoplasmic Ab negative by IFA; c3, c4 wnl
CCP antibody positive (moderately positive), CRP positive -- Suspect inflammatory process
Methylprednisolone 1 g every 24 hours-pulse steroids-initiated 06/20/2024-finish a 5-day pulse and then convert to prednisone 1 mg/kg daily-prednisone 40 mg twice daily
Rheumatology consulted --> pt would benefit from additional immunosuppressants like cellcept vs rituxin or azathrioprine
Rheumatologic serology reviewed
DOREEN-[address] chest rechecked on 07/02/2024 showing improvement in groundglass opacities, particularly in the right upper lobe. Still having groundglass opacifications with interval progression in the lower lobes.
Echo with bubble study checked on 07/01/2024 showed preserved LVEF of 50-55% with normal RV size and function, trace MR, mild pulmonary hypertension with PASP 30-35 mmHg, with negative bubble study and show pericardial effusion
Completed course of antibiotics--CFP/Vanc/Doxy/azithro (06/11-06/16)
Sputum culture usual respiratory francis
Cultures and viral panel negative
Continue prn gabapentin at night for her reported [id number] in her feet/nerve pain; hold for sedation
DVT prophylaxis-Enoxaparin
GI prophylaxis: famotidine twice daily-plan to continue at discharge given ILD
If she were to need medical decision maker, it would be her daughter Kay Chau.
Patient is awaiting transfer to tertiary care center at [place]. I agree with this given that they have a rheumatology service and it is also a transplant center. Likely her oxygen requirements are holding hence no need currently for ECMO. Would be
interested to see how she recovers once additional immunosuppressants, listed above, are introduced. Patient is awaiting a bed.
Will need outpatient follow up with pulmonary- new pt appt scheduled with Dr. Del Valle in Jul 2024, likely will need to adjust timing
Will need outpatient follow up with rheumatology
Diagnostic Data
CXR 06/23/24- 1. Severe bilateral airspace and interstitial disease in the lungs without definitive change from 06/11/2024. Diagnostic possibilities are (1) a SEVERE ACUTE on CHRONIC INFLAMMATORY PNEUMONITIS, (2) less likely pneumonia given the lack
of interval change, or (3) less likely pulmonary edema.
2. SEVERE MEDIASTINAL LYMPHADENOPATHY. Diagnostic possibilities are (1) sarcoidosis or (2) malignancy (lymphoma or metastatic disease).
3. Mildly decreased bilateral lung volumes.
Chest x-ray 2020: Mild diffuse interstitial thickening left greater than right possible ILD/fibrosis
CT chest 12/26/24-2. Extensive bilateral groundglass opacities, superimposed upon subpleural reticulation/fibrosis seen on the prior CT. No significant pleural effusions. There is also mediastinal and hilar lymphadenopathy, which is new compared
to the prior examination. Findings are nonspecific and could represent acute exacerbation or worsening of patient's interstitial lung disease with infectious or inflammatory process also a consideration.
CT chest 08/15/2022: Mild changes of pulmonary fibrosis, nonspecific pattern, pleural-based. Findings are new compared to prior study. Left lower lobe 4 mm nodule. Benign etiology.
Possible pericardial cyst 2.8 X1.8X 1.1 cm present in [address] chest 2016: Reviewed, bilateral lower lobe filling defects compatible with pulmonary embolism. Lower lobe subsegmental atelectasis. No focal abnormalities noted at that time.
Small pericardial cyst
Echocardiogram 08/16/2022: Showed normal LVEF. No regional wall motion abnormalities. Ejection fraction 60 to 65%. Normal right ventricular size and function. No significant valvular disease.
Echo 07/01/2024:
Normal left ventricular size, wall thickness and systolic function. No regional
wall motion abnormalities are seen. LV ejection fraction is 50-55 % by visual
assessment. Normal diastolic function.
Normal right ventricular size and function.
Trace mitral regurgitation.
Structurally normal aortic valve without significant stenosis or regurgitation.
Mild tricuspid regurgitation. Estimated pulmonary artery pressure of 30-35
mmHg. Assuming a right atrial pressure of 3 mmHg.
Interatrial septum is intact with no evidence of shunting by color flow Doppler
or by agitata saline (negative bubble study).
Trivial pericardial effusion.
Compared to prior study 08/16/2022 ejection fraction previously 60 to 65% now 50
to 55% visually. Trivial pericardial effusion
Total time spent today was 38 minutes for this encounter. Time includes reviewing laboratory test/imaging results, reviewing pertinent medical records, obtaining and reviewing medical history, performing an appropriate exam, ordering medications,
tests and procedures. Time also includes documentation of this encounter, coordinating patient care and communicating with other healthcare professionals. Total time does not include separately billed tests performed on this date of service.
Subjective Data
-
Date of Service:
Date of Service: July 03, 2024
Chief Complaint: Pulmonary Follow Up and Dyspnea Follow Up
Subjective:
Patient was seen and evaluated this morning. Sitting in chair in no acute distress on high flow nasal cannula at 60% FiO2, 55 L/min. She says she feels better today. Still short of breath when she exerts herself but she says it is slowly
improving. Denies a cough, PASCUAL, abdominal pain, nausea, fevers or chills. CT chest obtained yesterday shows improving bilateral groundglass opacities.
Review of Systems
General: Other (Negative unless mentioned above)
Objective Data
Data Reviewed
Vital Signs / I&O / Oxygen:
Vital Signs
Temp Pulse Resp BP Pulse Ox
97.9 F 82 27 98/72 95
07/03/24 07:40 07/03/24 04:00 07/03/24 04:00 07/03/24 02:14 07/03/24 04:00
Intake and Output
07/02/24 07/03/24 07/04/24
06:59 06:59 06:59
Intake Total 1050 / 1050
Output Total 1949 850 / 850
Balance -1949 -1949 200 / 200
SaO2 95
Nasal Cannula flow liters per 55
minute
Physical Exam
General: Respiratory Distress (negative), Comfortable (at rest), Chills (negative) and Sweats (negative)
HEENT: Normocephalic and Anicteric
Cardiovascular: S1-S2, Rub (negative) and Peripheral Edema (negative)
Respiratory: Wheeze (negative), Crackles (bilateral (bases to middle lung shahid mainly)), Rhonchi (negative), Non-Labored Respirations and Stridor (negative)
GI: Soft, Non Distended, Non Tender and Normal Bowel Sounds
Neurology: AO x 3 and Tremors (negative)
Skin: Warm, Dry, Cyanosis (negative) and Jaundice (negative)
Labs/Micro/Reports
Lab Data
07/03/24 05:41
07/03/24 05:41
--- NOTE | 2024-07-03 09:11 | CM ---
Patient with Hx ILD/interstitial lung disease. High flow O2. CT Chest yesterday. PT/OT recommend acute rehab.
CM continuing to follow.
Plan transfer to [facility] when bed available.
[2024-07-03] MEDS: MUCINEX 1200 MG PO ×2 (09:14→19:56)
[2024-07-03] MEDS: PEPCID 20 MG PO ×2 (09:14→19:56)
[2024-07-03] MEDS: DELTASONE 40 MG PO ×2 (09:14→19:56)
[2024-07-03] MEDS: MIRALAX 17 GRAMS PO (09:15)
[2024-07-03] MEDS: TESSALON PERLES PO (09:15)
--- NOTE | 2024-07-03 10:13 | PTCARENOTE ---
Patient AAOx3, only complaint currently is of new intermittent b/l lower extremity pain that started 2 nights ago, described as 'excruciating burning of joints that travels from toes up to knees,' will discuss with MD on rounds. Patient tolerating
hiflo, using NRB when SHORE. VSS. Awaiting bed at [facility]. Will closely monitor.
--- NOTE | 2024-07-03 14:32 | W.PN.HOSP.TC ---
Today's Communication/Plan
-
Gabapentin 300 nightly
Morphine IV as needed
Await transfer to [place]
Goal euvolemic to slightly net negative; -500cc to last for hours
Assessment / Plan
Assessment / Plan
#Acute hypoxic respiratory failure 2/2 CAP with ILD flare/pneumonitis
-CXR: Chronic interstitial lung disease/fibrosis, progressed. Possible superimposed left-sided pneumonia.
- Patient completed Cefepime/Doxycycline 5 days; MRSA neg
-Cont O2 support, on high flow NC (55L @ 55% FiO2); wean as tolerated; goal o2>88%
- Wean O2 when able, pt not on home O2
-Received 5 days of pulse dose steroids; upon completion transitioned to oral prednisone 40mg BID on 06/25; continued.
-Follow rheumatology recs at [place] including initiation of CellCept or Methotrexate
-Echo with bubble study was negative for shunt, and there is preserved LVEF and normal RV size and Fx
-Improved GGO particularly in the right upper lobe seen on CT chest from 07/02/2024
-Cont Duonebs ATC and PRN, Tessalon ATC, Mucinex
-Pulmonary on board
-Incentive [place]land
-IV Lasix as needed prn - 40mg IV last given 06/30; goal euvolemia to slight net negative
-PT/OT as tolerated: continue to increase OOB with PT/OT as able
#Leukocytosis
-on steroids; monitor WBC
#Concern for Rheumatoid arthritis with RA Interstitial lung disease�
KIERRA positive, antiCCP positive
steroids as above
� Follow-up serologies of myositis, scleroderma, sarcoidosis, cryoglobulin, immunoglobulin
Rheum recs
-s/p pulse dose steroids
#Mild hyponatremia due to above, SIADH
-fwr, monitor
#Transaminitis
� Closely monitor, improving
� No abdominal tenderness
- Hepatitis B/C neg
- HIV neg
#LE peripheral neurpathy
-probably with continued steroids
-trial gabapentin 300mg qhs
-morphine iv prn
DVT ppx: Lovenox SQ
Full Code
More than 30 minutes spent in discharge including
Final examination of the patient
Summarizing hospital stay
Instructions for continuing care to all relevant caregivers
Preparation of discharge records, prescriptions, and referral forms
Total time spent (37 in minutes):
Anticipated Discharge: Today
Subjective/Interval History
-
Date of Service: July 03, 2024
net neg 500 in 24 hours
Objective Data
-
Labs:
Laboratory Results
07/03/24
05:41
WBC 12.3 H
Hgb 12.0
Hct 35.4 L
Plt Count 132
Sodium 131 L
Potassium 4.9
Chloride 95 L
Carbon Dioxide 31 H
BUN 24 H
Creatinine 0.6
Glucose 144 H
Calcium 8.6
Total Bilirubin 0.7
AST 21
ALT 48 H
Alkaline Phosphatase 74
Vital Signs:
Vital Signs
Temp Pulse Resp BP Pulse Ox
98.3 F 100 20 91/59 93
07/03/24 11:44 07/03/24 11:05 07/03/24 11:05 07/03/24 09:22 07/03/24 11:16
I&O
07/02/24 07/03/24 07/04/24
06:59 06:59 06:59
Intake Total 1050 / 1050
Output Total 1949 850 / 850 700 / 700
Balance -1949 / -1949 200 / 200 -700 / -700
Review of Systems
-
History Source: Patient
All other systems: Not reviewed unless documented
Physical Exam
-
General: Well Developed, Well Nourished and No Apparent Distress
HEENT: Normocephalic, Atraumatic and Oxygen (HI KASI O2)
Respiratory: Crackles (coarse velcro like crackles)
Cardiac: Regular Rhythm and S1/S2; Negative Murmur
GI: Soft, Nontender, Nondistended and Normal Bowel Sounds
Musculoskeletal: No Clubbing, No Cyanosis and No Edema
Skin: Warm
Neuro: Awake
Psych: Calm
Data Reviewed
-
CT Scan: Report Reviewed by me
Labs: Labs Reviewed by me
[2024-07-03] MEDS: LOVENOX 40 MG SC (18:16)
[2024-07-03] MEDS: NEURONTIN 300 MG PO (18:16)
[2024-07-03] MEDS: MELATONIN 5 MG PO (19:56)
[2024-07-03] MEDS: PHENERGAN WITH CODEINE SYRUP 5 ML PO (19:57)
[2024-07-03] MEDS: XANAX 0.25 MG PO (19:57)
[2024-07-04] VITALS (8 sets, daily range): BP systolic 86–110; BP diastolic 58–87
--- NOTE | 2024-07-04 00:28 | PTCARENOTE ---
Patient Aox3. NSR on monitor. HRNC 50L 60% tolerating well. prn rebreather. Leg pain has been controlled this shift, no complains thus for for this RN. Using bed grijalva without issues. Patient resting in bed with call martinez in reach.
[2024-07-04] MEDS: PHENERGAN WITH CODEINE SYRUP 5 ML PO ×2 (03:05→21:39)
[2024-07-04] MEDS: SYNTHROID 137 MCG PO (04:55)
[2024-07-04 05:29] LABS: Hemoglobin 11.4 g/dL (12.0-16.0); Mean Corp Hgb Conc. 34.5 g/dL (33.0-37.0); Mean Corpuscular Hgb 32.9 pg (27.0-31.0); Mean Corpuscular Volume 95.1 fL (81.0-99.0); Mean Platelet Volume 9.3 fL (7.4-10.4); Platelet Count 114 10^3/uL (130-400); Red Blood Cell Count 3.47 10^6/uL (4.20-5.40); Red Cell Dist. Width 14.4 % (11.5-14.5); White Blood Cell Count 10.6 10^3/uL (4.8-10.8)
[2024-07-04 05:52] LABS: ALT (SGPT) 76 U/L (0-35); AST (SGOT) 26 U/L (14-36); Albumin 3.1 g/dl (3.5-5.0); Alkaline Phosphatase 75 U/L (38-126); Blood Urea Nitrogen 19 mg/dl (7-17); Calcium 8.2 mg/dl (8.4-10.2); Carbon Dioxide 28 mmol/L (22-30); Chloride 99 mmol/L (98-107); Estimated Creatinine Clearance 97 ml/min; Glucose 157 mg/dl (70-99); Magnesium 2.5 mg/dl (1.6-2.3); Phosphorus 4.2 mg/dl (2.5-4.5); Potassium 4.8 mmol/L (3.5-5.1); Sodium 133 mmol/L (135-145); Total Bilirubin 0.7 mg/dl (0.2-1.3); Total Protein 5.6 g/dl (6.3-8.2); eGFR > 60.00
[2024-07-04] MEDS: DUONEB 3 ML INH ×4 (08:18→19:22)
[2024-07-04] MEDS: DELTASONE 40 MG PO ×2 (09:31→20:55)
[2024-07-04] MEDS: MUCINEX 1200 MG PO ×2 (09:31→20:55)
[2024-07-04] MEDS: PEPCID 20 MG PO ×2 (09:32→20:55)
[2024-07-04] MEDS: MIRALAX 17 GRAMS PO (09:32)
--- NOTE | 2024-07-04 09:36 | W.PN.PUL3 ---
Today's Communication / Plan
-
Weaned off high flow this AM onto midflow at 15L/min - she is tolerating this well which is encouraging
Steroids remain with prednisone 40 mg BID - would keep at this dose for now and not lower
Echo with bubble study was negative for shunt, and there is preserved LVEF and normal RV size and Fx
Improved GGO particularly in the right upper lobe seen on CT chest from 07/02/2024
She is now agreeable to transfer to [place] --> awaiting bed
Low threshold to intubate if she deteriorates - I believe that she is out of this danger zone, but there is variability of her O2 requirements from day-to-day
PT/OT
prn gabapentin with sleep for 'nerve pain'
Assessment
-
64-year-old woman with distant past medical history of provoked pulmonary embolism, interstitial lung disease which is mild on CAT scan 07/2022 undifferentiated, has not been seen by pulmonary despite being recommended last year. Comes to the
hospital complaining of progressive shortness of breath, cough, hypoxemia. X-ray with significant bilateral infiltrates. Follow-up CT demonstrated severely diffuse groundglass opacities. Progressive hypoxemic respiratory failure up to 10 L.
Impression:
Severe acute hypoxemic respiratory failure currently on high-flow nasal cannula
CTA chest 06/12/2024: Diffuse groundglass opacity bilaterally. No pleural effusion. Negative for acute PE.
Differential diagnosis include infectious such as community-acquired pneumonia viral/bacterial-cannot rule out interstitial lung disease acute flare-broad differential diagnosis.
With significantly increased CRP and sedimentation rate suspect more inflammatory such as nonspecific interstitial pneumonia, connective tissue disease associated ILD etc.
Her CAT scan was not compatible with usual interstitial pneumonia.
Less likely pulmonary edema. Most recent echocardiogram from 08/2022 with normal LVEF.
Less likely diffuse alveolar hemorrhage given stable hgb and no hemoptysis; DDx also includes CEP, organizing pneumonia, and atypical CHP
Negative influenza, COVID, Legionella and strep pneumonia.
EKG 06/11/2024: Normal sinus rhythm. ST-T wave abnormality consider inferior ischemia.
leukocytosis/fever
Mild hyponatremia - now resolved
Conditions present prior admission:
Interstitial lung disease : Undifferentiated
Formerly seen on CAT scan 07/2022 for the first time. Mild, peripheral, undifferentiated.
History of PE/DVT provoked after foot injury [address] of the chest at that time: No mention of interstitial lung disease.
History of influenza in With pneumonia.
History of COVID mildly 2021.
History of ankle fracture on the left status post repair 2023.
Plan:
Patient transitioned off high flow nasal cannula onto midflow nasal cannula today, and is tolerating this well with SpO2 >95%. Continue to wean down O2 flow rate while keeping SpO2 >90-94%
Incentive spirometry encouraged
Out of bed if able-reviewed with physical therapy
Mucus clearing devices as needed
Aspiration precautions
DuoNebs QID - currently not bronchospastic
Chest x-ray 06/23/2024-no change in severe bilateral airspace and interstitial abnormalities
Antitussives as needed
Ideally would undergo bronchoscopy with BAL and biopsies-respiratory status 'too tenuous' and risks outweigh benefits at this point
Discussed with patient to see if saturations improved in the prone position or even in the right or left lateral decubitus position-states she cannot sleep or lie on her stomach
CTA chest from 06/12/2024 demonstrated severely diffuse groundglass opacities without pleural effusions but has mildly increased mediastinal lymph nodes. No pericardial effusion.
This is most consistent with NSIP, progressed compared to CT in 2022
KIERRA IgG positive but with low titer (<1:80); antinuclear Ab and cytoplasmic Ab negative by IFA; c3, c4 wnl
CCP antibody positive (moderately positive), CRP positive -- Suspect inflammatory process
Methylprednisolone 1 g every 24 hours-pulse steroids-initiated 06/20/2024-finish a 5-day pulse and then convert to prednisone 1 mg/kg daily-prednisone 40 mg twice daily
Rheumatology consulted --> pt would benefit from additional immunosuppressants like cellcept vs rituxin or azathrioprine
Rheumatologic serology reviewed
DOREEN-[address] chest rechecked on 07/02/2024 showing improvement in groundglass opacities, particularly in the right upper lobe. Still having groundglass opacifications with interval progression in the lower lobes.
Echo with bubble study checked on 07/01/2024 showed preserved LVEF of 50-55% with normal RV size and function, trace MR, mild pulmonary hypertension with PASP 30-35 mmHg, with negative bubble study and show pericardial effusion
Completed course of antibiotics--CFP/Vanc/Doxy/azithro (06/11-06/16)
Sputum culture usual respiratory francis
Cultures and viral panel negative
Continue prn gabapentin at night for her reported [id number] in her feet/nerve pain; hold for sedation
DVT prophylaxis-Enoxaparin
GI prophylaxis: famotidine twice daily-plan to continue at discharge given ILD
If she were to need medical decision maker, it would be her daughter Kay Chau.
Patient is awaiting transfer to tertiary care center at [place]. I agree with this given that they have a rheumatology service and it is also a transplant center. Likely her oxygen requirements are holding hence no need currently for ECMO. Would be
interested to see how she recovers once additional immunosuppressants, listed above, are introduced. Patient is awaiting a bed.
Will need outpatient follow up with pulmonary- new pt appt scheduled with Dr. Del Valle in Jul 2024, likely will need to adjust timing
Will need outpatient follow up with rheumatology
Diagnostic Data
CXR 06/23/24- 1. Severe bilateral airspace and interstitial disease in the lungs without definitive change from 06/11/2024. Diagnostic possibilities are (1) a SEVERE ACUTE on CHRONIC INFLAMMATORY PNEUMONITIS, (2) less likely pneumonia given the lack
of interval change, or (3) less likely pulmonary edema.
2. SEVERE MEDIASTINAL LYMPHADENOPATHY. Diagnostic possibilities are (1) sarcoidosis or (2) malignancy (lymphoma or metastatic disease).
3. Mildly decreased bilateral lung volumes.
Chest x-ray 2020: Mild diffuse interstitial thickening left greater than right possible ILD/fibrosis
CT chest 06/12/24-2. Extensive bilateral groundglass opacities, superimposed upon subpleural reticulation/fibrosis seen on the prior CT. No significant pleural effusions. There is also mediastinal and hilar lymphadenopathy, which is new compared
to the prior examination. Findings are nonspecific and could represent acute exacerbation or worsening of patient's interstitial lung disease with infectious or inflammatory process also a consideration.
CT chest 08/15/2022: Mild changes of pulmonary fibrosis, nonspecific pattern, pleural-based. Findings are new compared to prior study. Left lower lobe 4 mm nodule. Benign etiology.
Possible pericardial cyst 2.8 X1.8X 1.1 cm present in [address] chest 2016: Reviewed, bilateral lower lobe filling defects compatible with pulmonary embolism. Lower lobe subsegmental atelectasis. No focal abnormalities noted at that time.
Small pericardial cyst
Echocardiogram 08/16/2022: Showed normal LVEF. No regional wall motion abnormalities. Ejection fraction 60 to 65%. Normal right ventricular size and function. No significant valvular disease.
Echo 07/01/2024:
Normal left ventricular size, wall thickness and systolic function. No regional
wall motion abnormalities are seen. LV ejection fraction is 50-55 % by visual
assessment. Normal diastolic function.
Normal right ventricular size and function.
Trace mitral regurgitation.
Structurally normal aortic valve without significant stenosis or regurgitation.
Mild tricuspid regurgitation. Estimated pulmonary artery pressure of 30-35
mmHg. Assuming a right atrial pressure of 3 mmHg.
Interatrial septum is intact with no evidence of shunting by color flow Doppler
or by agitata saline (negative bubble study).
Trivial pericardial effusion.
Compared to prior study 08/16/2022 ejection fraction previously 60 to 65% now 50
to 55% visually. Trivial pericardial effusion
Total time spent today was 41 minutes for this encounter. Time includes reviewing laboratory test/imaging results, reviewing pertinent medical records, obtaining and reviewing medical history, performing an appropriate exam, ordering medications,
tests and procedures. Time also includes documentation of this encounter, coordinating patient care and communicating with other healthcare professionals. Total time does not include separately billed tests performed on this date of service.
Subjective Data
-
Date of Service:
Date of Service: July 04, 2024
Chief Complaint: Pulmonary Follow Up and Dyspnea Follow Up
Subjective:
Pt seen today, and was weaned off high flow onto midflow 15L/min and was saturating 98%. She says she feels well, denies SOB at rest. HR 103. She denies chest pain, PASCUAL, abd pain, N/V/f/c.
Review of Systems
General: Other (negative unless mentioned above)
Objective Data
Data Reviewed
Vital Signs / I&O / Oxygen:
Vital Signs
Temp Pulse Resp BP Pulse Ox
97.5 F 76 28 102/87 96
07/04/24 07:19 07/04/24 08:20 07/04/24 08:20 07/04/24 03:06 07/04/24 09:22
Intake and Output
07/03/24 07/04/24 07/05/24
06:59 06:59 06:59
Intake Total 1050 / 1050
Output Total 850 / 850 1550 / 1550
Balance 200 / 200 -1550 / -1550
SaO2 96
Nasal Cannula flow liters per 50
minute
Physical Exam
General: Respiratory Distress (negative), Comfortable (at rest), Chills (negative) and Sweats (negative)
HEENT: Normocephalic and Anicteric
Cardiovascular: S1-S2, Rub (negative) and Peripheral Edema (negative)
Respiratory: Wheeze (negative), Crackles (bilateral (bases to middle lung shahid mainly)), Rhonchi (negative), Non-Labored Respirations and Stridor (negative)
GI: Soft, Non Distended, Non Tender and Normal Bowel Sounds
Neurology: AO x 3 and Tremors (negative)
Skin: Warm, Dry, Cyanosis (negative) and Jaundice (negative)
Labs/Micro/Reports
Lab Data
07/04/24 05:01
07/04/24 05:01
[2024-07-04] MEDS: MORPHINE SULFATE 2 MG IV (12:27)
--- NOTE | 2024-07-04 16:05 | W.PN.HOSP.TC ---
Today's Communication/Plan
-
attempt wean to midflow
Assessment / Plan
Assessment / Plan
#Acute hypoxic respiratory failure 2/2 CAP with ILD flare/pneumonitis
-CXR: Chronic interstitial lung disease/fibrosis, progressed. Possible superimposed left-sided pneumonia.
- Patient completed Cefepime/Doxycycline 5 days; MRSA neg
-Cont O2 support, attempted Mid Flow; wean as tolerated; goal o2>88%
- Wean O2 when able, pt not on home O2
-Received 5 days of pulse dose steroids; upon completion transitioned to oral prednisone 40mg BID on 06/25; continued.
-Follow rheumatology recs at [place] including initiation of CellCept or Methotrexate
-Echo with bubble study was negative for shunt, and there is preserved LVEF and normal RV size and Fx
-Improved GGO particularly in the right upper lobe seen on CT chest from 07/02/2024
-Cont Duonebs ATC and PRN, Tessalon ATC, Mucinex
-Pulmonary on board
-Incentive Stamps
-IV Lasix as needed prn - 40mg IV last given 06/30; goal euvolemia to slight net negative
-PT/OT as tolerated: continue to increase OOB with PT/OT as able
#Leukocytosis
-on steroids; monitor WBC
#Concern for Rheumatoid arthritis with RA Interstitial lung disease�
KIERRA positive, antiCCP positive
steroids as above
� Follow-up serologies of myositis, scleroderma, sarcoidosis, cryoglobulin, immunoglobulin
Rheum recs
-s/p pulse dose steroids
#Mild hyponatremia due to above, SIADH
-fwr, monitor
#Transaminitis
� Closely monitor, improving
� No abdominal tenderness
- Hepatitis B/C neg
- HIV neg
#LE peripheral neurpathy
-probably with continued steroids
-trial gabapentin 300mg qhs
-morphine iv prn
DVT ppx: Lovenox SQ
Full Code
More than 30 minutes spent in discharge including
Final examination of the patient
Summarizing hospital stay
Instructions for continuing care to all relevant caregivers
Preparation of discharge records, prescriptions, and referral forms
Total time spent (37 in minutes):
Anticipated Discharge: Today
Subjective/Interval History
-
Date of Service: July 04, 2024
No acute vents overnight
Objective Data
-
Labs:
Laboratory Results
07/04/24
05:01
WBC 10.6
Hgb 11.4 L
Hct 33.0 L
Plt Count 114 L
Sodium 133 L
Potassium 4.8
Chloride 99
Carbon Dioxide 28
BUN 19 H
Creatinine 0.5 L
Glucose 157 H
Calcium 8.2 L
Total Bilirubin 0.7
AST 26
ALT 76 H
Alkaline Phosphatase 75
Vital Signs:
Vital Signs
Temp Pulse Resp BP Pulse Ox
97.9 F 86 26 109/80 95
07/04/24 11:27 07/04/24 14:59 07/04/24 14:59 07/04/24 10:54 07/04/24 15:06
I&O
07/03/24 07/04/24 07/05/24
06:59 06:59 06:59
Intake Total 1050 / 1050
Output Total 850 / 850 1550 / 1550
Balance 200 / 200 -1550 / -1550
Review of Systems
-
History Source: Patient
All other systems: Not reviewed unless documented
Data Reviewed
-
CT Scan: Report Reviewed by me
Labs: Labs Reviewed by me
--- NOTE | 2024-07-04 18:19 | PTCARENOTE ---
see nursing assessment. pt weaned down to 10 liters midflow oxygen with prn nonrebreather. did not want to get oob this afternoon because she felt anxious about how it would affect breathing. morphine 2 mg given x 1 for back pain rated 6, with
adequate pain relief. incentive curtis encouraged.
[2024-07-04] MEDS: LOVENOX 40 MG SC (19:08)
[2024-07-04] MEDS: NEURONTIN 300 MG PO (21:39)
[2024-07-04] MEDS: MELATONIN 5 MG PO (21:39)
[2024-07-04] MEDS: XANAX 0.25 MG PO (21:39)
[2024-07-05] VITALS (10 sets, daily range): BP systolic 86–135; BP diastolic 60–94
[2024-07-05] MEDS: SYNTHROID 137 MCG PO (04:42)
[2024-07-05 04:46] LABS: Hematocrit 33.5 % (37.0-47.0); Hemoglobin 11.5 g/dL (12.0-16.0); Mean Corp Hgb Conc. 34.3 g/dL (33.0-37.0); Mean Corpuscular Hgb 33.6 pg (27.0-31.0); Mean Platelet Volume 9.8 fL (7.4-10.4); Platelet Count 125 10^3/uL (130-400); Red Blood Cell Count 3.42 10^6/uL (4.20-5.40); Red Cell Dist. Width 14.7 % (11.5-14.5); White Blood Cell Count 11.6 10^3/uL (4.8-10.8)
[2024-07-05 05:10] LABS: ALT (SGPT) 98 U/L (0-35); AST (SGOT) 33 U/L (14-36); Albumin 3.2 g/dl (3.5-5.0); Alkaline Phosphatase 72 U/L (38-126); Blood Urea Nitrogen 19 mg/dl (7-17); Calcium 7.8 mg/dl (8.4-10.2); Carbon Dioxide 31 mmol/L (22-30); Chloride 99 mmol/L (98-107); Estimated Creatinine Clearance 97 ml/min; Glucose 168 mg/dl (70-99); Potassium 4.6 mmol/L (3.5-5.1); Sodium 134 mmol/L (135-145); Total Bilirubin 0.8 mg/dl (0.2-1.3); Total Protein 5.7 g/dl (6.3-8.2); eGFR > 60.00
[2024-07-05] MEDS: DUONEB 3 ML INH ×4 (07:35→20:59)
[2024-07-05] MEDS: PEPCID 20 MG PO ×2 (07:52→19:50)
[2024-07-05] MEDS: DELTASONE 40 MG PO ×2 (07:52→19:50)
[2024-07-05] MEDS: MUCINEX 1200 MG PO ×2 (07:52→19:50)
[2024-07-05] MEDS: MIRALAX PO (07:52)
--- NOTE | 2024-07-05 09:55 | W.PN.PUL3 ---
Today's Communication / Plan
-
Weaned off high flow yesterday AM onto midflow at 15L/min - she is tolerating this well which is encouraging; currently on 12L/min
Steroids remain with prednisone 40 mg BID - would keep at this dose for now and not lower
Echo with bubble study was negative for shunt, and there is preserved LVEF and normal RV size and Fx
Improved GGO particularly in the right upper lobe seen on CT chest from 07/02/2024
She is now agreeable to transfer to [facility] --> awaiting bed
Low threshold to intubate if she deteriorates - I believe that she is out of this danger zone, but there is variability of her O2 requirements from day-to-day
PT/OT
prn gabapentin with sleep for 'nerve pain'
Assessment
-
64-year-old woman with distant past medical history of provoked pulmonary embolism, interstitial lung disease which is mild on CAT scan 07/2022 undifferentiated, has not been seen by pulmonary despite being recommended last year. Comes to the
hospital complaining of progressive shortness of breath, cough, hypoxemia. X-ray with significant bilateral infiltrates. Follow-up CT demonstrated severely diffuse groundglass opacities. Progressive hypoxemic respiratory failure up to 10 L.
Impression:
Severe acute hypoxemic respiratory failure currently on high-flow nasal cannula
CTA chest 06/12/2024: Diffuse groundglass opacity bilaterally. No pleural effusion. Negative for acute PE.
Differential diagnosis include infectious such as community-acquired pneumonia viral/bacterial-cannot rule out interstitial lung disease acute flare-broad differential diagnosis.
With significantly increased CRP and sedimentation rate suspect more inflammatory such as nonspecific interstitial pneumonia, connective tissue disease associated ILD etc.
Her CAT scan was not compatible with usual interstitial pneumonia.
Less likely pulmonary edema. Most recent echocardiogram from 08/2022 with normal LVEF.
Less likely diffuse alveolar hemorrhage given stable hgb and no hemoptysis; DDx also includes CEP, organizing pneumonia, and atypical CHP
Negative influenza, COVID, Legionella and strep pneumonia.
EKG 06/11/2024: Normal sinus rhythm. ST-T wave abnormality consider inferior ischemia.
leukocytosis/fever
Mild hyponatremia - now resolved
Conditions present prior admission:
Interstitial lung disease : Undifferentiated
Formerly seen on CAT scan 07/2022 for the first time. Mild, peripheral, undifferentiated.
History of PE/DVT provoked after foot injury [address] of the chest at that time: No mention of interstitial lung disease.
History of influenza in With pneumonia.
History of COVID mildly 2021.
History of ankle fracture on the left status post repair 2023.
Plan:
Patient transitioned off high flow nasal cannula onto midflow nasal cannula on 07/04/2024, and is tolerating this well with SpO2 >95%. Continue to wean down O2 flow rate while keeping SpO2 >90-94%
Incentive spirometry encouraged
Out of bed if able-reviewed with physical therapy
Mucus clearing devices as needed
Aspiration precautions
DuoNebs QID - currently not bronchospastic
Chest x-ray 06/23/2024-no change in severe bilateral airspace and interstitial abnormalities
Antitussives as needed
Ideally would undergo bronchoscopy with BAL and biopsies-respiratory status 'too tenuous' and risks outweigh benefits at this point, and she is continuing to improve
Discussed with patient to see if saturations improved in the prone position or even in the right or left lateral decubitus position-states she cannot sleep or lie on her stomach
CTA chest from 06/12/2024 demonstrated severely diffuse groundglass opacities without pleural effusions but has mildly increased mediastinal lymph nodes. No pericardial effusion.
This is most consistent with NSIP, progressed compared to CT in 2022
KIERRA IgG positive but with low titer (<1:80); antinuclear Ab and cytoplasmic Ab negative by IFA; c3, c4 wnl
CCP antibody positive (moderately positive), CRP positive -- Suspect inflammatory process
Methylprednisolone 1 g every 24 hours-pulse steroids-initiated 06/20/2024-finish a 5-day pulse and then convert to prednisone 1 mg/kg daily-prednisone 40 mg twice daily
Rheumatology consulted --> pt would benefit from additional immunosuppressants like cellcept vs rituxin or azathrioprine
Rheumatologic serology reviewed
DOREEN-[address] chest rechecked on 07/02/2024 showing improvement in groundglass opacities, particularly in the right upper lobe. Still having groundglass opacifications with interval progression in the lower lobes.
Echo with bubble study checked on 07/01/2024 showed preserved LVEF of 50-55% with normal RV size and function, trace MR, mild pulmonary hypertension with PASP 30-35 mmHg, with negative bubble study and show pericardial effusion
Completed course of antibiotics--CFP/Vanc/Doxy/azithro (06/11-06/16)
Sputum culture usual respiratory francis
Cultures and viral panel negative
Continue prn gabapentin at night for her reported [id number] in her feet/nerve pain; hold for sedation
DVT prophylaxis-Enoxaparin
GI prophylaxis: famotidine twice daily-plan to continue at discharge given ILD
If she were to need medical decision maker, it would be her daughter Kay Chau.
Patient is awaiting transfer to tertiary care center at [facility]. I agree with this given that they have a rheumatology service and it is also a transplant center. Likely her oxygen requirements are holding hence no need currently for ECMO. Would be
interested to see how she recovers once additional immunosuppressants, listed above, are introduced. Patient is awaiting a bed.
Will need outpatient follow up with pulmonary- new pt appt scheduled with Dr. Del Valle in Jul 2024, likely will need to adjust timing
Will need outpatient follow up with rheumatology
Diagnostic Data
CXR 06/23/24- 1. Severe bilateral airspace and interstitial disease in the lungs without definitive change from 06/11/2024. Diagnostic possibilities are (1) a SEVERE ACUTE on CHRONIC INFLAMMATORY PNEUMONITIS, (2) less likely pneumonia given the lack
of interval change, or (3) less likely pulmonary edema.
2. SEVERE MEDIASTINAL LYMPHADENOPATHY. Diagnostic possibilities are (1) sarcoidosis or (2) malignancy (lymphoma or metastatic disease).
3. Mildly decreased bilateral lung volumes.
Chest x-ray 2020: Mild diffuse interstitial thickening left greater than right possible ILD/fibrosis
CT chest 06/12/24-2. Extensive bilateral groundglass opacities, superimposed upon subpleural reticulation/fibrosis seen on the prior CT. No significant pleural effusions. There is also mediastinal and hilar lymphadenopathy, which is new compared
to the prior examination. Findings are nonspecific and could represent acute exacerbation or worsening of patient's interstitial lung disease with infectious or inflammatory process also a consideration.
CT chest 08/15/2022: Mild changes of pulmonary fibrosis, nonspecific pattern, pleural-based. Findings are new compared to prior study. Left lower lobe 4 mm nodule. Benign etiology.
Possible pericardial cyst 2.8 X1.8X 1.1 cm present in [address] chest 2016: Reviewed, bilateral lower lobe filling defects compatible with pulmonary embolism. Lower lobe subsegmental atelectasis. No focal abnormalities noted at that time.
Small pericardial cyst
Echocardiogram 08/16/2022: Showed normal LVEF. No regional wall motion abnormalities. Ejection fraction 60 to 65%. Normal right ventricular size and function. No significant valvular disease.
Echo 07/01/2024:
Normal left ventricular size, wall thickness and systolic function. No regional
wall motion abnormalities are seen. LV ejection fraction is 50-55 % by visual
assessment. Normal diastolic function.
Normal right ventricular size and function.
Trace mitral regurgitation.
Structurally normal aortic valve without significant stenosis or regurgitation.
Mild tricuspid regurgitation. Estimated pulmonary artery pressure of 30-35
mmHg. Assuming a right atrial pressure of 3 mmHg.
Interatrial septum is intact with no evidence of shunting by color flow Doppler
or by agitata saline (negative bubble study).
Trivial pericardial effusion.
Compared to prior study 08/16/2022 ejection fraction previously 60 to 65% now 50
to 55% visually. Trivial pericardial effusion
Total time spent today was 37 minutes for this encounter. Time includes reviewing laboratory test/imaging results, reviewing pertinent medical records, obtaining and reviewing medical history, performing an appropriate exam, ordering medications,
tests and procedures. Time also includes documentation of this encounter, coordinating patient care and communicating with other healthcare professionals. Total time does not include separately billed tests performed on this date of service.
Subjective Data
-
Date of Service:
Date of Service: July 05, 2024
Chief Complaint: Pulmonary Follow Up and Dyspnea Follow Up
Subjective:
Patient seen and evaluated this morning � late note entry. She is doing well, tolerating mid flow nasal cannula at 12 L/min. She is saturating 94%. Still occasionally using the nonrebreather when she exerts herself as she does become short of
breath with activity. Heart rate 100 and BP 135/79. She has mild throat irritation. Denies chest pain, PASCUAL, nausea, fevers or chills.
Review of Systems
General: Other (Negative unless mentioned above)
Objective Data
Data Reviewed
Vital Signs / I&O / Oxygen:
Vital Signs
Temp Pulse Resp BP Pulse Ox
97.4 F 97 36 109/72 93
07/05/24 07:05 07/05/24 08:00 07/05/24 08:00 07/05/24 08:00 07/05/24 08:00
Intake and Output
07/04/24 07/05/24 07/06/24
06:59 06:59 06:59
Intake Total 2030 / 2030
Output Total 1550 / 1550 500 / 500
Balance -1550 / -1550 1530 / 1530
SaO2 93
Nasal Cannula flow liters per 9
minute
Physical Exam
General: Respiratory Distress (negative), Comfortable (at rest), Chills (negative) and Sweats (negative)
HEENT: Normocephalic and Anicteric
Cardiovascular: S1-S2, Rub (negative) and Peripheral Edema (negative)
Respiratory: Wheeze (negative), Crackles (bilateral (bases to middle lung shahid mainly)), Rhonchi (negative), Non-Labored Respirations and Stridor (negative)
GI: Soft, Non Distended, Non Tender and Normal Bowel Sounds
Neurology: AO x 3 and Tremors (negative)
Skin: Warm, Dry, Cyanosis (negative) and Jaundice (negative)
Labs/Micro/Reports
Lab Data
07/05/24 04:26
07/05/24 04:26
[2024-07-05] MEDS: XANAX 0.25 MG PO ×2 (11:49→20:22)
--- NOTE | 2024-07-05 14:09 | W.PN.HOSP.TC ---
Today's Communication/Plan
-
tolerating midflow - cont to wean
oob to chair
cont steroids
Assessment / Plan
Assessment / Plan
#Acute hypoxic respiratory failure 2/2 CAP with ILD flare/pneumonitis
-CXR: Chronic interstitial lung disease/fibrosis, progressed. Possible superimposed left-sided pneumonia.
- Patient completed Cefepime/Doxycycline 5 days; MRSA neg
-Cont O2 support, attempted Mid Flow; wean as tolerated; goal o2>88%
- Wean O2 when able, pt not on home O2
-Received 5 days of pulse dose steroids; upon completion transitioned to oral prednisone 40mg BID on 06/25; continued.
-Follow rheumatology recs at [facility] including initiation of CellCept or Methotrexate
-Echo with bubble study was negative for shunt, and there is preserved LVEF and normal RV size and Fx
-Improved GGO particularly in the right upper lobe seen on CT chest from 07/02/2024
-Cont Duonebs ATC and PRN, Tessalon ATC, Mucinex
-Pulmonary on board
-Incentive Valdemar
-IV Lasix as needed prn - 40mg IV last given 06/30; goal euvolemia to slight net negative
-PT/OT as tolerated: continue to increase OOB with PT/OT as able
#Leukocytosis
-on steroids; monitor WBC
#Concern for Rheumatoid arthritis with RA Interstitial lung disease�
KIERRA positive, antiCCP positive
steroids as above
� Follow-up serologies of myositis, scleroderma, sarcoidosis, cryoglobulin, immunoglobulin
Rheum recs
-s/p pulse dose steroids
#Mild hyponatremia due to above, SIADH
-fwr, monitor
#Transaminitis
� Closely monitor, improving
� No abdominal tenderness
- Hepatitis B/C neg
- HIV neg
#LE peripheral neurpathy
-probably with continued steroids
-trial gabapentin 300mg qhs
-morphine iv prn
DVT ppx: Lovenox SQ
Full Code
More than 30 minutes spent in discharge including
Final examination of the patient
Summarizing hospital stay
Instructions for continuing care to all relevant caregivers
Preparation of discharge records, prescriptions, and referral forms
Total time spent (37 in minutes):
Anticipated Discharge: Today
Subjective/Interval History
-
Date of Service: July 05, 2024
Weaning to mid flow, tolerating
Objective Data
-
Labs:
Laboratory Results
07/05/24
04:26
WBC 11.6 H
Hgb 11.5 L
Hct 33.5 L
Plt Count 125 L
Sodium 134 L
Potassium 4.6
Chloride 99
Carbon Dioxide 31 H
BUN 19 H
Creatinine 0.5 L
Glucose 168 H
Calcium 7.8 L
Total Bilirubin 0.8
AST 33
ALT 98 H
Alkaline Phosphatase 72
Vital Signs:
Vital Signs
Temp Pulse Resp BP Pulse Ox
97.5 F 88 18 109/72 99
07/05/24 11:20 07/05/24 11:17 07/05/24 11:17 07/05/24 08:00 07/05/24 11:17
I&O
07/04/24 07/05/24 07/06/24
06:59 06:59 06:59
Intake Total 2029 / 2029
Output Total 1550 / 1550 500 / 500 700 / 700
Balance -1550 / -1550 1530 / 1530 -700 / -700
Review of Systems
-
History Source: Patient
All other systems: Not reviewed unless documented
Data Reviewed
-
CT Scan: Report Reviewed by me
Labs: Labs Reviewed by me
--- NOTE | 2024-07-05 15:55 | PTCARENOTE ---
Rec'd pt this AM. increased to 11 L MF this afternoon as pt reported feeling SOB at 88-90%. Vital signs stable. Pt declined getting OOB today for fear of becoming severely short of breath. Able to manage using bedpan. Uses NRB mask for recovery.
Xanax given for anxiety with relief. Education provided, support provided. RN attempted to return call to [facility] for update call went directly to hold que with no answer.
[2024-07-05] MEDS: LOVENOX 40 MG SC (17:48)
[2024-07-05] MEDS: PHENERGAN WITH CODEINE SYRUP 5 ML PO (19:50)
[2024-07-05] MEDS: MELATONIN 5 MG PO (21:40)
[2024-07-05] MEDS: NEURONTIN 300 MG PO (21:40)
[2024-07-06] VITALS (11 sets, daily range): BP systolic 93–142; BP diastolic 59–92
[2024-07-06] MEDS: PHENERGAN WITH CODEINE SYRUP 5 ML PO ×2 (00:50→23:42)
--- NOTE | 2024-07-06 01:53 | PTCARENOTE ---
Pt. maintained on 11L midflow O2 this shift with pulse ox low 90's. Does desat with any activity in to the high 70's-80's, becomes very SOB, uses NRB for recovery which only takes a minute or two. Lungs coarse with occ. harsh cough present,
Phenergan with codeine effective. Pt. voiding on bedpan to avoid SOB. Pt. currently sleeping.
[2024-07-06] MEDS: SYNTHROID 137 MCG PO (04:33)
[2024-07-06 04:37] LABS: Hematocrit 35.2 % (37.0-47.0); Hemoglobin 11.7 g/dL (12.0-16.0); Mean Corp Hgb Conc. 33.2 g/dL (33.0-37.0); Mean Corpuscular Hgb 32.4 pg (27.0-31.0); Mean Corpuscular Volume 97.5 fL (81.0-99.0); Mean Platelet Volume 9.7 fL (7.4-10.4); Platelet Count 122 10^3/uL (130-400); Red Blood Cell Count 3.61 10^6/uL (4.20-5.40); Red Cell Dist. Width 14.6 % (11.5-14.5); White Blood Cell Count 11.9 10^3/uL (4.8-10.8)
[2024-07-06 05:04] LABS: ALT (SGPT) 90 U/L (0-35); AST (SGOT) 27 U/L (14-36); Albumin 3.3 g/dl (3.5-5.0); Alkaline Phosphatase 82 U/L (38-126); Blood Urea Nitrogen 13 mg/dl (7-17); Carbon Dioxide 32 mmol/L (22-30); Chloride 99 mmol/L (98-107); Estimated Creatinine Clearance 97 ml/min; Glucose 150 mg/dl (70-99); Magnesium 2.6 mg/dl (1.6-2.3); Phosphorus 3.3 mg/dl (2.5-4.5); Sodium 136 mmol/L (135-145); Total Bilirubin 0.7 mg/dl (0.2-1.3); Total Protein 5.8 g/dl (6.3-8.2); eGFR > 60.00
[2024-07-06] MEDS: DUONEB 3 ML INH ×4 (07:23→21:01)
[2024-07-06] MEDS: DELTASONE 40 MG PO ×2 (08:20→20:39)
[2024-07-06] MEDS: PEPCID 20 MG PO ×2 (08:20→20:39)
[2024-07-06] MEDS: MUCINEX 1200 MG PO ×2 (08:20→20:39)
[2024-07-06] MEDS: MIRALAX PO (08:20)
[2024-07-06] MEDS: XANAX 0.25 MG PO ×2 (08:25→23:41)
--- NOTE | 2024-07-06 09:23 | W.PN.PUL3 ---
Today's Communication / Plan
-
Weaned off high flow on 07/04/2024 onto midflow at 15L/min - she is tolerating this well which is encouraging; currently on 15L/min
Steroids remain with prednisone 40 mg BID - would keep at this dose for now and not lower
Echo with bubble study was negative for shunt, and there is preserved LVEF and normal RV size and Fx
Improved GGO particularly in the right upper lobe seen on CT chest from 07/02/2024
She is now agreeable to transfer to [facility] --> awaiting bed
Low threshold to intubate if she deteriorates - I believe that she is out of this danger zone, but there is variability of her O2 requirements from day-to-day
PT/OT
gabapentin with sleep for 'nerve pain'
If O2 requirements continue to improve, she may be able to be discharged and follow-up with [facility] as an outpatient
Assessment
-
64-year-old woman with distant past medical history of provoked pulmonary embolism, interstitial lung disease which is mild on CAT scan 07/2022 undifferentiated, has not been seen by pulmonary despite being recommended last year. Comes to the
hospital complaining of progressive shortness of breath, cough, hypoxemia. X-ray with significant bilateral infiltrates. Follow-up CT demonstrated severely diffuse groundglass opacities. Progressive hypoxemic respiratory failure up to 10 L.
Impression:
Severe acute hypoxemic respiratory failure currently on high-flow nasal cannula
CTA chest 06/12/2024: Diffuse groundglass opacity bilaterally. No pleural effusion. Negative for acute PE.
Differential diagnosis include infectious such as community-acquired pneumonia viral/bacterial-cannot rule out interstitial lung disease acute flare-broad differential diagnosis.
With significantly increased CRP and sedimentation rate suspect more inflammatory such as nonspecific interstitial pneumonia, connective tissue disease associated ILD etc.
Her CAT scan was not compatible with usual interstitial pneumonia.
Less likely pulmonary edema. Most recent echocardiogram from 08/2022 with normal LVEF.
Less likely diffuse alveolar hemorrhage given stable hgb and no hemoptysis; DDx also includes CEP, organizing pneumonia, and atypical CHP
Negative influenza, COVID, Legionella and strep pneumonia.
EKG 06/11/2024: Normal sinus rhythm. ST-T wave abnormality consider inferior ischemia.
leukocytosis/fever
Mild hyponatremia - now resolved
Conditions present prior admission:
Interstitial lung disease : Undifferentiated
Formerly seen on CAT scan 07/2022 for the first time. Mild, peripheral, undifferentiated.
History of PE/DVT provoked after foot injury [address] of the chest at that time: No mention of interstitial lung disease.
History of influenza in 2018/2018 With pneumonia.
History of COVID mildly 2021.
History of ankle fracture on the left status post repair 2023.
Plan:
Patient transitioned off high flow nasal cannula onto midflow nasal cannula on 07/04/2024, and is tolerating this well with SpO2 >95%. Continue to wean down O2 flow rate while keeping SpO2 >90-94%
Incentive spirometry encouraged
Out of bed if able-reviewed with physical therapy
Mucus clearing devices as needed
Aspiration precautions
DuoNebs QID - currently not bronchospastic
Chest x-ray 06/23/2024-no change in severe bilateral airspace and interstitial abnormalities
Antitussives as needed
Ideally would undergo bronchoscopy with BAL and biopsies-respiratory status 'too tenuous' and risks outweigh benefits at this point, and she is continuing to improve
Discussed with patient to see if saturations improved in the prone position or even in the right or left lateral decubitus position-states she cannot sleep or lie on her stomach
CTA chest from 06/12/2024 demonstrated severely diffuse groundglass opacities without pleural effusions but has mildly increased mediastinal lymph nodes. No pericardial effusion.
This is most consistent with NSIP, progressed compared to CT in 2022
KIERRA IgG positive but with low titer (<1:80); antinuclear Ab and cytoplasmic Ab negative by IFA; c3, c4 wnl
CCP antibody positive (moderately positive), CRP positive -- Suspect inflammatory process
Methylprednisolone 1 g every 24 hours-pulse steroids-initiated 06/20/2024-finish a 5-day pulse and then convert to prednisone 1 mg/kg daily-prednisone 40 mg twice daily
Rheumatology consulted --> pt would benefit from additional immunosuppressants like cellcept vs rituxin or azathrioprine
Rheumatologic serology reviewed
DOREEN-[address] chest rechecked on 07/02/2024 showing improvement in groundglass opacities, particularly in the right upper lobe. Still having groundglass opacifications with interval progression in the lower lobes.
Echo with bubble study checked on 07/01/2024 showed preserved LVEF of 50-55% with normal RV size and function, trace MR, mild pulmonary hypertension with PASP 30-35 mmHg, with negative bubble study and show pericardial effusion
Completed course of antibiotics--CFP/Vanc/Doxy/azithro (06/11-06/16)
Sputum culture usual respiratory francis
Cultures and viral panel negative
Continue gabapentin at night for her reported [id number] in her feet/nerve pain; hold for sedation
I will consult PT for her as she will likely need rehab after discharge
DVT prophylaxis-Enoxaparin
GI prophylaxis: famotidine twice daily-plan to continue at discharge given ILD
If she were to need medical decision maker, it would be her daughter Kay Chau.
Patient is awaiting transfer to tertiary care center at [facility]. I agree with this given that they have a rheumatology service and it is also a transplant center. Likely her oxygen requirements are holding hence no need currently for ECMO. Would be
interested to see how she recovers once additional immunosuppressants, listed above, are introduced. Patient is awaiting a bed. If O2 requirements continue to improve then she may be discharged and see [facility] as an
outpatient
Will need outpatient follow up with pulmonary- new pt appt scheduled with Dr. Del Valle in Jul 2024, likely will need to adjust timing
Will need outpatient follow up with rheumatology
Diagnostic Data
CXR 06/23/24- 1. Severe bilateral airspace and interstitial disease in the lungs without definitive change from 06/11/2024. Diagnostic possibilities are (1) a SEVERE ACUTE on CHRONIC INFLAMMATORY PNEUMONITIS, (2) less likely pneumonia given the lack
of interval change, or (3) less likely pulmonary edema.
2. SEVERE MEDIASTINAL LYMPHADENOPATHY. Diagnostic possibilities are (1) sarcoidosis or (2) malignancy (lymphoma or metastatic disease).
3. Mildly decreased bilateral lung volumes.
Chest x-ray 2020: Mild diffuse interstitial thickening left greater than right possible ILD/fibrosis
CT chest 06/12/24-2. Extensive bilateral groundglass opacities, superimposed upon subpleural reticulation/fibrosis seen on the prior CT. No significant pleural effusions. There is also mediastinal and hilar lymphadenopathy, which is new compared
to the prior examination. Findings are nonspecific and could represent acute exacerbation or worsening of patient's interstitial lung disease with infectious or inflammatory process also a consideration.
CT chest 08/15/2022: Mild changes of pulmonary fibrosis, nonspecific pattern, pleural-based. Findings are new compared to prior study. Left lower lobe 4 mm nodule. Benign etiology.
Possible pericardial cyst 2.8 X1.8X 1.1 cm present in [address] chest 2016: Reviewed, bilateral lower lobe filling defects compatible with pulmonary embolism. Lower lobe subsegmental atelectasis. No focal abnormalities noted at that time.
Small pericardial cyst
Echocardiogram 08/16/2022: Showed normal LVEF. No regional wall motion abnormalities. Ejection fraction 60 to 65%. Normal right ventricular size and function. No significant valvular disease.
Echo 07/01/2024:
Normal left ventricular size, wall thickness and systolic function. No regional
wall motion abnormalities are seen. LV ejection fraction is 50-55 % by visual
assessment. Normal diastolic function.
Normal right ventricular size and function.
Trace mitral regurgitation.
Structurally normal aortic valve without significant stenosis or regurgitation.
Mild tricuspid regurgitation. Estimated pulmonary artery pressure of 30-35
mmHg. Assuming a right atrial pressure of 3 mmHg.
Interatrial septum is intact with no evidence of shunting by color flow Doppler
or by agitata saline (negative bubble study).
Trivial pericardial effusion.
Compared to prior study 08/16/2022 ejection fraction previously 60 to 65% now 50
to 55% visually. Trivial pericardial effusion
Total time spent today was 41 minutes for this encounter. Time includes reviewing laboratory test/imaging results, reviewing pertinent medical records, obtaining and reviewing medical history, performing an appropriate exam, ordering medications,
tests and procedures. Time also includes documentation of this encounter, coordinating patient care and communicating with other healthcare professionals. Total time does not include separately billed tests performed on this date of service.
Subjective Data
-
Date of Service:
Date of Service: July 06, 2024
Chief Complaint: Pulmonary Follow Up and Dyspnea Follow Up
Subjective:
Patient seen and evaluated this morning (late note entry). Increased O2 requirements, now on 15 L/min via midflow nasal cannula. She saturating 93%, heart rate 112 and BP 122/78. She says that she wants the O2 to be higher today as she is
watching the [employer] game and will be 'yelling a lot.' She does continue to feel well. Asking about physical therapy as she feels she will need rehab upon discharge. Of note, still awaiting a bed for [facility]. She denies chest pain, PASCUAL, abdominal
pain, nausea, fevers or chills.
Review of Systems
General: Other (Negative unless mentioned above)
Objective Data
Data Reviewed
Vital Signs / I&O / Oxygen:
Vital Signs
Temp Pulse Resp BP Pulse Ox
97.8 F 88 18 142/83 93
07/06/24 03:09 07/06/24 07:29 07/06/24 07:29 07/06/24 08:00 07/06/24 08:49
Intake and Output
07/05/24 07/06/24 07/07/24
06:59 06:59 06:59
Intake Total 2029 / 2029 480 / 480
Output Total 500 / 500 700 / 700
Balance 1530 / 1530 -220 / -220
SaO2 93
Nasal Cannula flow liters per 11
minute
Physical Exam
General: Respiratory Distress (negative), Comfortable (at rest), Chills (negative) and Sweats (negative)
HEENT: Normocephalic and Anicteric
Cardiovascular: S1-S2, Rub (negative) and Peripheral Edema (negative)
Respiratory: Wheeze (negative), Crackles (bilateral (bases to middle lung shahid mainly)), Rhonchi (negative), Non-Labored Respirations and Stridor (negative)
GI: Soft, Non Distended, Non Tender and Normal Bowel Sounds
Neurology: AO x 3 and Tremors (negative)
Skin: Warm, Dry, Cyanosis (negative) and Jaundice (negative)
Labs/Micro/Reports
Lab Data
07/06/24 04:15
07/06/24 04:15
--- NOTE | 2024-07-06 13:52 | W.PN.HOSP.TC ---
Today's Communication/Plan
-
cont to wean o2 as tolerated
Assessment / Plan
Assessment / Plan
#Acute hypoxic respiratory failure 2/2 CAP with ILD flare/pneumonitis
-CXR: Chronic interstitial lung disease/fibrosis, progressed. Possible superimposed left-sided pneumonia.
- Patient completed Cefepime/Doxycycline 5 days; MRSA neg
-Cont O2 support, attempted Mid Flow; wean as tolerated; goal o2>88%
- Wean O2 when able, pt not on home O2
-Received 5 days of pulse dose steroids; upon completion transitioned to oral prednisone 40mg BID on 06/25; continued.
-Follow rheumatology recs at [facility] including initiation of CellCept or Methotrexate
-Echo with bubble study was negative for shunt, and there is preserved LVEF and normal RV size and Fx
-Improved GGO particularly in the right upper lobe seen on CT chest from 07/02/2024
-Cont Duonebs ATC and PRN, Tessalon ATC, Mucinex
-Pulmonary on board
-Incentive [place]
-IV Lasix as needed prn -net goal euvolemic to slightly negative
-PT/OT as tolerated: continue to increase OOB with PT/OT as able
#Leukocytosis
-on steroids; monitor WBC
#Concern for Rheumatoid arthritis with RA Interstitial lung disease�
KIERRA positive, antiCCP positive
steroids as above
� Follow-up serologies of myositis, scleroderma, sarcoidosis, cryoglobulin, immunoglobulin
Rheum recs - at [facility] or otherwise outpt
-s/p pulse dose steroids
#Mild hyponatremia due to above, SIADH
-fwr, monitor
#Transaminitis
� Closely monitor, improving
� No abdominal tenderness
- Hepatitis B/C neg
- HIV neg
#LE peripheral neurpathy
-probably with continued steroids
-trial gabapentin 300mg qhs
-morphine iv prn
DVT ppx: Lovenox SQ
Full Code
More than 30 minutes spent in discharge including
Final examination of the patient
Summarizing hospital stay
Instructions for continuing care to all relevant caregivers
Preparation of discharge records, prescriptions, and referral forms
Total time spent (37 in minutes):
Anticipated Discharge: Today
Subjective/Interval History
-
Date of Service: July 06, 2024
On mid flow, continue to wean
Objective Data
-
Labs:
Laboratory Results
07/06/24
04:15
WBC 11.9 H
Hgb 11.7 L
Hct 35.2 L
Plt Count 122 L
Sodium 136
Potassium 5.0
Chloride 99
Carbon Dioxide 32 H
BUN 13
Creatinine 0.5 L
Glucose 150 H
Calcium 8.0 L
Total Bilirubin 0.7
AST 27
ALT 90 H
Alkaline Phosphatase 82
Vital Signs:
Vital Signs
Temp Pulse Resp BP Pulse Ox
97 F 109 32 134/92 91
07/06/24 07:25 07/06/24 12:09 07/06/24 12:09 07/06/24 12:09 07/06/24 12:09
I&O
07/05/24 07/06/24 07/07/24
06:59 06:59 06:59
Intake Total 2030 / 2030 480 / 480 220 / 220
Output Total 500 / 500 700 / 700
Balance 1530 / 1530 -220 / -220 220 / 220
Review of Systems
-
History Source: Patient
All other systems: Not reviewed unless documented
Data Reviewed
-
CT Scan: Report Reviewed by me
Labs: Labs Reviewed by me
--- NOTE | 2024-07-06 15:15 | PTCARENOTE ---
Patient is on 11 liters mid flow, complaining of severe dyspnea and anxiety with any exertion. Activity intolerance at this time, refusing to get out of bed. Turning side to side in bed is difficult at this time. Patient bathed in bed, skin
assessed. Patient has circular lesions on sacrum with pink base. Wound care consulted. Patients anxiety treated with Xanax. Appetite is fair, ate majority of breakfast and only a snack for lunch. Discussed the importance of nutrition regarding
energy and healing.
[2024-07-06] MEDS: LOVENOX 40 MG SC (18:29)
[2024-07-06] MEDS: NEURONTIN 300 MG PO (21:54)
[2024-07-06] MEDS: MELATONIN 5 MG PO (22:02)
[2024-07-07] VITALS (15 sets, daily range): BP systolic 90–149; BP diastolic 66–103; PULSE 82–129; O2SAT 93–94
--- NOTE | 2024-07-07 00:27 | PTCARENOTE ---
Pt continues to complain of SOB/Dyspnea at rest and on exertion. Pt does ask this RN to decrease O2 flow for bedtime. Pt tolerating 11L O2 at 93%, O2 decreased to 10L and pt tolerated for about an hour. Pt with episode of desat to 79% while sleeping
and O2 increased to 11L with improvement to 89%. This RN will continue to monitor status throughout shift. PRN med given for anxiety and for cough, as requested by pt. Call martinez within reach.
[2024-07-07] MEDS: SYNTHROID 137 MCG PO (05:24)
[2024-07-07 05:57] LABS: Hematocrit 36.3 % (37.0-47.0); Hemoglobin 12.6 g/dL (12.0-16.0); Mean Corp Hgb Conc. 34.7 g/dL (33.0-37.0); Mean Corpuscular Hgb 33.2 pg (27.0-31.0); Mean Corpuscular Volume 95.5 fL (81.0-99.0); Mean Platelet Volume 9.5 fL (7.4-10.4); Platelet Count 134 10^3/uL (130-400); Red Cell Dist. Width 14.7 % (11.5-14.5); White Blood Cell Count 9.5 10^3/uL (4.8-10.8)
[2024-07-07 06:29] LABS: ALT (SGPT) 84 U/L (0-35); AST (SGOT) 23 U/L (14-36); Albumin 3.3 g/dl (3.5-5.0); Alkaline Phosphatase 89 U/L (38-126); Blood Urea Nitrogen 17 mg/dl (7-17); Calcium 8.5 mg/dl (8.4-10.2); Carbon Dioxide 31 mmol/L (22-30); Chloride 98 mmol/L (98-107); Estimated Creatinine Clearance 97 ml/min; Glucose 151 mg/dl (70-99); Potassium 4.5 mmol/L (3.5-5.1); Sodium 133 mmol/L (135-145); Total Bilirubin 0.7 mg/dl (0.2-1.3); Total Protein 5.9 g/dl (6.3-8.2); eGFR > 60.00
[2024-07-07] MEDS: DUONEB 3 ML INH ×4 (07:33→19:16)
[2024-07-07] MEDS: PEPCID 20 MG PO ×2 (08:27→21:10)
[2024-07-07] MEDS: MUCINEX 1200 MG PO ×2 (08:27→21:10)
[2024-07-07] MEDS: XANAX 0.25 MG PO (08:27)
[2024-07-07] MEDS: DELTASONE 40 MG PO ×2 (08:27→21:11)
[2024-07-07] MEDS: MIRALAX PO (08:31)
--- NOTE | 2024-07-07 08:46 | W.PN.PUL3 ---
Today's Communication / Plan
-
Remains on 11L NC but slowly weaning down, continue to wean as tolerated
Could discharge with home O2 to follow as OP if able to get <6L
Encouraged OOB/PT
Prednisone taper per team
Nebs QID
PT eval for rehab evaluation
Assessment
-
64-year-old woman with distant past medical history of provoked pulmonary embolism, interstitial lung disease which is mild on CAT scan 07/2022 undifferentiated, has not been seen by pulmonary despite being recommended last year. Comes to the
hospital complaining of progressive shortness of breath, cough, hypoxemia. X-ray with significant bilateral infiltrates. Follow-up CT demonstrated severely diffuse groundglass opacities. Progressive hypoxemic respiratory failure up to 10 L.
Impression:
Severe acute hypoxemic respiratory failure currently on high-flow nasal cannula
CTA chest 06/12/2024: Diffuse groundglass opacity bilaterally. No pleural effusion. Negative for acute PE.
Differential diagnosis include infectious such as community-acquired pneumonia viral/bacterial-cannot rule out interstitial lung disease acute flare-broad differential diagnosis.
With significantly increased CRP and sedimentation rate suspect more inflammatory such as nonspecific interstitial pneumonia, connective tissue disease associated ILD etc.
Her CAT scan was not compatible with usual interstitial pneumonia.
Less likely pulmonary edema. Most recent echocardiogram from 08/2022 with normal LVEF.
Less likely diffuse alveolar hemorrhage given stable hgb and no hemoptysis; DDx also includes CEP, organizing pneumonia, and atypical CHP
Negative influenza, COVID, Legionella and strep pneumonia.
EKG 06/11/2024: Normal sinus rhythm. ST-T wave abnormality consider inferior ischemia.
leukocytosis/fever
Mild hyponatremia - now resolved
Conditions present prior admission:
Interstitial lung disease : Undifferentiated
Formerly seen on CAT scan 07/2022 for the first time. Mild, peripheral, undifferentiated.
History of PE/DVT provoked after foot injury [address] of the chest at that time: No mention of interstitial lung disease.
History of influenza in 2018/2018 With pneumonia.
History of COVID mildly 2021.
History of ankle fracture on the left status post repair 2023.
Plan:
Patient transitioned off high flow nasal cannula onto midflow nasal cannula on 07/04/2024, and is tolerating this well with SpO2 >95%.
Continue to wean down O2 flow rate while keeping SpO2 >90-94%
Currently on 11L midflow, satting 97%
Incentive spirometry encouraged
Out of bed if able-reviewed with physical therapy
Mucus clearing devices as needed
Aspiration precautions
DuoNebs QID - currently not bronchospastic
Chest x-ray 06/23/2024-no change in severe bilateral airspace and interstitial abnormalities
Antitussives as needed
Ideally would undergo bronchoscopy with BAL and biopsies-respiratory status 'too tenuous' and risks outweigh benefits at this point, and she is continuing to improve
Discussed with patient to see if saturations improved in the prone position or even in the right or left lateral decubitus position-states she cannot sleep or lie on her stomach
CTA chest from 06/12/2024 demonstrated severely diffuse groundglass opacities without pleural effusions but has mildly increased mediastinal lymph nodes. No pericardial effusion.
This is most consistent with NSIP, progressed compared to CT in 2022
KIERRA IgG positive but with low titer (<1:80); antinuclear Ab and cytoplasmic Ab negative by IFA; c3, c4 wnl
CCP antibody positive (moderately positive), CRP positive -- Suspect inflammatory process
Methylprednisolone 1 g every 24 hours-pulse steroids-initiated 06/20/2024-finish a 5-day pulse and then convert to prednisone 1 mg/kg daily-prednisone 40 mg twice daily
Rheumatology consulted --> pt could benefit from additional immunosuppressants like cellcept vs rituxin or azathrioprine
Rheumatologic serology reviewed
DOREEN-[address] chest rechecked on 07/02/2024 showing improvement in groundglass opacities, particularly in the right upper lobe.
Still having groundglass opacifications with interval progression in the lower lobes.
Echo with bubble study checked on 07/01/2024 showed preserved LVEF of 50-55% with normal RV size and function, trace MR, mild pulmonary hypertension with PASP 30-35 mmHg, with negative bubble study and show pericardial effusion
Completed course of antibiotics--CFP/Vanc/Doxy/azithro (06/11-06/16)
Sputum culture usual respiratory francis
Cultures and viral panel negative
Continue gabapentin at night for her reported [id number] in her feet/nerve pain; hold for sedation
PT eval -- she will likely need rehab after discharge
DVT prophylaxis-Enoxaparin
GI prophylaxis: famotidine twice daily-plan to continue at discharge given ILD
If she were to need medical decision maker, it would be her daughter Kay Chau.
Patient is awaiting transfer to tertiary care center at [facility]. I agree with this given that they have a rheumatology service and it is also a transplant center. Likely her oxygen requirements are holding hence no need currently for ECMO. Would be
interested to see how she recovers once additional immunosuppressants, listed above, are introduced. Patient is awaiting a bed. If O2 requirements continue to improve then she may be discharged and see [facility] as an
outpatient
Will need outpatient follow up with pulmonary- new pt appt scheduled with Dr. Del Valle in Jul 2024, likely will need to adjust timing
Will need outpatient follow up with rheumatology
Diagnostic Data
CXR 06/23/24- 1. Severe bilateral airspace and interstitial disease in the lungs without definitive change from 06/11/2024. Diagnostic possibilities are (1) a SEVERE ACUTE on CHRONIC INFLAMMATORY PNEUMONITIS, (2) less likely pneumonia given the lack
of interval change, or (3) less likely pulmonary edema.
2. SEVERE MEDIASTINAL LYMPHADENOPATHY. Diagnostic possibilities are (1) sarcoidosis or (2) malignancy (lymphoma or metastatic disease).
3. Mildly decreased bilateral lung volumes.
Chest x-ray 2020: Mild diffuse interstitial thickening left greater than right possible ILD/fibrosis
CT chest 06/12/24-2. Extensive bilateral groundglass opacities, superimposed upon subpleural reticulation/fibrosis seen on the prior CT. No significant pleural effusions. There is also mediastinal and hilar lymphadenopathy, which is new compared
to the prior examination. Findings are nonspecific and could represent acute exacerbation or worsening of patient's interstitial lung disease with infectious or inflammatory process also a consideration.
CT chest 08/15/2022: Mild changes of pulmonary fibrosis, nonspecific pattern, pleural-based. Findings are new compared to prior study. Left lower lobe 4 mm nodule. Benign etiology.
Possible pericardial cyst 2.8 X1.8X 1.1 cm present in [address] chest 2016: Reviewed, bilateral lower lobe filling defects compatible with pulmonary embolism. Lower lobe subsegmental atelectasis. No focal abnormalities noted at that time.
Small pericardial cyst
Echocardiogram 08/16/2022: Showed normal LVEF. No regional wall motion abnormalities. Ejection fraction 60 to 65%. Normal right ventricular size and function. No significant valvular disease.
Echo 07/01/2024: Normal left ventricular size, wall thickness and systolic function. No regional wall motion abnormalities are seen. LV ejection fraction is 50-55 % by visual assessment. Normal diastolic function. Normal right ventricular size and
function. Trace mitral regurgitation. Structurally normal aortic valve without significant stenosis or regurgitation. Mild tricuspid regurgitation. Estimated pulmonary artery pressure of 30-35 mmHg. Assuming a right atrial pressure of 3 mmHg.
Interatrial septum is intact with no evidence of shunting by color flow Doppler or by agitata saline (negative bubble study). Trivial pericardial effusion. Compared to prior study 08/16/2022 ejection fraction previously 60 to 65% now 50 to 55%
visually. Trivial pericardial effusion
-----
Total time spent today was 51 minutes for this encounter. Time includes reviewing laboratory test/imaging results, reviewing pertinent medical records, obtaining and reviewing medical history, performing an appropriate exam, ordering medications,
tests and procedures. Time also includes documentation of this encounter, coordinating patient care and communicating with other healthcare professionals. Total time does not include separately billed tests performed on this date of service.
Subjective Data
-
Date of Service:
Date of Service: July 07, 2024
Chief Complaint: Pulmonary Follow Up and Dyspnea Follow Up
Subjective:
Doing well, remains on 11L NC
SOB not worsening
Objective Data
Data Reviewed
Vital Signs / I&O / Oxygen:
Vital Signs
Temp Pulse Resp BP Pulse Ox
97.8 F 98 43 102/84 97
07/07/24 03:11 07/07/24 08:00 07/07/24 08:00 07/07/24 08:00 07/07/24 08:30
Intake and Output
07/06/24 07/07/24 07/08/24
06:59 06:59 06:59
Intake Total 480 / 480 220 / 220
Output Total 700 / 700
Balance -220 / -220 220 / 220
SaO2 97
Nasal Cannula flow liters per 11
minute
Physical Exam
General: Respiratory Distress (negative), Comfortable (at rest), Chills (negative) and Sweats (negative)
HEENT: Normocephalic and Anicteric
Cardiovascular: S1-S2, Rub (negative) and Peripheral Edema (negative)
Respiratory: Clear, Wheeze (negative), Rhonchi (negative), Non-Labored Respirations and Stridor (negative)
GI: Soft, Non Distended, Non Tender and Normal Bowel Sounds
Neurology: AO x 3 and Tremors (negative)
Skin: Warm, Dry, Cyanosis (negative) and Jaundice (negative)
Labs/Micro/Reports
Lab Data
07/07/24 05:30
07/07/24 05:30
--- NOTE | 2024-07-07 10:35 | PTCARENOTE ---
Patient is out of bed with physical therapy assistance. Patient had anxiety with activity and required titration of oxygen due to desaturation with activity. It took several minutes for the patients pulse ox to get to her goal. Pulse ox is now 93%
on 12 liters midflow, however patient is tachypneic and continues with anxiety. She has the desire to use non rebreather mask and was educated about only using that for emergencies. Discussed this information with Dr. Morris.
[2024-07-07] MEDS: ATIVAN 1 MG PO ×2 (12:03→21:11)
[2024-07-07] MEDS: ZOLOFT 25 MG PO (12:14)
--- NOTE | 2024-07-07 12:19 | PTCARENOTE ---
Patient is out of bed to chair on 12 liters mid flow with respiratory rate in the 40s, anxiety. Discussed with Dr. Morris and dose of Ativan administered.
--- NOTE | 2024-07-07 13:07 | CM ---
Chart reviewed
Pt pending transfer to [facility] - awaiting bed
Currently on O2 at 15/min
Plan - transfer to [facility] when bed available
--- NOTE | 2024-07-07 14:07 | W.PN.HOSP.TC ---
Today's Communication/Plan
-
Wean oxygen as able
Continue prednisone 40 mg twice daily
Continue bronchodilators
PT/OOB
Possible transfer to [place]
Assessment / Plan
Assessment / Plan
#Acute hypoxemic respiratory failure
#Interstitial lung disease secondary to rheumatoid arthritis
#Community-acquired pneumonia
-Presented with hypoxemia; recent morning stiffness of the joints over the last 5 months
-Imaging with chronic interstitial lung disease and fibrosis; possible left sided CAP
-Status post course of cefepime and doxycycline for 5 days; MRSA
-Status post 5-day pulse steroid regimen; transition to 40 mg twice daily thereafter
-Has not required intubation; on 11 L O2 today
-Pulmonology following
Plan
-Continue with prednisone twice daily and bronchodilators
-Continue supportive Tessalon Perles, Mucinex
-Continue with IV Lasix as needed for net negative volume status
-Consider transfer to [facility] for inpatient rheumatology and immunomodulators
-Plan for maintenance therapy with CellCept versus methotrexate
-Wean oxygen for SpO2 goal >88%
#Anxiety
-Patient with significant anxiety in the room today, had a panic attack
-Increased alprazolam to 0.5 mg twice daily as needed
-Started on Zoloft for maintenance therapy
-Ordered 1 mg Ativan PO x1 today
#Leukocytosis
-Secondary to steroid regimen
-Trend CBC and temperature curve
#Newly diagnosed rheumatoid arthritis
-Complicated by apparent rheumatic ILD
-Positive anti-CCP and KIERRA here; s/p pulse dose steroid
-Will need to follow-up with rheumatology for maintenance therapy
#Transaminitis
-Hepatitis B and C serology negative, HIV testing negative
-ALT elevated disproportionately to AST and other LFTs
-Cannot rule out NAFLD, consider RUQ US if worsening
#Lower extremity peripheral neuropathy
-Possibly steroid-induced (?) versus idiopathic
-Was started on a trial of gabapentin 300 mg nightly
-Ordered morphine IV as needed
DVT ppx: Lovenox SQ
Diet: Regular
CODE STATUS: Full Code
Disposition: Will reach out to [facility] for update on bed
Anticipated Discharge: > 48 hours
Subjective/Interval History
-
Date of Service: July 07, 2024
Seen and examined at the bedside. No acute events reported overnight. AFVSS on 11 L via mid flow NC
States that her breathing is improving day by day, denies any shortness of breath or wheezing at time of my evaluation
She did develop some anxiety later in the day, which responded to increased dose of benzodiazepine
Objective Data
-
Labs:
Laboratory Results
07/07/24
05:30
WBC 9.5
Hgb 12.6
Hct 36.3 L
Plt Count 134
Sodium 133 L
Potassium 4.5
Chloride 98
Carbon Dioxide 31 H
BUN 17
Creatinine 0.5 L
Glucose 151 H
Calcium 8.5
Total Bilirubin 0.7
AST 23
ALT 84 H
Alkaline Phosphatase 89
Vital Signs:
Vital Signs
Temp Pulse Resp BP Pulse Ox
98.3 F 106 33 116/85 95
07/07/24 07:14 07/07/24 12:00 07/07/24 12:00 07/07/24 12:00 07/07/24 12:00
I&O
07/06/24 07/07/24 07/08/24
06:59 06:59 06:59
Intake Total 480 / 480 220 / 220 240 / 240
Output Total 700 / 700 200 / 200
Balance -220 / -220 220 / 220 40 / 40
Review of Systems
-
History Source: Patient
All other systems: Reviewed and negative
Physical Exam
-
General: Well Developed, Well Nourished, No Apparent Distress and Comfortable
HEENT: Normocephalic, Atraumatic, Moist Mucous Membranes, Anicteric and Oxygen
Respiratory: Rhonchi (Centrally and bilaterally) and Non Labored Respirations; Negative Wheezes, Rales or Accessory Resp Muscle Use
Cardiac: Regular Rhythm and S1/S2; Negative Murmur, Rub or Gallop
GI: Soft, Nontender, Nondistended and Normal Bowel Sounds
Musculoskeletal: No Clubbing, No Cyanosis and No Edema
Skin: Warm, Dry and Normal Turgor; Negative Rash
Neuro: AO x 3 and Nonfocal/Grossly Intact
Psych: Calm
Data Reviewed
-
Labs: Labs Reviewed by me and Discussed with Patient
--- NOTE | 2024-07-07 15:44 | WOUNDNOTE ---
RUBY RN NOTE: Patient admitted with acute hypoxia, reviewed chart and PMH. Asked to see patient from nurse Ch for circular type ulcers on gluteal cleft. Assessed along with nurse, appears to be MASD. vs stage 2 PI. Patient confirmed that she sits
allot. Patient able to turn self to side. R ear rim blanchable red, L ear with dry shallow scab suspect was stage 2 PI, related to oxygen tubing. Patient currently with silicone soft tubing, wears glasses on top of tubing. Instructed nurse to apply
skin prep to ear rims daily, can apply small silicone foam for extra padding. Will order fungal powder for gluteal cleft bid. Will update nurse, confirm with hospitalist and follow as needed.
[2024-07-07] MEDS: DESENEX/MITRAZOL/ZEASORB 1 APPLIC TOPICAL (17:31)
[2024-07-07] MEDS: LOVENOX 40 MG SC (17:31)
[2024-07-07] MEDS: PHENERGAN WITH CODEINE SYRUP 5 ML PO (21:11)
[2024-07-07] MEDS: NEURONTIN 300 MG PO (21:11)
[2024-07-07] MEDS: MELATONIN 5 MG PO (21:11)
[2024-07-08] VITALS (10 sets, daily range): BP systolic 94–134; BP diastolic 63–98
[2024-07-08] MEDS: SYNTHROID 137 MCG PO (05:20)
[2024-07-08 05:56] LABS: % Basophils 0.1 % (0-2); % Eosinophils 0.9 % (0-6); % Immature Granulocytes 1.3 % (0-0.5); % Lymphocytes 6.1 % (20.5-51.1); % Neutrophils 88.6 % (42.2-75.2); Absolute Eosinophils 0.1 10^3/uL (0-0.7); Absolute Immature Granulocytes 0.1 10^3/uL (0-0.05); Absolute Lymphocytes 0.6 10^3/uL (1.2-3.4); Absolute Monocytes 0.3 10^3/uL (0.1-0.6); Absolute Neutrophils 7.9 10^3/uL (1.4-6.5); Hematocrit 35.6 % (37.0-47.0); Hemoglobin 11.9 g/dL (12.0-16.0); Mean Corp Hgb Conc. 33.4 g/dL (33.0-37.0); Mean Corpuscular Hgb 32.2 pg (27.0-31.0); Mean Corpuscular Volume 96.2 fL (81.0-99.0); Mean Platelet Volume 9.8 fL (7.4-10.4); Nucleated Red Blood Cells % 0 %; Platelet Count 132 10^3/uL (130-400)
[2024-07-08 06:19] LABS: Blood Urea Nitrogen 27 mg/dl (7-17); Calcium 8.4 mg/dl (8.4-10.2); Carbon Dioxide 28 mmol/L (22-30); Chloride 98 mmol/L (98-107); Estimated Creatinine Clearance 97 ml/min; Glucose 143 mg/dl (70-99); Potassium 4.9 mmol/L (3.5-5.1); Sodium 131 mmol/L (135-145); eGFR > 60.00
--- NOTE | 2024-07-08 06:39 | PTCARENOTE ---
Pt with no acute events overnight. VSS. O2 titrated as tolerated, see worklist. BP used to void, hygiene care performed. Call martinez within reach.
[2024-07-08] MEDS: DUONEB 3 ML INH ×4 (07:42→19:49)
--- NOTE | 2024-07-08 09:15 | W.PN.PUL3 ---
Today's Communication / Plan
-
Now on 8L, making slow continuous progress
Repeat CXR in AM, last obtained 07/02
Continue aggressive PT/treatments
OOB, ambulate
Assessment
-
64-year-old woman with distant past medical history of provoked pulmonary embolism, interstitial lung disease which is mild on CAT scan 07/2022 undifferentiated, has not been seen by pulmonary despite being recommended last year. Comes to the
hospital complaining of progressive shortness of breath, cough, hypoxemia. X-ray with significant bilateral infiltrates. Follow-up CT demonstrated severely diffuse groundglass opacities. Progressive hypoxemic respiratory failure up to 10 L.
Impression:
Severe acute hypoxemic respiratory failure currently on high-flow nasal cannula
CTA chest 06/12/2024: Diffuse groundglass opacity bilaterally. No pleural effusion. Negative for acute PE.
Differential diagnosis include infectious such as community-acquired pneumonia viral/bacterial-cannot rule out interstitial lung disease acute flare-broad differential diagnosis.
With significantly increased CRP and sedimentation rate suspect more inflammatory such as nonspecific interstitial pneumonia, connective tissue disease associated ILD etc.
Her CAT scan was not compatible with usual interstitial pneumonia.
Less likely pulmonary edema. Most recent echocardiogram from 08/2022 with normal LVEF.
Less likely diffuse alveolar hemorrhage given stable hgb and no hemoptysis; DDx also includes CEP, organizing pneumonia, and atypical CHP
Negative influenza, COVID, Legionella and strep pneumonia.
EKG 06/11/2024: Normal sinus rhythm. ST-T wave abnormality consider inferior ischemia.
leukocytosis/fever
Mild hyponatremia - now resolved
Conditions present prior admission:
Interstitial lung disease : Undifferentiated
Formerly seen on CAT scan 07/2022 for the first time. Mild, peripheral, undifferentiated.
History of PE/DVT provoked after foot injury [address] of the chest at that time: No mention of interstitial lung disease.
History of influenza in 2018/2018 With pneumonia.
History of COVID mildly 2021.
History of ankle fracture on the left status post repair 2023.
Plan:
Patient transitioned off high flow nasal cannula onto midflow nasal cannula on 07/04/2024, and is tolerating this well with SpO2 >95%.
Continue to wean down O2 flow rate while keeping SpO2 >90-94%
Currently on 8L midflow, satting >95%
Incentive spirometry encouraged
Out of bed if able-reviewed with physical therapy
Mucus clearing devices as needed
Aspiration precautions
DuoNebs QID - currently not bronchospastic
Chest x-ray 06/23/2024-no change in severe bilateral airspace and interstitial abnormalities
Antitussives as needed
Ideally would undergo bronchoscopy with BAL and biopsies-this can be considered as OP
CTA chest from 06/12/2024 demonstrated severely diffuse groundglass opacities without pleural effusions but has mildly increased mediastinal lymph nodes. No pericardial effusion.
This is most consistent with NSIP, progressed compared to CT in 2022
KIERRA IgG positive but with low titer (<1:80); antinuclear Ab and cytoplasmic Ab negative by IFA; c3, c4 wnl
CCP antibody positive (moderately positive), CRP positive -- Suspect inflammatory process
Methylprednisolone 1 g every 24 hours-pulse steroids-initiated 06/20/2024-finish a 5-day pulse and then convert to prednisone 1 mg/kg daily-prednisone 40 mg twice daily
Rheumatology consulted --> pt could benefit from additional immunosuppressants like cellcept vs rituxin or azathrioprine
Rheumatologic serology reviewed
DOREEN-[address] chest rechecked on 07/02/2024 showing improvement in groundglass opacities, particularly in the right upper lobe.
Still having groundglass opacifications with interval progression in the lower lobes.
Repeat CXR in AM
Echo with bubble study checked on 07/01/2024 showed preserved LVEF of 50-55% with normal RV size and function, trace MR, mild pulmonary hypertension with PASP 30-35 mmHg, with negative bubble study and show pericardial effusion
Completed course of antibiotics--CFP/Vanc/Doxy/azithro (06/11-06/16)
Sputum culture usual respiratory francis
Cultures and viral panel negative
Continue gabapentin at night for her reported [id number] in her feet/nerve pain; hold for sedation
PT eval -- she will likely need rehab after discharge
DVT prophylaxis-Enoxaparin
GI prophylaxis: famotidine twice daily-plan to continue at discharge given ILD
If she were to need medical decision maker, it would be her daughter Kay Chau.
Will need outpatient follow up with pulmonary- new pt appt scheduled with Dr. Del Valle in Jul 2024, likely will need to adjust timing
Will need outpatient follow up with rheumatology
Diagnostic Data
CXR 06/23/24- 1. Severe bilateral airspace and interstitial disease in the lungs without definitive change from 06/11/2024. Diagnostic possibilities are (1) a SEVERE ACUTE on CHRONIC INFLAMMATORY PNEUMONITIS, (2) less likely pneumonia given the lack
of interval change, or (3) less likely pulmonary edema.
2. SEVERE MEDIASTINAL LYMPHADENOPATHY. Diagnostic possibilities are (1) sarcoidosis or (2) malignancy (lymphoma or metastatic disease).
3. Mildly decreased bilateral lung volumes.
Chest x-ray 2020: Mild diffuse interstitial thickening left greater than right possible ILD/fibrosis
CT chest 06/12/24-2. Extensive bilateral groundglass opacities, superimposed upon subpleural reticulation/fibrosis seen on the prior CT. No significant pleural effusions. There is also mediastinal and hilar lymphadenopathy, which is new compared
to the prior examination. Findings are nonspecific and could represent acute exacerbation or worsening of patient's interstitial lung disease with infectious or inflammatory process also a consideration.
CT chest 08/15/2022: Mild changes of pulmonary fibrosis, nonspecific pattern, pleural-based. Findings are new compared to prior study. Left lower lobe 4 mm nodule. Benign etiology.
Possible pericardial cyst 2.8 X1.8X 1.1 cm present in [address] chest 2016: Reviewed, bilateral lower lobe filling defects compatible with pulmonary embolism. Lower lobe subsegmental atelectasis. No focal abnormalities noted at that time.
Small pericardial cyst
Echocardiogram 08/16/2022: Showed normal LVEF. No regional wall motion abnormalities. Ejection fraction 60 to 65%. Normal right ventricular size and function. No significant valvular disease.
Echo 07/01/2024: Normal left ventricular size, wall thickness and systolic function. No regional wall motion abnormalities are seen. LV ejection fraction is 50-55 % by visual assessment. Normal diastolic function. Normal right ventricular size and
function. Trace mitral regurgitation. Structurally normal aortic valve without significant stenosis or regurgitation. Mild tricuspid regurgitation. Estimated pulmonary artery pressure of 30-35 mmHg. Assuming a right atrial pressure of 3 mmHg.
Interatrial septum is intact with no evidence of shunting by color flow Doppler or by agitata saline (negative bubble study). Trivial pericardial effusion. Compared to prior study 08/16/2022 ejection fraction previously 60 to 65% now 50 to 55%
visually. Trivial pericardial effusion
-----
Total time spent today was 51 minutes for this encounter. Time includes reviewing laboratory test/imaging results, reviewing pertinent medical records, obtaining and reviewing medical history, performing an appropriate exam, ordering medications,
tests and procedures. Time also includes documentation of this encounter, coordinating patient care and communicating with other healthcare professionals. Total time does not include separately billed tests performed on this date of service.
Subjective Data
-
Date of Service:
Date of Service: July 08, 2024
Chief Complaint: Pulmonary Follow Up and Dyspnea Follow Up
Subjective:
Weaned to 8L NC, doing well
No new complaints
Objective Data
Data Reviewed
Vital Signs / I&O / Oxygen:
Vital Signs
Temp Pulse Resp BP Pulse Ox
97.9 F 91 26 115/77 92
07/08/24 07:10 07/08/24 07:46 07/08/24 07:46 07/08/24 06:00 07/08/24 07:46
Intake and Output
07/07/24 07/08/24 07/09/24
06:59 06:59 06:59
Intake Total 220 / 220 240 / 240
Output Total 200 / 200
Balance 220 / 220 40 / 40
SaO2 92
Nasal Cannula flow liters per 11
minute
Physical Exam
General: Respiratory Distress (negative), Comfortable (at rest), Chills (negative) and Sweats (negative)
HEENT: Normocephalic and Anicteric
Cardiovascular: S1-S2, Rub (negative) and Peripheral Edema (negative)
Respiratory: Wheeze (negative), Crackles (bibasilar), Rhonchi (negative), Non-Labored Respirations and Stridor (negative)
GI: Soft, Non Distended, Non Tender and Normal Bowel Sounds
Neurology: AO x 3 and Tremors (negative)
Skin: Warm, Dry, Cyanosis (negative) and Jaundice (negative)
Labs/Micro/Reports
Lab Data
07/08/24 05:33
07/08/24 05:33
[2024-07-08] MEDS: ZOLOFT 25 MG PO (09:25)
[2024-07-08] MEDS: MUCINEX 1200 MG PO ×2 (09:25→20:50)
[2024-07-08] MEDS: DELTASONE 40 MG PO ×2 (09:25→20:50)
[2024-07-08] MEDS: MIRALAX PO (09:25)
[2024-07-08] MEDS: PEPCID 20 MG PO ×2 (09:25→20:50)
[2024-07-08] MEDS: DESENEX/MITRAZOL/ZEASORB 1 APPLIC TOPICAL ×2 (09:26→20:51)
--- NOTE | 2024-07-08 11:15 | W.PN.HOSP.TC ---
Today's Communication/Plan
-
Continue steroids and bronchodilators
IV Lasix PRN
Wean oxygen
PRN Ativan
Possible transfer to [place] if bed available
Assessment / Plan
Assessment / Plan
#Acute hypoxemic respiratory failure
#Interstitial lung disease secondary to rheumatoid arthritis
#Community-acquired pneumonia
-Presented with hypoxemia; recent morning stiffness of the joints over the last 5 months
-Imaging with chronic interstitial lung disease and fibrosis; possible left sided CAP
-Status post course of cefepime and doxycycline for 5 days; MRSA
-Status post 5-day pulse steroid regimen; transition to 40 mg twice daily thereafter
-Has not required intubation; on 11 L O2 today
-Pulmonology following
Plan
-Continue with prednisone twice daily and bronchodilators
-Continue supportive Tessalon Perles, Mucinex
-Continue with IV Lasix as needed for net negative volume status
-Pending transfer to [facility] for inpatient rheumatology +/- immunomodulators
-Plan for maintenance therapy with CellCept versus methotrexate
-Wean oxygen for SpO2 goal >88%
#Anxiety
-Patient with significant anxiety in the room, had a panic attack
-Started on Zoloft for maintenance therapy
-Will transition to alprazolam to Ativan 1 mg 3 times daily PRN
#Leukocytosis
-Secondary to steroid regimen
-Trend CBC and temperature curve
#Newly diagnosed rheumatoid arthritis
-Complicated by apparent rheumatic ILD
-Positive anti-CCP and KIERRA here; s/p pulse dose steroid
-Will need to follow-up with rheumatology for maintenance therapy
#Transaminitis
-Hepatitis B and C serology negative, HIV testing negative
-ALT elevated disproportionately to AST and other LFTs
-Cannot rule out NAFLD, consider RUQ US if worsening
#Lower extremity peripheral neuropathy
-Possibly steroid-induced (?) versus idiopathic
-Was started on a trial of gabapentin 300 mg nightly
DVT ppx: Lovenox SQ
Diet: Regular
CODE STATUS: Full Code
Disposition: Pending transfer to [place]. If patient has bed available we will pursue transfer for inpatient rheumatology evaluation and consideration of immunomodulator therapy. If her condition continues to improve and she requires <6 L of
supplemental oxygen prior to transfer then will discharge with outpatient follow-up at [place] rheumatology
Anticipated Discharge: > 48 hours
Subjective/Interval History
-
Date of Service: July 08, 2024
Seen and examined at the bedside. No acute events reported overnight. AFVSS on 9 L O2 today
Was experiencing significant anxiety yesterday that was relieved by Ativan. Labs with persistent hyponatremia, mild, stable between 130 and 135
Spoke with [place] transfer center yesterday, patient still on line for bed there
Denies any new complaints today.
Objective Data
-
Labs:
Laboratory Results
07/08/24
05:33
WBC 9.0
Hgb 11.9 L
Hct 35.6 L
Plt Count 132
Sodium 131 L
Potassium 4.9
Chloride 98
Carbon Dioxide 28
BUN 27 H
Creatinine 0.5 L
Glucose 143 H
Calcium 8.4
Vital Signs:
Vital Signs
Temp Pulse Resp BP Pulse Ox
97.9 F 89 38 122/77 94
07/08/24 07:10 07/08/24 10:00 07/08/24 10:00 07/08/24 10:00 07/08/24 10:00
I&O
07/07/24 07/08/24 07/09/24
06:59 06:59 06:59
Intake Total 220 / 220 240 / 240
Output Total 200 / 200
Balance 220 / 220 40 / 40
Review of Systems
-
History Source: Patient
All other systems: Reviewed and negative
Physical Exam
-
General: Well Developed, Well Nourished, No Apparent Distress and Comfortable
HEENT: Normocephalic, Atraumatic, Moist Mucous Membranes, Anicteric and Oxygen
Respiratory: Rhonchi and Non Labored Respirations; Negative Wheezes, Rales, Crackles or Accessory Resp Muscle Use
Cardiac: Regular Rhythm and S1/S2; Negative Murmur, Rub or Gallop
GI: Soft, Nontender, Nondistended and Normal Bowel Sounds
Musculoskeletal: No Clubbing, No Cyanosis, No Edema and Normal Gait & Station
Skin: Warm, Dry and Normal Turgor; Negative Rash
Neuro: AO x 3 and Nonfocal/Grossly Intact; Negative Tremors
Data Reviewed
-
Labs: Labs Reviewed by me and Discussed with Patient
--- NOTE | 2024-07-08 13:23 | PTCARENOTE ---
Patient reports slept well last night. Weaned to 8L midflow, sats 94% with occasional desat to 88% on exertion today. Reports ativan working better than xanax did. NSR on monitor. Tachypneic at times, all other VSS. Patient making needs known. Will
closely monitor.
[2024-07-08] MEDS: ATIVAN 1 MG PO ×2 (15:06→20:54)
[2024-07-08] MEDS: LOVENOX 40 MG SC (17:55)
[2024-07-08] MEDS: NEURONTIN 300 MG PO (20:50)
[2024-07-08] MEDS: MELATONIN 5 MG PO (20:51)
[2024-07-08] MEDS: PHENERGAN WITH CODEINE SYRUP 5 ML PO (20:54)
--- NOTE | 2024-07-08 21:31 | PTCARENOTE ---
assumed care of patient. pt is AAOx3- anxious at times and able to make needs known. [facility] called to say there is no bed tonight and they will try again tomorrow. on 8L MF 91%, does desat to 70s easily with movement. using
non-rebreather PRN. PRN ativan given for anxiety. pt with productive cough, PRN phenergen w/ codeine given. using bedpan in bed, pt scared to get OOB for risk of respiratory distress. using desenex herself to groin and sacrum. NSR/ST on the monitor.
pt goes ST during respiratory distress but goes back down once breathing improves. care ongoing.
[2024-07-09] VITALS (13 sets, daily range): BP systolic 90–134; BP diastolic 68–91; PULSE 100; O2SAT 91
--- NOTE | 2024-07-09 02:08 | DOWNTIME ---
There was a [employer] Downtime on 07/09/2024 from 0100 to 07/09/2023 at 0205 . Downtime documentation of patient's care, including medication administrations, has been reconciled in the electronic record per guidelines. Refer to the
patient's paper chart under the miscellaneous tab to see printed paper medication records and downtime forms.
[2024-07-09] MEDS: SYNTHROID 137 MCG PO (05:15)
[2024-07-09 05:44] LABS: % Basophils 0.1 % (0-2); % Eosinophils 0.9 % (0-6); % Immature Granulocytes 1.8 % (0-0.5); % Lymphocytes 8.4 % (20.5-51.1); % Monocytes 3.4 % (1.7-9.3); % Neutrophils 85.4 % (42.2-75.2); Absolute Eosinophils 0.1 10^3/uL (0-0.7); Absolute Immature Granulocytes 0.2 10^3/uL (0-0.05); Absolute Lymphocytes 0.8 10^3/uL (1.2-3.4); Absolute Monocytes 0.3 10^3/uL (0.1-0.6); Absolute Neutrophils 7.7 10^3/uL (1.4-6.5); Hematocrit 35.2 % (37.0-47.0); Mean Corp Hgb Conc. 34.1 g/dL (33.0-37.0); Mean Corpuscular Hgb 32.8 pg (27.0-31.0); Mean Corpuscular Volume 96.2 fL (81.0-99.0); Mean Platelet Volume 9.4 fL (7.4-10.4); Nucleated Red Blood Cells % 0 %; Platelet Count 159 10^3/uL (130-400); Red Blood Cell Count 3.66 10^6/uL (4.20-5.40); Red Cell Dist. Width 14.9 % (11.5-14.5)
[2024-07-09 06:00] LABS: ALT (SGPT) 58 U/L (0-35); AST (SGOT) 21 U/L (14-36); Albumin 3.2 g/dl (3.5-5.0); Alkaline Phosphatase 88 U/L (38-126); Blood Urea Nitrogen 19 mg/dl (7-17); Calcium 8.3 mg/dl (8.4-10.2); Carbon Dioxide 28 mmol/L (22-30); Chloride 98 mmol/L (98-107); Estimated Creatinine Clearance 97 ml/min; Glucose 148 mg/dl (70-99); HDL Cholesterol 86 mg/dl; LDL Cholesterol, Calculated 114 mg/dl; Potassium 4.9 mmol/L (3.5-5.1); Sodium 130 mmol/L (135-145); Total Bilirubin 0.6 mg/dl (0.2-1.3); Total Cholesterol 219 mg/dl (50-199); Total Protein 5.8 g/dl (6.3-8.2); Triglyceride 95 mg/dl (10-149); Very Low Density Lipoprotein 19 mg/dl (0-30); eGFR > 60.00
[2024-07-09] MEDS: DUONEB 3 ML INH ×4 (07:32→19:25)
[2024-07-09] MEDS: DELTASONE 40 MG PO ×2 (07:59→20:46)
[2024-07-09] MEDS: PEPCID 20 MG PO ×2 (07:59→20:47)
[2024-07-09] MEDS: MIRALAX PO (07:59)
[2024-07-09] MEDS: MUCINEX PO ×2 (07:59→08:02)
[2024-07-09] MEDS: ZOLOFT 25 MG PO (07:59)
[2024-07-09] MEDS: MUCINEX 1200 MG PO ×2 (08:00→20:47)
[2024-07-09] MEDS: DESENEX/MITRAZOL/ZEASORB 1 APPLIC TOPICAL ×2 (08:00→20:47)
--- NOTE | 2024-07-09 08:40 | W.PN.PUL3 ---
Today's Communication / Plan
-
Remains on 8L NC, wean as tolerated
Repeat CXR reviewed, worsening basilar disease
Repeat proBNP
Encouraged continued airway clearance/exercises
Can repeat CT scan if declining
Assessment
-
64-year-old woman with distant past medical history of provoked pulmonary embolism, interstitial lung disease which is mild on CAT scan 07/2022 undifferentiated, has not been seen by pulmonary despite being recommended last year. Comes to the
hospital complaining of progressive shortness of breath, cough, hypoxemia. X-ray with significant bilateral infiltrates. Follow-up CT demonstrated severely diffuse groundglass opacities. Progressive hypoxemic respiratory failure up to 10 L.
Impression:
Severe acute hypoxemic respiratory failure currently on high-flow nasal cannula
CTA chest 06/12/2024: Diffuse groundglass opacity bilaterally. No pleural effusion. Negative for acute PE.
Differential diagnosis include infectious such as community-acquired pneumonia viral/bacterial-cannot rule out interstitial lung disease acute flare-broad differential diagnosis.
With significantly increased CRP and sedimentation rate suspect more inflammatory such as nonspecific interstitial pneumonia, connective tissue disease associated ILD etc.
Her CAT scan was not compatible with usual interstitial pneumonia.
Less likely pulmonary edema. Most recent echocardiogram from 08/2022 with normal LVEF.
Less likely diffuse alveolar hemorrhage given stable hgb and no hemoptysis; DDx also includes CEP, organizing pneumonia, and atypical CHP
Negative influenza, COVID, Legionella and strep pneumonia.
EKG 06/11/2024: Normal sinus rhythm. ST-T wave abnormality consider inferior ischemia.
leukocytosis/fever
Mild hyponatremia - now resolved
Conditions present prior admission:
Interstitial lung disease : Undifferentiated
Formerly seen on CAT scan 07/2022 for the first time. Mild, peripheral, undifferentiated.
History of PE/DVT provoked after foot injury [address] of the chest at that time: No mention of interstitial lung disease.
History of influenza in 2018/2018 With pneumonia.
History of COVID mildly 2021.
History of ankle fracture on the left status post repair 2023.
Plan:
Patient transitioned off high flow nasal cannula onto midflow nasal cannula on 07/04/2024, and is tolerating this well with SpO2 >95%.
Continue to wean down O2 flow rate while keeping SpO2 >90-94%
Currently on 8L midflow, satting >95%
Incentive spirometry encouraged
Out of bed if able-reviewed with physical therapy
Mucus clearing devices as needed
Aspiration precautions
DuoNebs QID - currently not bronchospastic
Chest x-ray 06/23/2024-no change in severe bilateral airspace and interstitial abnormalities
Antitussives as needed
Ideally would undergo bronchoscopy with BAL and biopsies-this can be considered as OP
CTA chest from 06/12/2024 demonstrated severely diffuse groundglass opacities without pleural effusions but has mildly increased mediastinal lymph nodes. No pericardial effusion.
This is most consistent with NSIP, progressed compared to CT in 2022
KIERRA IgG positive but with low titer (<1:80); antinuclear Ab and cytoplasmic Ab negative by IFA; c3, c4 wnl
CCP antibody positive (moderately positive), CRP positive -- Suspect inflammatory process
Methylprednisolone 1 g every 24 hours-pulse steroids-initiated 06/20/2024-finish a 5-day pulse and then convert to prednisone 1 mg/kg daily-prednisone 40 mg twice daily
Rheumatology consulted --> pt could benefit from additional immunosuppressants like cellcept vs rituxin or azathrioprine
Rheumatologic serology reviewed
DOREEN-[address] chest rechecked on 07/02/2024 showing improvement in groundglass opacities, particularly in the right upper lobe.
Still having groundglass opacifications with interval progression in the lower lobes.
Repeat CXR in AM--showing worsening infiltrates
Will repeat proBNP
Echo with bubble study checked on 07/01/2024 showed preserved LVEF of 50-55% with normal RV size and function, trace MR, mild pulmonary hypertension with PASP 30-35 mmHg, with negative bubble study and show pericardial effusion
Completed course of antibiotics--CFP/Vanc/Doxy/azithro (06/11-06/16)
Sputum culture usual respiratory francis
Cultures and viral panel negative
Continue gabapentin at night for her reported [id number] in her feet/nerve pain; hold for sedation
PT eval -- she will likely need rehab after discharge
DVT prophylaxis-Enoxaparin
GI prophylaxis: famotidine twice daily-plan to continue at discharge given ILD
If she were to need medical decision maker, it would be her daughter Kay Chau.
Will need outpatient follow up with pulmonary- new pt appt scheduled with Dr. Del Valle in Jul 2024, likely will need to adjust timing
Will need outpatient follow up with rheumatology
Diagnostic Data
CXR 06/23/24- 1. Severe bilateral airspace and interstitial disease in the lungs without definitive change from 06/11/2024. Diagnostic possibilities are (1) a SEVERE ACUTE on CHRONIC INFLAMMATORY PNEUMONITIS, (2) less likely pneumonia given the lack
of interval change, or (3) less likely pulmonary edema.
2. SEVERE MEDIASTINAL LYMPHADENOPATHY. Diagnostic possibilities are (1) sarcoidosis or (2) malignancy (lymphoma or metastatic disease).
3. Mildly decreased bilateral lung volumes.
Chest x-ray 2020: Mild diffuse interstitial thickening left greater than right possible ILD/fibrosis
CT chest 06/12/24-2. Extensive bilateral groundglass opacities, superimposed upon subpleural reticulation/fibrosis seen on the prior CT. No significant pleural effusions. There is also mediastinal and hilar lymphadenopathy, which is new compared
to the prior examination. Findings are nonspecific and could represent acute exacerbation or worsening of patient's interstitial lung disease with infectious or inflammatory process also a consideration.
CT chest 08/15/2022: Mild changes of pulmonary fibrosis, nonspecific pattern, pleural-based. Findings are new compared to prior study. Left lower lobe 4 mm nodule. Benign etiology.
Possible pericardial cyst 2.8 X1.8X 1.1 cm present in [address] chest 2016: Reviewed, bilateral lower lobe filling defects compatible with pulmonary embolism. Lower lobe subsegmental atelectasis. No focal abnormalities noted at that time.
Small pericardial cyst
Echocardiogram 08/16/2022: Showed normal LVEF. No regional wall motion abnormalities. Ejection fraction 60 to 65%. Normal right ventricular size and function. No significant valvular disease.
Echo 07/01/2024: Normal left ventricular size, wall thickness and systolic function. No regional wall motion abnormalities are seen. LV ejection fraction is 50-55 % by visual assessment. Normal diastolic function. Normal right ventricular size and
function. Trace mitral regurgitation. Structurally normal aortic valve without significant stenosis or regurgitation. Mild tricuspid regurgitation. Estimated pulmonary artery pressure of 30-35 mmHg. Assuming a right atrial pressure of 3 mmHg.
Interatrial septum is intact with no evidence of shunting by color flow Doppler or by agitata saline (negative bubble study). Trivial pericardial effusion. Compared to prior study 08/16/2022 ejection fraction previously 60 to 65% now 50 to 55%
visually. Trivial pericardial effusion
-----
Total time spent today was 51 minutes for this encounter. Time includes reviewing laboratory test/imaging results, reviewing pertinent medical records, obtaining and reviewing medical history, performing an appropriate exam, ordering medications,
tests and procedures. Time also includes documentation of this encounter, coordinating patient care and communicating with other healthcare professionals. Total time does not include separately billed tests performed on this date of service.
Subjective Data
-
Date of Service:
Date of Service: July 09, 2024
Chief Complaint: Pulmonary Follow Up and Dyspnea Follow Up
Subjective:
Remains on 8L NC, no new events
Was able to get OOB more yesterday
No new complaints
Objective Data
Data Reviewed
Vital Signs / I&O / Oxygen:
Vital Signs
Temp Pulse Resp BP Pulse Ox
97.6 F 82 33 110/73 98
07/09/24 07:36 07/09/24 06:00 07/09/24 06:00 07/09/24 06:00 07/09/24 06:00
Intake and Output
07/08/24 07/09/24 07/10/24
06:59 06:59 06:59
Intake Total 240 / 240
Output Total 200 / 200
Balance 40 / 40
SaO2 98
Nasal Cannula flow liters per 8
minute
Physical Exam
General: Respiratory Distress (negative), Comfortable (at rest), Chills (negative) and Sweats (negative)
HEENT: Normocephalic and Anicteric
Cardiovascular: S1-S2, Rub (negative) and Peripheral Edema (negative)
Respiratory: Wheeze (negative), Crackles (bibasilar), Rhonchi (negative), Non-Labored Respirations and Stridor (negative)
GI: Soft, Non Distended, Non Tender and Normal Bowel Sounds
Neurology: AO x 3 and Tremors (negative)
Skin: Warm, Dry, Cyanosis (negative) and Jaundice (negative)
Labs/Micro/Reports
Lab Data
07/09/24 05:21
07/09/24 05:21
[2024-07-09] MEDS: ATIVAN 1 MG PO ×2 (08:44→20:54)
--- NOTE | 2024-07-09 10:19 | W.PN.HOSP.TC ---
Today's Communication/Plan
-
Wean oxygen as able
Continue steroid, bronchodilators, supportive meds
Consider BAL if O2 requirements worsen with worsening x-ray findings
Consider PJP prophylaxis while on long-term steroid
Assessment / Plan
Assessment / Plan
#Acute hypoxemic respiratory failure
#Interstitial lung disease secondary to rheumatoid arthritis
#Possible superimposed community-acquired pneumonia
-Presented with hypoxemia; recent morning stiffness of the joints over the last 5 months
-Status post course of cefepime and doxycycline for 5 days; no longer on antibiotic
-Status post 5-day pulse steroid regimen; transitioned to 40 mg prednisone twice daily
-CT scan does seem more consistent with NSIP, which has better response to steroid
-Chest x-ray today with signs of worsening b/l pneumonia though no fevers or leukocytosis
-Has not required intubation; O2 level slowly improving, on 8 L O2 today
-Pulmonology following
Plan
-Continue with prednisone twice daily, bronchodilators, Mucinex
-Continue with IV Lasix as needed for net negative volume status
-Pending transfer to [facility] for inpatient rheumatology +/- immunomodulators
-Plan for maintenance therapy with CellCept, would avoid MTX due to lung toxicity
-Plan for repeat HRCT as outpatient to reassess parenchymal disease
-If worsens may require BAL with pulmonology to rule out infection
-Will speak to pulmonology about PJP prophylaxis, Bactrim DS 3 times weekly
-Wean oxygen for SpO2 goal >90%
#Euvolemic hyponatremia
-Sodium has been persistently low in the range of 130-135, no symptoms
-Appears fairly euvolemic, question if polydipsia present due to persistent O2 requirement
-Will continue to monitor BMP for now, encourage p.o. intake
-Consider Uosm, Paresh, Sosm, fluid restriction v IVF if worsening
#Anxiety
-Patient with significant anxiety in the room, had a panic attack
-Started on Zoloft for maintenance therapy
-Will transition to alprazolam to Ativan 1 mg 3 times daily PRN
#Leukocytosis
-Secondary to steroid regimen
-Trend CBC and temperature curve
-Resolved
#Newly diagnosed rheumatoid arthritis
-Complicated by apparent rheumatic ILD
-Positive anti-CCP and KIERRA here; s/p pulse dose steroid
-Will need to follow-up with rheumatology for maintenance therapy
-Would avoid MTX as DMARDs due to potential for lung toxicity
#Transaminitis
-Hepatitis B and C serology negative, HIV testing negative
-ALT elevated disproportionately to AST and other LFTs
-Cannot rule out NAFLD, consider RUQ US if worsening
#Lower extremity peripheral neuropathy
-Possibly steroid-induced (?) versus idiopathic
-Was started on a trial of gabapentin 300 mg nightly
DVT ppx: Lovenox SQ
Diet: Regular
CODE STATUS: Full Code
Disposition: Pending transfer to [place]. If patient has bed available we will pursue transfer for inpatient rheumatology evaluation and consideration of immunomodulator therapy. If her condition continues to improve and she requires <6 L of
supplemental oxygen prior to transfer then will discharge with outpatient follow-up at [place] [facility]
Anticipated Discharge: > 48 hours
Subjective/Interval History
-
Date of Service: July 09, 2024
Seen and examined at the bedside. No acute events reported overnight. AFVSS on 8 L via mid flow NC, SpO2 98%, occasionally using NRB for comfort
Chest x-ray this morning showed signs of worsening bilateral pneumonia, patient remains without fever nor leukocytosis today.
She states that she feels like she is breathing okay, continues to feel slightly better daily. Denies new complaints such as chest pain, fevers or chills
Objective Data
-
Labs:
Laboratory Results
07/09/24
05:21
WBC 9.0
Hgb 12.0
Hct 35.2 L
Plt Count 159 D
Sodium 130 L
Potassium 4.9
Chloride 98
Carbon Dioxide 28
BUN 19 H
Creatinine 0.5 L
Glucose 148 H
Calcium 8.3 L
Total Bilirubin 0.6
AST 21
ALT 58 H
Alkaline Phosphatase 88
Vital Signs:
Vital Signs
Temp Pulse Resp BP Pulse Ox
97.6 F 82 33 110/73 98
07/09/24 07:36 07/09/24 06:00 07/09/24 06:00 07/09/24 06:00 07/09/24 06:00
I&O
07/08/24 07/09/24 07/10/24
06:59 06:59 06:59
Intake Total 240 / 240
Output Total 200 / 200
Balance 40 / 40
Review of Systems
-
History Source: Patient
All other systems: Reviewed and negative
Physical Exam
-
General: Well Developed, Well Nourished, No Apparent Distress and Comfortable
HEENT: Normocephalic, Atraumatic, Moist Mucous Membranes, Anicteric and Oxygen
Respiratory: Rhonchi (Course, midlung) and Non Labored Respirations; Negative Wheezes, Rales or Accessory Resp Muscle Use
Cardiac: Regular Rhythm and S1/S2; Negative Murmur, Rub or Gallop
GI: Soft, Nontender, Nondistended and Normal Bowel Sounds
Musculoskeletal: No Clubbing, No Cyanosis, No Edema and Other (No active tenosynovitis)
Skin: Warm, Dry and Normal Turgor; Negative Rash
Neuro: AO x 3 and Nonfocal/Grossly Intact
Psych: Calm
Data Reviewed
-
Diagnostic Radiology: Report Reviewed by me and Discussed with Physician (Pulmonology)
Labs: Labs Reviewed by me and Discussed with Patient
[2024-07-09] MEDS: BACTRIM DS 800 MG/160 MG 1 TABLET PO (12:20)
[2024-07-09 14:36] LABS: NT-proBNP 96.9 pg/ml
--- NOTE | 2024-07-09 16:10 | CM ---
CM reviewed chart
Current plan remains for [facility] transfer
If clinical improvement as noted in hospitalist note, possible plan for outpt F/U instead
CM will continue to follow for dc planning
Discharge Disposition- tx [facility]
[2024-07-09] MEDS: LOVENOX 40 MG SC (17:32)
--- NOTE | 2024-07-09 18:45 | PTCARENOTE ---
Pt tolerated being OOB in chair for 1 hour. Pt w/ intermittent coughing, SHORE, desating on 8L Midflow. RT in to see pt, NRB used to recover. Pt needing to be increased throughout the day, now on 12L Midflow, using NRB intermittently. Ativan given
this AM prior to working w/ PT. Pt slightly anxious w/ activity r/t increased WOB and desating. Emotional support provided.
[2024-07-09] MEDS: MELATONIN PO (20:47)
[2024-07-09] MEDS: NEURONTIN 300 MG PO (20:47)
[2024-07-09] MEDS: PHENERGAN WITH CODEINE SYRUP 5 ML PO (22:29)
[2024-07-10] VITALS (11 sets, daily range): BP systolic 93–126; BP diastolic 66–82
--- NOTE | 2024-07-10 01:44 | PTCARENOTE ---
Assumed care for patient overnight. AAOx3, very pleasant and in good spirits, patient expressed her positivity regarding tolerating midflow. Pt is on 12L midflow. Pt has NRB for recovery PRN. Pt has not needed the NRB. Pt voiding using the bedpan.
Oral care and hygiene done. PRN ativan given before bed for anxiety. Pt originally did not want any cough medication, but asked for it later on due to a coughing fit disrupting her sleep. Pt rings appropriately call martinez is within reach.
[2024-07-10 05:11] LABS: % Basophils 0.2 % (0-2); % Eosinophils 0.3 % (0-6); % Immature Granulocytes 3.1 % (0-0.5); % Lymphocytes 7.4 % (20.5-51.1); % Monocytes 3.7 % (1.7-9.3); % Neutrophils 85.3 % (42.2-75.2); Absolute Immature Granulocytes 0.3 10^3/uL (0-0.05); Absolute Lymphocytes 0.6 10^3/uL (1.2-3.4); Absolute Monocytes 0.3 10^3/uL (0.1-0.6); Absolute Neutrophils 7.3 10^3/uL (1.4-6.5); Hematocrit 37.9 % (37.0-47.0); Hemoglobin 12.6 g/dL (12.0-16.0); Mean Corp Hgb Conc. 33.2 g/dL (33.0-37.0); Mean Corpuscular Hgb 32.1 pg (27.0-31.0); Mean Corpuscular Volume 96.7 fL (81.0-99.0); Mean Platelet Volume 9.6 fL (7.4-10.4); Nucleated Red Blood Cells % 0 %; Platelet Count 178 10^3/uL (130-400); Red Blood Cell Count 3.92 10^6/uL (4.20-5.40); Red Cell Dist. Width 14.8 % (11.5-14.5); White Blood Cell Count 8.6 10^3/uL (4.8-10.8)
[2024-07-10 05:36] LABS: ALT (SGPT) 69 U/L (0-35); AST (SGOT) 27 U/L (14-36); Albumin 3.4 g/dl (3.5-5.0); Alkaline Phosphatase 90 U/L (38-126); Blood Urea Nitrogen 15 mg/dl (7-17); Calcium 8.2 mg/dl (8.4-10.2); Carbon Dioxide 33 mmol/L (22-30); Chloride 96 mmol/L (98-107); Estimated Creatinine Clearance 97 ml/min; Glucose 148 mg/dl (70-99); Potassium 5.1 mmol/L (3.5-5.1); Sodium 133 mmol/L (135-145); Total Bilirubin 0.5 mg/dl (0.2-1.3); Total Protein 5.9 g/dl (6.3-8.2); eGFR > 60.00
[2024-07-10] MEDS: SYNTHROID 137 MCG PO (05:42)
[2024-07-10] MEDS: DUONEB 3 ML INH ×4 (07:43→19:28)
--- NOTE | 2024-07-10 09:03 | W.PN.PUL3 ---
Today's Communication / Plan
-
Check ABG, BIPAP if indicated
Airway clearance measures added, vest/acapella
Repeat sputum culture
Wean O2 as tolerated
If not recovering, will obtain CT chest
Assessment
-
64-year-old woman with distant past medical history of provoked pulmonary embolism, interstitial lung disease which is mild on CAT scan 07/2022 undifferentiated, has not been seen by pulmonary despite being recommended last year. Comes to the
hospital complaining of progressive shortness of breath, cough, hypoxemia. X-ray with significant bilateral infiltrates. Follow-up CT demonstrated severely diffuse groundglass opacities. Progressive hypoxemic respiratory failure up to 10 L.
Impression:
Severe acute hypoxemic respiratory failure currently on high-flow nasal cannula
CTA chest 06/12/2024: Diffuse groundglass opacity bilaterally. No pleural effusion. Negative for acute PE.
Differential diagnosis include infectious such as community-acquired pneumonia viral/bacterial-cannot rule out interstitial lung disease acute flare-broad differential diagnosis.
With significantly increased CRP and sedimentation rate suspect more inflammatory such as nonspecific interstitial pneumonia, connective tissue disease associated ILD etc.
Her CAT scan was not compatible with usual interstitial pneumonia.
Less likely pulmonary edema. Most recent echocardiogram from 08/2022 with normal LVEF.
Less likely diffuse alveolar hemorrhage given stable hgb and no hemoptysis; DDx also includes CEP, organizing pneumonia, and atypical CHP
Negative influenza, COVID, Legionella and strep pneumonia.
EKG 06/11/2024: Normal sinus rhythm. ST-T wave abnormality consider inferior ischemia.
leukocytosis/fever
Mild hyponatremia - now resolved
Conditions present prior admission:
Interstitial lung disease : Undifferentiated
Formerly seen on CAT scan 07/2022 for the first time. Mild, peripheral, undifferentiated.
History of PE/DVT provoked after foot injury [address] of the chest at that time: No mention of interstitial lung disease.
History of influenza in 2018/2018 With pneumonia.
History of COVID mildly 2021.
History of ankle fracture on the left status post repair 2023.
Plan:
Patient transitioned off high flow nasal cannula onto midflow nasal cannula on 07/04/2024, and is tolerating this well with SpO2 >95%.
Continue to wean down O2 flow rate while keeping SpO2 >90-94%
Currently on 8L midflow, satting >95%--this has increased in the past 24 hours to 12L
Check ABG
CTA chest from 06/12/2024 demonstrated severely diffuse groundglass opacities without pleural effusions but has mildly increased mediastinal lymph nodes. No pericardial effusion.
This is most consistent with NSIP, progressed compared to CT in 2022
KIERRA IgG positive but with low titer (<1:80); antinuclear Ab and cytoplasmic Ab negative by IFA; c3, c4 wnl
CCP antibody positive (moderately positive), CRP positive -- Suspect inflammatory process
Methylprednisolone 1 g every 24 hours-pulse steroids-initiated 06/20/2024-finish a 5-day pulse and then convert to prednisone 1 mg/kg daily-prednisone 40 mg twice daily
Rheumatology consulted --> pt could benefit from additional immunosuppressants like cellcept vs rituxin or azathrioprine
CT chest rechecked on 07/02/2024 showing improvement in groundglass opacities, particularly in the right upper lobe.
Still having groundglass opacifications with interval progression in the lower lobes.
Repeat CXR in AM--showing worsening infiltrates
Incentive spirometry encouraged
Out of bed if able-reviewed with physical therapy
Mucus clearing devices added including acapella/vest
Repeat sputum cultures
DuoNebs QID - currently not bronchospastic
Echo with bubble study checked on 07/01/2024 showed preserved LVEF of 50-55% with normal RV size and function, trace MR, mild pulmonary hypertension with PASP 30-35 mmHg, with negative bubble study and show pericardial effusion
proBNP negative
Completed course of antibiotics--CFP/Vanc/Doxy/azithro (06/11-06/16)
Sputum culture usual respiratory francis
Cultures and viral panel negative
Repeat sputum culture
Continue gabapentin at night for her reported [id number] in her feet/nerve pain; hold for sedation
PT eval -- she will likely need rehab after discharge
DVT prophylaxis-Enoxaparin
GI prophylaxis: famotidine twice daily-plan to continue at discharge given ILD
If she were to need medical decision maker, it would be her daughter Kay Chau.
Will need outpatient follow up with pulmonary- new pt appt scheduled with Dr. Del Valle in Jul 2024, likely will need to adjust timing
Will need outpatient follow up with rheumatology
Diagnostic Data
CXR 06/23/24- 1. Severe bilateral airspace and interstitial disease in the lungs without definitive change from 06/11/2024. Diagnostic possibilities are (1) a SEVERE ACUTE on CHRONIC INFLAMMATORY PNEUMONITIS, (2) less likely pneumonia given the lack
of interval change, or (3) less likely pulmonary edema.
2. SEVERE MEDIASTINAL LYMPHADENOPATHY. Diagnostic possibilities are (1) sarcoidosis or (2) malignancy (lymphoma or metastatic disease).
3. Mildly decreased bilateral lung volumes.
Chest x-ray 2020: Mild diffuse interstitial thickening left greater than right possible ILD/fibrosis
CT chest 06/12/24-2. Extensive bilateral groundglass opacities, superimposed upon subpleural reticulation/fibrosis seen on the prior CT. No significant pleural effusions. There is also mediastinal and hilar lymphadenopathy, which is new compared
to the prior examination. Findings are nonspecific and could represent acute exacerbation or worsening of patient's interstitial lung disease with infectious or inflammatory process also a consideration.
CT chest 08/15/2022: Mild changes of pulmonary fibrosis, nonspecific pattern, pleural-based. Findings are new compared to prior study. Left lower lobe 4 mm nodule. Benign etiology.
Possible pericardial cyst 2.8 X1.8X 1.1 cm present in [address] chest 2016: Reviewed, bilateral lower lobe filling defects compatible with pulmonary embolism. Lower lobe subsegmental atelectasis. No focal abnormalities noted at that time.
Small pericardial cyst
Echocardiogram 08/16/2022: Showed normal LVEF. No regional wall motion abnormalities. Ejection fraction 60 to 65%. Normal right ventricular size and function. No significant valvular disease.
Echo 07/01/2024: Normal left ventricular size, wall thickness and systolic function. No regional wall motion abnormalities are seen. LV ejection fraction is 50-55 % by visual assessment. Normal diastolic function. Normal right ventricular size and
function. Trace mitral regurgitation. Structurally normal aortic valve without significant stenosis or regurgitation. Mild tricuspid regurgitation. Estimated pulmonary artery pressure of 30-35 mmHg. Assuming a right atrial pressure of 3 mmHg.
Interatrial septum is intact with no evidence of shunting by color flow Doppler or by agitata saline (negative bubble study). Trivial pericardial effusion. Compared to prior study 08/16/2022 ejection fraction previously 60 to 65% now 50 to 55%
visually. Trivial pericardial effusion
-----
Total time spent today was 51 minutes for this encounter. Time includes reviewing laboratory test/imaging results, reviewing pertinent medical records, obtaining and reviewing medical history, performing an appropriate exam, ordering medications,
tests and procedures. Time also includes documentation of this encounter, coordinating patient care and communicating with other healthcare professionals. Total time does not include separately billed tests performed on this date of service.
Subjective Data
-
Date of Service:
Date of Service: July 10, 2024
Chief Complaint: Pulmonary Follow Up and Dyspnea Follow Up
Subjective:
O2 requirements increased today, now on 12L
She does not feel worse
CXR showing more basilar consolidation
Objective Data
Data Reviewed
Vital Signs / I&O / Oxygen:
Vital Signs
Temp Pulse Resp BP Pulse Ox
98.1 F 93 26 112/82 93
07/10/24 07:39 07/10/24 07:46 07/10/24 07:46 07/10/24 06:00 07/10/24 07:46
Intake and Output
07/09/24 07/10/24 07/11/24
06:59 06:59 06:59
Intake Total 480 / 480
Balance 480 / 480
SaO2 93
Nasal Cannula flow liters per 12
minute
Physical Exam
General: Respiratory Distress (negative), Comfortable (at rest), Chills (negative) and Sweats (negative)
HEENT: Normocephalic and Anicteric
Cardiovascular: S1-S2, Rub (negative) and Peripheral Edema (negative)
Respiratory: Wheeze (negative), Crackles (bibasilar), Rhonchi (negative), Non-Labored Respirations and Stridor (negative)
GI: Soft, Non Distended, Non Tender and Normal Bowel Sounds
Neurology: AO x 3 and Tremors (negative)
Skin: Warm, Dry, Cyanosis (negative) and Jaundice (negative)
Labs/Micro/Reports
Lab Data
07/10/24 04:43
07/10/24 04:44
[2024-07-10] MEDS: DELTASONE 40 MG PO ×2 (09:17→20:47)
[2024-07-10] MEDS: DESENEX/MITRAZOL/ZEASORB 1 APPLIC TOPICAL ×2 (09:18→20:50)
[2024-07-10] MEDS: MIRALAX PO (09:18)
[2024-07-10] MEDS: MUCINEX 1200 MG PO ×2 (09:18→20:47)
[2024-07-10] MEDS: PEPCID 20 MG PO ×2 (09:19→20:47)
[2024-07-10] MEDS: ZOLOFT 25 MG PO (09:19)
[2024-07-10 10:17] LABS: B.E. 3.2 mmol/L; HCO3 27.9 mmol/L (21-28); O2 Saturation % 95.6 % (94-98); PCO2 42 mmHg (32-35); PO2 71 mmHg (83-108); pH 7.43 (7.35-7.45)
--- NOTE | 2024-07-10 11:20 | W.PN.HOSP.TC ---
Today's Communication/Plan
-
Continue steroid and PJP prophylaxis
Bronchodilators and supportive medications
Wean oxygen as possible
Contact [facility] transfer center for update
Consider BAL at pulmonology discretion
Assessment / Plan
Assessment / Plan
#Acute hypoxemic respiratory failure
#Interstitial lung disease secondary to rheumatoid arthritis
#Possible superimposed community-acquired pneumonia
-Presented with hypoxemia; recent morning stiffness of the joints over the last 5 months
-Status post course of cefepime and doxycycline for 5 days; no longer on antibiotic
-Status post 5-day pulse steroid regimen; transitioned to 40 mg prednisone twice daily
-CT scan does seem more consistent with NSIP, which has better response to steroid
-Chest x-ray today with signs of worsening b/l pneumonia though no fevers or leukocytosis
-Has not required intubation; O2 level slowly improving, on 8 L O2 today
-Pulmonology following
Plan
-Continue with prednisone twice daily, bronchodilators, Mucinex
-Continue with IV Lasix as needed for net negative volume status
-Pending transfer to [facility] for inpatient rheumatology +/- immunomodulators
-Plan for maintenance therapy with CellCept, would avoid MTX due to lung toxicity
-Plan for repeat HRCT as outpatient to reassess parenchymal disease
-If worsens may require BAL with pulmonology to rule out infection
-Will speak to pulmonology about PJP prophylaxis, Bactrim DS 3 times weekly
-Wean oxygen for SpO2 goal >90%
#Euvolemic hyponatremia
-Sodium has been persistently low in the range of 130-135, no symptoms
-Appears fairly euvolemic, question if polydipsia present due to persistent O2 requirement
-Will continue to monitor BMP for now, encourage p.o. intake
-Consider Uosm, Paresh, Sosm, fluid restriction v IVF if worsening
#Anxiety
-Patient with significant anxiety in the room, had a panic attack
-Started on Zoloft for maintenance therapy
-Will transition to alprazolam to Ativan 1 mg 3 times daily PRN
#Leukocytosis
-Secondary to steroid regimen
-Trend CBC and temperature curve
-Resolved
#Newly diagnosed rheumatoid arthritis
-Complicated by apparent rheumatic ILD
-Positive anti-CCP and KIERRA here; s/p pulse dose steroid
-Will need to follow-up with rheumatology for maintenance therapy
-Would avoid MTX as DMARDs due to potential for lung toxicity
#Transaminitis
-Hepatitis B and C serology negative, HIV testing negative
-ALT elevated disproportionately to AST and other LFTs
-Cannot rule out NAFLD, consider RUQ US if worsening
#Lower extremity peripheral neuropathy
-Possibly steroid-induced (?) versus idiopathic
-Was started on a trial of gabapentin 300 mg nightly
DVT ppx: Lovenox SQ
Diet: Regular
CODE STATUS: Full Code
Disposition: Pending transfer to [facility]. If patient has bed available we will pursue transfer for inpatient rheumatology evaluation and consideration of immunomodulator therapy. If her condition continues to improve and she requires <6 L of
supplemental oxygen prior to transfer then will discharge with outpatient follow-up at [facility]
Anticipated Discharge: > 48 hours
Subjective/Interval History
-
Date of Service: July 10, 2024
Seen and examined at the bedside. No acute events reported overnight. AFVSS on 12 L via mid flow GA today.
States that she feels that she is breathing well. Does feel short of breath after talking a lot or exertion. Mentions a cough with some brownish mucus production, started yesterday but mucus first noted today. No fevers overnight, no leukocytosis
on labs.
She denies any other new complaints
Objective Data
-
Labs:
Laboratory Results
07/10/24 07/10/24 07/10/24
04:43 04:44 10:03
WBC 8.6
Hgb 12.6
Hct 37.9
Plt Count 178
HCO3 27.9
Sodium 133 L
Potassium 5.1
Chloride 96 L
Carbon Dioxide 33 H
BUN 15
Creatinine 0.5 L
Glucose 148 H
Calcium 8.2 L
Total Bilirubin 0.5
AST 27
ALT 69 H
Alkaline Phosphatase 90
Vital Signs:
Vital Signs
Temp Pulse Resp BP Pulse Ox
98.1 F 93 26 112/82 93
07/10/24 07:39 07/10/24 07:46 07/10/24 07:46 07/10/24 06:00 07/10/24 07:46
I&O
07/09/24 07/10/24 07/11/24
06:59 06:59 06:59
Intake Total 480 / 480
Balance 480 / 480
Review of Systems
-
History Source: Patient
All other systems: Reviewed and negative
Physical Exam
-
General: Well Developed, Well Nourished, No Apparent Distress and Comfortable
HEENT: Normocephalic, Atraumatic, Moist Mucous Membranes and Oxygen
Respiratory: Rhonchi (Course, most notable bilaterally at mid lung) and Non Labored Respirations; Negative Accessory Resp Muscle Use
Cardiac: Regular Rhythm, S1/S2 and Tachycardic; Negative Murmur, Rub, JVD or Gallop
GI: Soft, Nontender, Nondistended and Normal Bowel Sounds
Musculoskeletal: No Clubbing, No Cyanosis and No Edema
Skin: Warm, Dry and Normal Turgor; Negative Rash
Neuro: AO x 3 and Nonfocal/Grossly Intact
Psych: Calm
--- NOTE | 2024-07-10 12:05 | CM ---
Per Dr. Morris patient continues to be possible for transfer. CM spoke with patient at bedside, she is concerned about FMLA ending 07/25/24 and is planning to call her employer to discuss. CM will continue to follow for discharge planning needs.
Plan; transfer to [facility]
[2024-07-10] MEDS: LOVENOX 40 MG SC (18:38)
[2024-07-10] MEDS: ATIVAN 1 MG PO (20:47)
[2024-07-10] MEDS: NEURONTIN 300 MG PO (20:47)
[2024-07-10] MEDS: MELATONIN 5 MG PO (20:47)
[2024-07-10] MEDS: PHENERGAN WITH CODEINE SYRUP 5 ML PO (21:28)
--- NOTE | 2024-07-10 22:15 | PTCARENOTE ---
assumed care of patient from previous RN. Patient is Aox3 and pleasant. NSR on monitor. Patient on midflow 12L, tolerating well, PRN non rebreather. Using bedpan as needed. Patient has non productive cough, gave PRN cough medication, see MAR.
Assessment and VS as documented. Call martinez in reach.
[2024-07-11] VITALS (8 sets, daily range): BP systolic 104–140; BP diastolic 70–113
[2024-07-11] MEDS: SYNTHROID 137 MCG PO (04:30)
[2024-07-11 04:53] LABS: % Basophils 0.2 % (0-2); % Immature Granulocytes 4.3 % (0-0.5); % Lymphocytes 8.5 % (20.5-51.1); % Monocytes 3.7 % (1.7-9.3); % Neutrophils 83.3 % (42.2-75.2); Absolute Immature Granulocytes 0.4 10^3/uL (0-0.05); Absolute Lymphocytes 0.8 10^3/uL (1.2-3.4); Absolute Monocytes 0.3 10^3/uL (0.1-0.6); Absolute Neutrophils 7.5 10^3/uL (1.4-6.5); Hematocrit 34.2 % (37.0-47.0); Hemoglobin 11.9 g/dL (12.0-16.0); Mean Corp Hgb Conc. 34.8 g/dL (33.0-37.0); Mean Corpuscular Hgb 32.8 pg (27.0-31.0); Mean Corpuscular Volume 94.2 fL (81.0-99.0); Mean Platelet Volume 9.6 fL (7.4-10.4); Nucleated Red Blood Cells % 0 %; Platelet Count 185 10^3/uL (130-400); Red Blood Cell Count 3.63 10^6/uL (4.20-5.40); Red Cell Dist. Width 14.2 % (11.5-14.5)
[2024-07-11 05:32] LABS: Blood Urea Nitrogen 19 mg/dl (7-17); Calcium 8.2 mg/dl (8.4-10.2); Carbon Dioxide 30 mmol/L (22-30); Chloride 97 mmol/L (98-107); Estimated Creatinine Clearance 97 ml/min; Glucose 151 mg/dl (70-99); Potassium 4.8 mmol/L (3.5-5.1); Sodium 131 mmol/L (135-145); eGFR > 60.00
[2024-07-11] MEDS: DUONEB 3 ML INH ×3 (08:03→19:32)
[2024-07-11] MEDS: ZOLOFT 25 MG PO (08:21)
[2024-07-11] MEDS: MIRALAX 17 GRAMS PO (08:21)
[2024-07-11] MEDS: DELTASONE 40 MG PO ×2 (08:21→20:24)
[2024-07-11] MEDS: ATIVAN 1 MG PO ×2 (08:22→20:26)
[2024-07-11] MEDS: DESENEX/MITRAZOL/ZEASORB 1 APPLIC TOPICAL ×2 (08:22→22:44)
[2024-07-11] MEDS: PEPCID 20 MG PO ×2 (08:22→20:24)
[2024-07-11] MEDS: MUCINEX 1200 MG PO ×2 (08:22→20:23)
--- NOTE | 2024-07-11 08:38 | PTCARENOTE ---
Assumed care of patient this morning. She is aaox3, pleasant. Pt appears dyspneic on exertion, SPO2 dropping into 80s with minimal exertion on 12L midflow. Pt using NRB mask for recovery. Pt has a dry cough. Lungs coarse. She reports minimal pain to
right ribs from coughing, reporting 0.5/10. She has no other complaints. Assessment, care and VS as charted.
--- NOTE | 2024-07-11 09:33 | W.PN.PUL3 ---
Today's Communication / Plan
-
Remains on 12L NC, but likely can start weaning down again
Airway clearance measures seems productive, repeat sputum culture still pending
Continue medical therapies and prednisone for now
Repeat CXR in AM 07/12
Assessment
-
64-year-old woman with distant past medical history of provoked pulmonary embolism, interstitial lung disease which is mild on CAT scan 07/2022 undifferentiated, has not been seen by pulmonary despite being recommended last year. Comes to the
hospital complaining of progressive shortness of breath, cough, hypoxemia. X-ray with significant bilateral infiltrates. Follow-up CT demonstrated severely diffuse groundglass opacities. Progressive hypoxemic respiratory failure up to 10 L.
Impression:
Severe acute hypoxemic respiratory failure currently on high-flow nasal cannula
CTA chest 06/12/2024: Diffuse groundglass opacity bilaterally. No pleural effusion. Negative for acute PE.
Differential diagnosis include infectious such as community-acquired pneumonia viral/bacterial-cannot rule out interstitial lung disease acute flare-broad differential diagnosis.
With significantly increased CRP and sedimentation rate suspect more inflammatory such as nonspecific interstitial pneumonia, connective tissue disease associated ILD etc.
Her CAT scan was not compatible with usual interstitial pneumonia.
Less likely pulmonary edema. Most recent echocardiogram from 08/2022 with normal LVEF.
Less likely diffuse alveolar hemorrhage given stable hgb and no hemoptysis; DDx also includes CEP, organizing pneumonia, and atypical CHP
Negative influenza, COVID, Legionella and strep pneumonia.
EKG 06/11/2024: Normal sinus rhythm. ST-T wave abnormality consider inferior ischemia.
leukocytosis/fever
Mild hyponatremia - now resolved
Conditions present prior admission:
Interstitial lung disease : Undifferentiated
Formerly seen on CAT scan 07/2022 for the first time. Mild, peripheral, undifferentiated.
History of PE/DVT provoked after foot injury [address] of the chest at that time: No mention of interstitial lung disease.
History of influenza in 2018/2018 With pneumonia.
History of COVID mildly 2021.
History of ankle fracture on the left status post repair 2023.
Plan:
Patient transitioned off high flow nasal cannula onto midflow nasal cannula on 07/04/2024, and is tolerating this well with SpO2 >95%.
Continue to wean down O2 flow rate while keeping SpO2 >90-94%
Currently on 8L midflow, satting >95%--this has increased in the past 24 hours to 12L
Check ABG--07/10 - 7./--BIPAP could be tried if needed (this would change her level of care for transfer to [facility])
CTA chest from 06/12/2024 demonstrated severely diffuse groundglass opacities without pleural effusions but has mildly increased mediastinal lymph nodes. No pericardial effusion.
This is most consistent with NSIP, progressed compared to CT in 2022
KIERRA IgG positive but with low titer (<1:80); antinuclear Ab and cytoplasmic Ab negative by IFA; c3, c4 wnl
CCP antibody positive (moderately positive), CRP positive -- Suspect inflammatory process
Methylprednisolone 1 g every 24 hours-pulse steroids-initiated 06/20/2024-finish a 5-day pulse and then convert to prednisone 1 mg/kg daily-prednisone 40 mg twice daily
Rheumatology consulted --> pt could benefit from additional immunosuppressants like cellcept vs rituxin or azathrioprine
CT chest rechecked on 07/02/2024 showing improvement in groundglass opacities, particularly in the right upper lobe.
Still having groundglass opacifications with interval progression in the lower lobes.
Repeat CXR 07/09--showing worsening infiltrates
Airway clearance, she is doing well
Repeat CXR in AM 07/12
Incentive spirometry encouraged
Out of bed if able-reviewed with physical therapy
Mucus clearing devices added including acapella/vest
Repeat sputum cultures
DuoNebs QID - currently not bronchospastic
Echo with bubble study checked on 07/01/2024 showed preserved LVEF of 50-55% with normal RV size and function, trace MR, mild pulmonary hypertension with PASP 30-35 mmHg, with negative bubble study and show pericardial effusion
proBNP negative
Completed course of antibiotics--CFP/Vanc/Doxy/azithro (06/11-06/16)
Sputum culture usual respiratory francis
Cultures and viral panel negative
Repeat sputum culture 07/10, still pending
Continue gabapentin at night for her reported [id number] in her feet/nerve pain; hold for sedation
PT eval -- she will likely need rehab after discharge
DVT prophylaxis-Enoxaparin
GI prophylaxis: famotidine twice daily-plan to continue at discharge given ILD
If she were to need medical decision maker, it would be her daughter Kay Chau.
Will need outpatient follow up with pulmonary- new pt appt scheduled with Dr. Del Valle in Jul 2024, likely will need to adjust timing
Will need outpatient follow up with rheumatology
Diagnostic Data
CXR 06/23/24- 1. Severe bilateral airspace and interstitial disease in the lungs without definitive change from 06/11/2024. Diagnostic possibilities are (1) a SEVERE ACUTE on CHRONIC INFLAMMATORY PNEUMONITIS, (2) less likely pneumonia given the lack
of interval change, or (3) less likely pulmonary edema.
2. SEVERE MEDIASTINAL LYMPHADENOPATHY. Diagnostic possibilities are (1) sarcoidosis or (2) malignancy (lymphoma or metastatic disease).
3. Mildly decreased bilateral lung volumes.
Chest x-ray 2020: Mild diffuse interstitial thickening left greater than right possible ILD/fibrosis
CT chest 06/12/24-2. Extensive bilateral groundglass opacities, superimposed upon subpleural reticulation/fibrosis seen on the prior CT. No significant pleural effusions. There is also mediastinal and hilar lymphadenopathy, which is new compared
to the prior examination. Findings are nonspecific and could represent acute exacerbation or worsening of patient's interstitial lung disease with infectious or inflammatory process also a consideration.
CT chest 08/15/2022: Mild changes of pulmonary fibrosis, nonspecific pattern, pleural-based. Findings are new compared to prior study. Left lower lobe 4 mm nodule. Benign etiology.
Possible pericardial cyst 2.8 X1.8X 1.1 cm present in [address] chest 2016: Reviewed, bilateral lower lobe filling defects compatible with pulmonary embolism. Lower lobe subsegmental atelectasis. No focal abnormalities noted at that time.
Small pericardial cyst
Echocardiogram 08/16/2022: Showed normal LVEF. No regional wall motion abnormalities. Ejection fraction 60 to 65%. Normal right ventricular size and function. No significant valvular disease.
Echo 07/01/2024: Normal left ventricular size, wall thickness and systolic function. No regional wall motion abnormalities are seen. LV ejection fraction is 50-55 % by visual assessment. Normal diastolic function. Normal right ventricular size and
function. Trace mitral regurgitation. Structurally normal aortic valve without significant stenosis or regurgitation. Mild tricuspid regurgitation. Estimated pulmonary artery pressure of 30-35 mmHg. Assuming a right atrial pressure of 3 mmHg.
Interatrial septum is intact with no evidence of shunting by color flow Doppler or by agitata saline (negative bubble study). Trivial pericardial effusion. Compared to prior study 08/16/2022 ejection fraction previously 60 to 65% now 50 to 55%
visually. Trivial pericardial effusion
-----
Total time spent today was 51 minutes for this encounter. Time includes reviewing laboratory test/imaging results, reviewing pertinent medical records, obtaining and reviewing medical history, performing an appropriate exam, ordering medications,
tests and procedures. Time also includes documentation of this encounter, coordinating patient care and communicating with other healthcare professionals. Total time does not include separately billed tests performed on this date of service.
Subjective Data
-
Date of Service:
Date of Service: July 11, 2024
Chief Complaint: Pulmonary Follow Up and Dyspnea Follow Up
Subjective:
Doing very well with her airway clearance measures
Bringing up brown tinged sputum regularly
Remains on 12L but sats are above 95%
Objective Data
Data Reviewed
Vital Signs / I&O / Oxygen:
Vital Signs
Temp Pulse Resp BP Pulse Ox
97.6 F 106 44 125/113 86
07/11/24 07:11 07/11/24 08:18 07/11/24 08:18 07/11/24 08:18 07/11/24 08:18
Intake and Output
07/10/24 07/11/24 07/12/24
06:59 06:59 06:59
Intake Total 480 / 480
Output Total 550 / 550
Balance 480 / 480 -550 / -550
SaO2 86
Nasal Cannula flow liters per 12
minute
Physical Exam
General: Respiratory Distress (negative), Comfortable (at rest), Chills (negative) and Sweats (negative)
HEENT: Normocephalic and Anicteric
Cardiovascular: S1-S2, Rub (negative) and Peripheral Edema (negative)
Respiratory: Wheeze (negative), Crackles (bibasilar), Rhonchi (negative), Non-Labored Respirations, Stridor (negative) and Other (decreased overall at bases)
GI: Soft, Non Distended, Non Tender and Normal Bowel Sounds
Neurology: AO x 3 and Tremors (negative)
Skin: Warm, Dry, Cyanosis (negative) and Jaundice (negative)
Labs/Micro/Reports
Lab Data
07/11/24 04:37
07/11/24 04:37
Laboratory Results
07/10/24
10:03
pH 7.43
pCO2 42 H
pO2 71 L
HCO3 27.9
O2 Delivery Level
--- NOTE | 2024-07-11 11:09 | W.PN.HOSP.TC ---
Today's Communication/Plan
-
Continue prednisone and PJP prophylaxis
Continue bronchodilators and supportive measures
Follow sputum cultures
Wean oxygen
CT thorax if respiratory status worsens
Call transfer center
Assessment / Plan
Assessment / Plan
#Acute hypoxemic respiratory failure
#Interstitial lung disease secondary to rheumatoid arthritis
#Possible superimposed community-acquired pneumonia
-Presented with hypoxemia; recent morning stiffness of the joints over the last 5 months
-Status post course of cefepime and doxycycline for 5 days; no longer on antibiotic
-Status post 5-day pulse steroid regimen; transitioned to 40 mg prednisone twice daily
-CT scan does seem more consistent with NSIP, which has better response to steroid
-Chest x-ray today with signs of worsening b/l pneumonia though no fevers or leukocytosis
-Has not required intubation; O2 level slowly improving, on 8 L O2 today
-Pulmonology following
Plan
-Continue with prednisone twice daily, bronchodilators, Mucinex
-Continue with IV Lasix as needed for net negative volume status
-Pending transfer to [facility] for inpatient rheumatology +/- immunomodulators
-Plan for maintenance therapy with CellCept versus Rituxan, would avoid MTX due to lung toxicity
-Plan for repeat HRCT as outpatient to reassess parenchymal disease
-If worsens may require BAL with pulmonology to rule out infection
-Will speak to pulmonology about PJP prophylaxis, Bactrim DS 3 times weekly
-Wean oxygen for SpO2 goal >90%
-Follow sputum cultures
#Euvolemic hyponatremia
-Sodium has been persistently low in the range of 130-135, no symptoms
-Appears fairly euvolemic, question if polydipsia present due to persistent O2 requirement
-Will continue to monitor BMP for now, encourage p.o. intake
-Consider Uosm, Paresh, Sosm, fluid restriction v IVF if worsening
-Sodium remains stable
#Anxiety
-Patient with significant anxiety in the room, had a panic attack
-Started on Zoloft for maintenance therapy
-Will transition to alprazolam to Ativan 1 mg 3 times daily PRN
#Leukocytosis
-Secondary to steroid regimen
-Trend CBC and temperature curve
-Resolved
#Newly diagnosed rheumatoid arthritis
-Complicated by apparent rheumatic ILD
-Positive anti-CCP and KIERRA here; s/p pulse dose steroid
-Will need to follow-up with rheumatology for maintenance therapy
-Would avoid MTX as DMARDs due to potential for lung toxicity
#Transaminitis
-Hepatitis B and C serology negative, HIV testing negative
-ALT elevated disproportionately to AST and other LFTs
-Cannot rule out NAFLD, consider RUQ US if worsening
#Lower extremity peripheral neuropathy
-Possibly steroid-induced (?) versus idiopathic
-Was started on a trial of gabapentin 300 mg nightly
DVT ppx: Lovenox SQ
Diet: Regular
CODE STATUS: Full Code
Disposition: Pending transfer to [facility]. If patient has bed available we will pursue transfer for inpatient rheumatology evaluation and consideration of immunomodulator therapy. If her condition continues to improve and she requires <6 L of
supplemental oxygen prior to transfer then will discharge with outpatient follow-up at [facility]
Spoke with transfer center on 07/10/2024, remains emergent priority though no bed available. Will call transfer center again today
Anticipated Discharge: > 48 hours
Subjective/Interval History
-
Date of Service: July 11, 2024
Seen and examined bedside. No acute events reported overnight. AFVSS on 12 L O2 via mid flow NC
Patient states she feels well and is not short of breath at the moment. Still with cough though no sputum produced today. Sputum cultures ordered yesterday
Denies any new complaints.
Spoke with transfer center on 07/10, plan to call again today. Remains emergent status though no bed available
Objective Data
-
Labs:
Laboratory Results
07/11/24
04:37
WBC 9.0
Hgb 11.9 L
Hct 34.2 L
Plt Count 185
Sodium 131 L
Potassium 4.8
Chloride 97 L
Carbon Dioxide 30
BUN 19 H
Creatinine 0.5 L
Glucose 151 H
Calcium 8.2 L
Vital Signs:
Vital Signs
Temp Pulse Resp BP Pulse Ox
97.6 F 90 44 113/79 94
07/11/24 07:11 07/11/24 10:00 07/11/24 10:00 07/11/24 10:00 07/11/24 10:00
I&O
07/10/24 07/11/24 07/12/24
06:59 06:59 06:59
Intake Total 480 / 480
Output Total 550 / 550
Balance 480 / 480 -550 / -550
Review of Systems
-
History Source: Patient
All other systems: Reviewed and negative
Physical Exam
-
General: Well Developed, Well Nourished, No Apparent Distress and Comfortable
HEENT: Normocephalic, Atraumatic, Moist Mucous Membranes and Oxygen
Respiratory: Rhonchi (Course sounds most notable with midlung bilaterally) and Non Labored Respirations; Negative Wheezes, Crackles or Accessory Resp Muscle Use
Cardiac: Regular Rhythm and S1/S2; Negative Murmur, Rub or Gallop
GI: Soft, Nontender, Nondistended and Normal Bowel Sounds
Musculoskeletal: No Clubbing, No Cyanosis and No Edema
Skin: Warm, Dry and Normal Turgor; Negative Rash
Neuro: AO x 3 and Nonfocal/Grossly Intact; Negative Tremors
Psych: Calm
Data Reviewed
-
Labs: Labs Reviewed by me, Discussed with Physician (Log Chain Worker) and Discussed with Patient
[2024-07-11] MEDS: BACTRIM DS 800 MG/160 MG 1 TABLET PO (11:10)
[2024-07-11] MEDS: DUONEB INH (15:37)
[2024-07-11] MEDS: LOVENOX 40 MG SC (17:49)
[2024-07-11] MEDS: MELATONIN 5 MG PO (20:26)
[2024-07-11] MEDS: NEURONTIN 300 MG PO (20:26)
[2024-07-12] VITALS (8 sets, daily range): BP systolic 97–140; BP diastolic 68–89
[2024-07-12] MEDS: PHENERGAN WITH CODEINE SYRUP 5 ML PO ×2 (00:38→19:00)
--- NOTE | 2024-07-12 01:47 | PTCARENOTE ---
Pt received at beginning of shift resting in bed. AAOx3. Denies any pain or discomfort at rest. Received on 12L MF with prn NRB for recovery. With minimal exertion pt SHORE, tachypneic with PLB into the 40's with pox down to 86%. Takes time for pt to
recover. SR/ST on CM. Rest of VSS. Pt stated 'I don't want to be transferred down to [facility] anymore.' Stated 'I can go as outpatient.' Rest of assessment as documented. Call martinez remains within reach. Will continue to monitor.
[2024-07-12 04:58] LABS: Hematocrit 33.7 % (37.0-47.0); Hemoglobin 11.7 g/dL (12.0-16.0); Mean Corp Hgb Conc. 34.7 g/dL (33.0-37.0); Mean Corpuscular Volume 94.9 fL (81.0-99.0); Mean Platelet Volume 9.4 fL (7.4-10.4); Platelet Count 197 10^3/uL (130-400); Red Blood Cell Count 3.55 10^6/uL (4.20-5.40); Red Cell Dist. Width 14.2 % (11.5-14.5); White Blood Cell Count 8.9 10^3/uL (4.8-10.8)
[2024-07-12 05:04] LABS: Blood Urea Nitrogen 18 mg/dl (7-17); Carbon Dioxide 32 mmol/L (22-30); Chloride 94 mmol/L (98-107); Estimated Creatinine Clearance 97 ml/min; Glucose 168 mg/dl (70-99); Potassium 4.8 mmol/L (3.5-5.1); Sodium 131 mmol/L (135-145); eGFR > 60.00
[2024-07-12] MEDS: SYNTHROID 137 MCG PO (05:59)
[2024-07-12] MEDS: DUONEB 3 ML INH ×4 (07:49→19:33)
[2024-07-12] MEDS: ZOLOFT 25 MG PO (08:06)
[2024-07-12] MEDS: PEPCID 20 MG PO ×2 (08:06→19:01)
[2024-07-12] MEDS: DELTASONE 40 MG PO ×2 (08:06→19:00)
[2024-07-12] MEDS: MIRALAX PO (08:06)
[2024-07-12] MEDS: MUCINEX 1200 MG PO ×2 (08:06→19:01)
[2024-07-12] MEDS: DESENEX/MITRAZOL/ZEASORB 1 APPLIC TOPICAL ×2 (08:07→19:01)
[2024-07-12] MEDS: ATIVAN 1 MG PO (08:11)
[2024-07-12 08:52] LABS: % Basophils 0.3 % (0-2); % Eosinophils 0.1 % (0-6); % Immature Granulocytes 5.3 % (0-0.5); % Lymphocytes 8.6 % (20.5-51.1); % Monocytes 4.2 % (1.7-9.3); % Neutrophils 81.5 % (42.2-75.2); Absolute Immature Granulocytes 0.5 10^3/uL (0-0.05); Absolute Lymphocytes 0.8 10^3/uL (1.2-3.4); Absolute Monocytes 0.4 10^3/uL (0.1-0.6); Absolute Neutrophils 7.2 10^3/uL (1.4-6.5); Nucleated Red Blood Cells % 0 %
--- NOTE | 2024-07-12 09:30 | W.PN.PUL3 ---
Today's Communication / Plan
-
Remains on 12L NC - wean down as tolerated while keeping SpO2 >90%
Airway clearance measures seems productive, repeat sputum culture shows NGTD
Continue medical therapies and prednisone for now
PCP ppx with bactrim
Up OOB as tolerated; encourage IS use
She has decided to cancel the transfer to [place]
Pulmonary service will continue to follow along
Assessment
-
64-year-old woman with distant past medical history of provoked pulmonary embolism, interstitial lung disease which is mild on CAT scan 07/2022 undifferentiated, has not been seen by pulmonary despite being recommended last year. Comes to the
hospital complaining of progressive shortness of breath, cough, hypoxemia. X-ray with significant bilateral infiltrates. Follow-up CT demonstrated severely diffuse groundglass opacities. Progressive hypoxemic respiratory failure up to 10 L.
Impression:
Severe acute hypoxemic respiratory failure currently on high-flow nasal cannula
CTA chest 06/12/2024: Diffuse groundglass opacity bilaterally. No pleural effusion. Negative for acute PE.
Differential diagnosis include infectious such as community-acquired pneumonia viral/bacterial-cannot rule out interstitial lung disease acute flare-broad differential diagnosis.
With significantly increased CRP and sedimentation rate suspect more inflammatory such as nonspecific interstitial pneumonia, connective tissue disease associated ILD etc.
Her CAT scan was not compatible with usual interstitial pneumonia.
Less likely pulmonary edema. Most recent echocardiogram from 08/2022 with normal LVEF.
Less likely diffuse alveolar hemorrhage given stable hgb and no hemoptysis; DDx also includes CEP, organizing pneumonia, and atypical CHP
Negative influenza, COVID, Legionella and strep pneumonia.
EKG 06/11/2024: Normal sinus rhythm. ST-T wave abnormality consider inferior ischemia.
leukocytosis/fever
Mild hyponatremia - now resolved
Conditions present prior admission:
Interstitial lung disease : Undifferentiated
Formerly seen on CAT scan 07/2022 for the first time. Mild, peripheral, undifferentiated.
History of PE/DVT provoked after foot injury [address] of the chest at that time: No mention of interstitial lung disease.
History of influenza in 2018/2018 With pneumonia.
History of COVID mildly 2021.
History of ankle fracture on the left status post repair 2023.
Plan:
Patient transitioned off high flow nasal cannula onto midflow nasal cannula on 07/04/2024, and is tolerating this well with SpO2 >95%.
Continue to wean down O2 flow rate while keeping SpO2 >90-94%
Currently on 12L midflow, satting >90% (previously was on 8L/min few days ago)
BIPAP could be tried if needed
CTA chest from 06/12/2024 demonstrated severely diffuse groundglass opacities without pleural effusions but has mildly increased mediastinal lymph nodes. No pericardial effusion.
This is most consistent with NSIP, progressed compared to CT in 2022
KIERRA IgG positive but with low titer (<1:80); antinuclear Ab and cytoplasmic Ab negative by IFA; c3, c4 wnl
CCP antibody positive (moderately positive), CRP positive -- Suspect inflammatory process
Methylprednisolone 1 g every 24 hours-pulse steroids-initiated 06/20/2024-finished a 5-day pulse and then converted to prednisone 1 mg/kg daily-remains on prednisone 40 mg twice daily
Rheumatology consulted --> pt could benefit from additional immunosuppressants like cellcept vs rituxin or azathrioprine
Continue Bactrim for PCP ppx
CT chest rechecked on 07/02/2024 showing improvement in groundglass opacities, particularly in the right upper lobe.
Still having groundglass opacifications with interval progression in the lower lobes.
Repeat CXR 07/09--showing worsening infiltrates
Airway clearance, she is doing well
Repeat CXR in AM 07/12 shows similar findings compared to recent CXR on 07/09/2024
Incentive spirometry encouraged
Out of bed if able-reviewed with physical therapy
Mucus clearing devices added including acapella/vest
Repeat sputum cultures
DuoNebs QID - currently not bronchospastic
Echo with bubble study checked on 07/01/2024 showed preserved LVEF of 50-55% with normal RV size and function, trace MR, mild pulmonary hypertension with PASP 30-35 mmHg, with negative bubble study and show pericardial effusion
proBNP negative
Completed course of antibiotics--CFP/Vanc/Doxy/azithro (06/11-06/16)
Sputum culture usual respiratory francis
Cultures and viral panel negative
Repeat sputum culture 07/11 (shows NGTD)
Continue gabapentin at night for her reported [id number] in her feet/nerve pain; hold for sedation
PT eval -- she will likely need rehab after discharge
DVT prophylaxis-Enoxaparin
GI prophylaxis: famotidine twice daily-plan to continue at discharge given ILD
If she were to need medical decision maker, it would be her daughter Kay Chau.
Will need outpatient follow up with pulmonary- new pt appt scheduled with Dr. Del Valle in Jul 2024, likely will need to adjust timing
Will need outpatient follow up with rheumatology
She says that she has canceled the transfer to [place].
Pulmonary service will continue to follow along.
Diagnostic Data
CXR 06/23/24- 1. Severe bilateral airspace and interstitial disease in the lungs without definitive change from 06/11/2024. Diagnostic possibilities are (1) a SEVERE ACUTE on CHRONIC INFLAMMATORY PNEUMONITIS, (2) less likely pneumonia given the lack
of interval change, or (3) less likely pulmonary edema.
2. SEVERE MEDIASTINAL LYMPHADENOPATHY. Diagnostic possibilities are (1) sarcoidosis or (2) malignancy (lymphoma or metastatic disease).
3. Mildly decreased bilateral lung volumes.
Chest x-ray 2020: Mild diffuse interstitial thickening left greater than right possible ILD/fibrosis
CT chest 06/12/24-2. Extensive bilateral groundglass opacities, superimposed upon subpleural reticulation/fibrosis seen on the prior CT. No significant pleural effusions. There is also mediastinal and hilar lymphadenopathy, which is new compared
to the prior examination. Findings are nonspecific and could represent acute exacerbation or worsening of patient's interstitial lung disease with infectious or inflammatory process also a consideration.
CT chest 08/15/2022: Mild changes of pulmonary fibrosis, nonspecific pattern, pleural-based. Findings are new compared to prior study. Left lower lobe 4 mm nodule. Benign etiology.
Possible pericardial cyst 2.8 X1.8X 1.1 cm present in [address] chest 2016: Reviewed, bilateral lower lobe filling defects compatible with pulmonary embolism. Lower lobe subsegmental atelectasis. No focal abnormalities noted at that time.
Small pericardial cyst
Echocardiogram 08/16/2022: Showed normal LVEF. No regional wall motion abnormalities. Ejection fraction 60 to 65%. Normal right ventricular size and function. No significant valvular disease.
Echo 07/01/2024: Normal left ventricular size, wall thickness and systolic function. No regional wall motion abnormalities are seen. LV ejection fraction is 50-55 % by visual assessment. Normal diastolic function. Normal right ventricular size and
function. Trace mitral regurgitation. Structurally normal aortic valve without significant stenosis or regurgitation. Mild tricuspid regurgitation. Estimated pulmonary artery pressure of 30-35 mmHg. Assuming a right atrial pressure of 3 mmHg.
Interatrial septum is intact with no evidence of shunting by color flow Doppler or by agitata saline (negative bubble study). Trivial pericardial effusion. Compared to prior study 08/16/2022 ejection fraction previously 60 to 65% now 50 to 55%
visually. Trivial pericardial effusion
-----
Total time spent today was 54 minutes for this encounter. Time includes reviewing laboratory test/imaging results, reviewing pertinent medical records, obtaining and reviewing medical history, performing an appropriate exam, ordering medications,
tests and procedures. Time also includes documentation of this encounter, coordinating patient care and communicating with other healthcare professionals. Total time does not include separately billed tests performed on this date of service.
Subjective Data
-
Date of Service:
Date of Service: July 12, 2024
Chief Complaint: Pulmonary Follow Up and Dyspnea Follow Up
Subjective:
Patient seen earlier today (late note entry). CXR obtained today shows similar findings compared to recent CXR on 07/09/2024. Currently on 12 L/min via midflow nasal cannula. She feels well. Denies chest pain, PASCUAL, nausea, fevers or chills.
Review of Systems
General: Other (Negative unless mentioned above)
Objective Data
Data Reviewed
Vital Signs / I&O / Oxygen:
Vital Signs
Temp Pulse Resp BP Pulse Ox
98.0 F 86 24 97/77 96
07/12/24 03:11 07/12/24 04:00 07/12/24 04:00 07/12/24 04:00 07/12/24 04:00
Intake and Output
07/11/24 07/12/24 07/13/24
06:59 06:59 06:59
Intake Total 480 / 480
Output Total 550 / 550 800 / 800
Balance -550 / -550 -320 / -320
SaO2 96
Nasal Cannula flow liters per 12
minute
Physical Exam
General: Respiratory Distress (negative), Comfortable (at rest), Chills (negative) and Sweats (negative)
HEENT: Normocephalic and Anicteric
Cardiovascular: S1-S2, Rub (negative) and Peripheral Edema (negative)
Respiratory: Wheeze (negative), Crackles (bibasilar), Rhonchi (negative), Non-Labored Respirations, Stridor (negative) and Other (decreased overall at bases)
GI: Soft, Non Distended, Non Tender and Normal Bowel Sounds
Neurology: AO x 3 and Tremors (negative)
Skin: Warm, Dry, Cyanosis (negative) and Jaundice (negative)
Labs/Micro/Reports
Lab Data
07/12/24 04:22
07/12/24 04:22
Microbiology
07/11/24 13:00 Sputum Respiratory Culture - Final
07/11/24 13:00 Sputum Gram Stain - Final
--- NOTE | 2024-07-12 10:28 | W.PN.HOSP.TC ---
Today's Communication/Plan
-
Continue current management
Promote OOB
Wean O2 as possible
Consider starting MMF versus Rituxan
Assessment / Plan
Assessment / Plan
#Acute hypoxemic respiratory failure
#Interstitial lung disease secondary to rheumatoid arthritis
#Possible superimposed community-acquired pneumonia
-Status post course of cefepime and doxycycline; s/p 5-day pulse steroids, now on p.o.
-CT scan does seem more consistent with NSIP, which has better response to steroid
-Chest x-ray today with signs of worsening b/l pneumonia though no fevers or leukocytosis
-Has not required intubation; O2 level slowly improving, on 12 L O2 today
-Pulmonology following, patient no longer wants transfer to [facility]
-Repeat sputum cultures from 07/09 negative
Plan
-Continue with prednisone twice daily, bronchodilators, Mucinex
-Continue with IV Lasix as needed for net negative volume status
-Will speak with rheumatology here about CellCept versus Rituxan; would avoid MTX due to lung toxicity
-If worsens may require BAL with pulmonology to rule out infection
-Continue Bactrim 3x weekly for PJP prophylaxis
-Wean oxygen for SpO2 goal >90%
#Euvolemic hyponatremia
-Sodium has been persistently low in the range of 130-135, no symptoms
-Likely SIADH from hypoxemia versus polydipsia from persistent O2
-Will continue to monitor BMP for now, encourage p.o. intake
-Consider Uosm, Paresh, Sosm, fluid restriction v IVF if worsening
-Sodium remains stable
#Anxiety
-Patient with significant anxiety in the room, had a panic attack
-Started on Zoloft for maintenance therapy
-Will transition to alprazolam to Ativan 1 mg 3 times daily PRN
#Leukocytosis
-Secondary to steroid regimen
-Trend CBC and temperature curve
-Resolved
#Newly diagnosed rheumatoid arthritis
-Complicated by apparent rheumatic ILD
-Positive anti-CCP and KIERRA here; s/p pulse dose steroid
-Will need to follow-up with rheumatology for maintenance therapy
-Would avoid MTX as DMARDs due to potential for lung toxicity
#Transaminitis
-Hepatitis B and C serology negative, HIV testing negative
-ALT elevated disproportionately to AST and other LFTs
-Cannot rule out NAFLD, consider RUQ US if worsening
#Lower extremity peripheral neuropathy
-Possibly steroid-induced (?) versus idiopathic
-Was started on a trial of gabapentin 300 mg nightly
DVT ppx: Lovenox SQ
Diet: Regular
CODE STATUS: Full Code
Disposition: As of this morning patient no longer wants to transfer to [facility]. Would benefit from acute inpatient rehab, though respiratory status needs to improve for consideration
Discussed with pulmonary
Anticipated Discharge: > 48 hours
Subjective/Interval History
-
Date of Service: July 12, 2024
Seen and examined at the bedside. No acute events reported overnight. AFVSS on 12 L oxygen
Chest x-ray from this morning relatively unchanged. Patient states that she no longer wants transfer to [facility]
Denies any new complaints. States she feels that she is breathing well, would like to get OOB today
Objective Data
-
Labs:
Laboratory Results
07/12/24
04:22
WBC 8.9
Hgb 11.7 L
Hct 33.7 L
Plt Count 197
Sodium 131 L
Potassium 4.8
Chloride 94 L
Carbon Dioxide 32 H
BUN 18 H
Creatinine 0.5 L
Glucose 168 H
Calcium 8.0 L
Vital Signs:
Vital Signs
Temp Pulse Resp BP Pulse Ox
97.5 F 81 20 97/77 94
07/12/24 07:30 07/12/24 07:59 07/12/24 07:59 07/12/24 04:00 07/12/24 07:59
I&O
07/11/24 07/12/24 07/13/24
06:59 06:59 06:59
Intake Total 480 / 480
Output Total 550 / 550 800 / 800
Balance -550 / -550 -320 / -320
Review of Systems
-
History Source: Patient
All other systems: Reviewed and negative
Physical Exam
-
General: Well Developed, Well Nourished, No Apparent Distress and Comfortable
HEENT: Normocephalic, Atraumatic and Moist Mucous Membranes
Respiratory: Rhonchi (Course, midlung, improving) and Non Labored Respirations; Negative Wheezes, Rales or Accessory Resp Muscle Use
Cardiac: Regular Rhythm, S1/S2 and Tachycardic; Negative Murmur, Rub or Gallop
GI: Soft, Nontender, Nondistended and Normal Bowel Sounds
Musculoskeletal: No Clubbing, No Cyanosis and No Edema
Skin: Warm, Dry and Normal Turgor; Negative Rash
Neuro: AO x 3 and Nonfocal/Grossly Intact
Psych: Calm
Data Reviewed
-
Labs: Labs Reviewed by me and Discussed with Patient
[2024-07-12] MEDS: AYR SALINE NASAL GEL 1 APPLIC NASAL (12:33)
--- NOTE | 2024-07-12 12:40 | PTCARENOTE ---
Patient expressing to this morning that she does not want to go to [place] anymore. ISABELLA called for update on patient. TT to about canceling transfer. advised not to cancel yet. Update given to ISABELLA and they advised no bed
available yet but she is 'on the top of the list.'
--- NOTE | 2024-07-12 16:51 | PTCARENOTE ---
Patient getting OOB and to the chair. Pt moves well and only needs standby and help with equipment. Patient took a few steps towards the chair and RN instructed patient to march in place but patient sat down right away. Patient reports that the
transfer felt ''easy' and she denies feeling short of breath. RN asked patient why she sat down so quickly then and would not march in place. Patient states 'i don't know,' then admitted that she felt anxious and just wanted to sit down. Assessment,
care and VS as charted.
[2024-07-12] MEDS: LOVENOX 40 MG SC (17:49)
--- NOTE | 2024-07-12 19:10 | PTCARENOTE ---
Pt received at beginning of shift resting in bed. AAOx3. Continues on 12L MF. Tachypneic into the 40's with any activity in bed. PLB. POX down to 81%. Encouraged with breathing exercises. POX currently 90%. Harsh cardiology teacher cough. Medicated with Robitussin
as ordered. Denies pain or discomfort. Rest of VSS. OOB in chair earlier in day for couple hours per pt. Rest of assessment as documented. Call martinez within reach. Will continue to monitor.
[2024-07-12] MEDS: NEURONTIN 300 MG PO (22:30)
[2024-07-12] MEDS: MELATONIN 5 MG PO (22:30)
[2024-07-13] VITALS (8 sets, daily range): BP systolic 95–115; BP diastolic 69–85
--- NOTE | 2024-07-13 00:19 | PTCARENOTE ---
Received call from Uyen at [facility]' transfer center re: pt. Have a bed available. Pt agreeable to transfer after speaking with her. Pt nodded yes and stated 'let's do it.' Received call from Dr Roque from [facility] requesting update on pt from
[facility]NER/Dr. Luis TT'd and made aware and gave her Dr Roque's phone # [phone]
--- NOTE | 2024-07-13 00:22 | PTCARENOTE ---
Received call from Uyen at [facility]'s transfer center re: pt. Have a bed available. Pt agreeable to transfer after speaking with her. Pt nodded yes and stated 'let's do it.' Received call from Dr Roque from [facility] requesting update on pt from
[facility]/Dr. Janelle FUNEZ TT'd and made aware and gave her Dr Roque's phone # [phone]. Dr Roque requested update prior to transport being set up. This was TT'd to Janelle FUNEZ and she will call him. Awaiting notification from Janelle FUNEZ that
she has spoken to Dr Roque so that transport can be set up.
--- NOTE | 2024-07-13 01:37 | W.PN.UPDATE ---
Update Note
Progress Note Update
AT 0030 RN notified RULES EXAMINER, Patient is willing to be transferred to [facility] and that the [facility] Dr. Muse wants to talk to this RULES EXAMINER. This RULES EXAMINER called Dr. Muse (pulmonary at [facility]) and she stated she needs a full report of this patient from a
primary/Attending provider or juvenile justice specialist of the full stay. This RULES EXAMINER advised I can give her details of diagnoses treatment plans, VS, lab information. Dr. Muse insisted to talk to Attending as 'he/she is more familiar with the patient'who
is not available at night time. This RULES EXAMINER pointed out patient is already accepted at [facility] ten days ago and is willing to give the updates as much, also will fax provider notes which was refused. This RULES EXAMINER tried to answer questions to the best ability,
requested information on VS and latest lab results and was given. Stated she will call the Transfer center and will call back. RN made aware.
[address] Muse ( [facility] Pulmonary)
--- NOTE | 2024-07-13 02:26 | PTCARENOTE ---
Received call from Janelle FUNEZ re: conversation with [facility] At this time DEE DEE unable to provide Dr Roque with adequate answers to her questions since DEE DEE unfamiliar with pt. Transfer center at [facility] called and informed DEE DEE unable to
answer Dr Roque's questions re: pt. Per transfer center bed that was available for pt has now been released.
[2024-07-13] MEDS: SYNTHROID 137 MCG PO (04:18)
[2024-07-13] MEDS: DUONEB 3 ML INH ×4 (07:58→19:42)
[2024-07-13] MEDS: MUCINEX 1200 MG PO ×2 (08:03→19:24)
[2024-07-13] MEDS: ZOLOFT 25 MG PO (08:04)
[2024-07-13] MEDS: PEPCID 20 MG PO ×2 (08:04→19:24)
[2024-07-13] MEDS: DELTASONE 40 MG PO ×2 (08:05→19:24)
[2024-07-13] MEDS: MIRALAX PO (08:06)
[2024-07-13] MEDS: DESENEX/MITRAZOL/ZEASORB 1 APPLIC TOPICAL ×2 (08:06→19:24)
--- NOTE | 2024-07-13 10:03 | W.PN.PUL3 ---
Today's Communication / Plan
-
Remains on 12-13L NC - wean down as tolerated while keeping SpO2 >90%
Airway clearance measures seems productive, repeat sputum culture shows NGTD
Continue medical therapies and prednisone for now
PCP ppx with bactrim
Up OOB as tolerated; encourage IS use
Awaiting TRX to [facility] pending bed availability
Pulmonary service will continue to follow along
Assessment
-
64-year-old woman with distant past medical history of provoked pulmonary embolism, interstitial lung disease which is mild on CAT scan 07/2022 undifferentiated, has not been seen by pulmonary despite being recommended last year. Comes to the
hospital complaining of progressive shortness of breath, cough, hypoxemia. X-ray with significant bilateral infiltrates. Follow-up CT demonstrated severely diffuse groundglass opacities. Progressive hypoxemic respiratory failure up to 10 L.
Impression:
Severe acute hypoxemic respiratory failure currently on high-flow nasal cannula
CTA chest 06/12/2024: Diffuse groundglass opacity bilaterally. No pleural effusion. Negative for acute PE.
Differential diagnosis include infectious such as community-acquired pneumonia viral/bacterial-cannot rule out interstitial lung disease acute flare-broad differential diagnosis.
With significantly increased CRP and sedimentation rate suspect more inflammatory such as nonspecific interstitial pneumonia, connective tissue disease associated ILD etc.
Her CAT scan was not compatible with usual interstitial pneumonia.
Less likely pulmonary edema. Most recent echocardiogram from 08/2022 with normal LVEF.
Less likely diffuse alveolar hemorrhage given stable hgb and no hemoptysis; DDx also includes CEP, organizing pneumonia, and atypical CHP
Negative influenza, COVID, Legionella and strep pneumonia.
EKG 06/11/2024: Normal sinus rhythm. ST-T wave abnormality consider inferior ischemia.
leukocytosis/fever
Mild hyponatremia - now resolved
Conditions present prior admission:
Interstitial lung disease : Undifferentiated
Formerly seen on CAT scan 07/2022 for the first time. Mild, peripheral, undifferentiated.
History of PE/DVT provoked after foot injury [address] of the chest at that time: No mention of interstitial lung disease.
History of influenza in 2018/2018 With pneumonia.
History of COVID mildly 2021.
History of ankle fracture on the left status post repair 2023.
Plan:
Patient transitioned off high flow nasal cannula onto midflow nasal cannula on 07/04/2024, and is tolerating this well with SpO2 >95%.
Continue to wean down O2 flow rate while keeping SpO2 >90-94%
Currently on 12-13L midflow, satting >90% (previously was on 8L/min few days ago)
BIPAP could be tried if needed for help with ventilation
CTA chest from 06/12/2024 demonstrated severely diffuse groundglass opacities without pleural effusions but has mildly increased mediastinal lymph nodes. No pericardial effusion.
This is most consistent with NSIP, progressed compared to CT in 2022
KIERRA IgG positive but with low titer (<1:80); antinuclear Ab and cytoplasmic Ab negative by IFA; c3, c4 wnl
CCP antibody positive (moderately positive), CRP positive -- Suspect inflammatory process
Methylprednisolone 1 g every 24 hours-pulse steroids-initiated 06/20/2024-finished a 5-day pulse and then converted to prednisone 1 mg/kg daily-remains on prednisone 40 mg twice daily
Rheumatology consulted --> pt could benefit from additional immunosuppressants like cellcept vs rituxin or azathrioprine
Continue Bactrim for PCP ppx and monitor Cr and serum [K]
CT chest rechecked on 07/02/2024 showing improvement in groundglass opacities, particularly in the right upper lobe.
Still having groundglass opacifications with interval progression in the lower lobes.
Repeat CXR 07/09-showing worsening infiltrates
Airway clearance, she is doing well and the vest helps
Repeat CXR in AM 07/12 shows similar findings compared to recent CXR on 07/09/2024
Incentive spirometry encouraged
Out of bed if able-reviewed with physical therapy
Mucus clearing devices added including acapella/vest
Repeat sputum cultures
DuoNebs QID - currently not bronchospastic
Echo with bubble study checked on 07/01/2024 showed preserved LVEF of 50-55% with normal RV size and function, trace MR, mild pulmonary hypertension with PASP 30-35 mmHg, with negative bubble study and show pericardial effusion
proBNP negative
Completed course of antibiotics--CFP/Vanc/Doxy/azithro (06/11-06/16)
Sputum culture usual respiratory francis
Cultures and viral panel negative
Repeat sputum culture 07/11 (shows NGTD)
Continue gabapentin at night for her reported [id number] in her feet/nerve pain; hold for sedation
PT eval -- she will likely need rehab after discharge
DVT prophylaxis-Enoxaparin
GI prophylaxis: famotidine twice daily-plan to continue at discharge given ILD
If she were to need medical decision maker, it would be her daughter Kay Chau.
Will need outpatient follow up with pulmonary- new pt appt scheduled with Dr. Del Valle in Jul 2024, likely will need to adjust timing
Will need outpatient follow up with rheumatology
She keeps going back and forth regarding accepting a transfer to [facility], and on the evening of 07/12, [facility] had called however the transfer was canceled as additional information was requested from the provider from [facility]. Unclear what transpired but
she is still awaiting to go to [facility]. I strongly advise that the patient agree for transfer so that she can see a candle molder.
.
Pulmonary service will continue to follow along.
Diagnostic Data
CXR 06/23/24- 1. Severe bilateral airspace and interstitial disease in the lungs without definitive change from 06/11/2024. Diagnostic possibilities are (1) a SEVERE ACUTE on CHRONIC INFLAMMATORY PNEUMONITIS, (2) less likely pneumonia given the lack
of interval change, or (3) less likely pulmonary edema.
2. SEVERE MEDIASTINAL LYMPHADENOPATHY. Diagnostic possibilities are (1) sarcoidosis or (2) malignancy (lymphoma or metastatic disease).
3. Mildly decreased bilateral lung volumes.
Chest x-ray 2020: Mild diffuse interstitial thickening left greater than right possible ILD/fibrosis
CT chest 06/12/24-2. Extensive bilateral groundglass opacities, superimposed upon subpleural reticulation/fibrosis seen on the prior CT. No significant pleural effusions. There is also mediastinal and hilar lymphadenopathy, which is new compared
to the prior examination. Findings are nonspecific and could represent acute exacerbation or worsening of patient's interstitial lung disease with infectious or inflammatory process also a consideration.
CT chest 08/15/2022: Mild changes of pulmonary fibrosis, nonspecific pattern, pleural-based. Findings are new compared to prior study. Left lower lobe 4 mm nodule. Benign etiology.
Possible pericardial cyst 2.8 X1.8X 1.1 cm present in [address] chest 2016: Reviewed, bilateral lower lobe filling defects compatible with pulmonary embolism. Lower lobe subsegmental atelectasis. No focal abnormalities noted at that time.
Small pericardial cyst
Echocardiogram 08/16/2022: Showed normal LVEF. No regional wall motion abnormalities. Ejection fraction 60 to 65%. Normal right ventricular size and function. No significant valvular disease.
Echo 07/01/2024: Normal left ventricular size, wall thickness and systolic function. No regional wall motion abnormalities are seen. LV ejection fraction is 50-55 % by visual assessment. Normal diastolic function. Normal right ventricular size and
function. Trace mitral regurgitation. Structurally normal aortic valve without significant stenosis or regurgitation. Mild tricuspid regurgitation. Estimated pulmonary artery pressure of 30-35 mmHg. Assuming a right atrial pressure of 3 mmHg.
Interatrial septum is intact with no evidence of shunting by color flow Doppler or by agitata saline (negative bubble study). Trivial pericardial effusion. Compared to prior study 08/16/2022 ejection fraction previously 60 to 65% now 50 to 55%
visually. Trivial pericardial effusion
-----
Total time spent today was 52 minutes for this encounter. Time includes reviewing laboratory test/imaging results, reviewing pertinent medical records, obtaining and reviewing medical history, performing an appropriate exam, ordering medications,
tests and procedures. Time also includes documentation of this encounter, coordinating patient care and communicating with other healthcare professionals. Total time does not include separately billed tests performed on this date of service.
Subjective Data
-
Date of Service:
Date of Service: July 13, 2024
Chief Complaint: Pulmonary Follow Up and Dyspnea Follow Up
Subjective:
Patient seen and evaluated today at bedside. Currently saturating 94% on 13 L/min via mid flow nasal cannula with heart rate 100. Afebrile overnight. She is using the vest which helps her bring up her phlegm. She denies chest pain, PASCUAL, nausea,
fevers or chills. Afebrile overnight.
Review of Systems
General: Other (Negative unless mentioned above)
Objective Data
Data Reviewed
Vital Signs / I&O / Oxygen:
Vital Signs
Temp Pulse Resp BP Pulse Ox
97.8 F 91 22 109/77 89
07/13/24 07:30 07/13/24 08:01 07/13/24 08:01 07/13/24 08:00 07/13/24 09:07
Intake and Output
07/12/24 07/13/24 07/14/24
06:59 06:59 06:59
Intake Total 480 / 480 1740 / 1740
Output Total 800 / 800 1200 / 1200
Balance -320 / -320 540 / 540
SaO2 89
Nasal Cannula flow liters per 12
minute
Physical Exam
General: Respiratory Distress (negative), Comfortable (at rest), Chills (negative) and Sweats (negative)
HEENT: Normocephalic and Anicteric
Cardiovascular: S1-S2, Rub (negative) and Peripheral Edema (negative)
Respiratory: Wheeze (negative), Crackles (bibasilar), Rhonchi (negative), Non-Labored Respirations, Stridor (negative) and Other (decreased overall at bases)
GI: Soft, Non Distended, Non Tender and Normal Bowel Sounds
Neurology: AO x 3 and Tremors (negative)
Skin: Warm, Dry, Cyanosis (negative) and Jaundice (negative)
Labs/Micro/Reports
Lab Data
07/12/24 04:22
07/12/24 04:22
Microbiology
07/11/24 13:00 Sputum Respiratory Culture - Final
07/11/24 13:00 Sputum Gram Stain - Final
--- NOTE | 2024-07-13 11:13 | W.PN.HOSP.TC ---
Today's Communication/Plan
-
Continue current management
Wean oxygen as possible
CT chest if decompensation occurs
Pending transfer to [place], may be today
Assessment / Plan
Assessment / Plan
#Acute hypoxemic respiratory failure
#Interstitial lung disease secondary to rheumatoid arthritis
#Possible superimposed community-acquired pneumonia
-Status post course of cefepime and doxycycline; s/p 5-day pulse steroids, now on p.o.
-CT scan does seem more consistent with NSIP, which has better response to steroid
-Chest x-ray today with signs of worsening b/l pneumonia though no fevers or leukocytosis
-Has not required intubation; O2 level slowly improving, on 12 L O2 today
-Pulmonology following, patient no longer wants transfer to [facility]
-Repeat sputum cultures from 07/09 negative
Plan
-Continue with prednisone twice daily, bronchodilators, Mucinex
-Continue with IV Lasix as needed for net negative volume status
-Will speak with rheumatology here about CellCept versus Rituxan; would avoid MTX due to lung toxicity
-If worsens may require BAL with pulmonology to rule out infection
-Continue Bactrim 3x weekly for PJP prophylaxis
-Wean oxygen for SpO2 goal >90%
#Euvolemic hyponatremia
-Sodium has been persistently low in the range of 130-135, no symptoms
-Likely SIADH from hypoxemia versus polydipsia from persistent O2
-Will continue to monitor BMP for now, encourage p.o. intake
-Consider Uosm, Paresh, Sosm, fluid restriction v IVF if worsening
-Sodium remains stable
#Anxiety
-Patient with significant anxiety in the room, had a panic attack
-Started on Zoloft for maintenance therapy
-Will transition to alprazolam to Ativan 1 mg 3 times daily PRN
#Leukocytosis
-Secondary to steroid regimen
-Trend CBC and temperature curve
-Resolved
#Newly diagnosed rheumatoid arthritis
-Complicated by apparent rheumatic ILD
-Positive anti-CCP and KIERRA here; s/p pulse dose steroid
-Will need to follow-up with rheumatology for maintenance therapy
-Would avoid MTX as DMARDs due to potential for lung toxicity
#Transaminitis
-Hepatitis B and C serology negative, HIV testing negative
-ALT elevated disproportionately to AST and other LFTs
-Cannot rule out NAFLD, consider RUQ US if worsening
#Lower extremity peripheral neuropathy
-Possibly steroid-induced (?) versus idiopathic
-Was started on a trial of gabapentin 300 mg nightly
DVT ppx: Lovenox SQ
Diet: Regular
CODE STATUS: Full Code
Disposition: Possible transfer to [place] today
Discussed with pulmonary
Anticipated Discharge: Within 24 hours
Subjective/Interval History
-
Date of Service: July 13, 2024
Seen and examined at the bedside. No acute events reported overnight. AFVSS today on 12 L, SpO2 98%
Pending transfer to [facility], spoke with transfer center and may have bed today
She denies any new complaints today. Patient states she is amenable to transfer to [facility]
Objective Data
-
Vital Signs:
Vital Signs
Temp Pulse Resp BP Pulse Ox
97.8 F 91 22 109/77 89
07/13/24 07:30 07/13/24 08:01 07/13/24 08:01 07/13/24 08:00 07/13/24 09:07
I&O
07/12/24 07/13/24 07/14/24
06:59 06:59 06:59
Intake Total 480 / 480 1740 / 1740
Output Total 800 / 800 1200 / 1200
Balance -320 / -320 540 / 540
Review of Systems
-
History Source: Patient
All other systems: Reviewed and negative
Physical Exam
-
General: Well Developed, Well Nourished, No Apparent Distress and Comfortable
HEENT: Normocephalic, Atraumatic, Moist Mucous Membranes and Oxygen
Respiratory: Rhonchi (Improving though coarseness in the mid lung) and Non Labored Respirations; Negative Wheezes, Rales or Accessory Resp Muscle Use
Cardiac: Regular Rhythm and S1/S2; Negative Murmur, Rub or Gallop
GI: Soft, Nontender, Nondistended and Normal Bowel Sounds
Musculoskeletal: No Clubbing, No Cyanosis and No Edema
Skin: Warm, Dry and Normal Turgor; Negative Rash
Neuro: AO x 3 and Nonfocal/Grossly Intact
Psych: Calm
[2024-07-13] MEDS: LOVENOX 40 MG SC (17:54)
[2024-07-13] MEDS: MELATONIN 5 MG PO (22:15)
[2024-07-13] MEDS: NEURONTIN 300 MG PO (22:15)
[2024-07-13] MEDS: PHENERGAN WITH CODEINE SYRUP 5 ML PO (22:20)
[2024-07-14] VITALS (10 sets, daily range): BP systolic 104–140; BP diastolic 72–108; PULSE 85–100; O2SAT 87–91
--- NOTE | 2024-07-14 03:43 | PTCARENOTE ---
Pt AAOx3, anxious. Rec'd pt on 12L MF NC, pt continues with NRB PRN. O2 weaned throughout shift as able, see worklist intervention. Pt noncompliant with BP cuff at times. PRN cough syrup given at bedtime at pt request. Continues to use bedpan
intermittently to void, denies getting OOB at this time. Call martinez within reach.
[2024-07-14 04:37] LABS: Hematocrit 37.2 % (37.0-47.0); Hemoglobin 13.1 g/dL (12.0-16.0); Mean Corp Hgb Conc. 35.2 g/dL (33.0-37.0); Mean Corpuscular Hgb 33.5 pg (27.0-31.0); Mean Corpuscular Volume 95.1 fL (81.0-99.0); Mean Platelet Volume 9.2 fL (7.4-10.4); Platelet Count 256 10^3/uL (130-400); Red Blood Cell Count 3.91 10^6/uL (4.20-5.40); Red Cell Dist. Width 14.6 % (11.5-14.5); White Blood Cell Count 10.3 10^3/uL (4.8-10.8)
[2024-07-14 04:51] LABS: Blood Urea Nitrogen 18 mg/dl (7-17); Calcium 8.3 mg/dl (8.4-10.2); Carbon Dioxide 29 mmol/L (22-30); Chloride 94 mmol/L (98-107); Estimated Creatinine Clearance 97 ml/min; Glucose 181 mg/dl (70-99); Potassium 4.9 mmol/L (3.5-5.1); Sodium 131 mmol/L (135-145); eGFR > 60.00
[2024-07-14] MEDS: SYNTHROID 137 MCG PO (06:12)
[2024-07-14 06:49] LABS: % Basophils 0.4 % (0-2); % Immature Granulocytes 7.3 % (0-0.5); % Lymphocytes 9.9 % (20.5-51.1); % Monocytes 5.2 % (1.7-9.3); % Neutrophils 77.2 % (42.2-75.2); Absolute Immature Granulocytes 0.8 10^3/uL (0-0.05); Absolute Monocytes 0.5 10^3/uL (0.1-0.6); Nucleated Red Blood Cells % 0.2 %
[2024-07-14] MEDS: MIRALAX 17 GRAMS PO (07:52)
[2024-07-14] MEDS: PEPCID 20 MG PO ×2 (07:52→20:03)
[2024-07-14] MEDS: DELTASONE 40 MG PO ×2 (07:52→20:02)
[2024-07-14] MEDS: MUCINEX 1200 MG PO ×2 (07:52→20:03)
[2024-07-14] MEDS: ZOLOFT 25 MG PO (07:52)
[2024-07-14] MEDS: DESENEX/MITRAZOL/ZEASORB 1 APPLIC TOPICAL ×2 (07:53→20:03)
[2024-07-14] MEDS: DUONEB 3 ML INH ×4 (07:54→19:37)
--- NOTE | 2024-07-14 09:35 | CM ---
Patient with Hx ILD with new Dx RA. O2 9L midflow. Seen by PT/OT. Seen by Wound Care Nurse.
CM continuing to follow.
Plan transfer to [facility] when bed available.
--- NOTE | 2024-07-14 09:51 | W.PN.PUL3 ---
Today's Communication / Plan
-
Cont. Prednisone without taper
Mid flow oxygen 8-10L
Cont. Secretion clearance interventions
PT/OT
Bactrim prophylactic
Awating transfer to [facility].
Assessment
-
64-year-old woman with distant past medical history of provoked pulmonary embolism, interstitial lung disease which is mild on CAT scan 07/2022 undifferentiated, has not been seen by pulmonary despite being recommended last year. Comes to the
hospital complaining of progressive shortness of breath, cough, hypoxemia. X-ray with significant bilateral infiltrates. Follow-up CT demonstrated severely diffuse groundglass opacities. Progressive hypoxemic respiratory failure up to 10 L.
Impression:
Severe acute hypoxemic respiratory failure currently on high-flow nasal cannula
CTA chest 06/12/2024: Diffuse groundglass opacity bilaterally. No pleural effusion. Negative for acute PE.
Differential diagnosis include infectious such as community-acquired pneumonia viral/bacterial-cannot rule out interstitial lung disease acute flare-broad differential diagnosis.
With significantly increased CRP and sedimentation rate suspect more inflammatory such as nonspecific interstitial pneumonia, connective tissue disease associated ILD etc.
Her CAT scan was not compatible with usual interstitial pneumonia.
Less likely pulmonary edema. Most recent echocardiogram from 08/2022 with normal LVEF.
Less likely diffuse alveolar hemorrhage given stable hgb and no hemoptysis; DDx also includes CEP, organizing pneumonia, and atypical CHP
Negative influenza, COVID, Legionella and strep pneumonia.
EKG 06/11/2024: Normal sinus rhythm. ST-T wave abnormality consider inferior ischemia.
leukocytosis/fever
Mild hyponatremia - now resolved
Conditions present prior admission:
Interstitial lung disease : Undifferentiated
Formerly seen on CAT scan 07/2022 for the first time. Mild, peripheral, undifferentiated.
History of PE/DVT provoked after foot injury [address] of the chest at that time: No mention of interstitial lung disease.
History of influenza in 2018/2018 With pneumonia.
History of COVID mildly 2021.
History of ankle fracture on the left status post repair 2023.
Plan:
Patient transitioned off high flow nasal cannula onto midflow nasal cannula on 07/04/2024, and is tolerating this well with SpO2 >95%.
Continue to wean down O2 flow rate while keeping SpO2 >90-94%
Currently on 8-10L midflow, satting >90% at rest.
CTA chest from 06/12/2024 demonstrated severely diffuse groundglass opacities without pleural effusions but has mildly increased mediastinal lymph nodes. No pericardial effusion.
This is most consistent with NSIP, progressed compared to CT in 2022- likely fibrotic type.
KIERRA IgG positive but with low titer (<1:80); antinuclear Ab and cytoplasmic Ab negative by IFA; c3, c4 wnl
CCP antibody positive (moderately positive), CRP positive -- Suspect inflammatory process
Methylprednisolone 1 g every 24 hours-pulse steroids-initiated 06/20/2024-finished a 5-day pulse and then converted to prednisone 1 mg/kg daily-remains on prednisone 40 mg twice daily- hold on taper for now.
Rheumatology consulted --> pt could benefit from additional immunosuppressants like cellcept vs rituxin or azathrioprine
Continue Bactrim for PCP ppx and monitor Cr and serum [K]
CT chest rechecked on 07/02/2024 showing improvement in groundglass opacities, particularly in the right upper lobe.
Still having groundglass opacifications with interval progression in the lower lobes.
Repeat CXR 07/09-showing worsening infiltrates
Airway clearance, she is doing well and the vest helps
CXR in AM 07/12 shows similar findings compared to recent CXR on 07/09/2024
Will repeat imagning PRN
Incentive spirometry encouraged
Out of bed if able-reviewed with physical therapy
Mucus clearing devices added including acapella/vest
Repeat sputum cultures
DuoNebs QID - currently not bronchospastic
Echo with bubble study checked on 07/01/2024 showed preserved LVEF of 50-55% with normal RV size and function, trace MR, mild pulmonary hypertension with PASP 30-35 mmHg, with negative bubble study and show pericardial effusion
proBNP negative
Completed course of antibiotics--CFP/Vanc/Doxy/azithro (06/11-06/16)
Sputum culture usual respiratory francis
Cultures and viral panel negative
Repeat sputum culture 07/11 (shows NGTD)
Continue gabapentin at night for her reported [id number] in her feet/nerve pain; hold for sedation
PT eval -- she will likely need rehab after discharge
DVT prophylaxis-Enoxaparin
GI prophylaxis: famotidine twice daily-plan to continue at discharge given ILD
If she were to need medical decision maker, it would be her daughter Kay Chau.
Will need outpatient follow up with pulmonary- new pt appt scheduled with Dr. Del Valle in Jul 2024, likely will need to adjust timing
Will need outpatient follow up with rheumatology
She keeps going back and forth regarding accepting a transfer to [facility], and on the evening of 07/12, [facility] had called however the transfer was canceled as additional information was requested from the provider from [facility]. Unclear what transpired but
she is still awaiting to go to [facility].
I strongly advise that the patient agree for transfer so that she can see a cider press operator. Pending transfer, hopefully today 07/14/2024
.
Pulmonary service will continue to follow along.
Diagnostic Data
CXR 06/23/24- 1. Severe bilateral airspace and interstitial disease in the lungs without definitive change from 06/11/2024. Diagnostic possibilities are (1) a SEVERE ACUTE on CHRONIC INFLAMMATORY PNEUMONITIS, (2) less likely pneumonia given the lack
of interval change, or (3) less likely pulmonary edema.
2. SEVERE MEDIASTINAL LYMPHADENOPATHY. Diagnostic possibilities are (1) sarcoidosis or (2) malignancy (lymphoma or metastatic disease).
3. Mildly decreased bilateral lung volumes.
Chest x-ray 2020: Mild diffuse interstitial thickening left greater than right possible ILD/fibrosis
CT chest 06/12/24-2. Extensive bilateral groundglass opacities, superimposed upon subpleural reticulation/fibrosis seen on the prior CT. No significant pleural effusions. There is also mediastinal and hilar lymphadenopathy, which is new compared
to the prior examination. Findings are nonspecific and could represent acute exacerbation or worsening of patient's interstitial lung disease with infectious or inflammatory process also a consideration.
CT chest 08/15/2022: Mild changes of pulmonary fibrosis, nonspecific pattern, pleural-based. Findings are new compared to prior study. Left lower lobe 4 mm nodule. Benign etiology.
Possible pericardial cyst 2.8 X1.8X 1.1 cm present in [address] chest 2016: Reviewed, bilateral lower lobe filling defects compatible with pulmonary embolism. Lower lobe subsegmental atelectasis. No focal abnormalities noted at that time.
Small pericardial cyst
Echocardiogram 08/16/2022: Showed normal LVEF. No regional wall motion abnormalities. Ejection fraction 60 to 65%. Normal right ventricular size and function. No significant valvular disease.
Echo 07/01/2024: Normal left ventricular size, wall thickness and systolic function. No regional wall motion abnormalities are seen. LV ejection fraction is 50-55 % by visual assessment. Normal diastolic function. Normal right ventricular size and
function. Trace mitral regurgitation. Structurally normal aortic valve without significant stenosis or regurgitation. Mild tricuspid regurgitation. Estimated pulmonary artery pressure of 30-35 mmHg. Assuming a right atrial pressure of 3 mmHg.
Interatrial septum is intact with no evidence of shunting by color flow Doppler or by agitata saline (negative bubble study). Trivial pericardial effusion. Compared to prior study 08/16/2022 ejection fraction previously 60 to 65% now 50 to 55%
visually. Trivial pericardial effusion
-----
Total time spent today was 50 minutes for this encounter. Time includes reviewing laboratory test/imaging results, reviewing pertinent medical records, obtaining and reviewing medical history, performing an appropriate exam, ordering medications,
tests and procedures. Time also includes documentation of this encounter, coordinating patient care and communicating with other healthcare professionals. Total time does not include separately billed tests performed on this date of service.
Subjective Data
-
Date of Service:
Date of Service: July 14, 2024
Chief Complaint: Pulmonary Follow Up and Dyspnea Follow Up
Subjective:
No new events from overnight.
Remains on midflow oxygen therapy.
No new complaints
Review of Systems
Cardiopulmonary: Dyspnea and Dyspnea on Exertion
GI: Abdominal Pain (n) and Nausea (n)
Neuro: Headache (n)
Objective Data
Data Reviewed
Vital Signs / I&O / Oxygen:
Vital Signs
Temp Pulse Resp BP Pulse Ox
98.2 F 83 34 112/75 88
07/14/24 07:25 07/14/24 07:58 07/14/24 07:58 07/14/24 04:00 07/14/24 07:58
Intake and Output
07/13/24 07/14/24 07/15/24
06:59 06:59 06:59
Intake Total 1740 / 1740
Output Total 1200 / 1200 725 / 725 1500 / 1500
Balance 540 / 540 -725 / -725 -1500 / -1500
SaO2 88
Nasal Cannula flow liters per 9
minute
Physical Exam
General: Respiratory Distress (negative), Comfortable (at rest), Chills (negative) and Sweats (negative)
HEENT: Normocephalic and Anicteric
Cardiovascular: S1-S2, Rub (negative) and Peripheral Edema (negative)
Respiratory: Wheeze (negative), Crackles (bibasilar), Rhonchi (negative), Non-Labored Respirations, Stridor (negative) and Other (decreased overall at bases)
GI: Soft, Non Distended, Non Tender and Normal Bowel Sounds
Neurology: AO x 3 and Tremors (negative)
Skin: Warm, Dry, Cyanosis (negative) and Jaundice (negative)
Labs/Micro/Reports
Lab Data
07/14/24 04:12
07/14/24 04:12
Microbiology
07/11/24 13:00 Sputum Respiratory Culture - Final
07/11/24 13:00 Sputum Gram Stain - Final
--- NOTE | 2024-07-14 14:45 | W.PN.HOSP.TC ---
Today's Communication/Plan
-
awaiting tx to [facility]
wean o2 as tolerated
cont steroids, pjp ppx
Assessment / Plan
Assessment / Plan
#Acute hypoxemic respiratory failure
#Interstitial lung disease secondary to rheumatoid arthritis
#Possible superimposed community-acquired pneumonia
-Status post course of cefepime and doxycycline; s/p 5-day pulse steroids, now on p.o.
-CT scan does seem more consistent with NSIP, which has better response to steroid
-Chest x-ray today with signs of worsening b/l pneumonia though no fevers or leukocytosis
-Has not required intubation; O2 level slowly improving, on 12 L O2 today
-Pulmonology following, patient no longer wants transfer to [facility]
-Repeat sputum cultures from 07/09 negative
Plan
-Continue with prednisone twice daily, bronchodilators, Mucinex
-Continue with IV Lasix as needed for net euvolemic to slight negative
-F/u Rheum at [place]
-Continue Bactrim 3x weekly for PJP prophylaxis
-Wean oxygen for SpO2 goal >90%
#Euvolemic hyponatremia
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
-Will continue to monitor BMP for now, encourage p.o. intake
#Anxiety
-Patient with significant anxiety in the room, had a panic attack
-Started on Zoloft for maintenance therapy
-Will transition to alprazolam to Ativan 1 mg 3 times daily PRN
#Leukocytosis
-Secondary to steroid regimen
-Trend CBC and temperature curve
-Resolved
#Newly diagnosed rheumatoid arthritis
-Complicated by apparent rheumatic ILD
-Positive anti-CCP and KIERRA here; s/p pulse dose steroid
-Will need to follow-up with rheumatology for maintenance therapy
-Would avoid MTX as DMARDs due to potential for lung toxicity
#Transaminitis
-Hepatitis B and C serology negative, HIV testing negative
-ALT elevated disproportionately to AST and other LFTs
-Cannot rule out NAFLD, consider RUQ US if worsening
#Lower extremity peripheral neuropathy
-Possibly steroid-induced (?) versus idiopathic
- trial of gabapentin 300 mg nightly
DVT ppx: Lovenox SQ
Diet: Regular
CODE STATUS: Full Code
Disposition: Possible transfer to [place] today
More than 30 minutes spent in discharge including
Final examination of the patient
Summarizing hospital stay
Instructions for continuing care to all relevant caregivers
Preparation of discharge records, prescriptions, and referral forms
Total time spent (36 in minutes):
Anticipated Discharge: Today
Subjective/Interval History
-
Date of Service: July 14, 2024
No acute events, oxygen requirement plateaued at approximately 8 to 10 L
Objective Data
-
Labs:
Laboratory Results
07/14/24
04:12
WBC 10.3
Hgb 13.1
Hct 37.2
Plt Count 256 D
Sodium 131 L
Potassium 4.9
Chloride 94 L
Carbon Dioxide 29
BUN 18 H
Creatinine 0.5 L
Glucose 181 H
Calcium 8.3 L
Vital Signs:
Vital Signs
Temp Pulse Resp BP Pulse Ox
98.4 F 110 44 112/75 89
07/14/24 11:30 07/14/24 11:07 07/14/24 11:07 07/14/24 04:00 07/14/24 11:07
I&O
07/13/24 07/14/24 07/15/24
06:59 06:59 06:59
Intake Total 1740 / 1740
Output Total 1200 / 1200 725 / 725 1500 / 1500
Balance 540 / 540 -725 / -725 -1500 / -1500
Review of Systems
-
History Source: Patient
All other systems: Not reviewed unless documented
Physical Exam
-
General: Well Developed, Well Nourished, No Apparent Distress and Comfortable
HEENT: Normocephalic, Atraumatic, Moist Mucous Membranes and Oxygen
Respiratory: Rhonchi (Improving though coarseness in the mid lung) and Non Labored Respirations; Negative Wheezes, Rales or Accessory Resp Muscle Use
Cardiac: Regular Rhythm and S1/S2; Negative Murmur, Rub or Gallop
GI: Soft, Nontender, Nondistended and Normal Bowel Sounds
Musculoskeletal: No Clubbing, No Cyanosis and No Edema
Skin: Warm, Dry and Normal Turgor; Negative Rash
Neuro: AO x 3 and Nonfocal/Grossly Intact
Psych: Calm
Data Reviewed
-
Labs: Labs Reviewed by me and Discussed with Patient
[2024-07-14] MEDS: BACTRIM DS 800 MG/160 MG 1 TABLET PO (15:26)
[2024-07-14] MEDS: LOVENOX 40 MG SC (17:43)
[2024-07-14] MEDS: MELATONIN 5 MG PO (21:24)
[2024-07-14] MEDS: NEURONTIN 300 MG PO (21:24)
[2024-07-14] MEDS: PHENERGAN WITH CODEINE SYRUP 5 ML PO (21:24)
[2024-07-15] VITALS (7 sets, daily range): BP systolic 92–148; BP diastolic 74–122
--- NOTE | 2024-07-15 00:22 | PTCARENOTE ---
assumed care of patient. pt is AAOx3- anxious and able to make needs known. declines ativan at this time. on 11L MFNC, 96%, using non-rebreather for breakthrough SOB. pt does get SOB on exertion and at rest sometimes. using bedpan, did have a small
BM. cough noted, given cough medicine per AUG. no c/o pain. Lizzette from [facility] called for update. no bed at this time. care ongoing.
[2024-07-15] MEDS: SYNTHROID 137 MCG PO (06:06)
[2024-07-15] MEDS: DUONEB 3 ML INH ×4 (07:18→19:25)
[2024-07-15] MEDS: MIRALAX PO (08:56)
[2024-07-15] MEDS: PEPCID 20 MG PO ×2 (09:10→20:00)
[2024-07-15] MEDS: ZOLOFT 25 MG PO (09:10)
[2024-07-15] MEDS: DELTASONE 40 MG PO ×2 (09:10→20:00)
[2024-07-15] MEDS: DESENEX/MITRAZOL/ZEASORB 1 APPLIC TOPICAL ×2 (09:10→20:03)
[2024-07-15] MEDS: MUCINEX 1200 MG PO ×2 (09:10→19:59)
--- NOTE | 2024-07-15 10:07 | W.PN.PUL3 ---
Today's Communication / Plan
-
Continue prednisone at the current dose
Continue secretion clearance interventions
Increase activity as able
Continue oxygen supplementation currently on mid flow
Okay to discontinue peripheral line.
Waiting for transfer to [facility]
Will follow
Assessment
-
64-year-old woman with distant past medical history of provoked pulmonary embolism, interstitial lung disease which is mild on CAT scan 07/2022 undifferentiated, has not been seen by pulmonary despite being recommended last year. Comes to the
hospital complaining of progressive shortness of breath, cough, hypoxemia. X-ray with significant bilateral infiltrates. Follow-up CT demonstrated severely diffuse groundglass opacities. Progressive hypoxemic respiratory failure up to 10 L.
Impression:
Severe acute hypoxemic respiratory failure currently on high-flow nasal cannula
CTA chest 06/12/2024: Diffuse groundglass opacity bilaterally. No pleural effusion. Negative for acute PE.
Differential diagnosis include infectious such as community-acquired pneumonia viral/bacterial-cannot rule out interstitial lung disease acute flare-broad differential diagnosis.
With significantly increased CRP and sedimentation rate suspect more inflammatory such as nonspecific interstitial pneumonia, connective tissue disease associated ILD etc.
Her CAT scan was not compatible with usual interstitial pneumonia.
Less likely pulmonary edema. Most recent echocardiogram from 08/2022 with normal LVEF.
Less likely diffuse alveolar hemorrhage given stable hgb and no hemoptysis; DDx also includes CEP, organizing pneumonia, and atypical CHP
Negative influenza, COVID, Legionella and strep pneumonia.
EKG 06/11/2024: Normal sinus rhythm. ST-T wave abnormality consider inferior ischemia.
leukocytosis/fever
Mild hyponatremia - now resolved
Conditions present prior admission:
Interstitial lung disease : Undifferentiated
Formerly seen on CAT scan 07/2022 for the first time. Mild, peripheral, undifferentiated.
History of PE/DVT provoked after foot injury [address] of the chest at that time: No mention of interstitial lung disease.
History of influenza in 2018/2018 With pneumonia.
History of COVID mildly 2021.
History of ankle fracture on the left status post repair 2023.
Plan:
Patient transitioned off high flow nasal cannula onto midflow nasal cannula on 07/04/2024, and is tolerating this well with SpO2 >95%.
Continue to wean down O2 flow rate while keeping SpO2 >90-94%
Currently on 8-10L midflow, satting >90% at rest.
No distress with conversation, no new complaints.
Her cough has improved.
CTA chest from 06/12/2024 demonstrated severely diffuse groundglass opacities without pleural effusions but has mildly increased mediastinal lymph nodes. No pericardial effusion.
This is most consistent with NSIP, progressed compared to CT in 2022- likely fibrotic type.
KIERRA IgG positive but with low titer (<1:80); antinuclear Ab and cytoplasmic Ab negative by IFA; c3, c4 wnl
CCP antibody positive (moderately positive), CRP positive -- Suspect inflammatory process
Methylprednisolone 1 g every 24 hours-pulse steroids-initiated 06/20/2024-finished a 5-day pulse and then converted to prednisone 1 mg/kg daily-remains on prednisone 40 mg twice daily-will start to taper down in the next 24 to 48 hours.
Rheumatology consulted --> pt could benefit from additional immunosuppressants like cellcept vs rituxin or azathrioprine-waiting for transfer to [facility].
Continue Bactrim for PCP ppx and monitor Cr and serum [K]
CT chest - 07/02/2024 showing improvement in groundglass opacities, particularly in the right upper lobe.
Still having groundglass opacifications with interval progression in the lower lobes.
CXR in AM 07/12 shows similar findings compared to recent CXR on 07/09/2024
Will repeat imagning PRN
Incentive spirometry encouraged
Out of bed if able-reviewed with physical therapy
Mucus clearing devices added including acapella/vest
Repeat sputum cultures
DuoNebs QID - currently not bronchospastic
Echo with bubble study checked on 07/01/2024 showed preserved LVEF of 50-55% with normal RV size and function, trace MR, mild pulmonary hypertension with PASP 30-35 mmHg, with negative bubble study and show pericardial effusion
proBNP negative
Completed course of antibiotics--CFP/Vanc/Doxy/azithro (06/11-06/16)
Sputum culture usual respiratory francis
Cultures and viral panel negative
Repeat sputum culture 07/11 (shows NGTD)
Continue gabapentin at night for her reported [id number] in her feet/nerve pain; hold for sedation
PT eval -- she will likely need rehab after discharge
DVT prophylaxis-Enoxaparin
GI prophylaxis: famotidine twice daily-plan to continue at discharge given ILD
If she were to need medical decision maker, it would be her daughter Kay Chau.
Will need outpatient follow up with pulmonary- new pt appt scheduled with Dr. Del Valle in Jul 2024, likely will need to adjust timing
Will need outpatient follow up with rheumatology
She keeps going back and forth regarding accepting a transfer to [facility], and on the evening of 07/12, [facility] had called however the transfer was canceled as additional information was requested from the provider from [facility]. Unclear what transpired but
she is still awaiting to go to [facility].
I strongly advise that the patient agree for transfer so that she can see a knotting machine operator. Pending transfer, hopefully today. She has been waiting for a bed.
.
Pulmonary service will continue to follow along.
Diagnostic Data
CXR 06/23/24- 1. Severe bilateral airspace and interstitial disease in the lungs without definitive change from 06/11/2024. Diagnostic possibilities are (1) a SEVERE ACUTE on CHRONIC INFLAMMATORY PNEUMONITIS, (2) less likely pneumonia given the lack
of interval change, or (3) less likely pulmonary edema.
2. SEVERE MEDIASTINAL LYMPHADENOPATHY. Diagnostic possibilities are (1) sarcoidosis or (2) malignancy (lymphoma or metastatic disease).
3. Mildly decreased bilateral lung volumes.
Chest x-ray 2020: Mild diffuse interstitial thickening left greater than right possible ILD/fibrosis
CT chest 06/12/24-2. Extensive bilateral groundglass opacities, superimposed upon subpleural reticulation/fibrosis seen on the prior CT. No significant pleural effusions. There is also mediastinal and hilar lymphadenopathy, which is new compared
to the prior examination. Findings are nonspecific and could represent acute exacerbation or worsening of patient's interstitial lung disease with infectious or inflammatory process also a consideration.
CT chest 08/15/2022: Mild changes of pulmonary fibrosis, nonspecific pattern, pleural-based. Findings are new compared to prior study. Left lower lobe 4 mm nodule. Benign etiology.
Possible pericardial cyst 2.8 X1.8X 1.1 cm present in [address] chest 2016: Reviewed, bilateral lower lobe filling defects compatible with pulmonary embolism. Lower lobe subsegmental atelectasis. No focal abnormalities noted at that time.
Small pericardial cyst
Echocardiogram 08/16/2022: Showed normal LVEF. No regional wall motion abnormalities. Ejection fraction 60 to 65%. Normal right ventricular size and function. No significant valvular disease.
Echo 07/01/2024: Normal left ventricular size, wall thickness and systolic function. No regional wall motion abnormalities are seen. LV ejection fraction is 50-55 % by visual assessment. Normal diastolic function. Normal right ventricular size and
function. Trace mitral regurgitation. Structurally normal aortic valve without significant stenosis or regurgitation. Mild tricuspid regurgitation. Estimated pulmonary artery pressure of 30-35 mmHg. Assuming a right atrial pressure of 3 mmHg.
Interatrial septum is intact with no evidence of shunting by color flow Doppler or by agitata saline (negative bubble study). Trivial pericardial effusion. Compared to prior study 08/16/2022 ejection fraction previously 60 to 65% now 50 to 55%
visually. Trivial pericardial effusion
-----
Total time spent today was 49 minutes for this encounter. Time includes reviewing laboratory test/imaging results, reviewing pertinent medical records, obtaining and reviewing medical history, performing an appropriate exam, ordering medications,
tests and procedures. Time also includes documentation of this encounter, coordinating patient care and communicating with other healthcare professionals. Total time does not include separately billed tests performed on this date of service.
Subjective Data
-
Date of Service:
Date of Service: July 15, 2024
Chief Complaint: Pulmonary Follow Up and Dyspnea Follow Up
Subjective:
Patient overall feels in good spirits
Denies shortness of breath at rest
Denies phlegm production or hemoptysis
Denies leg edema.
No new complaints.
Review of Systems
Cardiopulmonary: Dyspnea on Exertion and Cough
GI: Nausea (n) and Vomiting (n)
Neuro: Headache (n)
Objective Data
Data Reviewed
Vital Signs / I&O / Oxygen:
Vital Signs
Temp Pulse Resp BP Pulse Ox
98.4 F 97 24 92/74 93
07/15/24 07:12 07/15/24 07:20 07/15/24 07:20 07/15/24 02:00 07/15/24 07:20
Intake and Output
07/14/24 07/15/24 07/16/24
06:59 06:59 06:59
Output Total 725 / 725 1500 / 1500
Balance -725 / -725 -1500 / -1500
SaO2 93
Nasal Cannula flow liters per 11
minute
Physical Exam
General: Respiratory Distress (negative), Comfortable (at rest), Chills (negative) and Sweats (negative)
HEENT: Normocephalic and Anicteric
Cardiovascular: S1-S2, Rub (negative) and Peripheral Edema (negative)
Respiratory: Wheeze (negative), Crackles (bibasilar), Rhonchi (negative), Non-Labored Respirations, Stridor (negative) and Other (decreased overall at bases)
GI: Soft, Non Distended, Non Tender and Normal Bowel Sounds
Neurology: AO x 3 and Tremors (negative)
Skin: Warm, Dry, Cyanosis (negative) and Jaundice (negative)
Labs/Micro/Reports
Lab Data
07/14/24 04:12
07/14/24 04:12
--- NOTE | 2024-07-15 11:11 | RESPNOTE ---
Patient wrist band is damaged and won't scan even after so many tries.
--- NOTE | 2024-07-15 14:26 | PTCARENOTE ---
Patient AAOx3. On 11L midflow with PRN nonrebreather use, instructed patient to not use nonrebreather for anxiety and only for true SOB with desaturation. SHORE. Anxious about activity, encouraged more movement out of the bed, patient hesitant. Goals
made, fear of bedside commode use discussed, encouragement provided to patient. Currently up in chair. VSS. Will closely monitor.
--- NOTE | 2024-07-15 15:23 | W.PN.HOSP.TC ---
Today's Communication/Plan
-
awaiting tx to [place]
wean o2 as tolerated
cont steroids, pjp ppx
Assessment / Plan
Assessment / Plan
#Acute hypoxemic respiratory failure
#Interstitial lung disease secondary to rheumatoid arthritis
#Possible superimposed community-acquired pneumonia
-Status post course of cefepime and doxycycline; s/p 5-day pulse steroids, now on p.o.
-CT scan does seem more consistent with NSIP, which has better response to steroid
-Chest x-ray today with signs of worsening b/l pneumonia though no fevers or leukocytosis
-Has not required intubation; O2 level slowly improving, on 12 L O2 today
-Pulmonology following, patient no longer wants transfer to [facility]
-Repeat sputum cultures from 07/09 negative
Plan
-Continue with prednisone twice daily, bronchodilators, Mucinex
-Continue with IV Lasix as needed for net euvolemic to slight negative
-F/u Rheum at [place]
-Continue Bactrim 3x weekly for PJP prophylaxis
-Wean oxygen for SpO2 goal >90%
#Euvolemic hyponatremia
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
-Will continue to monitor BMP for now, encourage p.o. intake
#Anxiety
-Patient with significant anxiety in the room, had a panic attack
-Started on Zoloft for maintenance therapy
-Will transition to alprazolam to Ativan 1 mg 3 times daily PRN
#Leukocytosis
-Secondary to steroid regimen
-Trend CBC and temperature curve
-Resolved
#Newly diagnosed rheumatoid arthritis
-Complicated by apparent rheumatic ILD
-Positive anti-CCP and KIERRA here; s/p pulse dose steroid
-Will need to follow-up with rheumatology for maintenance therapy
-Would avoid MTX as DMARDs due to potential for lung toxicity
#Transaminitis
-Hepatitis B and C serology negative, HIV testing negative
-ALT elevated disproportionately to AST and other LFTs
-Cannot rule out NAFLD, consider RUQ US if worsening
#Lower extremity peripheral neuropathy
-Possibly steroid-induced (?) versus idiopathic
- trial of gabapentin 300 mg nightly
DVT ppx: Lovenox SQ
Diet: Regular
CODE STATUS: Full Code
Disposition: Await Transfer to [place]
More than 30 minutes spent in discharge including
Final examination of the patient
Summarizing hospital stay
Instructions for continuing care to all relevant caregivers
Preparation of discharge records, prescriptions, and referral forms
Total time spent (36 in minutes):
Anticipated Discharge: Today
Subjective/Interval History
-
Date of Service: July 15, 2024
No acute events overnight
Objective Data
-
Vital Signs:
Vital Signs
Temp Pulse Resp BP Pulse Ox
98.1 F 95 20 136/104 97
07/15/24 15:07 07/15/24 14:35 07/15/24 14:35 07/15/24 13:09 07/15/24 14:35
I&O
07/14/24 07/15/24 07/16/24
06:59 06:59 06:59
Output Total 725 / 725 1500 / 1500
Balance -725 / -725 -1500 / -1500
Review of Systems
-
History Source: Patient
All other systems: Not reviewed unless documented
Physical Exam
-
General: Well Developed, Well Nourished, No Apparent Distress and Comfortable
HEENT: Normocephalic, Atraumatic, Moist Mucous Membranes and Oxygen
Respiratory: Rhonchi (Improving though coarseness in the mid lung) and Non Labored Respirations; Negative Wheezes, Rales or Accessory Resp Muscle Use
Cardiac: Regular Rhythm and S1/S2; Negative Murmur, Rub or Gallop
GI: Soft, Nontender, Nondistended and Normal Bowel Sounds
Musculoskeletal: No Clubbing, No Cyanosis and No Edema
Skin: Warm, Dry and Normal Turgor; Negative Rash
Neuro: AO x 3 and Nonfocal/Grossly Intact
Psych: Calm
Data Reviewed
-
Labs: Labs Reviewed by me and Discussed with Patient
[2024-07-15] MEDS: LOVENOX 40 MG SC (17:43)
[2024-07-15] MEDS: MELATONIN 5 MG PO (20:00)
[2024-07-15] MEDS: NEURONTIN 300 MG PO (20:00)
[2024-07-15] MEDS: PHENERGAN WITH CODEINE SYRUP 5 ML PO (20:01)
--- NOTE | 2024-07-15 23:54 | PTCARENOTE ---
Patient is AOx3 and NSR on monitor. Patient is on 12L midflow with prn non rebreather use. Patient expressing that she feels better tonight and is trying to control her anxiety without medication. Patient still using bedpan at night, encouraged
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 Patient does not have IV access per provider order. Assessment and VS as documented. Call martinez in reach.
[2024-07-16] VITALS (12 sets, daily range): BP systolic 103–154; BP diastolic 69–124; PULSE 100; O2SAT 96
[2024-07-16] MEDS: SYNTHROID 137 MCG PO (05:11)
[2024-07-16 05:52] LABS: Hematocrit 34.7 % (37.0-47.0); Hemoglobin 12.2 g/dL (12.0-16.0); Mean Corp Hgb Conc. 35.2 g/dL (33.0-37.0); Mean Corpuscular Hgb 33.3 pg (27.0-31.0); Mean Corpuscular Volume 94.8 fL (81.0-99.0); Mean Platelet Volume 9.2 fL (7.4-10.4); Platelet Count 228 10^3/uL (130-400); Red Blood Cell Count 3.66 10^6/uL (4.20-5.40); Red Cell Dist. Width 14.6 % (11.5-14.5); White Blood Cell Count 10.5 10^3/uL (4.8-10.8)
[2024-07-16 06:26] LABS: ALT (SGPT) 136 U/L (0-35); AST (SGOT) 29 U/L (14-36); Albumin 3.3 g/dl (3.5-5.0); Alkaline Phosphatase 99 U/L (38-126); Blood Urea Nitrogen 16 mg/dl (7-17); Calcium 8.5 mg/dl (8.4-10.2); Carbon Dioxide 31 mmol/L (22-30); Chloride 95 mmol/L (98-107); Estimated Creatinine Clearance 97 ml/min; Glucose 156 mg/dl (70-99); Potassium 4.7 mmol/L (3.5-5.1); Sodium 131 mmol/L (135-145); Total Bilirubin 0.4 mg/dl (0.2-1.3); Total Protein 5.7 g/dl (6.3-8.2); eGFR > 60.00
--- NOTE | 2024-07-16 08:00 | PTCARENOTE ---
Assumed care of patient at 0645. Assessment completed and documented in shift assessment on worklist.
Patient is pleasant, AAOX4. Anxious at times. Presently on 10L Midflow. Occasionally uses NRB for additional support when SOB. Lungs diminished and coarse throughout, dyspneic with minimal exertion. Tried to encourage OOB to bedside commode for
urination however patient requesting to try later. SR-ST on monitor. BP stable. No IV access at this time, okay per MD/ordered.
Provided [facility] transfer center an update on patient, still awaiting bed.
[2024-07-16] MEDS: DUONEB 3 ML INH ×4 (09:01→19:28)
[2024-07-16] MEDS: ZOLOFT 25 MG PO (09:03)
[2024-07-16] MEDS: PEPCID 20 MG PO ×2 (09:03→20:34)
[2024-07-16] MEDS: MUCINEX 1200 MG PO ×2 (09:03→20:34)
[2024-07-16] MEDS: DESENEX/MITRAZOL/ZEASORB 1 APPLIC TOPICAL ×2 (09:04→20:35)
[2024-07-16] MEDS: DELTASONE 40 MG PO (09:04)
[2024-07-16] MEDS: MIRALAX PO (09:04)
--- NOTE | 2024-07-16 10:53 | W.PN.PUL3 ---
Today's Communication / Plan
-
Continue with current care
Decreased prednisone to 60 mg daily.
Continue antitussives
Physical therapy
Monitor electrolytes
PJP prophylaxis
Waiting for transfer
Assessment
-
64-year-old woman with distant past medical history of provoked pulmonary embolism, interstitial lung disease which is mild on CAT scan 07/2022 undifferentiated, has not been seen by pulmonary despite being recommended last year. Comes to the
hospital complaining of progressive shortness of breath, cough, hypoxemia. X-ray with significant bilateral infiltrates. Follow-up CT demonstrated severely diffuse groundglass opacities. Progressive hypoxemic respiratory failure up to 10 L.
Impression:
Severe acute hypoxemic respiratory failure currently on high-flow nasal cannula
CTA chest 06/12/2024: Diffuse groundglass opacity bilaterally. No pleural effusion. Negative for acute PE.
Differential diagnosis include infectious such as community-acquired pneumonia viral/bacterial-cannot rule out interstitial lung disease acute flare-broad differential diagnosis.
With significantly increased CRP and sedimentation rate suspect more inflammatory such as nonspecific interstitial pneumonia, connective tissue disease associated ILD etc.
Her CAT scan was not compatible with usual interstitial pneumonia.
Less likely pulmonary edema. Most recent echocardiogram from 08/2022 with normal LVEF.
Less likely diffuse alveolar hemorrhage given stable hgb and no hemoptysis; DDx also includes CEP, organizing pneumonia, and atypical CHP
Negative influenza, COVID, Legionella and strep pneumonia.
EKG 06/11/2024: Normal sinus rhythm. ST-T wave abnormality consider inferior ischemia.
leukocytosis/fever
Mild hyponatremia - now resolved
Conditions present prior admission:
Interstitial lung disease : Undifferentiated
Formerly seen on CAT scan 07/2022 for the first time. Mild, peripheral, undifferentiated.
History of PE/DVT provoked after foot injury [address] of the chest at that time: No mention of interstitial lung disease.
History of influenza in 2018/2018 With pneumonia.
History of COVID mildly 2021.
History of ankle fracture on the left status post repair 2023.
Plan:
Pulmonary condition unchanged from overnight.
Remains on midflow nasal cannula on 07/04/2024.
Continue to wean down O2 flow rate while keeping SpO2 >90-94%
Currently on 8-10L midflow, satting >90% at rest.
No distress with conversation, no new complaints.
Her cough has improved.
Remains afebrile.
CTA chest from 06/12/2024 demonstrated severely diffuse groundglass opacities without pleural effusions but has mildly increased mediastinal lymph nodes. No pericardial effusion.
This is most consistent with NSIP, progressed compared to CT in 2022- likely fibrotic type.
KIERRA IgG positive but with low titer (<1:80); antinuclear Ab and cytoplasmic Ab negative by IFA; c3, c4 wnl
CCP antibody positive (moderately positive), CRP positive -- Suspect inflammatory process
Methylprednisolone 1 g every 24 hours-pulse steroids-initiated 06/20/2024-finished a 5-day pulse and then converted to prednisone 1 mg/kg daily-has been on 80 mg of prednisone for longer than 2 weeks. Increase to 60 mg daily.
Rheumatology consulted --> pt could benefit from additional immunosuppressants like cellcept vs rituxin or azathrioprine-waiting for transfer to [facility].
Continue Bactrim for PCP ppx and monitor Cr and serum [K] latest potassium and creatinine normal 07/16/2024-
CT chest - 07/02/2024 showing improvement in groundglass opacities, particularly in the right upper lobe.
Still having groundglass opacifications with interval progression in the lower lobes.
CXR in AM 07/12 shows similar findings compared to recent CXR on 07/09/2024
Will repeat imagning PRN
Incentive spirometry encouraged
Out of bed if able-reviewed with physical therapy
Mucus clearing devices added including acapella/vest
Repeat sputum cultures
DuoNebs QID - currently not bronchospastic
Echo with bubble study checked on 07/01/2024 showed preserved LVEF of 50-55% with normal RV size and function, trace MR, mild pulmonary hypertension with PASP 30-35 mmHg, with negative bubble study and show pericardial effusion
proBNP negative
Completed course of antibiotics--CFP/Vanc/Doxy/azithro (06/11-06/16)
Sputum culture usual respiratory francis
Cultures and viral panel negative
Repeat sputum culture 07/11 (shows NGTD)
-
Continue physical therapy and Occupational Therapy. Patient is motivated
DVT prophylaxis-Enoxaparin
GI prophylaxis: famotidine twice daily-plan to continue at discharge given ILD
If she were to need medical decision maker, it would be her daughter Kay Chau.
Will need outpatient follow up with pulmonary- new pt appt scheduled with Dr. Del Valle in Jul 2024, likely will need to adjust timing
Will need outpatient follow up with rheumatology
Patient has patient has been waiting for [facility] transfer for several days.
I strongly advise that the patient agree for transfer so that she can see a wet finisher. Pending transfer, hopefully today. She has been waiting for a bed.
.
Pulmonary service will continue to follow along.
Diagnostic Data
CXR 06/23/24- 1. Severe bilateral airspace and interstitial disease in the lungs without definitive change from 06/11/2024. Diagnostic possibilities are (1) a SEVERE ACUTE on CHRONIC INFLAMMATORY PNEUMONITIS, (2) less likely pneumonia given the lack
of interval change, or (3) less likely pulmonary edema.
2. SEVERE MEDIASTINAL LYMPHADENOPATHY. Diagnostic possibilities are (1) sarcoidosis or (2) malignancy (lymphoma or metastatic disease).
3. Mildly decreased bilateral lung volumes.
Chest x-ray 2020: Mild diffuse interstitial thickening left greater than right possible ILD/fibrosis
CT chest 06/12/24-2. Extensive bilateral groundglass opacities, superimposed upon subpleural reticulation/fibrosis seen on the prior CT. No significant pleural effusions. There is also mediastinal and hilar lymphadenopathy, which is new compared
to the prior examination. Findings are nonspecific and could represent acute exacerbation or worsening of patient's interstitial lung disease with infectious or inflammatory process also a consideration.
CT chest 08/15/2022: Mild changes of pulmonary fibrosis, nonspecific pattern, pleural-based. Findings are new compared to prior study. Left lower lobe 4 mm nodule. Benign etiology.
Possible pericardial cyst 2.8 X1.8X 1.1 cm present in [address] chest 2016: Reviewed, bilateral lower lobe filling defects compatible with pulmonary embolism. Lower lobe subsegmental atelectasis. No focal abnormalities noted at that time.
Small pericardial cyst
Echocardiogram 08/16/2022: Showed normal LVEF. No regional wall motion abnormalities. Ejection fraction 60 to 65%. Normal right ventricular size and function. No significant valvular disease.
Echo 07/01/2024: Normal left ventricular size, wall thickness and systolic function. No regional wall motion abnormalities are seen. LV ejection fraction is 50-55 % by visual assessment. Normal diastolic function. Normal right ventricular size and
function. Trace mitral regurgitation. Structurally normal aortic valve without significant stenosis or regurgitation. Mild tricuspid regurgitation. Estimated pulmonary artery pressure of 30-35 mmHg. Assuming a right atrial pressure of 3 mmHg.
Interatrial septum is intact with no evidence of shunting by color flow Doppler or by agitata saline (negative bubble study). Trivial pericardial effusion. Compared to prior study 08/16/2022 ejection fraction previously 60 to 65% now 50 to 55%
visually. Trivial pericardial effusion
-----
.
Subjective Data
-
Date of Service:
Date of Service: July 16, 2024
Chief Complaint: Pulmonary Follow Up and Dyspnea Follow Up
Subjective:
No new complaints
She feels that she is getting better
Denies hemoptysis or phlegm production
Review of Systems
General: Fever (n)
Cardiopulmonary: Dyspnea, Dyspnea on Exertion and Cough (improved)
GI: Abdominal Pain (n) and Nausea (n)
Neuro: Headache
Objective Data
Data Reviewed
Vital Signs / I&O / Oxygen:
Vital Signs
Temp Pulse Resp BP Pulse Ox
97.5 F 78 43 115/78 94
07/16/24 07:20 07/16/24 10:00 07/16/24 10:00 07/16/24 10:00 07/16/24 10:00
Intake and Output
07/15/24 07/16/24 07/17/24
06:59 06:59 06:59
Output Total 1500 / 1500
Balance -1500 / -1500
SaO2 94
Nasal Cannula flow liters per 12
minute
Physical Exam
General: Respiratory Distress (negative), Comfortable (at rest), Chills (negative) and Sweats (negative)
HEENT: Normocephalic and Anicteric
Cardiovascular: S1-S2, Rub (negative) and Peripheral Edema (negative)
Respiratory: Wheeze (negative), Crackles (bibasilar), Rhonchi (negative), Non-Labored Respirations, Stridor (negative) and Other (decreased overall at bases)
GI: Soft, Non Distended, Non Tender and Normal Bowel Sounds
Neurology: AO x 3 and Tremors (negative)
Skin: Warm, Dry, Cyanosis (negative) and Jaundice (negative)
Labs/Micro/Reports
Lab Data
07/16/24 05:16
07/16/24 05:16
[2024-07-16] MEDS: BACTRIM DS 800 MG/160 MG 1 TABLET PO (11:17)
--- NOTE | 2024-07-16 14:42 | W.PN.HOSP.TC ---
Today's Communication/Plan
-
awaiting tx to [place]
wean o2 as tolerated
cont steroids, pjp ppx
Assessment / Plan
Assessment / Plan
#Acute hypoxemic respiratory failure
#Interstitial lung disease secondary to rheumatoid arthritis
#Possible superimposed community-acquired pneumonia
-Status post course of cefepime and doxycycline; s/p 5-day pulse steroids, now on p.o.
-CT scan does seem more consistent with NSIP, which has better response to steroid
-Chest x-ray today with signs of worsening b/l pneumonia though no fevers or leukocytosis
-Has not required intubation; O2 level slowly improving, on 12 L O2 today
-Pulmonology following, patient no longer wants transfer to [facility]
-Repeat sputum cultures from 07/09 negative
Plan
-Continue with prednisone twice daily, bronchodilators, Mucinex
-Continue with IV Lasix as needed for net euvolemic to slight negative
-F/u Rheum at [place]
-Continue Bactrim 3x weekly for PJP prophylaxis
-Wean oxygen for SpO2 goal >90%
#Euvolemic hyponatremia
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
-Will continue to monitor BMP for now, encourage p.o. intake
#Anxiety
-Patient with significant anxiety in the room, had a panic attack
-Started on Zoloft for maintenance therapy
-Will transition to alprazolam to Ativan 1 mg 3 times daily PRN
#Leukocytosis
-Secondary to steroid regimen
-Trend CBC and temperature curve
-Resolved
#Newly diagnosed rheumatoid arthritis
-Complicated by apparent rheumatic ILD
-Positive anti-CCP and KIERRA here; s/p pulse dose steroid
-Will need to follow-up with rheumatology for maintenance therapy
-Would avoid MTX as DMARDs due to potential for lung toxicity
#Transaminitis
-Hepatitis B and C serology negative, HIV testing negative
-ALT elevated disproportionately to AST and other LFTs
-Cannot rule out NAFLD, consider RUQ US if worsening
#Lower extremity peripheral neuropathy
-Possibly steroid-induced (?) versus idiopathic
- trial of gabapentin 300 mg nightly
DVT ppx: Lovenox SQ
Diet: Regular
CODE STATUS: Full Code
Disposition: Await Transfer to [place]
More than 30 minutes spent in discharge including
Final examination of the patient
Summarizing hospital stay
Instructions for continuing care to all relevant caregivers
Preparation of discharge records, prescriptions, and referral forms
Total time spent (36 in minutes):
Anticipated Discharge: Today
Subjective/Interval History
-
Date of Service: July 16, 2024
no acute events
Objective Data
-
Labs:
Laboratory Results
07/16/24
05:16
WBC 10.5
Hgb 12.2
Hct 34.7 L
Plt Count 228
Sodium 131 L
Potassium 4.7
Chloride 95 L
Carbon Dioxide 31 H
BUN 16
Creatinine 0.5 L
Glucose 156 H
Calcium 8.5
Total Bilirubin 0.4
AST 29
ALT 136 H
Alkaline Phosphatase 99
Vital Signs:
Vital Signs
Temp Pulse Resp BP Pulse Ox
97.6 F 93 49 104/69 92
07/16/24 12:02 07/16/24 14:00 07/16/24 14:00 07/16/24 12:17 07/16/24 14:00
I&O
07/15/24 07/16/24 07/17/24
06:59 06:59 06:59
Output Total 1500 / 1500
Balance -1500 / -1500
Review of Systems
-
History Source: Patient
All other systems: Not reviewed unless documented
Data Reviewed
-
Labs: Labs Reviewed by me and Discussed with Patient
[2024-07-16] MEDS: LOVENOX 40 MG SC (17:25)
[2024-07-16] MEDS: NEURONTIN 300 MG PO (20:34)
[2024-07-16] MEDS: PHENERGAN WITH CODEINE SYRUP 5 ML PO (20:34)
[2024-07-16] MEDS: MELATONIN 5 MG PO (20:34)
--- NOTE | 2024-07-16 23:52 | PTCARENOTE ---
Patient is Aox3 but can be anxious at times. NSR on monitor. Patient on 10 L midflow using non rebreather prn. Patient still using bed grijalva, encouraged patient to use bedside commode but wants to continue bedpan use. Patient has no IV access per MD
order. Assessment and VS as documented, call martinez in reach.
[2024-07-17] VITALS (8 sets, daily range): BP systolic 108–153; BP diastolic 74–94; PULSE 121; O2SAT 99
[2024-07-17] MEDS: SYNTHROID 137 MCG PO (04:03)
[2024-07-17] MEDS: DUONEB 3 ML INH ×4 (07:35→19:43)
[2024-07-17] MEDS: DESENEX/MITRAZOL/ZEASORB 1 APPLIC TOPICAL ×2 (09:24→20:05)
[2024-07-17] MEDS: MIRALAX PO (09:25)
[2024-07-17] MEDS: MUCINEX 1200 MG PO ×2 (09:26→20:04)
[2024-07-17] MEDS: DELTASONE 60 MG PO (09:26)
[2024-07-17] MEDS: ZOLOFT 25 MG PO (09:26)
[2024-07-17] MEDS: PEPCID 20 MG PO ×2 (09:26→20:04)
--- NOTE | 2024-07-17 10:01 | W.PN.PUL3 ---
Today's Communication / Plan
-
Prednisone 60 mg
Repeat chest x-ray tomorrow
Check CRP tomorrow
Continue physical therapy and Occupational Therapy
Nutritional support
Assessment
-
64-year-old woman with distant past medical history of provoked pulmonary embolism, interstitial lung disease which is mild on CAT scan 07/2022 undifferentiated, has not been seen by pulmonary despite being recommended last year. Comes to the
hospital complaining of progressive shortness of breath, cough, hypoxemia. X-ray with significant bilateral infiltrates. Follow-up CT demonstrated severely diffuse groundglass opacities. Progressive hypoxemic respiratory failure up to 10 L.
Impression:
Severe acute hypoxemic respiratory failure currently on high-flow nasal cannula
CTA chest 06/12/2024: Diffuse groundglass opacity bilaterally. No pleural effusion. Negative for acute PE.
Differential diagnosis include infectious such as community-acquired pneumonia viral/bacterial-cannot rule out interstitial lung disease acute flare-broad differential diagnosis.
With significantly increased CRP and sedimentation rate suspect more inflammatory such as nonspecific interstitial pneumonia, connective tissue disease associated ILD etc.
Her CAT scan was not compatible with usual interstitial pneumonia.
Less likely pulmonary edema. Most recent echocardiogram from 08/2022 with normal LVEF.
Less likely diffuse alveolar hemorrhage given stable hgb and no hemoptysis; DDx also includes CEP, organizing pneumonia, and atypical CHP
Negative influenza, COVID, Legionella and strep pneumonia.
EKG 06/11/2024: Normal sinus rhythm. ST-T wave abnormality consider inferior ischemia.
leukocytosis/fever
Mild hyponatremia - now resolved
Conditions present prior admission:
Interstitial lung disease : Undifferentiated
Formerly seen on CAT scan 07/2022 for the first time. Mild, peripheral, undifferentiated.
History of PE/DVT provoked after foot injury [address] of the chest at that time: No mention of interstitial lung disease.
History of influenza in 2018/2018 With pneumonia.
History of COVID mildly 2021.
History of ankle fracture on the left status post repair 2023.
Plan:
Pulmonary condition unchanged from overnight.
Remains on midflow nasal cannula on 07/04/2024.
Currently anywhere from 8 to 10 L mid flow.
Continue to wean.
No distress with conversation, no new complaints. Able to perform physical therapy.
Lung exam with crackles and no bronchospasm.
Cough has improved.
CTA chest from 06/12/2024 demonstrated severely diffuse groundglass opacities without pleural effusions but has mildly increased mediastinal lymph nodes. No pericardial effusion.
This is most consistent with NSIP, progressed compared to CT in 2022- likely fibrotic type.
KIERRA IgG positive but with low titer (<1:80); antinuclear Ab and cytoplasmic Ab negative by IFA; c3, c4 wnl
CCP antibody positive (moderately positive), CRP positive -- Suspect inflammatory process
-
Methylprednisolone 1 g every 24 hours-pulse steroids-initiated 06/20/2024-finished a 5-day pulse and then converted to prednisone 1 mg/kg daily-has been on 80 mg of prednisone for longer than 2 weeks.
Decreased 60 mg daily-07/16/2024.
Rheumatology consulted --> pt could benefit from additional immunosuppressants like cellcept vs rituxin or azathrioprine-waiting for transfer to [facility].
Continue Bactrim for PCP ppx and monitor Cr and serum [K] latest potassium and creatinine normal 07/16/2024-
-
CT chest - 07/02/2024 showing improvement in groundglass opacities, particularly in the right upper lobe.
Still having groundglass opacifications with interval progression in the lower lobes.
CXR in AM 07/12 shows similar findings compared to recent CXR on 07/09/2024
Repeat chest x-ray tomorrow
Repeat CRP tomorrow
Incentive spirometry encouraged
Out of bed if able-reviewed with physical therapy
Mucus clearing devices added including acapella/vest
Repeat sputum cultures
DuoNebs QID - currently not bronchospastic
Echo with bubble study checked on 07/01/2024 showed preserved LVEF of 50-55% with normal RV size and function, trace MR, mild pulmonary hypertension with PASP 30-35 mmHg, with negative bubble study and show pericardial effusion
proBNP negative
No evidence for infection. Will continue to be vigilant. 07/17/2024.
Completed course of antibiotics--CFP/Vanc/Doxy/azithro (06/11-06/16)
Sputum culture usual respiratory francis
Cultures and viral panel negative
Repeat sputum culture 07/11 (shows NGTD)
-
Continue physical therapy and Occupational Therapy. Patient is motivated-continue
-
DVT prophylaxis-Enoxaparin
GI prophylaxis: famotidine twice daily-plan to continue at discharge given ILD
If she were to need medical decision maker, it would be her daughter Kay Chau.
Will need outpatient follow up with pulmonary- new pt appt scheduled with Dr. Del Valle in Jul 2024, likely will need to adjust timing
Will need outpatient follow up with rheumatology
Patient has patient has been waiting for [facility] transfer for several days.
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 Pending transfer, hopefully today. She has been waiting for a bed.
.
Pulmonary service will continue to follow along.
Diagnostic Data
CXR 06/23/24- 1. Severe bilateral airspace and interstitial disease in the lungs without definitive change from 06/11/2024. Diagnostic possibilities are (1) a SEVERE ACUTE on CHRONIC INFLAMMATORY PNEUMONITIS, (2) less likely pneumonia given the lack
of interval change, or (3) less likely pulmonary edema.
2. SEVERE MEDIASTINAL LYMPHADENOPATHY. Diagnostic possibilities are (1) sarcoidosis or (2) malignancy (lymphoma or metastatic disease).
3. Mildly decreased bilateral lung volumes.
Chest x-ray 2020: Mild diffuse interstitial thickening left greater than right possible ILD/fibrosis
CT chest 06/12/24-2. Extensive bilateral groundglass opacities, superimposed upon subpleural reticulation/fibrosis seen on the prior CT. No significant pleural effusions. There is also mediastinal and hilar lymphadenopathy, which is new compared
to the prior examination. Findings are nonspecific and could represent acute exacerbation or worsening of patient's interstitial lung disease with infectious or inflammatory process also a consideration.
CT chest 08/15/2022: Mild changes of pulmonary fibrosis, nonspecific pattern, pleural-based. Findings are new compared to prior study. Left lower lobe 4 mm nodule. Benign etiology.
Possible pericardial cyst 2.8 X1.8X 1.1 cm present in [address] chest 2016: Reviewed, bilateral lower lobe filling defects compatible with pulmonary embolism. Lower lobe subsegmental atelectasis. No focal abnormalities noted at that time.
Small pericardial cyst
Echocardiogram 08/16/2022: Showed normal LVEF. No regional wall motion abnormalities. Ejection fraction 60 to 65%. Normal right ventricular size and function. No significant valvular disease.
Echo 07/01/2024: Normal left ventricular size, wall thickness and systolic function. No regional wall motion abnormalities are seen. LV ejection fraction is 50-55 % by visual assessment. Normal diastolic function. Normal right ventricular size and
function. Trace mitral regurgitation. Structurally normal aortic valve without significant stenosis or regurgitation. Mild tricuspid regurgitation. Estimated pulmonary artery pressure of 30-35 mmHg. Assuming a right atrial pressure of 3 mmHg.
Interatrial septum is intact with no evidence of shunting by color flow Doppler or by agitata saline (negative bubble study). Trivial pericardial effusion. Compared to prior study 08/16/2022 ejection fraction previously 60 to 65% now 50 to 55%
visually. Trivial pericardial effusion
-----
.
Subjective Data
-
Date of Service:
Date of Service: July 17, 2024
Chief Complaint: Pulmonary Follow Up and Dyspnea Follow Up
Subjective:
No new events or issues overnight
Remains on mid flow oxygen
Review of Systems
GI: Nausea (n) and Vomiting (n)
Neuro: Headache (n)
Objective Data
Data Reviewed
Vital Signs / I&O / Oxygen:
Vital Signs
Temp Pulse Resp BP Pulse Ox
97.4 F 88 20 148/89 91
07/17/24 04:03 07/17/24 07:38 07/17/24 07:38 07/16/24 23:35 07/17/24 08:16
SaO2 91
Nasal Cannula flow liters per 10
minute
Physical Exam
General: Respiratory Distress (negative), Comfortable (at rest), Chills (negative) and Sweats (negative)
HEENT: Normocephalic and Anicteric
Cardiovascular: S1-S2, Rub (negative) and Peripheral Edema (negative)
Respiratory: Wheeze (negative), Crackles (bibasilar), Rhonchi (negative), Non-Labored Respirations, Stridor (negative) and Other (decreased overall at bases)
GI: Soft, Non Distended, Non Tender and Normal Bowel Sounds
Neurology: AO x 3 and Tremors (negative)
Skin: Warm, Dry, Cyanosis (negative) and Jaundice (negative)
Labs/Micro/Reports
Lab Data
07/16/24 05:16
07/16/24 05:16
--- NOTE | 2024-07-17 10:28 | CM ---
Call placed to [facility], spoke to Jennifer who said she is on the list however there are no available beds at the current time. Update to CM.
--- NOTE | 2024-07-17 14:37 | W.PN.HOSP.TC ---
Today's Communication/Plan
-
awaiting tx to [place]
wean o2 as tolerated
cont steroids, pjp ppx
Assessment / Plan
Assessment / Plan
#Acute hypoxemic respiratory failure
#Interstitial lung disease secondary to rheumatoid arthritis
#Possible superimposed community-acquired pneumonia
-Status post course of cefepime and doxycycline; s/p 5-day pulse steroids, now on p.o.
-CT scan does seem more consistent with NSIP, which has better response to steroid
-Chest x-ray today with signs of worsening b/l pneumonia though no fevers or leukocytosis
-Has not required intubation; O2 level slowly improving, on 12 L O2 today
-Pulmonology following, patient no longer wants transfer to [facility]
-Repeat sputum cultures from 07/09 negative
Plan
-Continue with prednisone twice daily, bronchodilators, Mucinex
-Continue with IV Lasix as needed for net euvolemic to slight negative
-F/u Rheum at [facility]
-Continue Bactrim 3x weekly for PJP prophylaxis
-Wean oxygen for SpO2 goal >90%
#Euvolemic hyponatremia
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
-Will continue to monitor BMP for now, encourage p.o. intake
#Anxiety
-Patient with significant anxiety in the room, had a panic attack
-Started on Zoloft for maintenance therapy
-Will transition to alprazolam to Ativan 1 mg 3 times daily PRN
#Leukocytosis
-Secondary to steroid regimen
-Trend CBC and temperature curve
-Resolved
#Newly diagnosed rheumatoid arthritis
-Complicated by apparent rheumatic ILD
-Positive anti-CCP and KIERRA here; s/p pulse dose steroid
-Will need to follow-up with rheumatology for maintenance therapy
-Would avoid MTX as DMARDs due to potential for lung toxicity
#Transaminitis
-Hepatitis B and C serology negative, HIV testing negative
-ALT elevated disproportionately to AST and other LFTs
-Cannot rule out NAFLD, consider RUQ US if worsening
#Lower extremity peripheral neuropathy
-Possibly steroid-induced (?) versus idiopathic
- trial of gabapentin 300 mg nightly
DVT ppx: Lovenox SQ
Diet: Regular
CODE STATUS: Full Code
Disposition: Await Transfer to [facility]
More than 30 minutes spent in discharge including
Final examination of the patient
Summarizing hospital stay
Instructions for continuing care to all relevant caregivers
Preparation of discharge records, prescriptions, and referral forms
Total time spent (36 in minutes):
Anticipated Discharge: Today
Subjective/Interval History
-
Date of Service: July 17, 2024
no acute events
Objective Data
-
Vital Signs:
Vital Signs
Temp Pulse Resp BP Pulse Ox
97.4 F 76 23 126/90 97
07/17/24 04:03 07/17/24 08:00 07/17/24 12:00 07/17/24 12:00 07/17/24 12:00
Review of Systems
-
History Source: Patient
All other systems: Not reviewed unless documented
Physical Exam
-
General: Well Developed, Well Nourished, No Apparent Distress and Comfortable
HEENT: Normocephalic, Atraumatic, Moist Mucous Membranes and Oxygen
Respiratory: Rhonchi (Improving though coarseness in the mid lung) and Non Labored Respirations; Negative Wheezes, Rales or Accessory Resp Muscle Use
Cardiac: Regular Rhythm and S1/S2; Negative Murmur, Rub or Gallop
GI: Soft, Nontender, Nondistended and Normal Bowel Sounds
Musculoskeletal: No Clubbing, No Cyanosis and No Edema
Skin: Warm, Dry and Normal Turgor; Negative Rash
Neuro: AO x 3 and Nonfocal/Grossly Intact
Psych: Calm
Data Reviewed
-
CT Scan: Report Reviewed by me
Labs: Labs Reviewed by me and Discussed with Patient
--- NOTE | 2024-07-17 14:51 | PTCARENOTE ---
SaO2 stable at rest on 10L midflow, desats to 80% w/ activity, talking. To recover, patient using NRB. Update given to [facility]. No bed available at this time.
--- NOTE | 2024-07-17 16:53 | CM ---
Patient with Hx ILD with new Dx RA. O2 10L midflow. Seen by PT/OT. Seen by Wound Care Nurse.
ELISE notes 07/01/24 - Buyback agreement completed for transfer to [facility].
Spoke with patient who is aware we are still awaiting a bed to be available for her transfer to [place]. Patient very pleasant and states she is endeavoring to remain positive about her medical status. Her daughter has been coming in to visit, and
she has someone checking on and feeding her 2 cats at home. 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
CM continuing to follow.
Plan transfer to [facility] when bed available.
[2024-07-17] MEDS: LOVENOX 40 MG SC (18:05)
[2024-07-17] MEDS: MELATONIN 5 MG PO (20:04)
[2024-07-17] MEDS: NEURONTIN 300 MG PO (20:04)
[2024-07-17] MEDS: PHENERGAN WITH CODEINE SYRUP 5 ML PO (20:05)
--- NOTE | 2024-07-17 22:47 | PTCARENOTE ---
Patient still on 10L midflow and stable. Desats with exertion, using prn non rebreather. Educated patient on importance of trying to use bedside commode vs Bedpan and importance of physical therapy and getting up into chair during the day. Patient
reports too much anxiety when it comes to commode use and wants to stick with bed grijalva for this RN. Assessment and VS as documented. Call martinez in reach.
[2024-07-18] VITALS (10 sets, daily range): BP systolic 89–131; BP diastolic 60–89
[2024-07-18] MEDS: SYNTHROID 137 MCG PO (04:48)
[2024-07-18] MEDS: DUONEB 3 ML INH ×4 (07:44→19:23)
[2024-07-18] MEDS: MIRALAX PO (09:39)
[2024-07-18] MEDS: MUCINEX 1200 MG PO ×2 (09:39→20:26)
[2024-07-18] MEDS: ZOLOFT 25 MG PO (09:39)
[2024-07-18] MEDS: PEPCID PO ×2 (09:39→09:45)
[2024-07-18] MEDS: DELTASONE 60 MG PO (09:39)
[2024-07-18] MEDS: DESENEX/MITRAZOL/ZEASORB 1 APPLIC TOPICAL ×2 (09:40→20:26)
--- NOTE | 2024-07-18 09:52 | CM ---
Patient for transfer to [place]. Patient awaiting bed availability. CM will continue to follow for discharge planning needs.
Plan; [place] transfer
--- NOTE | 2024-07-18 10:33 | W.PN.PUL3 ---
Today's Communication / Plan
-
Continue prednisone 60 mg taper over the next several weeks to months
Continue physical therapy
Aspiration precautions
PJP prophylaxis
Will continue to be vigilant for infection
Continue to decrease FiO2 as able. To my view chest x-ray improved 07/17/2024
Has been waiting for transfer to [facility], hopefully improved on her own on steroids
Assessment
-
64-year-old woman with distant past medical history of provoked pulmonary embolism, interstitial lung disease which is mild on CAT scan 07/2022 undifferentiated, has not been seen by pulmonary despite being recommended last year. Comes to the
hospital complaining of progressive shortness of breath, cough, hypoxemia. X-ray with significant bilateral infiltrates. Follow-up CT demonstrated severely diffuse groundglass opacities. Progressive hypoxemic respiratory failure up to 10 L.
Impression:
Severe acute hypoxemic respiratory failure currently on high-flow nasal cannula
CTA chest 06/12/2024: Diffuse groundglass opacity bilaterally. No pleural effusion. Negative for acute PE.
Differential diagnosis include infectious such as community-acquired pneumonia viral/bacterial-cannot rule out interstitial lung disease acute flare-broad differential diagnosis.
With significantly increased CRP and sedimentation rate suspect more inflammatory such as nonspecific interstitial pneumonia, connective tissue disease associated ILD etc.
Her CAT scan was not compatible with usual interstitial pneumonia.
Less likely pulmonary edema. Most recent echocardiogram from 08/2022 with normal LVEF.
Less likely diffuse alveolar hemorrhage given stable hgb and no hemoptysis; DDx also includes CEP, organizing pneumonia, and atypical CHP
Negative influenza, COVID, Legionella and strep pneumonia.
EKG 06/11/2024: Normal sinus rhythm. ST-T wave abnormality consider inferior ischemia.
leukocytosis/fever
Mild hyponatremia - now resolved
Conditions present prior admission:
Interstitial lung disease : Undifferentiated
Formerly seen on CAT scan 07/2022 for the first time. Mild, peripheral, undifferentiated.
History of PE/DVT provoked after foot injury [address] of the chest at that time: No mention of interstitial lung disease.
History of influenza in 2018/2018 With pneumonia.
History of COVID mildly 2021.
History of ankle fracture on the left status post repair 2023.
Plan:
Pulmonary condition unchanged from overnight.
Remains on midflow nasal cannula on 07/04/2024.
Currently anywhere from 8 to 10 L mid flow.
Continue to wean.
No distress with conversation, no new complaints. Able to perform physical therapy.
Lung exam with crackles and no bronchospasm.
Cough has improved.
CTA chest from 06/12/2024 demonstrated severely diffuse groundglass opacities without pleural effusions but has mildly increased mediastinal lymph nodes. No pericardial effusion.
This is most consistent with NSIP, progressed compared to CT in 2022- likely fibrotic type.
KIERRA IgG positive but with low titer (<1:80); antinuclear Ab and cytoplasmic Ab negative by IFA; c3, c4 wnl
CCP antibody positive (moderately positive), CRP positive -- Suspect inflammatory process
-
Methylprednisolone 1 g every 24 hours-pulse steroids-initiated 06/20/2024-finished a 5-day pulse and then converted to prednisone 1 mg/kg daily-has been on 80 mg of prednisone for longer than 2 weeks.
Decreased 60 mg daily-07/16/2024.
Rheumatology consulted --> pt could benefit from additional immunosuppressants like cellcept vs rituxin or azathrioprine-waiting for transfer to [facility].
Continue Bactrim for PCP ppx and monitor Cr and serum [K] latest potassium and creatinine normal 07/16/2024
C-reactive protein 17.5 (07/18/2024)
-
CT chest - 07/02/2024 showing improvement in groundglass opacities, particularly in the right upper lobe.
Still having groundglass opacifications with interval progression in the lower lobes.
CXR in AM 07/12 shows similar findings compared to recent CXR on 07/09/2024
Chest x-ray 07/17/2024: Reviewed, to my view showed slight improvement in bilateral infiltrates.
-
Incentive spirometry encouraged
Out of bed if able-reviewed with physical therapy
Mucus clearing devices added including acapella/vest
Repeat sputum cultures
DuoNebs QID - currently not bronchospastic
Does not appear volume overloaded.Her weight overall trending lower.
Echo with bubble study checked on 07/01/2024 showed preserved LVEF of 50-55% with normal RV size and function, trace MR, mild pulmonary hypertension with PASP 30-35 mmHg, with negative bubble study and show pericardial effusion
proBNP negative
No evidence for infection. Will continue to be vigilant.
Completed course of antibiotics--CFP/Vanc/Doxy/azithro (06/11-06/16)
Sputum culture usual respiratory francis
Cultures and viral panel negative
Repeat sputum culture 07/11 (shows NGTD)
-
Continue physical therapy and Occupational Therapy. Patient is motivated-continue
-
DVT prophylaxis-Enoxaparin
GI prophylaxis: famotidine twice daily-plan to continue at discharge given ILD
If she were to need medical decision maker, it would be her daughter Kay Chau.
Will need outpatient follow up with pulmonary- new pt appt scheduled with Dr. Del Valle in Jul 2024, likely will need to adjust timing
Will need outpatient follow up with rheumatology
Patient has patient has been waiting for [facility] transfer for several days.
I strongly advise that the patient agree for transfer so that she can see a maintenance mechanic engine. Pending transfer, hopefully today. She has been waiting for a bed.
.
Pulmonary service will continue to follow along.
Diagnostic Data
CXR 06/23/24- 1. Severe bilateral airspace and interstitial disease in the lungs without definitive change from 06/11/2024. Diagnostic possibilities are (1) a SEVERE ACUTE on CHRONIC INFLAMMATORY PNEUMONITIS, (2) less likely pneumonia given the lack
of interval change, or (3) less likely pulmonary edema.
2. SEVERE MEDIASTINAL LYMPHADENOPATHY. Diagnostic possibilities are (1) sarcoidosis or (2) malignancy (lymphoma or metastatic disease).
3. Mildly decreased bilateral lung volumes.
Chest x-ray 2020: Mild diffuse interstitial thickening left greater than right possible ILD/fibrosis
CT chest 06/12/24-2. Extensive bilateral groundglass opacities, superimposed upon subpleural reticulation/fibrosis seen on the prior CT. No significant pleural effusions. There is also mediastinal and hilar lymphadenopathy, which is new compared
to the prior examination. Findings are nonspecific and could represent acute exacerbation or worsening of patient's interstitial lung disease with infectious or inflammatory process also a consideration.
CT chest 08/15/2022: Mild changes of pulmonary fibrosis, nonspecific pattern, pleural-based. Findings are new compared to prior study. Left lower lobe 4 mm nodule. Benign etiology.
Possible pericardial cyst 2.8 X1.8X 1.1 cm present in [address] chest 2016: Reviewed, bilateral lower lobe filling defects compatible with pulmonary embolism. Lower lobe subsegmental atelectasis. No focal abnormalities noted at that time.
Small pericardial cyst
Echocardiogram 08/16/2022: Showed normal LVEF. No regional wall motion abnormalities. Ejection fraction 60 to 65%. Normal right ventricular size and function. No significant valvular disease.
Echo 07/01/2024: Normal left ventricular size, wall thickness and systolic function. No regional wall motion abnormalities are seen. LV ejection fraction is 50-55 % by visual assessment. Normal diastolic function. Normal right ventricular size and
function. Trace mitral regurgitation. Structurally normal aortic valve without significant stenosis or regurgitation. Mild tricuspid regurgitation. Estimated pulmonary artery pressure of 30-35 mmHg. Assuming a right atrial pressure of 3 mmHg.
Interatrial septum is intact with no evidence of shunting by color flow Doppler or by agitata saline (negative bubble study). Trivial pericardial effusion. Compared to prior study 08/16/2022 ejection fraction previously 60 to 65% now 50 to 55%
visually. Trivial pericardial effusion
-----
.
Subjective Data
-
Date of Service:
Date of Service: July 18, 2024
Chief Complaint: Pulmonary Follow Up and Dyspnea Follow Up
Subjective:
No new complaints
Respiratory status baseline
No significant hemoptysis or phlegm production
Review of Systems
Cardiopulmonary: Dyspnea, Dyspnea on Exertion, Sputum Production (n) and Wheezing (n)
GI: Abdominal Pain (n)
Objective Data
Data Reviewed
Vital Signs / I&O / Oxygen:
Vital Signs
Temp Pulse Resp BP Pulse Ox
98.2 F 75 15 102/60 91
07/18/24 08:52 07/18/24 02:00 07/18/24 02:00 07/18/24 02:00 07/18/24 00:18
Intake and Output
07/17/24 07/18/24 07/19/24
06:59 06:59 06:59
Intake Total 240 / 240
Balance 240 / 240
SaO2 91
Nasal Cannula flow liters per 10
minute
Physical Exam
General: Respiratory Distress (negative), Comfortable (at rest), Chills (negative) and Sweats (negative)
HEENT: Normocephalic and Anicteric
Cardiovascular: S1-S2, Rub (negative) and Peripheral Edema (negative)
Respiratory: Wheeze (negative), Crackles (bibasilar), Rhonchi (negative), Non-Labored Respirations, Stridor (negative) and Other (decreased overall at bases)
GI: Soft, Non Distended, Non Tender and Normal Bowel Sounds
Neurology: AO x 3 and Tremors (negative)
Skin: Warm, Dry, Cyanosis (negative) and Jaundice (negative)
Labs/Micro/Reports
Lab Data
07/16/24 05:16
07/16/24 05:16
[2024-07-18 11:44] LABS: Glucose - Point of Care 131 mg/dl (70-99)
[2024-07-18] MEDS: BACTRIM DS 800 MG/160 MG 1 TABLET PO (12:19)
--- NOTE | 2024-07-18 15:16 | PTCARENOTE ---
Patient AOx3. Patient anxious. 10L midflow. Patient complains of SHORE. NSR on monitor. Patient refused to get out of bed. Education provided to patient and patient verbalized understanding. Patient utilizes bedpan. No IV in place per order. Call martinez
within reach, bed in lowest position, and bed of wheels locked.
--- NOTE | 2024-07-18 15:17 | W.PN.HOSP.TC ---
Today's Communication/Plan
-
awaiting dc
Assessment / Plan
Assessment / Plan
#Acute hypoxemic respiratory failure
#Interstitial lung disease secondary to rheumatoid arthritis
#Possible superimposed community-acquired pneumonia
-Status post course of cefepime and doxycycline; s/p 5-day pulse steroids, now on p.o.
-CT scan does seem more consistent with NSIP, which has better response to steroid
-Chest x-ray today with signs of worsening b/l pneumonia though no fevers or leukocytosis
-Has not required intubation; O2 level slowly improving, on 12 L O2 today
-Pulmonology following, patient no longer wants transfer to [facility]
-Repeat sputum cultures from 07/09 negative
Plan
-Continue with prednisone twice daily, bronchodilators, Mucinex
-Continue with IV Lasix as needed for net euvolemic to slight negative
-F/u Rheum at [place]
-Continue Bactrim 3x weekly for PJP prophylaxis
-Wean oxygen for SpO2 goal >90%
#Euvolemic hyponatremia
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
-Will continue to monitor BMP for now, encourage p.o. intake
#Anxiety
-Patient with significant anxiety in the room, had a panic attack
-Started on Zoloft for maintenance therapy
-Will transition to alprazolam to Ativan 1 mg 3 times daily PRN
#Leukocytosis
-Secondary to steroid regimen
-Trend CBC and temperature curve
-Resolved
#Newly diagnosed rheumatoid arthritis
-Complicated by apparent rheumatic ILD
-Positive anti-CCP and KIERRA here; s/p pulse dose steroid
-Will need to follow-up with rheumatology for maintenance therapy
-Would avoid MTX as DMARDs due to potential for lung toxicity
#Transaminitis
-Hepatitis B and C serology negative, HIV testing negative
-ALT elevated disproportionately to AST and other LFTs
-Cannot rule out NAFLD, consider RUQ US if worsening
#Lower extremity peripheral neuropathy
-Possibly steroid-induced (?) versus idiopathic
- trial of gabapentin 300 mg nightly
DVT ppx: Lovenox SQ
Diet: Regular
CODE STATUS: Full Code
Disposition: Await Transfer to [place]
More than 30 minutes spent in discharge including
Final examination of the patient
Summarizing hospital stay
Instructions for continuing care to all relevant caregivers
Preparation of discharge records, prescriptions, and referral forms
Total time spent (36 in minutes):
Anticipated Discharge: Today
Subjective/Interval History
-
Date of Service: July 18, 2024
no acute events
Objective Data
-
Vital Signs:
Vital Signs
Temp Pulse Resp BP Pulse Ox
97.2 F 97 30 116/68 93
07/18/24 11:26 07/18/24 12:08 07/18/24 12:08 07/18/24 12:19 07/18/24 12:08
I&O
07/17/24 07/18/24 07/19/24
06:59 06:59 06:59
Intake Total 240 / 240
Balance 240 / 240
Review of Systems
-
History Source: Patient
All other systems: Not reviewed unless documented
Data Reviewed
-
CT Scan: Report Reviewed by me
Labs: Labs Reviewed by me and Discussed with Patient
[2024-07-18] MEDS: LOVENOX 40 MG SC (17:21)
[2024-07-18] MEDS: MELATONIN 5 MG PO (20:25)
[2024-07-18] MEDS: NEURONTIN 300 MG PO (20:25)
[2024-07-18] MEDS: PEPCID 20 MG PO (20:25)
[2024-07-18] MEDS: PHENERGAN WITH CODEINE SYRUP 5 ML PO (22:09)
[2024-07-19 02:15] VITALS: BP 99/74
--- NOTE | 2024-07-19 03:19 | PTCARENOTE ---
Patient AAOx3, anxious at times but seems to be in good spirits about progression. NSR on tele. 94% on 10L midflow. Pt utilizing bedpan to void. Pt requesting PRN cough medication see AUG. Call martinez is within reach.
[2024-07-19 04:00] VITALS: BP 86/60
[2024-07-19 06:00] VITALS: BP 118/75
[2024-07-19] MEDS: SYNTHROID 137 MCG PO (06:03)
[2024-07-19] MEDS: DUONEB 3 ML INH ×4 (07:45→19:55)
[2024-07-19] MEDS: ZOLOFT 25 MG PO (09:12)
[2024-07-19] MEDS: MUCINEX 1200 MG PO ×2 (09:12→20:31)
[2024-07-19] MEDS: PEPCID 20 MG PO ×2 (09:15→20:30)
[2024-07-19] MEDS: DELTASONE 60 MG PO (09:15)
[2024-07-19] MEDS: DESENEX/MITRAZOL/ZEASORB 1 APPLIC TOPICAL ×2 (09:16→20:32)
[2024-07-19] MEDS: MIRALAX PO (09:17)
[2024-07-19 09:55] VITALS: BP 115/86
[2024-07-19 14:53] VITALS: BP 127/85
--- NOTE | 2024-07-19 14:55 | W.PN.HOSP.TC ---
Today's Communication/Plan
-
awaiting dc
Assessment / Plan
Assessment / Plan
#Acute hypoxemic respiratory failure
#Interstitial lung disease secondary to rheumatoid arthritis
#Possible superimposed community-acquired pneumonia
-Status post course of cefepime and doxycycline; s/p 5-day pulse steroids, now on p.o.
-CT scan does seem more consistent with NSIP, which has better response to steroid
-Chest x-ray today with signs of worsening b/l pneumonia though no fevers or leukocytosis
-Has not required intubation; O2 level slowly improving, on 10 L O2 today
-Pulmonology following, patient no longer wants transfer to [facility]
-Repeat sputum cultures from 07/09 negative
Plan
-Continue with prednisone twice daily, bronchodilators, Mucinex
-Continue with IV Lasix as needed for net euvolemic to slight negative
-F/u Rheum at [place]
-Continue Bactrim 3x weekly for PJP prophylaxis
-Wean oxygen for SpO2 goal >90%
#Euvolemic hyponatremia
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
-Will continue to monitor BMP for now, encourage p.o. intake
#Anxiety
-Patient with significant anxiety in the room, had a panic attack
-Started on Zoloft for maintenance therapy
-Will transition to alprazolam to Ativan 1 mg 3 times daily PRN
#Leukocytosis
-Secondary to steroid regimen
-Trend CBC and temperature curve
-Resolved
#Newly diagnosed rheumatoid arthritis
-Complicated by apparent rheumatic ILD
-Positive anti-CCP and KIERRA here; s/p pulse dose steroid
-Will need to follow-up with rheumatology for maintenance therapy
-Would avoid MTX as DMARDs due to potential for lung toxicity
#Transaminitis
-Hepatitis B and C serology negative, HIV testing negative
-ALT elevated disproportionately to AST and other LFTs
-Cannot rule out NAFLD, consider RUQ US if worsening
#Lower extremity peripheral neuropathy
-Possibly steroid-induced (?) versus idiopathic
- trial of gabapentin 300 mg nightly
DVT ppx: Lovenox SQ
Diet: Regular
CODE STATUS: Full Code
Disposition: Await Transfer to [place]
More than 30 minutes spent in discharge including
Final examination of the patient
Summarizing hospital stay
Instructions for continuing care to all relevant caregivers
Preparation of discharge records, prescriptions, and referral forms
Total time spent (36 in minutes):
Anticipated Discharge: Today
Subjective/Interval History
-
Date of Service: July 19, 2024
Objective Data
-
Vital Signs:
Vital Signs
Temp Pulse Resp BP Pulse Ox
98.3 F 118 27 115/86 91
07/19/24 11:00 07/19/24 11:42 07/19/24 12:00 07/19/24 09:55 07/19/24 12:00
I&O
07/18/24 07/19/24 07/20/24
06:59 06:59 06:59
Intake Total 240 / 240 960 / 960
Balance 240 / 240 960 / 960
Review of Systems
-
History Source: Patient
All other systems: Not reviewed unless documented
Physical Exam
-
General: Well Developed, Well Nourished, No Apparent Distress and Comfortable
HEENT: Normocephalic, Atraumatic, Moist Mucous Membranes and Oxygen
Respiratory: Rhonchi (Improving though coarseness in the mid lung) and Non Labored Respirations; Negative Wheezes, Rales or Accessory Resp Muscle Use
Cardiac: Regular Rhythm and S1/S2; Negative Murmur, Rub or Gallop
GI: Soft, Nontender, Nondistended and Normal Bowel Sounds
Musculoskeletal: No Clubbing, No Cyanosis and No Edema
Skin: Warm, Dry and Normal Turgor; Negative Rash
Neuro: AO x 3 and Nonfocal/Grossly Intact
Psych: Calm
--- NOTE | 2024-07-19 16:14 | W.PN.PUL3 ---
Today's Communication / Plan
-
No changes in prednisone dosing
Continue with efforts to wean oxygen
Airway clearance, ambulate
PCP prophylaxis continues
Assessment
-
64-year-old woman with distant past medical history of provoked pulmonary embolism, interstitial lung disease which is mild on CAT scan 07/2022 undifferentiated, has not been seen by pulmonary despite being recommended last year. Comes to the
hospital complaining of progressive shortness of breath, cough, hypoxemia. X-ray with significant bilateral infiltrates. Follow-up CT demonstrated severely diffuse groundglass opacities. Progressive hypoxemic respiratory failure up to 10 L.
Impression:
Severe acute hypoxemic respiratory failure currently on high-flow nasal cannula
CTA chest 06/12/2024: Diffuse groundglass opacity bilaterally. No pleural effusion. Negative for acute PE.
Differential diagnosis include infectious such as community-acquired pneumonia viral/bacterial-cannot rule out interstitial lung disease acute flare-broad differential diagnosis.
With significantly increased CRP and sedimentation rate suspect more inflammatory such as nonspecific interstitial pneumonia, connective tissue disease associated ILD etc.
Her CAT scan was not compatible with usual interstitial pneumonia.
Less likely pulmonary edema. Most recent echocardiogram from 08/2022 with normal LVEF.
Less likely diffuse alveolar hemorrhage given stable hgb and no hemoptysis; DDx also includes CEP, organizing pneumonia, and atypical CHP
Negative influenza, COVID, Legionella and strep pneumonia.
EKG 06/11/2024: Normal sinus rhythm. ST-T wave abnormality consider inferior ischemia.
leukocytosis/fever
Mild hyponatremia - now resolved
Conditions present prior admission:
Interstitial lung disease : Undifferentiated
Formerly seen on CAT scan 07/2022 for the first time. Mild, peripheral, undifferentiated.
History of PE/DVT provoked after foot injury [address] of the chest at that time: No mention of interstitial lung disease.
History of influenza in 2018/2018 With pneumonia.
History of COVID mildly 2021.
History of ankle fracture on the left status post repair 2023.
Plan:
Pulmonary condition unchanged from overnight.
Remains on midflow nasal cannula on 07/04/2024.
Currently anywhere from 8 to 10 L mid flow.
Continue to wean.
No distress with conversation, no new complaints. Able to perform physical therapy.
Lung exam with crackles and no bronchospasm.
Cough has improved.
CTA chest from 06/12/2024 demonstrated severely diffuse groundglass opacities without pleural effusions but has mildly increased mediastinal lymph nodes. No pericardial effusion.
This is most consistent with NSIP, progressed compared to CT in 2022- likely fibrotic type.
KIERRA IgG positive but with low titer (<1:80); antinuclear Ab and cytoplasmic Ab negative by IFA; c3, c4 wnl
CCP antibody positive (moderately positive), CRP positive -- Suspect inflammatory process
-
Methylprednisolone 1 g every 24 hours-pulse steroids-initiated 06/20/2024-finished a 5-day pulse and then converted to prednisone 1 mg/kg daily-has been on 80 mg of prednisone for longer than 2 weeks.
Decreased to 60 mg daily-07/16/2024. No change for now
Rheumatology consulted --> pt could benefit from additional immunosuppressants like cellcept vs rituxin or azathrioprine-waiting for transfer to [facility].
Continue Bactrim for PCP ppx and monitor Cr and serum [K] latest potassium and creatinine normal 07/16/2024
C-reactive protein 17.5 (07/18/2024)
-
CT chest - 07/02/2024 showing improvement in groundglass opacities, particularly in the right upper lobe.
Still having groundglass opacifications with interval progression in the lower lobes.
CXR in AM 07/12 shows similar findings compared to recent CXR on 07/09/2024
Chest x-ray 07/17/2024: Reviewed, to my view showed slight improvement in bilateral infiltrates.
-
Incentive spirometry encouraged
Out of bed if able-reviewed with physical therapy
Mucus clearing devices added including acapella/vest
Repeat sputum cultures
DuoNebs QID - currently not bronchospastic
Does not appear volume overloaded.Her weight overall trending lower.
Echo with bubble study checked on 07/01/2024 showed preserved LVEF of 50-55% with normal RV size and function, trace MR, mild pulmonary hypertension with PASP 30-35 mmHg, with negative bubble study and show pericardial effusion
proBNP negative
No evidence for infection. Will continue to be vigilant.
Completed course of antibiotics--CFP/Vanc/Doxy/azithro (06/11-06/16)
Sputum culture usual respiratory francis
Cultures and viral panel negative
Repeat sputum culture 07/11 (shows NGTD)
-
Continue physical therapy and Occupational Therapy. Patient is motivated-continue
-
DVT prophylaxis-Enoxaparin
GI prophylaxis: famotidine twice daily-plan to continue at discharge given ILD
If she were to need medical decision maker, it would be her daughter Kay Chau.
Discussed how this may be long-term with regards to slow improvement
Will need outpatient follow up with pulmonary- new pt appt scheduled with Dr. Del Valle in Jul 2024, likely will need to adjust timing
Will need outpatient follow up with rheumatology
Patient has patient has been waiting for [facility] transfer for several days.
I strongly advise that the patient agree for transfer so that she can see a glass technician/installer. Pending transfer, hopefully today. She has been waiting for a bed.
.
Pulmonary service will continue to follow along.
Diagnostic Data
CXR 06/23/24- 1. Severe bilateral airspace and interstitial disease in the lungs without definitive change from 06/11/2024. Diagnostic possibilities are (1) a SEVERE ACUTE on CHRONIC INFLAMMATORY PNEUMONITIS, (2) less likely pneumonia given the lack
of interval change, or (3) less likely pulmonary edema.
2. SEVERE MEDIASTINAL LYMPHADENOPATHY. Diagnostic possibilities are (1) sarcoidosis or (2) malignancy (lymphoma or metastatic disease).
3. Mildly decreased bilateral lung volumes.
Chest x-ray 2020: Mild diffuse interstitial thickening left greater than right possible ILD/fibrosis
CT chest 06/12/24-2. Extensive bilateral groundglass opacities, superimposed upon subpleural reticulation/fibrosis seen on the prior CT. No significant pleural effusions. There is also mediastinal and hilar lymphadenopathy, which is new compared
to the prior examination. Findings are nonspecific and could represent acute exacerbation or worsening of patient's interstitial lung disease with infectious or inflammatory process also a consideration.
CT chest 08/15/2022: Mild changes of pulmonary fibrosis, nonspecific pattern, pleural-based. Findings are new compared to prior study. Left lower lobe 4 mm nodule. Benign etiology.
Possible pericardial cyst 2.8 X1.8X 1.1 cm present in [address] chest 2016: Reviewed, bilateral lower lobe filling defects compatible with pulmonary embolism. Lower lobe subsegmental atelectasis. No focal abnormalities noted at that time.
Small pericardial cyst
Echocardiogram 08/16/2022: Showed normal LVEF. No regional wall motion abnormalities. Ejection fraction 60 to 65%. Normal right ventricular size and function. No significant valvular disease.
Echo 07/01/2024: Normal left ventricular size, wall thickness and systolic function. No regional wall motion abnormalities are seen. LV ejection fraction is 50-55 % by visual assessment. Normal diastolic function. Normal right ventricular size and
function. Trace mitral regurgitation. Structurally normal aortic valve without significant stenosis or regurgitation. Mild tricuspid regurgitation. Estimated pulmonary artery pressure of 30-35 mmHg. Assuming a right atrial pressure of 3 mmHg.
Interatrial septum is intact with no evidence of shunting by color flow Doppler or by agitata saline (negative bubble study). Trivial pericardial effusion. Compared to prior study 08/16/2022 ejection fraction previously 60 to 65% now 50 to 55%
visually. Trivial pericardial effusion
-----
.
Subjective Data
-
Date of Service:
Date of Service: July 19, 2024
Chief Complaint: Pulmonary Follow Up and Dyspnea Follow Up
Subjective:
Patient continues to improve slowly. She has mild dry cough. She ambulated to the bathroom, which shortness of breath but denies lightheadedness, dizziness, chest pain. Oxygen continues to be weaned, currently 94%
Objective Data
Data Reviewed
Vital Signs / I&O / Oxygen:
Vital Signs
Temp Pulse Resp BP Pulse Ox
98.5 F 92 27 115/86 94
07/19/24 15:00 07/19/24 15:30 07/19/24 15:30 07/19/24 09:55 07/19/24 15:30
Intake and Output
07/18/24 07/19/24 07/20/24
06:59 06:59 06:59
Intake Total 240 / 240 960 / 960
Balance 240 / 240 960 / 960
SaO2 94
Nasal Cannula flow liters per 6
minute
Physical Exam
General: Comfortable (at rest)
HEENT: Normocephalic and Anicteric
Cardiovascular: S1-S2, Rub (negative) and Peripheral Edema (negative)
Respiratory: Wheeze (negative), Crackles (bibasilar), Rhonchi (negative), Non-Labored Respirations, Stridor (negative) and Other (decreased overall at bases, mild bronchial)
GI: Soft, Non Distended, Non Tender and Normal Bowel Sounds
Neurology: Awake, Alert and No Motor Deficits (Able to sit up without assistance)
Skin: Warm, Dry, Cyanosis (negative) and Jaundice (negative)
Labs/Micro/Reports
Lab Data
07/16/24 05:16
07/16/24 05:16
[2024-07-19] MEDS: LOVENOX 40 MG SC (17:40)
--- NOTE | 2024-07-19 19:24 | PTCARENOTE ---
Midflow weaned to 8L maintaining sao2>92%. Ambulated to bathroom today- increased to 15L for it- refused to stay up in a chair. Much encouragement given.
--- NOTE | 2024-07-19 20:00 | PTCARENOTE ---
Resumed care of pt AAOx3 sitting up in bed. HR in the 90's in NSR on the monitor. POX 94% on 8 LO2 Midflow NC. Lungs dec @ bases, course. Occasional cough. SHORE, desaturates with activity, PRN NRB mask when needed for recovery. + bowel round abd. Pt
used bed grijalva, had large bm and urinated. Eufemia care provided. Desenex powder applied. pt set up for oral care and able to brush teeth and wash face. Pt positioned in bed per comfort. Pt reports headache, Tylenol administered as ordered. No IV in
place at this time, MD aware and order in place. Call martinez in reach. Will continue to monitor.
[2024-07-19] MEDS: MELATONIN 5 MG PO (20:30)
[2024-07-19] MEDS: NEURONTIN 300 MG PO (20:30)
[2024-07-19] MEDS: TYLENOL 500 MG PO (20:31)
[2024-07-19 20:44] VITALS: BP 133/82
[2024-07-20] VITALS (8 sets, daily range): BP systolic 94–138; BP diastolic 68–98
[2024-07-20] MEDS: PHENERGAN WITH CODEINE SYRUP 5 ML PO
[2024-07-20] MEDS: DUONEB 3 ML INH ×4 (07:33→19:50)
[2024-07-20] MEDS: MUCINEX 1200 MG PO ×2 (08:40→19:54)
[2024-07-20] MEDS: MIRALAX PO (08:40)
[2024-07-20] MEDS: DELTASONE 60 MG PO (08:40)
[2024-07-20] MEDS: ZOLOFT 25 MG PO (08:41)
[2024-07-20] MEDS: DESENEX/MITRAZOL/ZEASORB 1 APPLIC TOPICAL ×2 (08:41→19:55)
[2024-07-20] MEDS: PEPCID 20 MG PO ×2 (08:41→19:54)
[2024-07-20] MEDS: SYNTHROID 137 MCG PO (08:41)
--- NOTE | 2024-07-20 14:04 | W.PN.HOSP.TC ---
Today's Communication/Plan
-
awaiting dc
Continue steroids
Assessment / Plan
Assessment / Plan
#Acute hypoxemic respiratory failure
#Interstitial lung disease secondary to rheumatoid arthritis
#Possible superimposed community-acquired pneumonia
-Status post course of cefepime and doxycycline; s/p 5-day pulse steroids, now on p.o.
-CT scan does seem more consistent with NSIP, which has better response to steroid
-Chest x-ray today with signs of worsening b/l pneumonia though no fevers or leukocytosis
-Has not required intubation; O2 level slowly improving, on 10 L O2 today
-Pulmonology following, patient no longer wants transfer to [facility]
-Repeat sputum cultures from 07/09 negative
Plan
-Continue with prednisone twice daily, bronchodilators, Mucinex
-Continue with IV Lasix as needed for net euvolemic to slight negative
-F/u Rheum at [facility]
-Continue Bactrim 3x weekly for PJP prophylaxis
-Wean oxygen for SpO2 goal >90%
#Euvolemic hyponatremia
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
-Will continue to monitor BMP for now, encourage p.o. intake
#Anxiety
-Patient with significant anxiety in the room, had a panic attack
-Started on Zoloft for maintenance therapy
-Will transition to alprazolam to Ativan 1 mg 3 times daily PRN
#Leukocytosis
-Secondary to steroid regimen
-Trend CBC and temperature curve
-Resolved
#Newly diagnosed rheumatoid arthritis
-Complicated by apparent rheumatic ILD
-Positive anti-CCP and KIERRA here; s/p pulse dose steroid
-Will need to follow-up with rheumatology for maintenance therapy
-Would avoid MTX as DMARDs due to potential for lung toxicity
#Transaminitis
-Hepatitis B and C serology negative, HIV testing negative
-ALT elevated disproportionately to AST and other LFTs
-Cannot rule out NAFLD, consider RUQ US if worsening
#Lower extremity peripheral neuropathy
-Possibly steroid-induced (?) versus idiopathic
- trial of gabapentin 300 mg nightly
DVT ppx: Lovenox SQ
Diet: Regular
CODE STATUS: Full Code
Disposition: Await Transfer to [facility]
More than 30 minutes spent in discharge including
Final examination of the patient
Summarizing hospital stay
Instructions for continuing care to all relevant caregivers
Preparation of discharge records, prescriptions, and referral forms
Total time spent (36 in minutes):
Anticipated Discharge: Today
Subjective/Interval History
-
Date of Service: July 20, 2024
No acute events overnight
Objective Data
-
Vital Signs:
Vital Signs
Temp Pulse Resp BP Pulse Ox
97.7 F 104 45 109/79 94
07/20/24 11:00 07/20/24 12:00 07/20/24 12:00 07/20/24 08:00 07/20/24 12:00
I&O
07/19/24 07/20/24 07/21/24
06:59 06:59 06:59
Intake Total 960 / 960 1000 / 1000
Output Total 1000 / 1000
Balance 960 / 960 0 / 0
Review of Systems
-
History Source: Patient
All other systems: Not reviewed unless documented
Data Reviewed
-
CT Scan: Report Reviewed by me
Labs: Labs Reviewed by me and Discussed with Patient
--- NOTE | 2024-07-20 15:06 | W.PN.PUL3 ---
Today's Communication / Plan
-
No changes in current treatment regimen
Tolerate saturation 88 or higher
Hope to see her ambulating and with PT with supplemental oxygen, nonrebreather as able
Patient has been refusing PT. Please reassess 2
Assessment
-
64-year-old woman with distant past medical history of provoked pulmonary embolism, interstitial lung disease which is mild on CAT scan 07/2022 undifferentiated, has not been seen by pulmonary despite being recommended last year. Comes to the
hospital complaining of progressive shortness of breath, cough, hypoxemia. X-ray with significant bilateral infiltrates. Follow-up CT demonstrated severely diffuse groundglass opacities. Progressive hypoxemic respiratory failure up to 10 L.
Impression:
Severe acute hypoxemic respiratory failure currently on high-flow nasal cannula
CTA chest 06/12/2024: Diffuse groundglass opacity bilaterally. No pleural effusion. Negative for acute PE.
Differential diagnosis include infectious such as community-acquired pneumonia viral/bacterial-cannot rule out interstitial lung disease acute flare-broad differential diagnosis.
With significantly increased CRP and sedimentation rate suspect more inflammatory such as nonspecific interstitial pneumonia, connective tissue disease associated ILD etc.
Her CAT scan was not compatible with usual interstitial pneumonia.
Less likely pulmonary edema. Most recent echocardiogram from 08/2022 with normal LVEF.
Less likely diffuse alveolar hemorrhage given stable hgb and no hemoptysis; DDx also includes CEP, organizing pneumonia, and atypical CHP
Negative influenza, COVID, Legionella and strep pneumonia.
EKG 06/11/2024: Normal sinus rhythm. ST-T wave abnormality consider inferior ischemia.
leukocytosis/fever
Mild hyponatremia - now resolved
Conditions present prior admission:
Interstitial lung disease : Undifferentiated
Formerly seen on CAT scan 07/2022 for the first time. Mild, peripheral, undifferentiated.
History of PE/DVT provoked after foot injury [address] of the chest at that time: No mention of interstitial lung disease.
History of influenza in 2018/2018 With pneumonia.
History of COVID mildly 2021.
History of ankle fracture on the left status post repair 2023.
Plan:
Overall, appears to be stable from pulmonary standpoint
She is able to sit up without difficulty, no evidence of desaturation
She is not coughing with deep breathing as she had been in the past
97% on 8 L at this time
Crackles overall appear to be improved
CTA chest from 06/12/2024 demonstrated severely diffuse groundglass opacities without pleural effusions but has mildly increased mediastinal lymph nodes. No pericardial effusion.
This is most consistent with NSIP, progressed compared to CT in 2022- likely fibrotic type.
KIERRA IgG positive but with low titer (<1:80); antinuclear Ab and cytoplasmic Ab negative by IFA; c3, c4 wnl
CCP antibody positive (moderately positive), CRP positive -- Suspect inflammatory process
-
Methylprednisolone 1 g every 24 hours-pulse steroids-initiated 06/20/2024-finished a 5-day pulse and then converted to prednisone 1 mg/kg daily-has been on 80 mg of prednisone for longer than 2 weeks.
Decreased to 60 mg daily-07/16/2024. No change for now
Rheumatology consulted --> pt could benefit from additional immunosuppressants like cellcept vs rituxin or azathrioprine-waiting for transfer to [facility].
Continue Bactrim for PCP ppx and monitor Cr and serum [K] latest potassium and creatinine normal 07/16/2024
C-reactive protein 17.5 (07/18/2024)
-
CT chest - 07/02/2024 showing improvement in groundglass opacities, particularly in the right upper lobe.
Still having groundglass opacifications with interval progression in the lower lobes.
CXR in AM 07/12 shows similar findings compared to recent CXR on 07/09/2024
Chest x-ray 07/17/2024: Reviewed, to my view showed slight improvement in bilateral infiltrates.
-
Incentive spirometry encouraged
Out of bed if able-reviewed with physical therapy
Mucus clearing devices added including acapella/vest
Repeat sputum cultures
DuoNebs QID - currently not bronchospastic
Does not appear volume overloaded.Her weight overall trending lower.
Echo with bubble study checked on 07/01/2024 showed preserved LVEF of 50-55% with normal RV size and function, trace MR, mild pulmonary hypertension with PASP 30-35 mmHg, with negative bubble study and show pericardial effusion
proBNP negative
No evidence for infection. Will continue to be vigilant.
Completed course of antibiotics--CFP/Vanc/Doxy/azithro (06/11-06/16)
Sputum culture usual respiratory francis
Cultures and viral panel negative
Repeat sputum culture 07/11 (shows NGTD)
-
Continue physical therapy and Occupational Therapy. Patient is motivated-continue
-
DVT prophylaxis-Enoxaparin
GI prophylaxis: famotidine twice daily-plan to continue at discharge given ILD
If she were to need medical decision maker, it would be her daughter Kay Chau.
Discussed how this may be long-term with regards to slow improvement
Will need outpatient follow up with pulmonary- new pt appt scheduled with Dr. Del Valle in Jul 2024, likely will need to adjust timing
Will need outpatient follow up with rheumatology
Patient has patient has been waiting for [facility] transfer for several days.
I strongly advise that the patient agree for transfer so that she can see a awnings mechanic. Pending transfer, hopefully today. She has been waiting for a bed.
.
Pulmonary service will continue to follow along.
Diagnostic Data
CXR 06/23/24- 1. Severe bilateral airspace and interstitial disease in the lungs without definitive change from 06/11/2024. Diagnostic possibilities are (1) a SEVERE ACUTE on CHRONIC INFLAMMATORY PNEUMONITIS, (2) less likely pneumonia given the lack
of interval change, or (3) less likely pulmonary edema.
2. SEVERE MEDIASTINAL LYMPHADENOPATHY. Diagnostic possibilities are (1) sarcoidosis or (2) malignancy (lymphoma or metastatic disease).
3. Mildly decreased bilateral lung volumes.
Chest x-ray 2020: Mild diffuse interstitial thickening left greater than right possible ILD/fibrosis
CT chest 06/12/24-2. Extensive bilateral groundglass opacities, superimposed upon subpleural reticulation/fibrosis seen on the prior CT. No significant pleural effusions. There is also mediastinal and hilar lymphadenopathy, which is new compared
to the prior examination. Findings are nonspecific and could represent acute exacerbation or worsening of patient's interstitial lung disease with infectious or inflammatory process also a consideration.
CT chest 08/15/2022: Mild changes of pulmonary fibrosis, nonspecific pattern, pleural-based. Findings are new compared to prior study. Left lower lobe 4 mm nodule. Benign etiology.
Possible pericardial cyst 2.8 X1.8X 1.1 cm present in [address] chest 2016: Reviewed, bilateral lower lobe filling defects compatible with pulmonary embolism. Lower lobe subsegmental atelectasis. No focal abnormalities noted at that time.
Small pericardial cyst
Echocardiogram 08/16/2022: Showed normal LVEF. No regional wall motion abnormalities. Ejection fraction 60 to 65%. Normal right ventricular size and function. No significant valvular disease.
Echo 07/01/2024: Normal left ventricular size, wall thickness and systolic function. No regional wall motion abnormalities are seen. LV ejection fraction is 50-55 % by visual assessment. Normal diastolic function. Normal right ventricular size and
function. Trace mitral regurgitation. Structurally normal aortic valve without significant stenosis or regurgitation. Mild tricuspid regurgitation. Estimated pulmonary artery pressure of 30-35 mmHg. Assuming a right atrial pressure of 3 mmHg.
Interatrial septum is intact with no evidence of shunting by color flow Doppler or by agitata saline (negative bubble study). Trivial pericardial effusion. Compared to prior study 08/16/2022 ejection fraction previously 60 to 65% now 50 to 55%
visually. Trivial pericardial effusion
-----
.
Subjective Data
-
Date of Service:
Date of Service: July 20, 2024
Chief Complaint: Pulmonary Follow Up and Dyspnea Follow Up
Subjective:
Patient continues to feel improved. Doing back exercises regularly throughout the day. Has mild dry cough, nonproductive. Denies chest pain, nausea, abdominal pain, diarrhea
Objective Data
Data Reviewed
Vital Signs / I&O / Oxygen:
Vital Signs
Temp Pulse Resp BP Pulse Ox
97.7 F 104 45 109/79 94
07/20/24 11:00 07/20/24 12:00 07/20/24 12:00 07/20/24 08:00 07/20/24 12:00
Intake and Output
07/19/24 07/20/24 07/21/24
06:59 06:59 06:59
Intake Total 960 / 960 1000 / 1000
Output Total 1000 / 1000
Balance 960 / 960 0 / 0
SaO2 94
Nasal Cannula flow liters per 8
minute
Physical Exam
General: Comfortable (at rest)
HEENT: Normocephalic and Anicteric
Cardiovascular: S1-S2, Rub (negative) and Peripheral Edema (negative)
Respiratory: Wheeze (negative), Crackles (bibasilar), Rhonchi (negative), Non-Labored Respirations, Stridor (negative) and Other (decreased overall at bases, mild bronchial)
GI: Soft, Non Distended, Non Tender and Normal Bowel Sounds
Neurology: Awake, Alert and No Motor Deficits (Able to sit up without assistance)
Skin: Warm, Dry, Cyanosis (negative) and Jaundice (negative)
Labs/Micro/Reports
Lab Data
07/16/24 05:16
07/16/24 05:16
[2024-07-20] MEDS: LOVENOX 40 MG SC (17:40)
--- NOTE | 2024-07-20 18:10 | PTCARENOTE ---
Rec'd pt this AM. Pt on 6L NC with tenuous O2 status. Will desat with talking or eating but recovers with NRB. Anxiety contributes as well but pt in good spirits today. Updated provided to [facility] transfer center, no beds available.
[2024-07-20] MEDS: MELATONIN 5 MG PO (19:54)
[2024-07-20] MEDS: NEURONTIN PO (19:54)
--- NOTE | 2024-07-20 22:29 | PTCARENOTE ---
Caring for pt overnight. aaox3, no assessment changes. Remains in bed per pt request, using bedpan. Remains on 6-8LNC. Still SHORE & at rest when talking. NRB as needed. Denies pain. Spoke to [facility] and gave them an update, no bed tonight. Will monitor.
[2024-07-21] VITALS (16 sets, daily range): BP systolic 90–151; BP diastolic 68–135; PULSE 88–102; O2SAT 93–98
[2024-07-21] MEDS: SYNTHROID 137 MCG PO (04:36)
[2024-07-21 05:01] LABS: Hemoglobin 12.2 g/dL (12.0-16.0); Mean Corp Hgb Conc. 34.9 g/dL (33.0-37.0); Mean Corpuscular Hgb 33.5 pg (27.0-31.0); Mean Corpuscular Volume 96.2 fL (81.0-99.0); Mean Platelet Volume 8.8 fL (7.4-10.4); Platelet Count 151 10^3/uL (130-400); Red Blood Cell Count 3.64 10^6/uL (4.20-5.40); Red Cell Dist. Width 14.6 % (11.5-14.5); White Blood Cell Count 10.6 10^3/uL (4.8-10.8)
[2024-07-21 05:12] LABS: ALT (SGPT) 89 U/L (0-35); AST (SGOT) 27 U/L (14-36); Albumin 3.2 g/dl (3.5-5.0); Alkaline Phosphatase 100 U/L (38-126); Blood Urea Nitrogen 19 mg/dl (7-17); Calcium 8.5 mg/dl (8.4-10.2); Carbon Dioxide 32 mmol/L (22-30); Chloride 94 mmol/L (98-107); Estimated Creatinine Clearance 97 ml/min; Glucose 87 mg/dl (70-99); Potassium 3.8 mmol/L (3.5-5.1); Sodium 131 mmol/L (135-145); Total Bilirubin 0.7 mg/dl (0.2-1.3); Total Protein 5.5 g/dl (6.3-8.2); eGFR > 60.00
[2024-07-21] MEDS: DUONEB 3 ML INH ×4 (07:53→19:57)
[2024-07-21] MEDS: DELTASONE 60 MG PO (08:36)
[2024-07-21] MEDS: MIRALAX PO (08:37)
[2024-07-21] MEDS: DESENEX/MITRAZOL/ZEASORB 1 APPLIC TOPICAL ×2 (08:37→20:48)
[2024-07-21] MEDS: ZOLOFT 25 MG PO (08:38)
[2024-07-21] MEDS: MUCINEX 1200 MG PO ×2 (08:38→20:46)
[2024-07-21] MEDS: PEPCID 20 MG PO ×2 (08:38→20:47)
[2024-07-21] MEDS: BACTRIM DS 800 MG/160 MG 1 TABLET PO (08:39)
--- NOTE | 2024-07-21 09:19 | W.PN.PUL3 ---
Today's Communication / Plan
-
No changes in current treatment regimen
Tolerate saturation 88% or greater
Hope to see her ambulating with PT with supplemental oxygen, nonrebreather as able
Patient has been refusing PT at times; please try to encourage her to remain as active as tolerated
Assessment
-
64-year-old woman with distant past medical history of provoked pulmonary embolism, interstitial lung disease which is mild on CAT scan 07/2022 undifferentiated, has not been seen by pulmonary despite being recommended last year. Comes to the
hospital complaining of progressive shortness of breath, cough, hypoxemia. X-ray with significant bilateral infiltrates. Follow-up CT demonstrated severely diffuse groundglass opacities. Progressive hypoxemic respiratory failure up to 10 L.
Impression:
Severe acute hypoxemic respiratory failure currently on high-flow nasal cannula
CTA chest 06/12/2024: Diffuse groundglass opacity bilaterally. No pleural effusion. Negative for acute PE.
Differential diagnosis include infectious such as community-acquired pneumonia viral/bacterial-cannot rule out interstitial lung disease acute flare-broad differential diagnosis.
With significantly increased CRP and sedimentation rate suspect more inflammatory such as nonspecific interstitial pneumonia, connective tissue disease associated ILD etc.
Her CAT scan was not compatible with usual interstitial pneumonia.
Less likely pulmonary edema. Most recent echocardiogram from 08/2022 with normal LVEF.
Less likely diffuse alveolar hemorrhage given stable hgb and no hemoptysis; DDx also includes CEP, organizing pneumonia, and atypical CHP
Negative influenza, COVID, Legionella and strep pneumonia.
EKG 06/11/2024: Normal sinus rhythm. ST-T wave abnormality consider inferior ischemia.
leukocytosis/fever
Mild hyponatremia - now resolved
Conditions present prior admission:
Interstitial lung disease : Undifferentiated
Formerly seen on CAT scan 07/2022 for the first time. Mild, peripheral, undifferentiated.
History of PE/DVT provoked after foot injury [address] of the chest at that time: No mention of interstitial lung disease.
History of influenza in 2018/2018 With pneumonia.
History of COVID mildly 2021.
History of ankle fracture on the left status post repair 2023.
Plan:
Overall, appears to be stable from pulmonary standpoint
She is able to sit up without difficulty, no evidence of desaturation
She is not coughing with deep breathing as she had been in the past
89% on 13L at this time
Crackles overall appear to be improved
CTA chest from 06/12/2024 demonstrated severely diffuse groundglass opacities without pleural effusions but has mildly increased mediastinal lymph nodes. No pericardial effusion.
This is most consistent with NSIP, progressed compared to CT in 2022- likely fibrotic type.
KIERRA IgG positive but with low titer (<1:80); antinuclear Ab and cytoplasmic Ab negative by IFA; c3, c4 wnl
CCP antibody positive (moderately positive), CRP positive -- Suspect inflammatory process
-
Methylprednisolone 1 g every 24 hours-pulse steroids-initiated 06/20/2024-finished a 5-day pulse and then converted to prednisone 1 mg/kg daily-has been on 80 mg of prednisone for longer than 2 weeks.
Decreased to 60 mg daily-07/17/2024. No change for now
Rheumatology consulted --> pt could benefit from additional immunosuppressants like cellcept vs rituxin or azathrioprine-waiting for transfer to [facility].
Continue Bactrim for PCP ppx and monitor Cr and serum [K] latest potassium and creatinine normal 07/16/2024
C-reactive protein 17.5 (07/18/2024)
-
CT chest - 07/02/2024 showing improvement in groundglass opacities, particularly in the right upper lobe.
Still having groundglass opacifications with interval progression in the lower lobes.
CXR in AM 07/12 shows similar findings compared to recent CXR on 07/09/2024
Chest x-ray 07/17/2024: Reviewed, to my view showed slight improvement in bilateral infiltrates.
-
Incentive spirometry encouraged
Out of bed if able-reviewed with physical therapy
Mucus clearing devices added including acapella/vest
Repeat sputum cultures
DuoNebs QID - currently not bronchospastic
Does not appear volume overloaded.Her weight overall trending lower.
Echo with bubble study checked on 07/01/2024 showed preserved LVEF of 50-55% with normal RV size and function, trace MR, mild pulmonary hypertension with PASP 30-35 mmHg, with negative bubble study and show pericardial effusion
proBNP negative
No evidence for infection. Will continue to be vigilant.
Completed course of antibiotics--CFP/Vanc/Doxy/azithro (06/11-06/16)
Sputum culture usual respiratory francis
Cultures and viral panel negative
Repeat sputum culture 07/11 (shows NGTD)
-
Continue physical therapy and Occupational Therapy. Patient is motivated-continue
-
DVT prophylaxis-Enoxaparin
GI prophylaxis: famotidine twice daily-plan to continue at discharge given ILD
If she were to need medical decision maker, it would be her daughter Kay Chau.
Discussed how this may be long-term with regards to slow improvement
Will need outpatient follow up with pulmonary- new pt appt scheduled with Dr. Del Valle in Jul 2024, likely will need to adjust timing
Will need outpatient follow up with rheumatology
Patient has patient has been waiting for [facility] transfer for several weeks.
I strongly advise that the patient agree for transfer so that she can see a adult care manager. Pending transfer - she has been waiting for a bed.
.
Pulmonary service will continue to follow along.
Diagnostic Data
CXR 06/23/24- 1. Severe bilateral airspace and interstitial disease in the lungs without definitive change from 06/11/2024. Diagnostic possibilities are (1) a SEVERE ACUTE on CHRONIC INFLAMMATORY PNEUMONITIS, (2) less likely pneumonia given the lack
of interval change, or (3) less likely pulmonary edema.
2. SEVERE MEDIASTINAL LYMPHADENOPATHY. Diagnostic possibilities are (1) sarcoidosis or (2) malignancy (lymphoma or metastatic disease).
3. Mildly decreased bilateral lung volumes.
Chest x-ray 2020: Mild diffuse interstitial thickening left greater than right possible ILD/fibrosis
CT chest 06/12/24-2. Extensive bilateral groundglass opacities, superimposed upon subpleural reticulation/fibrosis seen on the prior CT. No significant pleural effusions. There is also mediastinal and hilar lymphadenopathy, which is new compared
to the prior examination. Findings are nonspecific and could represent acute exacerbation or worsening of patient's interstitial lung disease with infectious or inflammatory process also a consideration.
CT chest 08/15/2022: Mild changes of pulmonary fibrosis, nonspecific pattern, pleural-based. Findings are new compared to prior study. Left lower lobe 4 mm nodule. Benign etiology.
Possible pericardial cyst 2.8 X1.8X 1.1 cm present in [address] chest 2016: Reviewed, bilateral lower lobe filling defects compatible with pulmonary embolism. Lower lobe subsegmental atelectasis. No focal abnormalities noted at that time.
Small pericardial cyst
Echocardiogram 08/16/2022: Showed normal LVEF. No regional wall motion abnormalities. Ejection fraction 60 to 65%. Normal right ventricular size and function. No significant valvular disease.
Echo 07/01/2024: Normal left ventricular size, wall thickness and systolic function. No regional wall motion abnormalities are seen. LV ejection fraction is 50-55 % by visual assessment. Normal diastolic function. Normal right ventricular size and
function. Trace mitral regurgitation. Structurally normal aortic valve without significant stenosis or regurgitation. Mild tricuspid regurgitation. Estimated pulmonary artery pressure of 30-35 mmHg. Assuming a right atrial pressure of 3 mmHg.
Interatrial septum is intact with no evidence of shunting by color flow Doppler or by agitata saline (negative bubble study). Trivial pericardial effusion. Compared to prior study 08/16/2022 ejection fraction previously 60 to 65% now 50 to 55%
visually. Trivial pericardial effusion
-----
.
Total time spent today was 37 minutes for this encounter. Time includes reviewing laboratory test/imaging results, reviewing pertinent medical records, obtaining and reviewing medical history, performing an appropriate exam, ordering medications,
tests and procedures. Time also includes documentation of this encounter, coordinating patient care and communicating with other healthcare professionals. Total time does not include separately billed tests performed on this date of service.
Subjective Data
-
Date of Service:
Date of Service: July 21, 2024
Chief Complaint: Pulmonary Follow Up and Dyspnea Follow Up
Subjective:
Patient seen and evaluated today at bedside. Patient's daughter, Kay, at bedside and all questions were answered. Patient saturating 89% on 13 L/min. Heart rate 102 and BP 130/93. She is still desaturating during physical activity but
breathing well at rest and sometimes O2 down to 6 L/min. She denies chest pain, PASCUAL, nausea, fevers or chills.
Review of Systems
General: Other (Negative unless mentioned above)
Objective Data
Data Reviewed
Vital Signs / I&O / Oxygen:
Vital Signs
Temp Pulse Resp BP Pulse Ox
98.1 F 82 20 90/68 91
07/21/24 02:09 07/21/24 07:54 07/21/24 07:54 07/21/24 06:00 07/21/24 07:54
Intake and Output
07/20/24 07/21/24 07/22/24
06:59 06:59 06:59
Intake Total 1000 / 1000
Output Total 1000 / 1000
Balance 0 / 0
SaO2 91
Nasal Cannula flow liters per 8
minute
Physical Exam
General: Respiratory Distress (n), Comfortable (at rest), Chills (n) and Sweats (n)
HEENT: Normocephalic and Anicteric
Cardiovascular: S1-S2, Rub (negative) and Peripheral Edema (negative)
Respiratory: Wheeze (negative), Crackles (Bilateral), Rhonchi (negative), Non-Labored Respirations, Stridor (negative) and Other (decreased overall at bases, mild bronchial)
GI: Soft, Non Distended, Non Tender and Normal Bowel Sounds
Neurology: Awake, Alert, No Motor Deficits (Able to sit up without assistance) and Tremors (n)
Skin: Warm, Dry, Cyanosis (negative) and Jaundice (negative)
Labs/Micro/Reports
Lab Data
07/21/24 04:36
07/21/24 04:36
--- NOTE | 2024-07-21 11:26 | PTCARENOTE ---
Received patient resting in bed this am, mid flow with NRB with activity. PT visited patient and assisted patient OOB, currently sitting in chair at bedside. Updated Gisselle with [facility] transfer center. Per Gisselle, no beds at this time. Patient aaox3,
anxious at times r/to respiratory status, NSR on the monitor, crackles 1/[address] up B/L. Will continue to monitor.
--- NOTE | 2024-07-21 13:40 | W.PN.HOSP.TC ---
Today's Communication/Plan
-
Continue prednisone, bronchodilators, Mucinex, PJP prophylaxis
SpO2 goal 88% or higher, wean oxygen as possible
Will call back to [facility] transfer center today
Assessment / Plan
Assessment / Plan
#Acute hypoxemic respiratory failure
#Interstitial lung disease secondary to rheumatoid arthritis
#Possible superimposed community-acquired pneumonia
-Status post course of cefepime and doxycycline; s/p 5-day pulse steroids, now on p.o.
-CT scan does seem more consistent with NSIP, which has better response to steroid
-Chest x-ray today with signs of worsening b/l pneumonia though no fevers or leukocytosis
-Has not required intubation; O2 level slowly improving, on 10 L O2 today
-Pulmonology following, patient no longer wants transfer to [facility]
-Repeat sputum cultures from 07/09 negative
Plan
-Continue with prednisone twice daily, bronchodilators, Mucinex
-Continue with IV Lasix as needed for net euvolemic to slight negative
-Continue Bactrim 3x weekly for PJP prophylaxis
-Wean oxygen for SpO2 goal >88%
-F/U Rheum at [facility]
#Euvolemic hyponatremia
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
-Will continue to monitor BMP for now, encourage p.o. intake
#Anxiety
-Patient with significant anxiety in the room, had a panic attack
-Started on Zoloft for maintenance therapy
-Will transition to alprazolam to Ativan 1 mg 3 times daily PRN
#Leukocytosis
-Secondary to steroid regimen
-Trend CBC and temperature curve
-Resolved
#Newly diagnosed rheumatoid arthritis
-Complicated by apparent rheumatic ILD
-Positive anti-CCP and KIERRA here; s/p pulse dose steroid
-Will need to follow-up with rheumatology for maintenance therapy
-Would avoid MTX as DMARDs due to potential for lung toxicity
#Transaminitis
-Hepatitis B and C serology negative, HIV testing negative
-ALT elevated disproportionately to AST and other LFTs
-Cannot rule out NAFLD, consider RUQ US if worsening
#Lower extremity peripheral neuropathy
-Possibly steroid-induced (?) versus idiopathic
-Trial of gabapentin 300 mg nightly has seemed effective
DVT ppx: Lovenox SQ
Diet: Regular
CODE STATUS: Full Code
Disposition: Await Transfer to [facility]
Anticipated Discharge: 24 - 48 hours
Subjective/Interval History
-
Date of Service: July 21, 2024
Seen and examined at the bedside. No acute events reported overnight. AFVSS on 8 L oxygen as of this morning.
Was alerted by case management that later in the day she had desaturation was titrated back up to 14 L. Labs stable.
She denies any new complaints. Was frustrated by dealing with FMLA process
Objective Data
-
Labs:
Laboratory Results
07/21/24
04:36
WBC 10.6
Hgb 12.2
Hct 35.0 L
Plt Count 151 D
Sodium 131 L
Potassium 3.8
Chloride 94 L
Carbon Dioxide 32 H
BUN 19 H
Creatinine 0.6
Glucose 87
Calcium 8.5
Total Bilirubin 0.7
AST 27
ALT 89 H
Alkaline Phosphatase 100
Vital Signs:
Vital Signs
Temp Pulse Resp BP Pulse Ox
97.4 F 105 25 121/88 94
07/21/24 07:05 07/21/24 12:00 07/21/24 12:00 07/21/24 12:00 07/21/24 11:10
I&O
07/20/24 07/21/24 07/22/24
06:59 06:59 06:59
Intake Total 1000 / 1000
Output Total 1000 / 1000
Balance 0 / 0
Review of Systems
-
History Source: Patient
All other systems: Reviewed and negative
Physical Exam
-
General: Well Developed, No Apparent Distress and Comfortable
HEENT: Normocephalic, Atraumatic, Moist Mucous Membranes, Anicteric and Oxygen
Respiratory: Non Labored Respirations and Other (Coarse expiratory sounds midlung bilaterally); Negative Wheezes, Rales, Rhonchi or Accessory Resp Muscle Use
Cardiac: Regular Rhythm and S1/S2; Negative Murmur, Rub or Gallop
GI: Soft, Nontender, Nondistended and Normal Bowel Sounds
Musculoskeletal: No Clubbing, No Cyanosis and No Edema
Skin: Warm and Dry; Negative Rash
Neuro: AO x 3 and Nonfocal/Grossly Intact
Psych: Calm
Data Reviewed
-
Labs: Labs Reviewed by me and Discussed with Patient
--- NOTE | 2024-07-21 15:22 | CM ---
Patient with Hx ILD with new Dx RA. O2 12L midflow. PT/OT recommend acute rehab. Seen by Wound Care Nurse.
Spoke with [facility] [place] [facility] this morning; they did not have an available bed at that time. Jose requests that contact the accepting physician at [place] with an update ---> message sent to Dr Morris.
Met with patient today while she was OOB to chair; patient says she worked with PT/OT today and feels she will need rehab before returning home, even though she plans on going to her daughter's in-law unit (one story) for a period of convalescence.
Patient states she would like to go to [facility] at discharge. She has questions about amount of rehab she would receive at [facility]- explained requirement of need to participate 3 hrs/day in rehab at [facility], and explained SNF rehab. agreed to discuss
referral with [facility].
Spoke with [facility] Liaison; discussed patient status- they would not be able to accept at this time due to her O2 requirements. Jair agrees to review the referral.
Discussed with Dr Morris that acute rehab and SNF cannot accept currently due to patient's O2 requirements. He plans on reaching out to [place] today re; transfer.
Plan possible transfer to [facility] when bed available.
[2024-07-21] MEDS: LOVENOX 40 MG SC (17:00)
[2024-07-21] MEDS: MELATONIN 5 MG PO (20:47)
[2024-07-21] MEDS: NEURONTIN PO (20:47)
[2024-07-21] MEDS: PHENERGAN WITH CODEINE SYRUP 5 ML PO (20:50)
[2024-07-22] VITALS (7 sets, daily range): BP systolic 87–118; BP diastolic 57–81
--- NOTE | 2024-07-22 00:01 | PTCARENOTE ---
Caring for pt overnight. Remains 11LMF, desats with any activity or talking, desats to low 80's. Using NRB as needed. NSR on monitor. VSS. No changes in assessment. Clinical update given to Leonardo. Stated that she is a high priority, if any discharges
happen tomorrow she will be getting a bed. Pt aware. Will monitor.
[2024-07-22] MEDS: SYNTHROID 137 MCG PO (05:16)
[2024-07-22 05:41] LABS: % Basophils 0.3 % (0-2); % Eosinophils 0.3 % (0-6); % Immature Granulocytes 3.9 % (0-0.5); % Lymphocytes 22.2 % (20.5-51.1); % Monocytes 7.6 % (1.7-9.3); % Neutrophils 65.7 % (42.2-75.2); Absolute Immature Granulocytes 0.4 10^3/uL (0-0.05); Absolute Lymphocytes 2.5 10^3/uL (1.2-3.4); Absolute Monocytes 0.9 10^3/uL (0.1-0.6); Absolute Neutrophils 7.4 10^3/uL (1.4-6.5); Hematocrit 34.3 % (37.0-47.0); Mean Corpuscular Hgb 33.2 pg (27.0-31.0); Mean Platelet Volume 9.2 fL (7.4-10.4); Nucleated Red Blood Cells % 0 %; Platelet Count 159 10^3/uL (130-400); Red Blood Cell Count 3.61 10^6/uL (4.20-5.40); Red Cell Dist. Width 14.7 % (11.5-14.5); White Blood Cell Count 11.2 10^3/uL (4.8-10.8)
[2024-07-22 05:57] LABS: Blood Urea Nitrogen 14 mg/dl (7-17); Calcium 8.5 mg/dl (8.4-10.2); Carbon Dioxide 31 mmol/L (22-30); Chloride 97 mmol/L (98-107); Estimated Creatinine Clearance 97 ml/min; Glucose 86 mg/dl (70-99); Potassium 3.9 mmol/L (3.5-5.1); Sodium 131 mmol/L (135-145); eGFR > 60.00
[2024-07-22] MEDS: DUONEB 3 ML INH ×4 (07:50→19:40)
--- NOTE | 2024-07-22 08:12 | W.PN.PUL3 ---
Today's Communication / Plan
-
No changes in current treatment regimen
Tolerate saturation 88% or greater
Hope to see her ambulating with PT with supplemental oxygen, nonrebreather as able
Patient has been refusing PT at times; please try to encourage her to remain as active as tolerated
Awaiting transfer to [place], has a bed, likely being transferred there tonight (07/22/2024)
Assessment
-
64-year-old woman with distant past medical history of provoked pulmonary embolism, interstitial lung disease which is mild on CAT scan 07/2022 undifferentiated, has not been seen by pulmonary despite being recommended last year. Comes to the
hospital complaining of progressive shortness of breath, cough, hypoxemia. X-ray with significant bilateral infiltrates. Follow-up CT demonstrated severely diffuse groundglass opacities. Progressive hypoxemic respiratory failure up to 10 L.
Impression:
Severe acute hypoxemic respiratory failure currently on high-flow nasal cannula
CTA chest 06/12/2024: Diffuse groundglass opacity bilaterally. No pleural effusion. Negative for acute PE.
Differential diagnosis include infectious such as community-acquired pneumonia viral/bacterial-cannot rule out interstitial lung disease acute flare-broad differential diagnosis.
With significantly increased CRP and sedimentation rate suspect more inflammatory such as nonspecific interstitial pneumonia, connective tissue disease associated ILD etc.
Her CAT scan was not compatible with usual interstitial pneumonia.
Less likely pulmonary edema. Most recent echocardiogram from 08/2022 with normal LVEF.
Less likely diffuse alveolar hemorrhage given stable hgb and no hemoptysis; DDx also includes CEP, organizing pneumonia, and atypical CHP
Negative influenza, COVID, Legionella and strep pneumonia.
EKG 06/11/2024: Normal sinus rhythm. ST-T wave abnormality consider inferior ischemia.
leukocytosis/fever
Mild hyponatremia - now resolved
Conditions present prior admission:
Interstitial lung disease : Undifferentiated
Formerly seen on CAT scan 07/2022 for the first time. Mild, peripheral, undifferentiated.
History of PE/DVT provoked after foot injury [address] of the chest at that time: No mention of interstitial lung disease.
History of influenza in 2018 With pneumonia.
History of COVID mildly 2021.
History of ankle fracture on the left status post repair 2023.
Plan:
Overall, appears to be stable from pulmonary standpoint
She is able to sit up without difficulty, no evidence of desaturation
She is not coughing with deep breathing as she had been in the past
89% on 13L at this time
Crackles overall appear to be improved
CTA chest from 06/12/2024 demonstrated severely diffuse groundglass opacities without pleural effusions but has mildly increased mediastinal lymph nodes. No pericardial effusion.
This is most consistent with NSIP, progressed compared to CT in 2022- likely fibrotic type.
KIERRA IgG positive but with low titer (<1:80); antinuclear Ab and cytoplasmic Ab negative by IFA; c3, c4 wnl
CCP antibody positive (moderately positive), CRP positive -- Suspect inflammatory process
-
Methylprednisolone 1 g every 24 hours-pulse steroids-initiated 06/20/2024-finished a 5-day pulse and then converted to prednisone 1 mg/kg daily-has been on 80 mg of prednisone for longer than 2 weeks.
Decreased to 60 mg daily-07/17/2024. No change for now
Rheumatology consulted --> pt could benefit from additional immunosuppressants like cellcept vs rituxin or azathrioprine-waiting for transfer to [facility].
Continue Bactrim for PCP ppx and monitor Cr and serum [K] latest potassium and creatinine normal 07/16/2024
C-reactive protein 17.5 (07/18/2024)
-
CT chest - 07/02/2024 showing improvement in groundglass opacities, particularly in the right upper lobe.
Still having groundglass opacifications with interval progression in the lower lobes.
CXR in AM 07/12 shows similar findings compared to recent CXR on 07/09/2024
Chest x-ray 07/17/2024: Reviewed, to my view showed slight improvement in bilateral infiltrates.
-
Incentive spirometry encouraged
Out of bed if able-reviewed with physical therapy
Mucus clearing devices added including acapella/vest
Repeat sputum cultures
DuoNebs QID - currently not bronchospastic
Does not appear volume overloaded.Her weight overall trending lower.
Echo with bubble study checked on 07/01/2024 showed preserved LVEF of 50-55% with normal RV size and function, trace MR, mild pulmonary hypertension with PASP 30-35 mmHg, with negative bubble study and show pericardial effusion
proBNP negative
No evidence for infection. Will continue to be vigilant.
Completed course of antibiotics--CFP/Vanc/Doxy/azithro (06/11-06/16)
Sputum culture usual respiratory francis
Cultures and viral panel negative
Repeat sputum culture 07/11 (shows NGTD)
-
Continue physical therapy and Occupational Therapy. Patient is motivated-continue
-
DVT prophylaxis-Enoxaparin
GI prophylaxis: famotidine twice daily-plan to continue at discharge given ILD
If she were to need medical decision maker, it would be her daughter Kay Chau.
Discussed how this may be long-term with regards to slow improvement
Will need outpatient follow up with pulmonary- new pt appt scheduled with Dr. Del Valle in Jul 2024, likely will need to adjust timing
Will need outpatient follow up with rheumatology
Patient has patient has been waiting for [facility] transfer for several weeks --> will likely be transferred there [facility] (07/22/2024) as a bed is available
.
Pulmonary service will continue to follow along while she remains hospitalized here at [facility].
Diagnostic Data
CXR 06/23/24- 1. Severe bilateral airspace and interstitial disease in the lungs without definitive change from 06/11/2024. Diagnostic possibilities are (1) a SEVERE ACUTE on CHRONIC INFLAMMATORY PNEUMONITIS, (2) less likely pneumonia given the lack
of interval change, or (3) less likely pulmonary edema.
2. SEVERE MEDIASTINAL LYMPHADENOPATHY. Diagnostic possibilities are (1) sarcoidosis or (2) malignancy (lymphoma or metastatic disease).
3. Mildly decreased bilateral lung volumes.
Chest x-ray 2020: Mild diffuse interstitial thickening left greater than right possible ILD/fibrosis
CT chest 06/12/24-2. Extensive bilateral groundglass opacities, superimposed upon subpleural reticulation/fibrosis seen on the prior CT. No significant pleural effusions. There is also mediastinal and hilar lymphadenopathy, which is new compared
to the prior examination. Findings are nonspecific and could represent acute exacerbation or worsening of patient's interstitial lung disease with infectious or inflammatory process also a consideration.
CT chest 08/15/2022: Mild changes of pulmonary fibrosis, nonspecific pattern, pleural-based. Findings are new compared to prior study. Left lower lobe 4 mm nodule. Benign etiology.
Possible pericardial cyst 2.8 X1.8X 1.1 cm present in [address] chest 2016: Reviewed, bilateral lower lobe filling defects compatible with pulmonary embolism. Lower lobe subsegmental atelectasis. No focal abnormalities noted at that time.
Small pericardial cyst
Echocardiogram 08/16/2022: Showed normal LVEF. No regional wall motion abnormalities. Ejection fraction 60 to 65%. Normal right ventricular size and function. No significant valvular disease.
Echo 07/01/2024: Normal left ventricular size, wall thickness and systolic function. No regional wall motion abnormalities are seen. LV ejection fraction is 50-55 % by visual assessment. Normal diastolic function. Normal right ventricular size and
function. Trace mitral regurgitation. Structurally normal aortic valve without significant stenosis or regurgitation. Mild tricuspid regurgitation. Estimated pulmonary artery pressure of 30-35 mmHg. Assuming a right atrial pressure of 3 mmHg.
Interatrial septum is intact with no evidence of shunting by color flow Doppler or by agitata saline (negative bubble study). Trivial pericardial effusion. Compared to prior study 08/16/2022 ejection fraction previously 60 to 65% now 50 to 55%
visually. Trivial pericardial effusion
-----
.
Total time spent today was 35 minutes for this encounter. Time includes reviewing laboratory test/imaging results, reviewing pertinent medical records, obtaining and reviewing medical history, performing an appropriate exam, ordering medications,
tests and procedures. Time also includes documentation of this encounter, coordinating patient care and communicating with other healthcare professionals. Total time does not include separately billed tests performed on this date of service.
Subjective Data
-
Date of Service:
Date of Service: July 22, 2024
Chief Complaint: Pulmonary Follow Up and Dyspnea Follow Up
Subjective:
Patient seen and evaluated today at bedside. Currently on 9 L/min. Saturating 89% with heart rate 107 and BP 103/80. She feels well at rest, endorsing shortness of breath with exertion. Denies a cough, denies abdominal pain or diarrhea.
Review of Systems
General: Other (Negative unless mentioned above)
Objective Data
Data Reviewed
Vital Signs / I&O / Oxygen:
Vital Signs
Temp Pulse Resp BP Pulse Ox
98.1 F 96 18 112/77 94
07/22/24 05:44 07/22/24 07:51 07/22/24 07:51 07/22/24 02:00 07/22/24 07:51
SaO2 94
Nasal Cannula flow liters per 12
minute
Physical Exam
General: Respiratory Distress (n), Comfortable (at rest), Chills (n) and Sweats (n)
HEENT: Normocephalic and Anicteric
Cardiovascular: S1-S2, Rub (negative), Peripheral Edema (negative) and Other (Tachycardic)
Respiratory: Wheeze (negative), Crackles (Bilateral), Rhonchi (negative), Non-Labored Respirations, Stridor (negative) and Other (decreased overall at bases, mild bronchial)
GI: Soft, Non Distended, Non Tender and Normal Bowel Sounds
Neurology: AO x 3, No Motor Deficits (Able to sit up without assistance) and Tremors (n)
Skin: Warm, Dry, Cyanosis (negative) and Jaundice (negative)
Labs/Micro/Reports
Lab Data
07/22/24 05:18
07/22/24 05:18
[2024-07-22] MEDS: MUCINEX 1200 MG PO ×2 (09:28→20:16)
[2024-07-22] MEDS: PEPCID 20 MG PO ×2 (09:28→20:17)
[2024-07-22] MEDS: MIRALAX PO (09:28)
[2024-07-22] MEDS: DELTASONE 60 MG PO (09:28)
[2024-07-22] MEDS: ZOLOFT 25 MG PO (09:28)
[2024-07-22] MEDS: DESENEX/MITRAZOL/ZEASORB 1 APPLIC TOPICAL ×2 (09:29→20:18)
[2024-07-22] MEDS: OSCAL 500 + D 500 MG PO (09:32)
--- NOTE | 2024-07-22 11:23 | W.PN.HOSP.TC ---
Today's Communication/Plan
-
Continue current management
Wean oxygen for SpO2 >88%
Pending [facility] transfer
Assessment / Plan
Assessment / Plan
#Acute hypoxemic respiratory failure
#Interstitial lung disease secondary to rheumatoid arthritis
#Possible superimposed community-acquired pneumonia
-Status post course of cefepime and doxycycline; s/p 5-day pulse steroids, now on p.o.
-CT scan does seem more consistent with NSIP, which has better response to steroid
-Chest x-ray today with signs of worsening b/l pneumonia though no fevers or leukocytosis
-Has not required intubation; O2 level slowly improving, on 10 L O2 today
-Pulmonology following, patient remains amenable for transfer
-Repeat sputum cultures from 07/09 negative
Plan
-Continue with prednisone twice daily, bronchodilators, Mucinex
-Continue with IV Lasix as needed for net euvolemic to slight negative
-Continue Bactrim 3x weekly for PJP prophylaxis
-Started vitamin D and calcium for bone health on long-term steroid
-Wean oxygen for SpO2 goal >88%
-F/U Rheum at [facility] for DMARD
#Euvolemic hyponatremia
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
-Will continue to monitor BMP for now, encourage p.o. intake
#Anxiety
-Patient with significant anxiety in the room, had a panic attack
-Started on Zoloft for maintenance therapy
-Will transition to alprazolam to Ativan 1 mg 3 times daily PRN
#Leukocytosis
-Secondary to steroid regimen
-Trend CBC and temperature curve
-Resolved
#Newly diagnosed rheumatoid arthritis
-Complicated by apparent rheumatic ILD
-Positive anti-CCP and KIERRA here; s/p pulse dose steroid
-Will need to follow-up with rheumatology for maintenance therapy
-Would avoid MTX as DMARDs due to potential for lung toxicity
#Transaminitis
-Hepatitis B and C serology negative, HIV testing negative
-ALT elevated disproportionately to AST and other LFTs
-Cannot rule out NAFLD, consider RUQ US if worsening
#Lower extremity peripheral neuropathy
-Possibly steroid-induced (?) versus idiopathic
-Trial of gabapentin 300 mg nightly has seemed effective
DVT ppx: Lovenox SQ
Diet: Regular
CODE STATUS: Full Code
Disposition: Await Transfer to [facility]
Anticipated Discharge: Within 24 hours
Subjective/Interval History
-
Date of Service: July 22, 2024
Seen and examined at the bedside. No events overnight. AFVSS this morning on 11 L via NC
I spoke with [facility] transfer center yesterday. Spoke with Dr. Delgado from pulmonology who stated that he would try to facilitate bed availability at [facility] today for her.
She otherwise denies any new complaints. Denies shortness of breath at time of my evaluation. No significant coughing.
Objective Data
-
Labs:
Laboratory Results
07/22/24
05:18
WBC 11.2 H
Hgb 12.0
Hct 34.3 L
Plt Count 159
Sodium 131 L
Potassium 3.9
Chloride 97 L
Carbon Dioxide 31 H
BUN 14
Creatinine 0.5 L
Glucose 86
Calcium 8.5
Vital Signs:
Vital Signs
Temp Pulse Resp BP Pulse Ox
98 F 87 16 112/77 94
07/22/24 07:50 07/22/24 11:15 07/22/24 11:15 07/22/24 02:00 07/22/24 07:51
Review of Systems
-
History Source: Patient
All other systems: Reviewed and negative
Physical Exam
-
General: Well Developed, Well Nourished, No Apparent Distress and Comfortable
HEENT: Normocephalic, Atraumatic, Moist Mucous Membranes, Anicteric and Oxygen
Respiratory: Non Labored Respirations and Other (Coarse sounds at midlung bilaterally); Negative Wheezes, Rales, Rhonchi or Accessory Resp Muscle Use
Cardiac: Regular Rhythm and S1/S2; Negative Murmur, Rub or Gallop
GI: Soft, Nontender, Nondistended and Normal Bowel Sounds
Musculoskeletal: No Clubbing, No Cyanosis, No Edema and Other (No signs of tenosynovitis)
Skin: Warm, Dry and Normal Turgor; Negative Rash
Neuro: AO x 3 and Nonfocal/Grossly Intact
Psych: Calm
Data Reviewed
-
Labs: Labs Reviewed by me and Discussed with Patient
[2024-07-22] MEDS: TYLENOL 500 MG PO (12:42)
--- NOTE | 2024-07-22 17:31 | CM ---
Received text from Dr. Morris that he has been having ongoing discussions with [facility] and there is a good chance they will have a bed tonight but not before 7pm. Call placed to Jose at [facility] , she stated she is unable to set it up until we have a
time, Call to IMU, spoke with Adelita. Instructed IMU to please call [facility] once they receive a call from [facility] with a time. She stated there is already a completed Acute to Acute Transfer Form completed on her chart and they will only need to
update the date.
[2024-07-22] MEDS: LOVENOX 40 MG SC (17:57)
[2024-07-22] MEDS: MELATONIN 5 MG PO (20:16)
[2024-07-22] MEDS: NEURONTIN 300 MG PO (20:16)
--- NOTE | 2024-07-22 21:32 | W.PN.UPDATE ---
Update Note
Progress Note Update
[facility] team called and requested an update regarding of the current patient`s condition prior transfer time. Spoke to Dr. Stapleton, discussed the case over the phone. Per Dr. Stapleton, morning team [phone]�(Dr. Dover) would like to speak to the
hospitalist in morning as well. Will update the attending physician.
--- NOTE | 2024-07-22 23:11 | PTCARENOTE ---
Patient being transferred to [place]. Called and gave verbal report to [facility] RN. Transport called and scheduled for midnight.
--- NOTE | 2024-07-23 01:40 | PTCARENOTE ---
Patient picked up by transport team and was taken via stretcher to [facility]. Verbal report given to herve RN. All patient belongings were taken with patient. No issues moving patient from bed to stretcher.
== END 2024-07-23 01:45 | disposition short-term general hospital (02) | DRG 871 ==
LOC: IMU 10:08
PROVIDERS: Internal Medicine; Internal Medicine Critical Care Medicine; Nurse Practitioner Family; Registered Nurse; ADMITTING PHYSICIAN Internal Medicine; ATTENDING PHYSICIAN Internal Medicine; CONSULT PHYSICIAN Internal Medicine Critical Care Medicine; EMERGENCY PHYSICIAN Emergency Medicine; FAMILY PHYSICIAN Internal Medicine
PROC: 5A0955A Assistance with Respiratory Ventilation, Greater than 96 Consecutive Hours, High Flow/Velocity Cannula (ICD-10-PCS; 2024-06-13)
DX: A41.9 Sepsis, unspecified organism (principal); J18.9 Pneumonia, unspecified organism; J80 Acute respiratory distress syndrome; J81.0 Acute pulmonary edema; E22.2 Syndrome of inappropriate secretion of antidiuretic hormone; I31.39 Other pericardial effusion (noninflammatory); M05.10 Rheumatoid lung disease with rheumatoid arthritis of unspecified site; E03.9 Hypothyroidism, unspecified; E87.70 Fluid overload, unspecified; R23.0 Cyanosis; R59.0 Localized enlarged lymph nodes; J84.10 Pulmonary fibrosis, unspecified; I27.20 Pulmonary hypertension, unspecified; F41.0 Panic disorder [episodic paroxysmal anxiety]; R74.01 Elevation of levels of liver transaminase levels; D72.829 Elevated white blood cell count, unspecified; G62.0 Drug-induced polyneuropathy; T38.0X5A Adverse effect of glucocorticoids and synthetic analogues, initial encounter; Y92.239 Unspecified place in hospital as the place of occurrence of the external cause; Z79.890 Hormone replacement therapy; Z86.711 Personal history of pulmonary embolism; Z11.52 Encounter for screening for COVID-19; Z86.16 Personal history of COVID-19; Z86.718 Personal history of other venous thrombosis and embolism
CPT/HCPCS: 36600; 71045; 71046; 71250; 71275; 80048; 80053; 80061; 81003; 82164; 82306; 82784; 82805; 82962; 83516; 83605; 83735; 83880; 84100; 84484; 85025; 85027; 85610; 85652; 85730; 86038; 86039; 86140; 86160; 86200; 86430; 86480; 86704; 86706; 86803; 87040; 87070; 87205; 87340; 87389; 87449; 87502; 87807; 87811; 87899; 93005; 93306; 93970; 94640; 94669; 96361; 96374; 97116; 97163; 97167; 97530; 97535; 99291; Q9950; Q9967

== ENCOUNTER 2025-02-13 22:23 | Inpatient (IN) | payer MEDICARE, SELFPAY ==
[2025-02-13 15:25] VITALS: BP 112/73
[2025-02-13 15:54] LABS: Hematocrit 35.2 % (37.0-47.0); Hemoglobin 12.1 g/dL (12.0-16.0); Mean Corp Hgb Conc. 34.4 g/dL (33.0-37.0); Mean Corpuscular Volume 100.0 fL (81.0-99.0); Nucleated Red Blood Cells % 0 %; Platelet Count 214 10^3/uL (130-400); Red Cell Dist. Width 15.6 % (11.5-14.5)
[2025-02-13 16:19] LABS: ALT (SGPT) 32 U/L (0-35); AST (SGOT) 46 U/L (14-36); Albumin 4.7 g/dl (3.5-5.0); Alkaline Phosphatase 80 U/L (38-126); Blood Urea Nitrogen 30 mg/dl (7-17); Calcium 10.2 mg/dl (8.4-10.2); Carbon Dioxide 21 mmol/L (22-30); Chloride 93 mmol/L (98-107); Glucose 206 mg/dl (70-99); Potassium 5.6 mmol/L (3.5-5.1); Sodium 123 mmol/L (135-145); Total Protein 7.1 g/dl (6.3-8.2); eGFR 31.07
--- NOTE | 2025-02-13 19:12 | ED.GENMED ---
History of Present Illness
General
Chief Complaint: Abnormal Lab Value
Time Seen by Provider: 02/13/25 18:38
History of Present Illness
History of Present Illness:
65-year-old female presents to the emergency department for evaluation of hyponatremia and abnormal creatinine. These labs were identified on routine outpatient labs, she is 5 months status post bilateral lung transplant performed at the [place]
[facility], states she has been doing well since then has been compliant with all of her medications. She is not on any diuretics or SSRIs. She denies any dizziness or lightheadedness. She endorses drinking approximately 64 ounces of water
daily, does not drink any alcohol at this time. She is chronically on steroids but tapering down
Past History
Past History
ED Past Medical History: Hypothyroidism
ED Past Surgical History:
Social History
Tobacco: Non-smoker
Review of Systems
Review of Systems
Allergies reviewed?: Yes
All Other Systems: ROS reviewed and negative except as documented in HPI and ROS
Phy Exam
Physical Exam
Physical Exam:
GEN: Well appearing, NAD, WDWN
HEENT: Oral mucosa moist, no scleral icterus
Cardiac: Regular rate
Lung: No respiratory distress, no tachypnea
MSK: No gross deformity or injuries
Skin: Good color, no pallor or jaundice, no rashes
Neuro: AO x3, moves all extremities freely
Psych: Calm, cooperative
Course
Orders/Labs/Results
Orders:
Orders
02/13/25 Dinner
1800 calorie (15 carb) Diabetic
At Your Request: Full Participation
Does patient need a safe tray?: No
Fluid Restriction: 1200 mL/day (40 oz)
02/13/25 15:46
Complete Blood Count/With Diff Urgent
Comprehensive Metabolic Panel Urgent
Serum Osmolality Urgent
Comment: ADD ON
02/13/25 20:02
Osmolality, Random Urine Urgent
Date Specimen was Collected: 02/13/25
Time Specimen was Collected: 20:01
Urinalysis Reflex To Culture Urgent
Date Specimen was Collected: 02/13/25
Time Specimen was Collected: 20:01
Urine Sodium Urgent
Date Specimen was Collected: 02/13/25
Time Specimen was Collected: 20:01
02/13/25 21:00
3% Sodium Chloride 250 ml [Sodium Chloride 3%] 250 ml IV ONCE
02/13/25 21:53
Admit/Transfer Patient As Directed
Co-Sign Provider:
Level of Care: Inpatient admission
Assign to:: Medical/Surgical
Physician / Group: Radha
Diagnosis: Hyponatremia
Reason for Hospitalization: Hyponatremia
Expected length of stay greater than two midnights?: Yes
ELOS- Estimated Length of Stay in days: 2
I certify the patient meets the requirements for IP care: Yes
PRN Pain Medication Management As Directed
May give lesser potent ordered pain med per pt: Yes
preference::
Protocol:: Medication orders for pain may be administered in a
manner that supports deferring to patient preference
when the pt is:
- Requesting an ordered lesser potent pain medication.
Least to most potent pain medications are defined
as: acetaminophen < NSAID < tramadol < opioids
(morphine, oxycodone, hydromorphone).
- Requesting a lesser dose of the same medication IF
ORDERED.
- Requesting a less intrusive route of administration
if both routes are prescribed by the provider (PO <
IV).
02/13/25 21:56
Code Status As Directed
Resuscitation Status: Full Code
02/13/25 22:00
3% Sodium Chloride 250 ml [Sodium Chloride 3%] 250 ml IV ONCE
02/13/25 23:00
Tacrolimus [Prograf] 1 mg PO Q12
02/13/25 23:14
Acetaminophen [Tylenol] 650 mg PO Q4HPRN PRN
Albuterol [ProAIR HFA INHALER] 2 puff INH R Q4HPRN PRN sob
Bisacodyl [Dulcolax] 10 mg RECTAL [id number] PRN
Docusate W/Senna [Senokot-S] 1 tablet PO BIDPRN PRN
Enoxaparin Sodium [Lovenox] 80 mg SC Q12
Polyethylene Glycol Powder [Miralax] 17 grams PO DAILYPRN PRN
02/13/25 23:14
NEPHROLOGY CONSULT Routine
Consulting Provider: Oswaldo Chun V.
Was physician already notified: Yes
VTE Contraindication Routine
VTE Mechanical Device Contraindication: Medical Contraindication
Pharmocologic Contraindication: Medical Contraindication
Activity As Directed
Activity Level: With Assistance
Bedside Glucose Monitoring As Directed
Frequency: AC&HS
Orthostatic Vital Signs As Directed
Orthostatic VS Frequency: Daily
Vital Signs As Directed
Frequency: Per unit guidelines
Pulse Ox/spot Check [RESP] Routine
Quantity: 1
02/13/25 23:30
Mycophenolate Mofetil 1,000 mg PO Q12
02/14/25 06:00
Basic Metabolic Panel IN AM
Complete Blood Count/No Diff IN AM
Cortisol, Random IN AM
Magnesium IN AM
TSH IN AM
Tacrolimus (Prograft - FK506) [S] IN AM
Levothyroxine [Synthroid] 137 mcg PO DAILY @ 0600
02/14/25 07:30
Insulin Aspart Corrective Low [Novolog Flexpen-Low Resistance] See Protocol SC AC
02/14/25 08:00
Atovaquone [Mepron Suspension] 750 mg PO DAILY
Insulin Aspart Pen [Novolog Flexpen] 4 units SC DAILY
Magnesium Oxide 400 mg PO BID
Multivitamin [Theragran] 1 tablet PO DAILY
Prednisone [Deltasone] 10 mg PO DAILY
Valganciclovir [Valcyte] 900 mg PO DAILY
posaconazole See Dose Instructions PO DAILY
02/14/25 12:00
Insulin Aspart Pen [Novolog Flexpen] 8 units SC DAILY@1200
02/14/25 17:00
Insulin Aspart Pen [Novolog Flexpen] 8 units SC DAILY@1700
Abnormal Lab Results
02/13/25 02/13/25 02/13/25
15:46 20:02 21:14
RBC 3.52 L 10^6/uL
(4.20-5.40)
Hct 35.2 L %
(37.0-47.0)
MCV 100.0 H fL
(81.0-99.0)
MCH 34.4 H pg
(27.0-31.0)
RDW 15.6 H %
(11.5-14.5)
Abs Immat Gran (auto) 0.1 H 10^3/uL
(0-0.05)
Absolute Lymphs (auto) 0.2 L 10^3/uL
(1.2-3.4)
Immature Gran % 0.9 H %
(0-0.5)
Neutrophils % 92.8 H %
(42.2-75.2)
Lymphocytes % 3.4 L %
(20.5-51.1)
Sodium 123 L mmol/L
(135-145)
Potassium 5.6 H mmol/L
(3.5-5.1)
Chloride 93 L mmol/L
(98-107)
Carbon Dioxide 21 L mmol/L
(22-30)
BUN 30 H mg/dl
(7-17)
Creatinine 1.8 H mg/dL
(0.6-1.0)
Glucose 206 H mg/dl
(70-99)
AST 46 H U/L
(14-36)
Urine Osmolality 198 L mOsm/kg
(300-900)
Urine Sodium 10 L mmol/L
(30-90)
POC Glucose 133 H mg/dl
(70-99)
02/13/25 15:46
02/13/25 15:46
Vital Signs
Initial and Last Documented VS:
Initial Vital Signs
Temp Pulse Resp BP Pulse Ox
97.7 F 91 18 112/73 99
02/13/25 15:25 02/13/25 15:25 02/13/25 15:25 02/13/25 15:25 02/13/25 15:25
Last Documented Vital Signs
Temp Pulse Resp BP Pulse Ox
97.7 F 74 20 168/78 100
02/13/25 15:25 02/13/25 22:47 02/13/25 22:47 02/13/25 22:47 02/13/25 22:47
MDM/Problems Addressed
MDM/Problems Addressed:
Patient's hyponatremia is most likely SIADH given her dilute urine but euvolemic status. Case discussed with nephrology will start hypertonic saline and admit to the hospitalist service for further manage
*Pulse Oximetry
SaO2: 99
Oxygen Mode of Delivery: Room air
Patient hypoxic: no
*Critical Care Note
Total Time (30-74mins, 75-104mins- exclusive of procedures): 30
comment:
critical care time: 30 minutes
Critical care time was exclusive of: Separately billable procedures, treating other patients, and teaching time
Critical care was necessary to treat or prevent imminent or life-threatening deterioration of the following conditions: Hyponatremia requiring hypertonic saline
Critical care time spent personally by me on the following activities:
[x] Review of old charts
[x] Obtaining history from patient or surrogate
[x] Ordering and review of the laboratory studies
[ ] Ordering and review of radiographic studies
[x] Ordering and performing treatments and interventions
[ x] Patient patient's response to treatment
[x] Development of treatment plan with patient or surrogate
ED Attending Note
-
Portions of this chart may have been created with voice recognition software.� Occasional wrong word or��sound alike� substitutions may have occurred due to the inherent limitations of voice recognition software.
Discharge Plan
Departure
Patient Disposition: Admit
Date of Disposition: 02/13/25
Time of Disposition: 21:05
Admit to: Med/Surg
Presentation/result/management discussed w/ accepting MD/DO: Hospitalist
Discharge Problem:
Acute hyponatremia, Syndrome of inappropriate ADH (SIADH) secretion
Interventions
Interventions:
*Risk Screen - Suicide Last Done: 02/13/25 23:27
*General Assessment Last Done: 02/13/25 15:25
*Neglect/Abuse Screening Last Done: 02/13/25 22:00
*ED- Fall Risk Assessment Last Done: 02/13/25 19:09
*ED COVID-19 Vaccine History Last Done: 02/13/25 23:27
*Nursing Disposition Last Done: 02/13/25 23:05
Discharge Date and Time
Discharge Date/Time: 02/13/25 23:06
[2025-02-13 20:12] LABS: Urine Character Clear (Clear)
--- NOTE | 2025-02-13 21:07 | HPS.HSE ---
Family Physician
-
Family Physician: Meseret Jones, DO
Chief Complaint
-
Abnormal Sodium level
History of Present Illness
This is a 65-year-old female with past medical history of interstitial lung disease status post bilateral lung transplant about 5 months ago who presents to the emergency department with abnormally low sodium on follow-up lab.
She is 5 months status post bilateral lung transplant performed at the [facility], states she has been doing well since then has been compliant with all of her medications. She is not on any diuretics or SSRIs. She states that she
was prescribed furosemide 20 mg as needed for leg edema but she has not taken this for several weeks. She reports that tacrolimus has been reduced to 2.5 mg every 12 hours since 1 month ago. She reports no significant medication changes.
Patient reported having an episode of diarrhea about 2 weeks ago but it has since resolved. She denies any other GI losses. She did show a trend of tacrolimus levels which has been in the 8-9 over the last that recent checks in the last 2 months.
She also shows a trend of her sodium which seems to have been trending down from around 135 in January 29 to 128 on February 12 and down to 125 here today. She was asked to go to the emergency department after noticing the sodium of 128.
She reports some fatigue but otherwise no other acute symptoms.
She denies any respiratory symptoms. She denies any urinary symptoms. She denies feeling dizzy or lightheaded.
Due to uptrending of creatinine basically from around 1.1-1.4 and then to 1.8 today she is being instructed to hydrate herself and she has been taking 64 ounces of p.o. water in addition to her regular fluid intake.
In the emergency department she was afebrile, blood pressure was 112/73 with a pulse of 91 and she is satting 99% on room air.
CBC is unremarkable, electrolytes show a sodium of 123 which is down from a baseline of around 130. Rest of her electrolytes are mostly unremarkable. BUN and creatinine have increased from a baseline of around 0.5 to creatinine of 1.8 now. BUN is
30. Glucose 200. Serum osmolality is 280. UA is negative with fairly dilute urine specific gravity, urine osmolality is 180 with a urine sodium of 10.
Medical History
Past Medical History
Past Medical History: Reports Other
Additional Past Medical History:
Interstitial lung disease s/p lung Tx
distant history of provoked PE and recent provoked PE status post surgery on Lovenox
Steroid-induced insulin-dependent diabetes
Past Surgical History: Reports Other
Additional Past Surgical History:
L ankle surgery
C section
[facility]
Social History
Tobacco: Non-smoker
Alcohol: Occasional
Drug: None
Personal:
Family History
Family History: Not pertinent
Allergies / Home Medications
Allergies reflects when Allergies were last updated in [employer].
Home Medications with original date entered in [employer]
Allergy/Medication List:
Allergies
Allergy/AdvReac Type Severity Reaction Status Date / Time
sulfamethoxazole (From Allergy Unknown Verified 02/13/25 15:28
Bactrim)
trimethoprim (From Bactrim) Allergy Unknown Verified 02/13/25 15:28
Home Medications
calcium carbonate (Calcium 600) 600 mg PO DAILY Supplement 09/07/23
cholecalciferol (vitamin D3) 50 mcg (2,000 unit) tablet (Vitamin D3) 50 mcg PO DAILY Supplement 09/07/23
albuterol sulfate 90 mcg/actuation aerosol inhaler 2 puff inhalation R Q4HPRN PRN sob 06/11/24
ascorbate calcium (vitamin C) 500 mg tablet 500 mg PO DAILY Supplement 06/11/24
cefpodoxime 200 mg tablet 200 mg PO Q12H Infection 06/11/24
levothyroxine 137 mcg tablet 137 mcg PO DAILY Thyroid 06/11/24
therapeutic multivitamin 1 tab PO DAILY Supplement 06/11/24
atovaquone 750 mg/5 mL oral suspension 750 mg PO DAILY 02/13/25
enoxaparin 80 mg/0.8 mL subcutaneous syringe (Lovenox) 80 mg SC Q12H 02/13/25
insulin aspart U-100 100 unit/mL (3 mL) subcutaneous pen (Novolog FlexPen U-100 Insulin aspart) 5 unit SC TID 02/13/25
insulin lispro 100 unit/mL subcutaneous pen 10 unit SC TID 02/13/25
magnesium oxide 400 mg PO BID 02/13/25
mycophenolate mofetil 500 mg tablet 500 mg PO Q12H 02/13/25
posaconazole 100 mg tablet,delayed release 300 mg PO DAILY 02/13/25
prednisone 10 mg tablet 10 mg PO DAILY 02/13/25
tacrolimus 0.5 mg capsule, immediate-release 1.5 mg PO Q12H 02/13/25
valganciclovir 450 mg tablet 900 mg PO DAILY 02/13/25
Review of Systems
-
Constitutional: Reports No Symptoms
EENT: Reports No Symptoms
Respiratory: Reports No Symptoms
Cardiac: Reports No Symptoms
Abdomen/GI: Reports No Symptoms
: Reports No Symptoms
Musculoskeletal: Reports No Symptoms
Skin: Reports No Symptoms
Neurological: Reports No Symptoms
Endocrine: Reports No Symptoms
Hematologic/Lymphatic: Reports No Symptoms
Psych: Reports No Symptoms
Physical Exam
Vital Signs
Vital Signs
Temp Pulse Resp BP Pulse Ox
97.7 F 91 18 112/73 99
02/13/25 15:25 02/13/25 15:25 02/13/25 15:25 02/13/25 15:25 02/13/25 19:16
Physical Exam
General: Well Developed, Well Nourished, Comfortable and Conversant
HEENT: NormoCephalic, Moist mucous membranes and Atraumatic
Respiratory: Clear
Cardiac: S1/S2 and Regular Rhythm; No Murmur or Rub
GI: Soft, Non Tender, Non Distended and Normal Bowel Sounds; No Organomegaly
Rectal: Deferred by Provider
Musculoskeletal: No Clubbing, No Cyanosis and No Edema
Skin: No Rash
Neuro: Awake, Alert, Nonfocal/grossly intact and Cranial Nerves Intact
Psych: Calm and Intact Judgment/Insight
Laboratory Results
-
02/13/25 15:46
02/13/25 15:46
Laboratory Results
Total Bilirubin 0.8 mg/dl (0.2-1.3) 02/13/25 15:46
AST 46 U/L (14-36) H 02/13/25 15:46
ALT 32 U/L (0-35) 02/13/25 15:46
Alkaline Phosphatase 80 U/L (38-126) 02/13/25 15:46
Data Reviewed
-
Lab Data: Labs Reviewed by me
Old Records: Reviewed
Impression/Plan
-
IMPRESSION:
65-year-old with 5 months status post bilateral lung transplant for interstitial lung disease now off oxygen and on antirejection medication including Tac CellCept and prednisone, suppressive antibiotics for pneumocystis as well as suppressive
antifungal and antiviral agents who presents to the emergency department with worsening sodium levels appears to have trended down from 135 to now 125 since January 29. Her creatinine has also trended up from baseline of around 1.1-1.4 and now 1.8.
She is hemodynamically stable. No signs of acute infection.
PLAN:
Hyponatremia -suspected SIADH given elevated urine osmolality in the setting of low serum awesome's and low serum sodium. Urine sodium remains consistent with SIADH. Patient has lung transplant and is at high risk for SIADH and appears to have
some baseline sodium handling issues prior to her surgery. She is not on any diuretics thiazides. She has no fluid losses. She does have some significant free water intake drinking about 6 4 ounces of free water on top of her usual fluid intake.
Suspect a subacute cause given trends on the labs.
- Admit to MedSurg
- Free water restrict to 1200ml/day for now
- Starting 3% saline infusion
- Repeat sodium every 6 to 8 hours
- Check orthostatics
- Check a.m. cortisol and TSH
- Nephrology consulted and following
IZABELA -creatinine worsening from a baseline of around 1.1-1.4 now up to 1.8. Patient does not appear to to be dehydrated. She has a Tac level pending from February 12
- Follow-up on tacrolimus level
- Repeat Tac from her labs
- Continue current dosing of tacrolimus is pending results
- Will avoid nephrotoxic
- Renal dose medication
- 3% saline infusion as above
- UA is bland and is not consistent with interstitial nephritis but this cannot be ruled out at this time
- Renal ultrasound
- Nephrology consulted
Lung transplantation -5 months status post bilateral lung transplant.
- Continue Tac 1 every 12 (based on provided notes from January 19 from her transplant physician, she is to continue on tacrolimus 1 although patient is not entirely sure)
�Continue CellCept 1000 twice daily
- Continue prednisone 10 mg
- Continue prophylaxis with posaconazole, Valcyte and atovaquone
DVT/PE -postop venous thromboembolism
- estimated GFR ~ 30, Continue Lovenox 80 mg every 12, consider changing to heparin if kidney function declines
CODE STATUS�full code
[2025-02-13 21:16] LABS: Glucose - Point of Care 133 mg/dl (70-99)
[2025-02-13] MEDS: SODIUM CHLORIDE 3% 250 IV (22:39)
[2025-02-13 22:47] VITALS: BP 168/78
--- NOTE | 2025-02-13 23:45 | PTCARENOTE ---
Patient received on unit as admission from emergency room. No acute distress is noted upon arrival. Able to ambulate from transfer stretcher to bed under own power with no assistance. Denies current pain, discomfort, or shortness of breath. Patient
verbalizes having taken Cellcept, and Tacromilus while in the emergency room as instructed by staff.
[2025-02-14] MEDS: PROGRAF PO (00:12)
[2025-02-14] MEDS: LOVENOX 80 MG SC ×3 (00:24→20:49)
[2025-02-14] MEDS: CELLCEPT PO (00:37)
[2025-02-14 02:29] VITALS: BP 158/89
[2025-02-14 02:34] VITALS: BMI 27.0
[2025-02-14 04:51] LABS: Hematocrit 34.5 % (37.0-47.0); Hemoglobin 11.7 g/dL (12.0-16.0); Mean Corp Hgb Conc. 33.9 g/dL (33.0-37.0); Mean Corpuscular Volume 100.0 fL (81.0-99.0); Platelet Count 189 10^3/uL (130-400); Red Cell Dist. Width 15.8 % (11.5-14.5)
[2025-02-14 05:15] LABS: Blood Urea Nitrogen 26 mg/dl (7-17); Calcium 10.2 mg/dl (8.4-10.2); Carbon Dioxide 23 mmol/L (22-30); Chloride 99 mmol/L (98-107); Estimated Creatinine Clearance 36 ml/min; Glucose 91 mg/dl (70-99); Magnesium 1.9 mg/dl (1.6-2.3); Potassium 5.3 mmol/L (3.5-5.1); Sodium 129 mmol/L (135-145); eGFR 35.79
[2025-02-14 05:47] LABS: Cortisol, Random 3.0 ug/dl; TSH 2.15 uIU/ml (0.47-4.68)
[2025-02-14] MEDS: SYNTHROID 137 MCG PO (06:12)
[2025-02-14 07:18] VITALS: BP 121/71
[2025-02-14 07:56] LABS: Glucose - Point of Care 92 mg/dl (70-99)
[2025-02-14] MEDS: THERAGRAN 1 TABLET PO (07:56)
[2025-02-14] MEDS: CELLCEPT 1000 MG PO ×2 (07:56→20:49)
[2025-02-14] MEDS: DELTASONE 10 MG PO (07:56)
[2025-02-14] MEDS: MAGNESIUM OXIDE 400 MG PO ×2 (07:56→20:49)
[2025-02-14] MEDS: MEPRON SUSPENSION 750 MG PO (07:57)
[2025-02-14] MEDS: PROGRAF 1 MG PO ×2 (07:58→20:49)
[2025-02-14] MEDS: VALCYTE 900 MG PO (07:58)
--- NOTE | 2025-02-14 08:32 | W.PN.HOSP.TC ---
Addendum entered and electronically signed by Cabrera Daigle MD 02/14/25 14:30:
Attending�addendum:
I�saw�and�evaluated�the�patient.�I�reviewed�the�resident�s�note�and�agree�with�findings�and�plan�as�documented�in�the�resident�s�note.��
�patient seen and examined at bedside, denies any chest pain or shortness of breath, no abdominal pain, no nausea, no vomiting, no diarrhea or constipation.
Admitted last night with hyponatremia.
Physical�exam:
GENERAL : Patient is awake, alert, oriented x3
HEENT: Nonicteric sclerae, PERRLA, EOMI. Oropharynx clear. Moist mucous membranes. Conjunctivae appear well perfused.
CHEST: Chest wall is nontender.
HEART: Regular rate and rhythm without murmurs.
LUNGS: Clear to auscultation bilaterally.
ABDOMEN: Soft, positive bowel sounds, nontender, no organomegaly.
RECTAL: Deferred.
SKIN: No rash, no excessive bruising, petechiae, or purpura.
NEUROLOGIC: Cranial nerves II-XII intact without motor/sensory deficit.
�
Assessment/plan:
Hyponatremia.
Appreciate nephrology input.
Sodium level improved.
Continue with water restriction
Acute renal failure.
Improving
Recent bilateral lung transplant.
Tacrolimus level pending
Insulin-dependent diabetes mellitus.
Sliding scale.
Continue home insulin
CODE STATUS: Full code
DVT prophylaxis: Lovenox
Diet: DM diet
�
Total�time�spent�on�today�s�encounter�was�65�minutes�which�included�time�spent�in�counseling�the�patient/family�regarding�diagnosis�and�treatment�plan�as�listed�above,�goals�of�care,�and�symptom�management.�Case�was�discussed�with�nursing�staff,�spec
ialists,�and�care�coordinators/case�management.�All�labs�and�imaging�personally�reviewed�by�me.�Remainder�the�time�spent�in�detailed�review�of�previous�records,�lab�data,�imaging,�and�other�medical�provider�documentation.
Original Note:
Today's Communication/Plan
-
Stop 3% NS per nephro
Fluid restriction
follow BMP
Start PPI as not in med-rec
Assessment / Plan
Assessment / Plan
65-year-old female with significant past medical history of bilateral lung transplant for interstitial lung disease and 08/2024 presents to the hospital for hyponatremia noted on outpatient labs. Sodium noted to be 123 on admission.
Asymptomatic hyponatremia
SIADH likely in setting of chronic lung disease
-- Serum osmolality 280, urine osmolality 198 consistent with SIADH
-- Started on 3% normal saline in the ED per nephrology recommendations
-- Improved to 129 this morning -stop 3% per nephrology
-- Fluid restriction 1200
-- Nephrology appreciated
IZABELA
--Creatinine 1.8 on admission, baseline around 1.1-1.4
--Improving
--Tacrolimus levels pending as could be potentiating IZABELA
--Nephrology appreciated
--Avoid nephrotoxins
Recent bilateral lung transplantation in 08/2024
--Follows with Dr. Osorio at [facility] - coordinator # [phone]
--Continue immunosuppressive therapy tacrolimus and mycophenolate
--Notes provided from her transplant physician on January 19 noted she is on tacrolimus 1 mg -continue tacrolimus 1 mg until trough returns
--Continue prophylactic antimicrobials�atovaquone 750 mg daily, valganciclovir 900 mg daily, posaconazole 300 mg daily
--Continue steroids prednisone 10 mg daily
-- Albuterol every 4 hours as needed
Steroid-induced insulin-dependent diabetes
--Aspart 4 units before breakfast, 8 units before lunch and dinner
--Sliding scale insulin
Hypothyroidism
-- Continue levothyroxine 137
History of provoked PE on Lovenox
-- Continue Lovenox 80 mg subcutaneous twice daily
GERD
--Lansoprazole 30mg daily
DVT lovenox
Full Code
She does not take cefpodoxime although in the chart confirmed with her own med-rec list. It is confirmed that she takes tacrolimus 1mg BID.
Anticipated Discharge: 24 - 48 hours
Subjective/Interval History
-
Date of Service: February 14, 2025
Overall feels well. Did complain of slight cough however did not receive her albuterol inhaler dose this morning yet. She was going to ask her nurse.
Objective Data
-
Labs:
Laboratory Results
02/14/25 02/14/25
00:12 04:40
WBC 5.6
Hgb 11.7 L
Hct 34.5 L
Plt Count 189
Sodium Cancelled 129 L
Potassium Cancelled 5.3 H
Chloride Cancelled 99
Carbon Dioxide Cancelled 23
BUN Cancelled 26 H
Creatinine Cancelled 1.6 H
Glucose Cancelled 91
Calcium Cancelled 10.2
Vital Signs:
Vital Signs
Temp Pulse Resp BP Pulse Ox
97.9 F 73 16 121/71 97
02/14/25 07:18 02/14/25 07:18 02/14/25 07:18 02/14/25 07:18 02/14/25 07:18
Review of Systems
-
History Source: Patient
EENT: Reports No Symptoms Reported
Respiratory: Reports No Symptoms
Cardiac: Reports No Symptoms
Abdomen/GI: Reports No Symptoms
Genitourinary: Reports No Symptoms
Skin: Reports No Symptoms
Neuro: Reports No Symptoms
Physical Exam
-
General: No Apparent Distress and Comfortable
HEENT: Normocephalic
Respiratory: Clear to Auscultation
Cardiac: Regular Rhythm and S1/S2
GI: Soft, Nontender, Nondistended and Normal Bowel Sounds
Musculoskeletal: No Cyanosis and No Edema
Skin: Warm and Dry
Neuro: AO x 3
Psych: Calm
[2025-02-14] MEDS: NOVOLOG FLEXPEN-LOW RESISTANCE SC (08:54)
[2025-02-14] MEDS: NOVOLOG FLEXPEN 4 UNITS SC (08:55)
--- NOTE | 2025-02-14 09:01 | W.CON.NEPH ---
Consultation
-
Date/Time Consultation Requested: 02/14/2025 7:00 AM
Date/Time Consultation Performed: 02/14/2025 9:00 AM
Requesting Provider: Dr. Daigle
Performing Provider: Dr. Chun
Reason for Consultation: Hyponatremia
Medical History
-
Chief Complaint: Hyponatremia
History of Present Illness:
The patient is a 65-year-old female with past medical history of interstitial lung disease status post bilateral lung transplant about 5 months ago (maintained on prednisone and tacrolimus, and MMF) who presents to the emergency department with
abnormally low sodium on follow-up lab.
She is 5 months status post bilateral lung transplant performed at the [facility], states she has been doing well since then has been compliant with all of her medications. She is not on any diuretics or SSRIs. She states that she
was prescribed furosemide 20 mg as needed for leg edema but she has not taken this for several weeks. She reports that tacrolimus has been reduced to 2.5 mg every 12 hours since 1 month ago. She reports no significant medication changes. The
patient has a history of diabetes and is maintained on insulin. She is maintained on levothyroxine for her hypothyroidism.
Patient reported having an episode of diarrhea about 2 weeks ago but it has since resolved. She denies any other GI losses. She did show a trend of tacrolimus levels which has been in the 8-9 over the last that recent checks in the last 2 months.
She also shows a trend of her sodium which seems to have been trending down from around 135 in January 29 to 128 on February 12 and down to 125 here today. She was asked to go to the emergency department after noticing the sodium of 128. On
presentation to the emergency room her sodium was 123 and nephrology was consulted. I spoke with the emergency room physicians last night and we initiated hypertonic saline. The patient was also noted to be in acute renal failure with a creatinine
up to 1.8 off of her baseline which is normally between 1.1-1.4.
Past Medical History
Interstitial lung disease s/p lung Tx 5 months prior
distant history of provoked PE and recent provoked PE status post surgery on Lovenox
Steroid-induced insulin-dependent diabetes
Hypothyroidism
CKD stage III baseline creatinine 1.1-1.4
Past Surgical History: Reports Other
Additional Past Surgical History:
L ankle surgery
C section
Bilateral Lung Transplant
Social History
Tobacco: Non-Smoker
Alcohol: Occasional
Personal:
Family History
Family History: Not Pertinent
Allergies / Home Medications
Allergy/AdvReac Type Severity Reaction Status Date / Time
sulfamethoxazole (From Allergy Unknown Verified 02/13/25 15:28
Bactrim)
trimethoprim (From Bactrim) Allergy Unknown Verified 02/13/25 15:28
�Medication �Instructions �Recorded �Confirmed �Type
calcium carbonate (Calcium 600) 600 mg PO DAILY Supplement 09/07/23 02/13/25 History
cholecalciferol (vitamin D3) 50 50 mcg PO DAILY Supplement 09/07/23 02/13/25 History
mcg (2,000 unit) tablet (Vitamin
D3)
albuterol sulfate 90 mcg/actuation 2 puff inhalation R Q4HPRN PRN sob 06/11/24 02/13/25 History
aerosol inhaler
ascorbate calcium (vitamin C) 500 500 mg PO DAILY Supplement 06/11/24 02/13/25 History
mg tablet
cefpodoxime 200 mg tablet 200 mg PO Q12H Infection 06/11/24 02/13/25 History
levothyroxine 137 mcg tablet 137 mcg PO DAILY Thyroid 06/11/24 02/13/25 History
therapeutic multivitamin 1 tab PO DAILY Supplement 06/11/24 02/13/25 History
atovaquone 750 mg/5 mL oral 750 mg PO DAILY 02/13/25 02/13/25 History
suspension
enoxaparin 80 mg/0.8 mL 80 mg SC Q12H 02/13/25 02/13/25 History
subcutaneous syringe (Lovenox)
insulin aspart U-100 100 unit/mL 5 unit SC TID 02/13/25 02/13/25 History
(3 mL) subcutaneous pen (Novolog
FlexPen U-100 Insulin aspart)
insulin lispro 100 unit/mL 10 unit SC TID 02/13/25 02/13/25 History
subcutaneous pen
magnesium oxide 400 mg PO BID 02/13/25 02/13/25 History
mycophenolate mofetil 500 mg tablet 500 mg PO Q12H 02/13/25 02/13/25 History
posaconazole 100 mg tablet,delayed 300 mg PO DAILY 02/13/25 02/13/25 History
release
prednisone 10 mg tablet 10 mg PO DAILY 02/13/25 02/13/25 History
tacrolimus 0.5 mg capsule, 1.5 mg PO Q12H 02/13/25 02/13/25 History
immediate-release
valganciclovir 450 mg tablet 900 mg PO DAILY 02/13/25 02/13/25 History
Review of Systems
-
Constitutional: Reports No Symptoms except fatigue
EENT: Reports No Symptoms
Respiratory: Reports No Symptoms
Cardiac: Reports No Symptoms
Abdomen/GI: Reports No Symptoms
: Reports No Symptoms
Musculoskeletal: Reports No Symptoms
Skin: Reports No Symptoms
Neurological: Reports No Symptoms
Endocrine: Reports No Symptoms
Hematologic/Lymphatic: Reports No Symptoms
Psych: Reports No Symptoms
Physical Exam
Vital Signs
Vital Signs
Temp Pulse Resp BP Pulse Ox
97.9 F 73 16 121/71 97
02/14/25 07:18 02/14/25 07:18 02/14/25 07:18 02/14/25 07:18 02/14/25 07:18
Lab Results
02/14/25 04:40
02/14/25 04:40
WBC 5.6 10^3/uL (4.8-10.8) 02/14/25 04:40
RBC 3.45 10^6/uL (4.20-5.40) L 02/14/25 04:40
Hgb 11.7 g/dL (12.0-16.0) L 02/14/25 04:40
Hct 34.5 % (37.0-47.0) L 02/14/25 04:40
Plt Count 189 10^3/uL (130-400) 02/14/25 04:40
Sodium 129 mmol/L (135-145) L 02/14/25 04:40
Potassium 5.3 mmol/L (3.5-5.1) H 02/14/25 04:40
Chloride 99 mmol/L (98-107) 02/14/25 04:40
Carbon Dioxide 23 mmol/L (22-30) 02/14/25 04:40
BUN 26 mg/dl (7-17) H 02/14/25 04:40
Creatinine 1.6 mg/dL (0.6-1.0) H 02/14/25 04:40
eGFR 35.79 02/14/25 04:40
Glucose 91 mg/dl (70-99) 02/14/25 04:40
Calcium 10.2 mg/dl (8.4-10.2) 02/14/25 04:40
Albumin 4.7 g/dl (3.5-5.0) 02/13/25 15:46
Physical Exam
General: AOx3, Nontoxic , NAD
HEENT: PERRL, EOMI, Anicteric, Conjunctivae Clear, Ear/Nose Intact, Hearing Normal, Oropharynx Clear/Moist, Dentition Intact, Facial Symmetry, Neck Supple, Neck: Trachea Midline, No JVD and No Thyromegaly, no Bruits
Respiratory: Clear to auscultation bilaterally with normal lung exersion
Cardiac: S1/S2 and Regular Rate/Rhythm
Breast: Deferred by me
Abdomen: Soft, Nontender, Nondistended, Normal Bowel Sounds and No Hepatosplenomegaly
Rectal: Deferred by Provider
Genito-urinary: No Costovertebral Tenderness
Extremities: No Clubbing, No Cyanosis and No Edema
Skin: No Rash or open lesions
Neuro: Nonfocal/Grossly Intact, CN II-XII (Intact) and Strength (Musculoskeletal exam 5 out of 5 both upper and lower extremities)
Hematologic/Lymphatic: No Cervical Lymphadenopathy, No Submandibular Lymphadenopathy and No Supraclavicular Lymphadenopathy
Psych: Mood/afflect pleasant, Insight/judgement good and Appropriate
Vascular: plus 2 pedal and radial pulses
Data Reviewed
-
Ultrasound: Report Reviewed by me (Renal and bladder ultrasound to be reviewed by me)
Labs: Labs Reviewed by me (BMP CBC urine osmolality (198), urinalysis bland urine sodium 10)
Old Records: Reviewed (Reviewed previous old records from day 07/22/2024 sodium 131)
Assessment/Plan
-
Impression:
Asymptomatic hyponatremia (123)
IZABELA (1.8)
CKD stage III A (1.1-1.4)
Lung transplantation -5 months status post bilateral lung transplant
DVT/PE -postop venous thromboembolism.
Posttransplant diabetes
Hypothyroidism
Plan:
Hyponatremia:
- Possibly due to underlying SIADH in setting of chronic lung disease
- Maintain fluid restriction at 1200 cc to (of note she was recently told to drink more water because of her kidney dysfunction which likely has exacerbated her hyponatremia)
- Will now stop hypertonic saline infusion for a total of 250cc
- Patient on chronic steroids but appears to be hemodynamically stable
- TSH and cortisol reviewed
IZABELA/CKD
- Reviewed urinalysis which is bland
- Noted low urine sodium could be consistent with volume depletion
- Will follow-up with kidney and bladder
- Need to obtain tacrolimus trough level as elevated calcineurin inhibitor levels may be potentiating acute kidney injury
[2025-02-14 12:36] LABS: Glucose - Point of Care 182 mg/dl (70-99)
[2025-02-14] MEDS: NOVOLOG FLEXPEN-LOW RESISTANCE 1 UNITS SC ×2 (13:49→18:05)
[2025-02-14] MEDS: NOVOLOG FLEXPEN 8 UNITS SC ×2 (13:50→18:05)
[2025-02-14 14:39] VITALS: BP 124/80
--- NOTE | 2025-02-14 16:27 | CM ---
Alert awake oriented patient who lives with dgt Morena in an apartment with one step to enter.She is independent in driving and all ADLs.No adaptive devices.
No VN/SNF hx
Pharmacy VS [place]
PCP Dr Lopez
PLAN Home no needs
[2025-02-14 16:56] LABS: Glucose - Point of Care 181 mg/dl (70-99)
[2025-02-14 18:34] LABS: Folate 12.0 ng/ml (2.76-20); Vitamin B12 981 pg/ml (239-931)
[2025-02-14 21:24] LABS: Glucose - Point of Care 78 mg/dl (70-99)
[2025-02-14 23:00] VITALS: BP 121/81
[2025-02-14 23:19] LABS: Glucose - Point of Care 101 mg/dl (70-99)
[2025-02-15] MEDS: SYNTHROID 137 MCG PO (06:11)
[2025-02-15 07:05] LABS: Hematocrit 32.8 % (37.0-47.0); Hemoglobin 11.0 g/dL (12.0-16.0); Mean Corp Hgb Conc. 33.5 g/dL (33.0-37.0); Mean Corpuscular Volume 101.9 fL (81.0-99.0); Platelet Count 171 10^3/uL (130-400); Red Cell Dist. Width 16.0 % (11.5-14.5)
[2025-02-15 07:30] VITALS: BP 143/84
[2025-02-15 07:41] LABS: Blood Urea Nitrogen 25 mg/dl (7-17); Calcium 9.2 mg/dl (8.4-10.2); Carbon Dioxide 23 mmol/L (22-30); Chloride 104 mmol/L (98-107); Estimated Creatinine Clearance 38 ml/min; Glucose 84 mg/dl (70-99); Potassium 5.4 mmol/L (3.5-5.1); Sodium 131 mmol/L (135-145); eGFR 38.67
[2025-02-15 08:05] LABS: Glucose - Point of Care 100 mg/dl (70-99)
--- NOTE | 2025-02-15 09:51 | W.PN.HOSP.TC ---
Addendum entered and electronically signed by Lico Roberts MD 02/15/25 13:00:
Seen and examined the patient. Agree with resident's plan except for changes in my documentation.
65-year-old with bilateral lung transplant for interstitial lung disease presented with hyponatremia. recently levels of Creat was up , she was asked to drink more water.
Renal ultrasound-numerous tiny bilateral probable renal calculi nonobstructing. No hydronephrosis
Echo 07/01/2024-normal LV size, wall thickness and function. EF 50 to 55%. Trace MR. Mild TR. PA pressure 30 to 35 mmHg.
She feels ' fine'
CVS: S1-S2 normal
Chest: CTA B/L
Abdomen: Soft, NT / Bowel sounds present
Extremities: No edema
[employer]: Non focal exam
# Hyponatremia
Likely due to Excess water intake in the setting of renal dysfunction
3% saline given.
Sodium slowly improving-131 today
Fluid restriction
Nephrology following
# Acute kidney injury-creatinine was 1.8 on [id number]. Improving 1.5 today
Creat Feb 12 was 1.6, Jan 29 was 1.38.
# Hyperkalemia- due to IZABELA and Tac
# Recent bilateral lung transplant August [address] Osorio at [facility] Coordinator # [phone]
Continue immunosuppressive therapy tacrolimus 1 mg every 12 hours, prednisone 10 mg daily and mycophenolate 1000 mg every 12 hours
Also on posaconazole 300 mg daily, valganciclovir 900 mg daily atovaquone 750 mg daily for prophylaxis
Tacrolimus level 19.4 (collected at 4.43 am on 02/14/25) ( pt says she took it between 8pm and 9 Pm )
Not on O2
Will not order a CXR now as she is being transferred ( Discussed with Dr. Giles )
# Steroid-induced diabetes- hemoglobin A1c- added on
Aspart 4 units before breakfast, 10 units before lunch and 12 units before dinner at home
Accu-Cheks and sliding scale coverage
# Hypothyroidism-continue levothyroxine
# History of provoked PE-continue Lovenox 80 mg twice daily
# GERD-continue PPI
# DVT prophylaxis-Lovenox
# Full code
Patient does not take cefpodoxime and also that patient is only on tacrolimus 1 mg twice daily as opposed to 1.5 , Mycophenolate 1000 mg BID as opposed to 500 md BID noted on the med list
D/W Nephrology, we feel the tac level being high may have been adding on to IZABELA and drinking more water caused hyponatremia.
Called [facility] . Spoke to Dr. Osorio, reviewed results. Transfer center was connected also. Will transfer pt to [facility] under his service. He advised to hold Further Tac doses and have it drift down. Also if she remains here to get a Tac
level tomorrow am.
spoke to daughter from pt's cell . All agreeable for transfer.
Time spent over 50 min
Part of this note was created using voice recognition system. Occasional wrong word or��sound alike� substitutions may have inadvertently occurred due to the inherent limitations of voice recognition software. If noted kindly bring it to my
attention for correction.
Original Note:
Today's Communication/Plan
-
Lokelma 1 dose
Monitor BMP
appreciate nephrology
Reach out to [facility] for tacrolimus recommendations
Assessment / Plan
Assessment / Plan
65-year-old female with significant past medical history of bilateral lung transplant for interstitial lung disease and 08/2024 presents to the hospital for hyponatremia noted on outpatient labs. Sodium noted to be 123 on admission.
Asymptomatic hyponatremia
SIADH likely in setting of chronic lung disease vs increase fluids intake
-- Started on 3% normal saline in the ED per nephrology recommendations - later discontinued as Na improved
-- Improving 131 today
-- Fluid restriction 1200
-- Nephrology appreciated
IZABELA
--Creatinine 1.8 on admission, baseline around 1.1-1.4
--Improving 1.6 -> 1.5 today
--Tacrolimus levels 19.4 - lung transplant therapeutic level goal is 10-15 -could be potentiating IZABELA
--Will need to reach out to [facility] for further recs
--Nephrology appreciated
--Avoid nephrotoxins
Recent bilateral lung transplantation in 08/2024
--Follows with Dr. Osorio at [facility] - coordinator # [phone]
--Continue immunosuppressive therapy tacrolimus and mycophenolate
--Notes provided from her transplant physician on January 19 noted she is on tacrolimus 1 mg
--Continue prophylactic antimicrobials�atovaquone 750 mg daily, valganciclovir 900 mg daily, posaconazole 300 mg daily
--Continue steroids prednisone 10 mg daily
-- Albuterol every 4 hours as needed
Steroid-induced insulin-dependent diabetes
--Aspart 4 units before breakfast, 8 units before lunch and dinner
--Sliding scale insulin
Hypothyroidism
-- Continue levothyroxine 137
History of provoked PE on Lovenox
-- Continue Lovenox 80 mg subcutaneous twice daily
GERD
--Lansoprazole 30mg daily
Hyperkalemia
-- 1 dose of Lokelma 10g
DVT lovenox
Full Code
She does not take cefpodoxime although in the chart confirmed with her own med-rec list. It is confirmed that she takes tacrolimus 1mg BID.
Anticipated Discharge: Within 24 hours
Subjective/Interval History
-
Date of Service: February 15, 2025
Overall feels well. No complaints. Wants to leave the hospital.
Objective Data
-
Labs:
Laboratory Results
02/15/25
05:28
WBC 5.6
Hgb 11.0 L
Hct 32.8 L
Plt Count 171
Sodium 131 L
Potassium 5.4 H
Chloride 104
Carbon Dioxide 23
BUN 25 H
Creatinine 1.5 H
Glucose 84
Calcium 9.2
Vital Signs:
Vital Signs
Temp Pulse Resp BP Pulse Ox
98.0 F 78 16 143/84 99
02/15/25 07:30 02/15/25 07:30 02/15/25 07:30 02/15/25 07:30 02/15/25 07:30
I&O
02/14/25 02/15/25 02/16/25
06:59 06:59 06:59
Intake Total 1050 / 1050
Balance 1050 / 1050
Review of Systems
-
History Source: Patient
Respiratory: Reports No Symptoms
Cardiac: Reports No Symptoms
Abdomen/GI: Reports No Symptoms
Skin: Reports No Symptoms
Neuro: Reports No Symptoms
Physical Exam
-
General: No Apparent Distress and Comfortable
HEENT: Normocephalic
Respiratory: Wheezes (Before albuterol inhaler this a.m.) and Other
Cardiac: Regular Rhythm and S1/S2
GI: Soft, Nontender, Nondistended and Normal Bowel Sounds
Musculoskeletal: No Cyanosis and No Edema
Skin: Warm and Dry
Neuro: AO x 3
Psych: Calm
[2025-02-15] MEDS: NOVOLOG FLEXPEN-LOW RESISTANCE SC ×2 (10:24→13:36)
[2025-02-15] MEDS: DELTASONE 10 MG PO (10:31)
[2025-02-15] MEDS: CELLCEPT 1000 MG PO ×2 (10:31→20:16)
[2025-02-15] MEDS: LOVENOX 80 MG SC ×2 (10:32→20:17)
[2025-02-15] MEDS: MAGNESIUM OXIDE 400 MG PO ×2 (10:32→20:16)
[2025-02-15] MEDS: NOVOLOG FLEXPEN 4 UNITS SC (10:33)
[2025-02-15] MEDS: MEPRON SUSPENSION 750 MG PO (10:33)
[2025-02-15] MEDS: NOXAFIL 300 MG PO (10:33)
[2025-02-15] MEDS: PROGRAF 1 MG PO (10:34)
[2025-02-15] MEDS: THERAGRAN 1 TABLET PO (10:34)
[2025-02-15] MEDS: PREVACID 30 MG PO (10:34)
[2025-02-15] MEDS: VALCYTE 900 MG PO (10:34)
[2025-02-15 12:17] LABS: Glucose - Point of Care 116 mg/dl (70-99)
--- NOTE | 2025-02-15 13:26 | W.PN.NEPH.PH ---
Today's Communication / Plan
-
Immunosuppression per [facility]
Dose to be held tonight per transplant and patient to be transferred
Assessment/Plan
-
Impression:
Asymptomatic hyponatremia (123)
IZABELA (1.8)
CKD stage III A (1.1-1.4)
Lung transplantation -5 months status post bilateral lung transplant
DVT/PE -postop venous thromboembolism.
Posttransplant diabetes
Hypothyroidism
Plan:
Hyponatremia:
-Improved to 131
- Possibly due to underlying SIADH in setting of chronic lung disease
- Maintain fluid restriction at 1200 cc to (of note she was recently told to drink more water because of her kidney dysfunction which likely has exacerbated her hyponatremia)
- Patient on chronic steroids but appears to be hemodynamically stable
- TSH and cortisol reviewed
Hyperkalemia:
- Likely due to elevated tacrolimus levels
- Lokelma was provided by primary service
IZABELA/CKD
-Tacrolimus trough level was 19 this is likely potentiating her acute kidney injury
-Unfortunately, it was not of true tacrolimus trough and should be repeated with at least a 10-hour trough
-I defer any adjustments in her immunosuppression regimen to [facility],and therefore will be transferred to [facility]
- Reviewed urinalysis which is bland
- Noted low urine sodium could be consistent with volume depletion
- Will follow-up with kidney and bladder: No obstructive uropathy
-
-
Date of Service: February 15, 2025
CC / HPI / ROS
-
Chief Complaint:
IZABELA
Hyperkalemia
History of Present Illness:
Hyperkalemia noted
Hemodynamically stable
IZABELA persist with creatinine at 1.5
Review of Systems:
Nonoliguric
No chest pain
No shortness of breath
Complains of tremor
Labs
-
Labs:
WBC 5.6 10^3/uL (4.8-10.8) 02/15/25 05:28
RBC 3.22 10^6/uL (4.20-5.40) L 02/15/25 05:28
Hgb 11.0 g/dL (12.0-16.0) L 02/15/25 05:28
Hct 32.8 % (37.0-47.0) L 02/15/25 05:28
Plt Count 171 10^3/uL (130-400) 02/15/25 05:28
Sodium 131 mmol/L (135-145) L 02/15/25 05:28
Potassium 5.4 mmol/L (3.5-5.1) H 02/15/25 05:28
Chloride 104 mmol/L (98-107) 02/15/25 05:28
Carbon Dioxide 23 mmol/L (22-30) 02/15/25 05:28
BUN 25 mg/dl (7-17) H 02/15/25 05:28
Creatinine 1.5 mg/dL (0.6-1.0) H 02/15/25 05:28
eGFR 38.67 02/15/25 05:28
Glucose 84 mg/dl (70-99) 02/15/25 05:28
Calcium 9.2 mg/dl (8.4-10.2) 02/15/25 05:28
Albumin 4.7 g/dl (3.5-5.0) 02/13/25 15:46
Physical Exam
-
Vital Signs:
Vital Signs
Temp Pulse Resp BP Pulse Ox
98.0 F 84 16 143/84 98
02/15/25 07:30 02/15/25 11:06 02/15/25 11:06 02/15/25 07:30 02/15/25 11:06
Respiratory:: Bilateral: CTA
Lung Excursion:: Normal
Abdomen:: Nontender and Soft
Bowel Sounds:: Normal
Extremity Edema:: None: Bilateral:
Bonilla Catheter: No
[2025-02-15] MEDS: LOKELMA 10 GRAM PO (13:37)
[2025-02-15] MEDS: NOVOLOG FLEXPEN 8 UNITS SC ×2 (13:38→18:23)
[2025-02-15 15:15] VITALS: BP 120/82; BP 128/80; BP 137/76; PULSE 83; PULSE 84; PULSE 99
--- NOTE | 2025-02-15 15:36 | CM ---
Pt is for transfer to [facility] transplant team when bed available.
Medical nec forms completed.
MD completed transfer pkg.
As per MD receiving MD is Dr Osorio
PLAN Transfer to [facility] after [facility] has bed and notifies [facility]
[2025-02-15 17:06] LABS: Glucose - Point of Care 197 mg/dl (70-99)
[2025-02-15] MEDS: NOVOLOG FLEXPEN-LOW RESISTANCE 1 UNITS SC (18:22)
[2025-02-15 21:48] LABS: Glucose - Point of Care 152 mg/dl (70-99)
[2025-02-15 23:00] VITALS: BP 126/76
[2025-02-15 23:30] VITALS: BP 126/76
[2025-02-17 08:38] LABS: Glycohemoglobin (HgbA1c) 5.5 % (4.0-5.6)
== END 2025-02-16 03:19 | disposition short-term general hospital (02) | DRG 644 ==
LOC: 3 WEST ACU 22:23
PROVIDERS: Emergency Medicine; Physician Assistant; ADMITTING PHYSICIAN Internal Medicine; ATTENDING PHYSICIAN Internal Medicine; CONSULT PHYSICIAN Specialist; EMERGENCY PHYSICIAN Emergency Medicine; FAMILY PHYSICIAN Internal Medicine
DX: E22.2 Syndrome of inappropriate secretion of antidiuretic hormone (principal); N17.9 Acute kidney failure, unspecified; Z94.2 Lung transplant status; N18.31 Chronic kidney disease, stage 3a; E03.9 Hypothyroidism, unspecified; Z79.52 Long term (current) use of systemic steroids; E11.22 Type 2 diabetes mellitus with diabetic chronic kidney disease; Z79.4 Long term (current) use of insulin; Z86.711 Personal history of pulmonary embolism; Z88.1 Allergy status to other antibiotic agents; Z88.2 Allergy status to sulfonamides; Z79.624 Long term (current) use of inhibitors of nucleotide synthesis; Z79.890 Hormone replacement therapy
CPT/HCPCS: 76770; 80048; 80053; 80197; 81003; 82533; 82607; 82746; 82962; 83036; 83735; 83930; 83935; 84300; 84443; 85025; 85027; 93005; 94640; 96365; 99291